=== PATIENT | male | born 1950 | race Caucasian/White ===

== ENCOUNTER 2024-02-29 12:28 | Inpatient (IN) | payer OTHER ==
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
[2024-02-29 15:54] LABS: Anisocytosis Slight; Basophils % (A) 0 %; Eosinophils # (A) 0.1 k/uL (0-0.7); Eosinophils % (A) 1 %; HCT 39.7 % (39.0-53.0); HGB 12.5 gm/dL (13.0-17.5); Hypochromasia Slight; Lymphocytes # (A) 0.7 k/uL (1.0-4.8); Lymphocytes % (A) 10 %; MCH 31.2 pg (25.0-35.0); MCHC 31.4 g/dL (31.0-37.0); MCV 99.2 fL (80.0-100.0); Macrocytosis Slight; Mean Platelet Volume 8.6; Monocytes # (A) 0.4 k/uL (0-1.0); Monocytes % (A) 5 %; Neutrophils # (A) 6.1 k/uL (1.3-7.7); Neutrophils % (A) 83 %; Platelet Count 157 k/uL (150-450); RDW 16.2 % (11.5-15.5); WBC 7.3 k/uL (3.8-10.6)
[2024-02-29 16:11] LABS: ALT 12 U/L (4-49); AST 17 U/L (17-59); African American GFR (CKD) >90 (>60 ml/min/1.73 sqM); Albumin 3.3 g/dL (3.5-5.0); Alkaline Phosphatase 102 U/L (38-126); Anion Gap 5 mmol/L; Blood Urea Nitrogen 14 mg/dL (9-20); Calcium 7.9 mg/dL (8.4-10.2); Carbon Dioxide 24 mmol/L (22-30); Chloride 107 mmol/L (98-107); Glucose 99 mg/dL (74-99); Non-African American GFR(CKD) 88 (>60 ml/min/1.73 sqM); Potassium 4.4 mmol/L (3.5-5.1); Sodium 136 mmol/L (137-145); Total Protein 6.2 g/dL (6.3-8.2)
[2024-02-29 16:17] LABS: NT-Pro-B-Type Natriuretic Pept 499 pg/mL
[2024-02-29] MEDS ORDERED: ONDANSETRON 4 MG/2 ML VIAL IVP PRN (18:28)
[2024-02-29] MEDS ORDERED: MORPHINE SULFATE 4 MG/ML SYRINGE IV PRN (18:28)
[2024-02-29] MEDS ORDERED: NALOXONE 0.4 MG/ML 1 ML VIAL IV PRN (18:28)
[2024-02-29] MEDS ORDERED: VANCOMYCIN IV PER PHARMACY 1 EACH MISC MISCELLANE PRN (18:29)
[2024-02-29] MEDS: SODIUM CHLORIDE 0.9% 1,000 ML IV SCH (19:00)
--- NOTE | 2024-02-29 19:34 | XR ---
EXAMINATION TYPE: XR tibia fibula bilateral DATE OF EXAM: 02/29/2024 7:01 PM COMPARISON: None CLINICAL INDICATION: Male, 74 years old with history of pain; TECHNIQUE: XR tibia fibula bilateral; examined in AP and lateral projections. FINDINGS: No evidence of any acute osseous pathology. Diffuse soft tissue edema throughout the lower extremity. No subcutaneous gas or evidence for osseous erosion. Degeneration changes of the knees with joint space tearing osteophyte formation. Degeneration changes of the ankle with osteophyte formation and joint space tearing. IMPRESSION: 1. No evidence of acute fracture. 2. Soft tissue edema of the bilateral lower extremities. No evidence for osteomyelitis. 3. 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 [facility], Workstation: [id number], 02/29/2024 7:32 PM
[2024-02-29] MEDS: VANCOMYCIN 1,500 MG in SODIUM CHLORIDE 0.9% 500 ML 500 ML IVPB ONE (20:04)
--- NOTE | 2024-02-29 21:24 | US ---
EXAMINATION TYPE: US venous doppler duplex LE DATE OF EXAM: 02/29/2024 8:16 PM COMPARISON: US 2014 CLINICAL INDICATION: Male, 74 years old with history of DVT; Pain, swelling, cellulitis, ulcers on amina th calves, Pain, Swelling TECHNIQUE: The lower extremity deep venous system is examined utilizing real time linear array sonog vandana with graded compression, color doppler sonography, and spectral doppler. SIDE PERFORMED: Bilateral FINDINGS: VESSELS IMAGED: Common Femoral Vein Deep Femoral Vein Greater Saphenous Vein * Femoral Vein Popliteal Vein Small Saphenous Vein * Proximal Calf Veins (* superficial vessels) Slightly limited due to edema Right Leg: Negative for DVT Left Leg: Negative for DVT IMPRESSION: No ultrasound evidence for deep venous thrombosis. [facility], , 02/29/2024 9:22 PM
--- NOTE | 2024-02-29 22:13 | CT ---
EXAMINATION TYPE: CT chest angio for PE DATE OF EXAM: 02/29/2024 9:55 PM COMPARISON: None CLINICAL INDICATION: Male, 74 years old with history of elev d dimer, PE?; r/o pe TECHNIQUE/CONTRAST: CTA scan of the thorax is performed with IV Contrast, patient injected with 100 mL of Isovue 370, MIP images are created and reviewed these are created on a separate workstation.. CT DLP: 579.1 mGycm, Automated exposure control for dose reduction was used. FINDINGS: Pulmonary Artery: There is no evidence for a filling defect within the pulmonary vasculature to sugge st acute pulmonary embolism. The pulmonary artery is of normal size. Lungs/Pleura: No evidence of focal consolidation, pleural effusion or pneumothorax. 5 mm right upper lobe pulmonary nodule. 3 mm left upper lobe pulmonary nodule. Airway: Large airways are patent. Heart: Heart is within normal limits for size. Vasculature: No evidence of aortic aneurysm. Mediastinum: No gross evidence of adenopathy. Musculoskeletal: No acute osseous abnormalities Soft Tissues/lymph nodes: Unremarkable. Lower neck: No significant findings. Upper Abdomen: No significant findings. IMPRESSION: 1. No evidence of pulmonary embolism. 2. 5 mm right upper lobe pulmonary nodule. Short-term follow-up in 6-12 months recommended to ensure stability. r Follow up recommendations for incidental pulmonary nodules, if there are any, are per [employer]?s [employer] or [employer]. https://radiopaedia.org/articles/govrquhvgh-ylqtcln-huedulawl-rxdojk-srrhindaktysdeg-[email or web address]?lang=us [facility], , 02/29/2024 10:11 PM
[2024-03-01] MEDS: VANCOMYCIN 1,500 MG in SODIUM CHLORIDE 0.9% 500 ML 500 ML IVPB SCH (08:46)
[2024-03-01 08:49] LABS: ALT 8 U/L (10-49); AST 12 U/L (14-35); Albumin 2.9 g/dL (3.8-4.9); Albumin/Globulin Ratio 1.38 Ratio (1.60-3.17); Alkaline Phosphatase 82 U/L (41-126); BUN/Creat Ratio 15.12 Ratio (12.00-20.00); Blood Urea Nitrogen 12.1 mg/dL (9.0-27.0); Calcium 7.4 mg/dL (8.7-10.3); Carbon Dioxide 21.1 mmol/L (21.6-31.8); Chloride 106 mmol/L (96-109); Globulin 2.1 g/dL (1.6-3.3); Glucose 104 mg/dL (70-110); Phosphorus 3.2 mg/dL (2.4-5.1); Potassium 3.8 mmol/L (3.5-5.5); Sodium 138 mmol/L (135-145); Total Bilirubin 0.6 mg/dL (0.3-1.2)
[2024-03-01 08:53] LABS: Basophils # (A) 0.01 X 10*3/uL (0.00-0.10); Basophils % (A) 0.2 %; Eosinophils # (A) 0.01 X 10*3/uL (0.04-0.35); Eosinophils % (A) 0.2 %; HCT 31.9 % (39.6-50.0); Lymphocytes # (A) 0.72 X 10*3/uL (0.90-5.00); MCH 31.3 pg (27.0-32.0); MCHC 31.3 g/dL (32.0-37.0); MCV 99.7 FL (80.0-97.0); Mean Platelet Volume 9.9 FL (9.5-12.2); Monocytes # (A) 0.44 X 10*3/uL (0.20-1.00); Monocytes % (A) 8.6 %; NRBC Per 100 WBC 0.07 X 10*3/uL (0.00-0.01); Neutrophils # (A) 3.93 X 10*3/uL (1.80-7.70); Neutrophils % (A) 76.4 %; Platelet Count 129 X 10*3/uL (140-440); RDW 14.8 % (11.5-14.5); WBC 5.14 X 10*3/uL (4.50-10.00)
[2024-03-01] MEDS ORDERED: ACETAMINOPHEN TAB 325 MG TAB PO PRN (10:14)
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
[2024-03-01] MEDS: FUROSEMIDE 10 MG/ML 2 ML VIAL IV SCH (11:11)
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
[2024-03-01] MEDS: ZINC OXIDE PASTE (Z-GUARD) 1 APPLIC TOPICAL SCH (15:14)
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
[2024-03-02] MEDS: ENOXAPARIN 40 MG/0.4 ML SYRINGE SQ SCH (08:04)
[2024-03-02 08:28] LABS: Blood Urea Nitrogen 14.1 mg/dL (9.0-27.0); Calcium 7.5 mg/dL (8.7-10.3); Carbon Dioxide 22.5 mmol/L (21.6-31.8); Chloride 106 mmol/L (96-109); Glucose 100 mg/dL (70-110); Potassium 3.6 mmol/L (3.5-5.5); Sodium 138 mmol/L (135-145)
--- NOTE | 2024-03-02 12:28 | P.PN ---
Subjective Progress Note Date: 03/02/24 Principal diagnosis: Reason for follow-up is bilateral lower extremity ulcer and cellulitis Patient is a 74-year-old male with no significant past medical history presenting to the hospital for evaluation of increasing swelling and redness especially to the left lower extremity that apparently has been going on for few weeks has been diagnosed with a venous stasis ulcer and cellulitis. On today's evaluation that is 03/02/2024,the patient did have resolution of his fever is afebrile this morning patient is breathing comfortable room air no chest pain shortness of breath or cough no abdominal pain or any worsening pain to the lower extremity. Patient did have 1 creatinine 1.0 no CBC was done today no cultures Objective - Vital Signs Vital signs: Vital Signs Temp 98.5 F 03/02/24 12:24 Pulse 92 03/02/24 12:24 Resp 18 03/02/24 12:24 BP 107/66 03/02/24 12:24 Pulse Ox 97 03/02/24 07:40 FiO2 Intake & Output 03/01/24 03/02/24 03/02/24 18:59 06:59 18:59 Intake Total 1126 928 240 Balance 1126 928 240 Intake: Intake, IV Titration 650 100 Amount Sodium Chloride 0.9% 1, 50 000 ml @ 75 mls/hr IV . [id number] [facility] Rx#:[id number] Vancomycin 1,500 mg In 500 Sodium Chloride 0.9% 500 ml 500 ml @ 167 mls/hr IVPB Q12H [facility] Rx#: [id number] ceFAZolin 2 gm In Sodium 50 Chloride 0.9% 50 ml @ 100 mls/hr IVPB Q8HR [facility] Rx# :[id number] cefTRIAXone 2 gm In 100 50 Sodium Chloride 0.9% 50 ml @ 100 mls/hr IVPB Q24HR [facility] Rx#:[id number] Oral 476 828 240 Other: Voiding Method Toilet Toilet Toilet # Voids 3 2 - Exam GENERAL DESCRIPTION: An elderly male lying in bed in no distress RESPIRATORY SYSTEM: Unlabored breathing , decreased breath sounds at bases HEART: S1 S2 regular rate and rhythm , ABDOMEN: Soft , no tenderness EXTREMITIES: Bilateral lower extremity ulcer redness has decreased no drainage - Labs CBC & Chem 7: 03/01/24 04:58 10/30/24 05:07 Labs: Abnormal Lab Results - Last 24 Hours (Table) 03/02/24 Range/Units 05:07 Calcium 7.5 L (8.7-10.3) mg/dL Assessment and Plan (1) Leg ulcer, left Current Visit: Yes Status: Acute Code(s): L97.929 - NON-PRS CHRONIC [facility] UNSP PRT OF L LOW LEG W UNSP SEVERITY SNOMED Code(s): 67205094 (2) Left leg cellulitis Current Visit: Yes Status: Acute Code(s): L03.116 - CELLULITIS OF LEFT LOWER LIMB SNOMED Code(s): 48290185942242690 Plan: 1patient presented to hospital with increasing swelling bilateral extremity predominantly to the left lower leg with evidence of surrounding swelling and redness likely and venous stasis ulcer with secondary cellulitis as the patient did report problem with increasing swelling to the lower extremity and likely from gram-positive skin arthur. 2patient to continue with cefazolin 2 g every 8 hours and local wound care per wound care Dictation was produced using [employer] dictation software. please excuse any grammatical, word or spelling errors. Time with Patient: Less than 30
--- NOTE | 2024-03-02 22:20 | P.PN ---
Subjective Progress Note Date: 03/02/24 Pulm patient is an 74-year-old male admitted for bilateral lower EXTR with Eliquis patient has chronic venous stasis anddermatosis secondary to venous stasis for long time and has been getting worse with increased redness and localized temperature patient has some skin breakdown in bilateral lower extremities as well patient has extensive cellulitis of the left lower extremity and some cellulitis of the right lower extremity. Apparently patient had maggots on the extremities on arrival to ER. Patient was tested for diabetes mellitus about an year ago and does not have diabetes mellitus as per the p atient. Patient had a elevated D-dimer because of which CT angio of the chest was obtained which was negative for DVT patient although he has a prior 5 mm pulmonary nodule for which patient will need to follow-up with pulmonary as an outpatient although patient is not a smoker. 03/02/2024 Patient evaluated today in follow up on the medical floor. He continues on IV cefazolin for extensive lower extremity ulcerations. Sitting up on the edge of the bed. Electrolytes are WNL. Review of Systems Constitutional: Denied any fatigue denied any fever. Cardio vascular: denied any chest pain, palpitations Gastrointestinal: denied any nausea, vomiting, diarrhea Pulmonary: Denied any shortness of breath cough Neurologic denied any new focal deficits All inpatient medications were reviewed and appropriate changes in these medications as dictated in the interval history and assessment and plan. PHYSICAL EXAMINATION: GENERAL: The patient is alert and oriented x3, not in any acute distress. Well developed, well nourished. HEENT: Pupils are round and equally reacting to light. EOMI. No scleral icterus. No conjunctival pallor. Normocephalic, atraumatic. No pharyngeal erythema. No thyromegaly. CARDIOVASCULAR: S1 and S2 present. No murmurs, rubs, or gallops. PULMONARY: Chest is clear to auscultation, no wheezing or crackles. ABDOMEN: Soft, nontender, nondistended, normoactive bowel sounds. No palpable organomegaly. MUSCULOSKELETAL: No joint swelling or deformity. EXTREMITIES: No cyanosis, clubbing, or pedal edema. NEUROLOGICAL: Gross neurological examination did not reveal any focal deficits. SKIN: As mentioned in the HPI Assessment and plan -Bilateral lower extremity chronic venous ulceration and inflammation of bilateral lower extremities -Ruled out pulmonary embolism and DVT and osteomyelitis -Bilateral chronic venous stasis for which patient will be started on IV Lasix 40 mg daily -5 mm pulmonary nodule for which patient will need to follow-up with pulmonary as an outpatient DVT prophylaxis: Lovenox 40 mg subcutaneous GI prophylaxis: Protonix Full Code The impression and plan of care has been dictated by Nat Rees, Nurse Practitioner as directed. Dr. Remedios MD I have performed a history and physical examination and medical decision making of this patient, discussed the same with the dictator, and agree with the dictators assessment and plan as written, documented as a scribe. Based on total visit time, I have performed more than 50% of this visit Objective - Vital Signs Vital signs: Vital Signs Temp 98.2 F 03/02/24 13:51 Pulse 80 03/02/24 15:38 Resp 15 03/02/24 13:51 BP 133/79 03/02/24 13:51 Pulse Ox 97 03/02/24 13:51 FiO2 Intake & Output 03/01/24 03/02/24 03/02/24 18:59 06:59 18:59 Intake Total 1126 928 598 Balance 1126 928 598 Intake: Intake, IV Titration 650 100 Amount Sodium Chloride 0.9% 1, 50 000 ml @ 75 mls/hr IV . [id number] [facility] Rx#:[id number] Vancomycin 1,500 mg In 500 Sodium Chloride 0.9% 500 ml 500 ml @ 167 mls/hr IVPB Q12H [facility] Rx#: [id number] ceFAZolin 2 gm In Sodium 50 Chloride 0.9% 50 ml @ 100 mls/hr IVPB Q8HR [facility] Rx# :[id number] cefTRIAXone 2 gm In 100 50 Sodium Chloride 0.9% 50 ml @ 100 mls/hr IVPB Q24HR [facility] Rx#:[id number] Oral [id number] [id number] Other: Voiding Method Toilet Toilet Toilet Bedside Commode # Voids 3 1 - Labs CBC & Chem 7: 03/01/24 04:58 03/02/24 05:07 Labs: Abnormal Lab Results - Last 24 Hours (Table) 03/02/24 Range/Units 05:07 Calcium 7.5 L (8.7-10.3) mg/dL Assessment and Plan Time with Patient: Less than 30
[2024-03-03] MEDS: PANTOPRAZOLE 40 MG TABLET PO SCH (09:05)
--- NOTE | 2024-03-03 14:23 | P.PN ---
Subjective Progress Note Date: 03/03/24 Principal diagnosis: Reason for follow-up is bilateral lower extremity ulcer and cellulitis Patient is a 74-year-old male with no significant past medical history presenting to the hospital for evaluation of increasing swelling and redness especially to the left lower extremity that apparently has been going on for few weeks has been diagnosed with a venous stasis ulcer and cellulitis. On today's evaluation that is 03/03/2024,the patient remains to be afebrile, pat ient is on room air not requiring supplemental oxygen and denies any shortness of breath no chest pain or cough.Patient denies having any nausea or vomiting, no abdominal pain and no diarrhea has been reported, the patient has been to lower extremity feeling better. No new lab has been obtained today his creatinine was 1.0 as of yesterday no cultures Objective - Vital Signs Vital signs: Vital Signs Temp 97.8 F 03/03/24 12:40 Pulse 87 03/03/24 12:40 Resp 18 03/03/24 12:40 BP 125/73 03/03/24 12:40 Pulse Ox 98 03/03/24 12:40 FiO2 Intake & Output 03/02/24 03/03/24 03/03/24 18:59 06:59 18:59 Intake Total 2698 Balance 2698 Intake: Oral 2698 Other: Voiding Method Toilet Toilet Bedside Commode Bedside Commode # Voids 6 2 # Bowel Movements 1 1 - Exam GENERAL DESCRIPTION: An elderly male lying in bed in no distress RESPIRATORY SYSTEM: Unlabored breathing , decreased breath sounds at bases HEART: S1 S2 regular rate and rhythm , ABDOMEN: Soft , no tenderness EXTREMITIES: Bilateral lower extremity ulcer currently dressed no drainage on the dressing - Labs CBC & Chem 7: 03/01/24 04:58 03/02/24 05:07 Assessment and Plan (1) Leg ulcer, left Current Visit: Yes Status: Acute Code(s): L97.929 - NON-PRS CHRONIC [facility] UNSP PRT OF L LOW LEG W UNSP SEVERITY SNOMED Code(s): 36015495 (2) Left leg cellulitis Current Visit: Yes Status: Acute Code(s): L03.116 - CELLULITIS OF LEFT LOWER LIMB SNOMED Code(s): 10826758079326363 Plan: 1patient presented to hospital with increasing swelling bilateral extremity predominantly to the left lower leg with evidence of surrounding swelling and re dness likely and venous stasis ulcer with secondary cellulitis as the patient did report problem with increasing swelling to the lower extremity and likely from gram-positive skin arthur. 2patient seem to have show some clinical improvement, will continue with cefazolin 2 g every 8 hours and local wound care per wound care finishing therapy with oral Keflex Dictation was produced using [employer] dictation software. please excuse any grammatical, word or spelling errors. Time with Patient: Less than 30
--- NOTE | 2024-03-03 14:55 | P.PN ---
Subjective Progress Note Date: 03/03/24 Pulm patient is an 74-year-old male admitted for bilateral lower EXTR with Eliquis patient has chronic venous stasis anddermatosis secondary to venous stasis for long time and has been getting worse with increased redness and localized temperature patient has some skin breakdown in bilateral lower extremities as well patient has extensive cellulitis of the left lower extremity and some cellulitis of the right lower extremity. Apparently patient had maggots on the extremities on arrival to ER. Patient was tested for diabetes mellitus about an year ago and does not have diabetes mellitus as per the p atient. Patient had a elevated D-dimer because of which CT angio of the chest was obtained which was negative for DVT patient although he has a prior 5 mm pulmonary nodule for which patient will need to follow-up with pulmonary as an outpatient although patient is not a smoker. 03/02/2024 Patient evaluated today in follow up on the medical floor. He continues on IV cefazolin for extensive lower extremity ulcerations. Sitting up on the edge of the bed. Electrolytes are WNL. 03/03/2024 Patient evaluated today in follow up on the medical floor. No acute complaints. Continues on IV cefazolin. Review of Systems Constitutional: Denied any fatigue denied any fever. Cardio vascular: denied any chest pain, palpitations Gastrointestinal: denied any nausea, vomiting, diarrhea Pulmonary: Denied any shortness of breath cough Neurologic denied any new focal deficits All inpatient medications were reviewed and appropriate changes in these medications as dictated in the interval history and assessment and plan. PHYSICAL EXAMINATION: GENERAL: The patient is alert and oriented x3, not in any acute distress. Well developed, well nourished. HEENT: Pupils are round and equally reacting to light. EOMI. No scleral icterus. No conjunctival pallor. Normocephalic, atraumatic. No pharyngeal erythema. No thyromegaly. CARDIOVASCULAR: S1 and S2 present. No murmurs, rubs, or gallops. PULMONARY: Chest is clear to auscultation, no wheezing or crackles. ABDOMEN: Soft, nontender, nondistended, normoactive bowel sounds. No palpable organomegaly. MUSCULOSKELETAL: No joint swelling or deformity. EXTREMITIES: No cyanosis, clubbing, or pedal edema. NEUROLOGICAL: Gross neurological examination did not reveal any focal deficits. SKIN: As mentioned in the HPI Assessment and plan -Bilateral lower extremity chronic venous ulceration and inflammation of bilateral lower extremities will continue on IV cefazolin for one more day with plans to DC tomorrow on oral antibiotics. -Ruled out pulmonary embolism and DVT and osteomyelitis -Bilateral chronic venous stasis for which patient will be started on IV Lasix 40 mg daily -5 mm pulmonary nodule for which patient will need to follow-up with pulmonary as an outpatient DVT prophylaxis: Lovenox 40 mg subcutaneous GI prophylaxis: Protonix Full Code The impression and plan of care has been dictated by Nat Rees, Nurse Practitioner as directed. Dr. Remedios MD I have performed a history and physical examination and medical decision making of this patient, discussed the same with the dictator, and agree with the dictators assessment and plan as written, documented as a scribe. Based on total visit time, I have performed more than 50% of this visit Objective - Vital Signs Vital signs: Vital Signs Temp 98.2 F 03/03/24 14:08 Pulse 97 03/03/24 14:08 Resp 20 03/03/24 14:08 BP 107/61 03/03/24 14:08 Pulse Ox 97 03/03/24 14:08 FiO2 Intake & Output 03/02/24 03/03/24 03/03/24 18:59 06:59 18:59 Intake Total 2698 Balance 2698 Intake: Oral 2698 Other: Voiding Method Toilet Toilet Bedside Commode # Voids 6 2 # Bowel Movements 1 1 - Labs CBC & Chem 7: 03/01/24 04:58 03/02/24 05:07 Assessment and Plan Time with Patient: Less than 30
[2024-03-04 07:29] VITALS: RESP 18
[2024-03-04 12:18] VITALS: BP 125/77; PULSE 89; TEMP 97.7
[2024-03-04 13:22] LABS: BUN/Creat Ratio 12.44 Ratio (12.00-20.00); Blood Urea Nitrogen 11.2 mg/dL (9.0-27.0); Calcium 7.6 mg/dL (8.7-10.3); Carbon Dioxide 25.6 mmol/L (21.6-31.8); Chloride 108 mmol/L (96-109); Glucose 95 mg/dL (70-110); Potassium 3.5 mmol/L (3.5-5.5); Sodium 143 mmol/L (135-145)
--- NOTE | 2024-03-04 15:45 | P.PN ---
Subjective Progress Note Date: 03/04/24 Principal diagnosis: Reason for follow-up is bilateral lower extremity ulcer and cellulitis Patient is a 74-year-old male with no significant past medical history presenting to the hospital for evaluation of increasing swelling and redness especially to the left lower extremity that apparently has been going on for few weeks has been diagnosed with a venous stasis ulcer and cellulitis. On today's evaluation that is 03/04/2024, the patient continues to be afebrile, the patient is on room air and breathing comfortably, the Pt denies having any chest pain or cough, the patient denies having any abdominal pain no vomiting or any diarrhea denies pain to the lower extremity. Patient did have a creatinine of 0.9 no CBC was done today and no cultures Objective - Vital Signs Vital signs: Vital Signs Temp 97.7 F 03/04/24 12:17 Pulse 89 03/04/24 12:17 Resp 18 03/04/24 12:17 BP 125/77 03/04/24 12:17 Pulse Ox 99 03/04/24 12:17 FiO2 Intake & Output 03/03/24 03/04/24 03/04/24 18:59 06:59 18:59 Intake Total 360 118 Balance 360 118 Intake: Oral 360 118 Other: Voiding Method Toilet Toilet # Voids 3 1 # Bowel Movements 2 - Exam GENERAL DESCRIPTION: An elderly male lying in bed in no distress RESPIRATORY SYSTEM: Unlabored breathing , decreased breath sounds at bases HEART: S1 S2 regular rate and rhythm , ABDOMEN: Soft , no tenderness EXTREMITIES: Bilateral lower extremity ulcer currently dressed no drainage on the dressing - Labs CBC & Chem 7: 03/01/24 04:58 03/04/24 06:42 Assessment and Plan (1) Leg ulcer, left Status: Acute Code(s): L97.929 - NON-PRS CHRONIC ULC UNSP PRT OF L LOW LEG W UNSP SEVERITY SNOMED Code(s): 74312444 (2) Left leg cellulitis Status: Acute Code(s): L03.116 - CELLULITIS OF LEFT LOWER LIMB SNOMED Code(s): 34982940678394623 Plan: 1patient presented to hospital with increasing swelling bilateral extremity predominantly to the left lower leg with evidence of surrounding swelling and redness likely and venous stasis ulcer with secondary cellulitis as the patient did report problem with increasing swelling to the lower extremity and likely from gram-positive skin arthur. 2patient has shown clinical appointment on cefazolin he will finish therapy with oral Keflex local wound care to continue per the wound care team discussed with LEAD JAVA DEVELOPER ARCHITECT for admitting team Dictation was produced using [employer] dictation software. please excuse any grammatical, word or spelling errors. Time with Patient: Less than 30
--- NOTE | 2024-03-05 15:10 | P.DS ---
Providers Date of admission: 02/29/24 18:30 Attending physician: Herson Brandon Consults: 02/29/24 18:50 Consult Physician Routine Consulting Provider: Kevin Flynn Consult Reason/Comments: Lower left leg infection Do you want consulting provider notified?: Yes Primary care physician: Nelson Mckeon Hospital Course: Final Diagnosis' -Bilateral lower extremity chronic venous ulceration and inflammation of bilateral lower extremities -Ruled out pulmonary embolism and DVT and osteomyelitis -Bilateral chronic venous stasis -5 mm pulmonary nodule for which patient will need to follow-up with pulmonary as an outpatient -Homelessness Discharge Disposition Patient stable for discharge home. Patient has issues with homelessness and refuses community resources. Him and his have been living out of his car and that is their choice on discharge. 1.Right lower extremity: Apply honey gel dry gauze rolled gauze secure with paper tape. Left lower extremity apply absorptive silver zinc to the periwound, dry gauze rolled gauze secure with paper tape. Wrap with Maury wrap bilaterally for compression. Elevate legs 30 minutes 3 times a day above the heart. Avoid sitting with legs dependent. Hospital Course Patient is an 74-year-old male admitted for bilateral lower extremity cellulitis patient has chronic venous stasis and dermatosis secondary to venous stasis for long time and has been getting worse with increased redness and localized temperature patient has some skin breakdown in bilateral lower extremities as well patient has extensive cellulitis of the left lower extremity and some jamila lulitis of the right lower extremity. Apparently patient had maggots on the extremities on arrival to ER. Patient was tested for diabetes mellitus about an year ago and does not have diabetes mellitus as per the patient. Patient had a elevated D-dimer because of which CT angio of the chest was obtained which was negative for DVT patient although he has a prior 5 mm pulmonary nodule for which patient will need to follow-up with pulmonary as an outpatient although patient is not a smoker. Venous Doppler was negative for DVT bilaterally. He was continued on IV cefazolin infectious disease followed the patient. Wound care evaluated the patient local wound care prescribed. He is a high risk for readmission. Please see medication reconciliation for a list of current medications. Thank you for allowing us to participate in the care of this patient. The impression and plan of care has been dictated by Nat Rees, Nurse Practitioner as directed. Dr. Remedios MD I have performed a history and physical examination and medical decision making of this patient, discussed the same with the dictator, and agree with the dictators assessment and plan as written, documented as a scribe. Based on total visit time, I have performed more than 50% of this visit. Patient Condition at Discharge: Fair Plan - Discharge Summary Discharge Rx Participant: No New Discharge Prescriptions: New Cephalexin [Keflex] 500 mg PO Q8HR 7 Days #21 cap Pantoprazole [Protonix] 40 mg PO AC-BRKFST #30 tab Discharge Medication List Cephalexin [Keflex] 500 mg PO Q8HR 7 Days #21 cap 03/04/24 [Rx] Pantoprazole [Protonix] 40 mg PO AC-BRKFST #30 tab 03/04/24 [Rx] Follow up Appointment(s)/Referral(s): Nelson Mckeon MD [Primary Care Provider] - 1-2 days [facility] [NON-STAFF] - 1 Week (please call to set up a follow up appointment) Kevin Flynn MD [STAFF PHYSICIAN] - 1 Week (please call the office to schedule a follow up appointment) Patient Instructions/Handouts: Cephalexin (By mouth), Pantoprazole (By mouth), Cellulitis (GEN) Activity/Diet/Wound Care/Special Instructions: Right lower extremity: Apply honey gel dry gauze rolled gauze secure with paper tape. Left lower extremity apply absorptive silver zinc to the periwound, dry gauze rolled gauze secure with paper tape. Wrap with Maury wrap bilaterally for compression. Elevate legs 30 minutes 3 times a day above the heart. Avoid s itting with legs dependent. Follow up at the [facility] Discharge/Stand Alone Forms: [facility], [facility], [place] [facility], Who Do I Call?, Community Resources, Help In The Home Discharge Disposition: HOME SELF-CARE
== END 2024-03-04 15:00 | disposition home or self-care (01) | DRG 603 ==
LOC: EC 12:28 → 5NMEDONC 18:30
PROVIDERS: ADMIT Hospitalist; ATTEND Hospitalist
DX: L03.116 Cellulitis of left lower limb (principal); Z59.00 Homelessness unspecified; L97.912 Non-pressure chronic ulcer of unspecified part of right lower leg with fat layer exposed; L97.922 Non-pressure chronic ulcer of unspecified part of left lower leg with fat layer exposed; I87.333 Chronic venous hypertension (idiopathic) with ulcer and inflammation of bilateral lower extremity; L03.115 Cellulitis of right lower limb; I87.8 Other specified disorders of veins; I10 Essential (primary) hypertension; Z87.891 Personal history of nicotine dependence; Z79.899 Other long term (current) drug therapy
CPT/HCPCS: 36415; 71275; 80048; 80053; 83036; 83605; 83735; 83880; 84100; 85025; 85379; 86140; 93970; 96365; 96366; 96367; 99284

== ENCOUNTER 2024-07-25 12:47 | Inpatient (IN) | payer MEDICARE, OTHER ==
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
[2024-07-25 17:14] LABS: Anisocytosis Slight; Basophils % (A) 0 %; Eosinophils # (A) 0.1 k/uL (0-0.7); Eosinophils % (A) 1 %; HCT 40.5 % (39.0-53.0); HGB 12.5 gm/dL (13.0-17.5); Hypochromasia Moderate; Lymphocytes # (A) 0.7 k/uL (1.0-4.8); Lymphocytes % (A) 8 %; MCH 29.8 pg (25.0-35.0); MCHC 30.9 g/dL (31.0-37.0); MCV 96.3 fL (80.0-100.0); Mean Platelet Volume 9.2; Monocytes # (A) 0.5 k/uL (0-1.0); Monocytes % (A) 6 %; Neutrophils # (A) 6.8 k/uL (1.3-7.7); Neutrophils % (A) 84 %; Platelet Count 165 k/uL (150-450); RDW 16.1 % (11.5-15.5); WBC 8.1 k/uL (3.8-10.6)
[2024-07-25 17:25] LABS: ALT 25 U/L (4-49); African American GFR (CKD) >90 (>60 ml/min/1.73 sqM); Anion Gap 10 mmol/L; Blood Urea Nitrogen 17 mg/dL (9-20); Calcium 8.1 mg/dL (8.4-10.2); Carbon Dioxide 23 mmol/L (22-30); Chloride 101 mmol/L (98-107); Glucose 92 mg/dL (74-99); Non-African American GFR(CKD) >90 (>60 ml/min/1.73 sqM); Sodium 134 mmol/L (137-145)
[2024-07-25 17:27] LABS: AST 32 U/L (17-59); Albumin 3.6 g/dL (3.5-5.0); Alkaline Phosphatase 122 U/L (38-126); Potassium 5.8 mmol/L (3.5-5.1); Total Bilirubin 1.2 mg/dL (0.2-1.3); Total Protein 7.3 g/dL (6.3-8.2)
[2024-07-25] MEDS ORDERED: VANCOMYCIN IV PER PHARMACY 1 EACH MISC MISCELLANE PRN (18:28)
[2024-07-25] MEDS ORDERED: ONDANSETRON 4 MG/2 ML VIAL IVP PRN (19:08)
[2024-07-25] MEDS ORDERED: MORPHINE SULFATE 4 MG/ML SYRINGE IV PRN (19:08)
[2024-07-25] MEDS ORDERED: NALOXONE 0.4 MG/ML 1 ML VIAL IV PRN (19:08)
--- NOTE | 2024-07-25 19:43 | XR ---
EXAMINATION TYPE: XR tibia fibula bilateral DATE OF EXAM: 07/25/2024 6:58 PM COMPARISON: None CLINICAL INDICATION: Male, 74 years old with history of pain, pain TECHNIQUE: XR tibia fibula bilateral; examined in AP and lateral projections. FINDINGS: Left: Diffuse soft tissue swelling of the left lower extremity without evidence for osseous erosion. There is a large os trigonum present. There is moderate degeneration changes of left patellofemoral joint. No evidence for fracture. No subcutaneous gas. Right: Diffuse soft tissue swelling with severe degeneration changes of the knee with joint space narrowing worse in the lateral knee compartment and patellofemoral joint. Large os trigonum noted. No evidence for osseous erosion. No subcutaneous gas. No evidence for fracture. IMPRESSION: Left: 1. Diffuse soft tissue swelling without evidence for osseous erosion or subcutaneous gas... 2. No evidence for fracture. 3. Large os trigonum present. Right: 1. Diffuse soft tissue swelling without evidence for osseous erosion or subcutaneous gas.. 2. 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 3. Large os trigonum present. 4. No evidence for fracture. [facility], , 07/25/2024 7:40 PM
[2024-07-25] MEDS: SODIUM CHLORIDE 0.9% 1,000 ML IV SCH (19:50)
[2024-07-25] MEDS: VANCOMYCIN 1,500 MG in SODIUM CHLORIDE 0.9% 500 ML 500 ML IVPB ONE (20:25)
[2024-07-26 02:21] LABS: Erythrocyte Sedimentation Rate 88 mm/Hr (0-20)
[2024-07-26] MEDS ORDERED: VANCOMYCIN 1,500 MG in SODIUM CHLORIDE 0.9% 500 ML 500 ML IVPB SCH (08:00)
[2024-07-26] MEDS: VANCOMYCIN 1,500 MG in SODIUM CHLORIDE 0.9% 500 ML 500 ML IVPB SCH (08:55)
[2024-07-26 10:21] LABS: Basophils # (A) 0.03 X 10*3/uL (0.00-0.10); Basophils % (A) 0.6 %; Eosinophils # (A) 0.03 X 10*3/uL (0.04-0.35); Eosinophils % (A) 0.6 %; HCT 30.4 % (39.6-50.0); HGB 9.3 g/dL (13.0-17.0); Lymphocytes # (A) 0.52 X 10*3/uL (0.90-5.00); Lymphocytes % (A) 10.3 %; MCH 29.7 pg (27.0-32.0); MCHC 30.6 g/dL (32.0-37.0); MCV 97.1 FL (80.0-97.0); Monocytes % (A) 7.9 %; NRBC Per 100 WBC 0.05 X 10*3/uL (0.00-0.01); Neutrophils # (A) 4.03 X 10*3/uL (1.80-7.70); Neutrophils % (A) 79.8 %; Platelet Count 136 X 10*3/uL (140-440); RBC 3.13 X 10*6/uL (4.40-5.60); RDW 14.5 % (11.5-14.5); WBC 5.05 X 10*3/uL (4.50-10.00)
[2024-07-26 10:27] LABS: ALT 18 U/L (10-49); AST 21 U/L (14-35); Albumin 2.7 g/dL (3.8-4.9); Albumin/Globulin Ratio 1.23 Ratio (1.60-3.17); Alkaline Phosphatase 110 U/L (41-126); Calcium 7.5 mg/dL (8.7-10.3); Carbon Dioxide 23.5 mmol/L (21.6-31.8); Chloride 106 mmol/L (96-109); Globulin 2.2 g/dL (1.6-3.3); Glucose 100 mg/dL (70-110); Phosphorus 3.1 mg/dL (2.4-5.1); Potassium 3.9 mmol/L (3.5-5.5); Sodium 138 mmol/L (135-145); Total Bilirubin 0.7 mg/dL (0.3-1.2); Total Protein 4.9 g/dL (6.2-8.2)
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
--- NOTE | 2024-07-27 11:03 | US ---
EXAMINATION TYPE: US venous doppler duplex LE BI DATE OF EXAM: 07/27/2024 8:34 AM COMPARISON: Bilateral lower extremity venous ultrasound 02/29/2024 CLINICAL INDICATION: Male, 74 years old with history of swelling; swelling, no h/o dvt, cellulitis, p atient had maggots in his wounds TECHNIQUE: The lower extremity deep venous system is examined utilizing real time linear array sonog vandana with graded compression, color doppler sonography, and spectral doppler. SIDE PERFORMED: Bilateral FINDINGS: VESSELS IMAGED: Common Femoral Vein Deep Femoral Vein Greater Saphenous Vein * Femoral Vein Popliteal Vein Small Saphenous Vein * Proximal Calf Veins (* superficial vessels) unable to do compression images due to patient lack of pain tolerance, good color flow and doppler seen Right Leg: Negative for DVT, Color Doppler imaging shows patency of the vessels. Spectral waveforms are within normal limits. Left Leg: Negative for DVT, Color Doppler imaging shows patency of the vessels. Spectral waveforms a re within normal limits. IMPRESSION: No visualized deep venous thrombosis of the bilateral lower extremities however patient was unable to tolerate compressibility throughout both lower extremities due to pain tolerance. [facility], , 07/27/2024 11:01 AM
--- NOTE | 2024-07-27 17:31 | P.PN ---
Subjective Progress Note Date: 07/27/24 Principal diagnosis: Reason for follow-up is left lower extremity ulcer and cellulitis Patient is a 74-year-old male with a past medical history significant for chronic bilateral lower extremity edema and venous ulcer presenting to the hospital for evaluation of left leg swelling and drainage has been diagnosed with ulcer and cellulitis lower extremity Doppler negative for DVT. On today's evaluation that is 07/27/2024,the patient denies any fever or any chills, patient is breathing comfortably on room air, the patient denies chest pain shortness of breath and no significant cough, patient denies abdominal pain, no nausea vomiting or diarrhea. Still complaining of drainage from the left lower extremity. The patient white count is 5.05, creatinine 0.8 blood cultures are pending Objective - Vital Signs Vital signs: Vital Signs Temp 98.1 F 07/27/24 07:06 Pulse 82 07/27/24 07:06 Resp 18 07/27/24 07:06 BP 102/61 07/27/24 07:06 Pulse Ox 96 07/27/24 07:06 FiO2 Intake & Output 07/26/24 07/27/24 07/27/24 18:59 06:59 18:59 Weight 79.379 kg Other: # Voids 1 - Exam GENERAL DESCRIPTION: An elderly male lying in bed in no distress RESPIRATORY SYSTEM: Unlabored breathing , decreased breath sounds at bases HEART: S1 S2 regular rate and rhythm , ABDOMEN: Soft , no tenderness EXTREMITIES: Left lower extremity superficial ulceration no significant slough tissue swelling and some redness - Labs CBC & Chem 7: 07/26/24 06:23 07/26/24 06:23 Labs: Microbiology - Last 24 Hours (Table) 07/25/24 19:33 Blood Culture - Preliminary Blood Assessment and Plan (1) Left leg cellulitis Current Visit: Yes Status: Acute Code(s): L03.116 - CELLULITIS OF LEFT LOWER LIMB SNOMED Code(s): 90781454513408264 (2) Leg ulcer, left Current Visit: Yes Status: Acute Code(s): L97.929 - NON-PRS CHRONIC ULC UNSP PRT OF L LOW LEG W UNSP SEVERITY SNOMED Code(s): 54483258 Plan: 1patient did have bilateral lower extremity swelling more marked in the left leg with some erythema superficial ulceration likely venous stasis and secondary cellulitis likely from gram-positive skin arthur low risk factor for MRSA infection 2-we will check lower extremity Dopplers to make sure evidence of any DVT 3- ultrasound negative for DVT we will advise local care with dry Aquacel silver dressing to open area followed by Maury wrap change q. 24-48 depending on drainage 4patient to be treated with the cefazolin for his lower extremity cellulitis Dictation was produced using [employer] dictation software. please excuse any grammatical, word or spelling errors. Time with Patient: Less than 30
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
--- NOTE | 2024-07-27 21:16 | P.PN ---
Subjective Progress Note Date: 07/27/24 74-year-old male with a past medical history significant for chronic bilateral lower extremity edema and venous ulcer presenting to the hospital for evaluation of left leg swelling and drainage that apparently started few days before presentation to the hospital and the patient did have some clear fluid draining from the leg has been complaining of increasing pain describing it to be sharp moderate to severe intensity without any radiation with the send the patient has been evaluated on presentation to the hospital patient was afebrile and no fever have recorded subsequently patient was not tachycardic hypotensive or hypoxic he did have white count of 8.1 creatinine was 0.76 lactic acid was 2.6 liver enzymes are normal patient did have x-ray of the lower extremity did not show any fracture he was started on vancomycin infectious disease was consulted for further management of cellulitis Objective - Vital Signs Vital signs: Vital Signs Temp 97.7 F 07/27/24 14:17 Pulse 94 07/27/24 14:17 Resp 18 07/27/24 14:17 BP 128/65 07/27/24 14:17 Pulse Ox 97 07/27/24 14:17 FiO2 Intake & Output 07/26/24 07/27/24 07/27/24 18:59 06:59 18:59 Weight 79.379 kg Other: # Voids 1 - Exam GENERAL DESCRIPTION: Elderly male lying in bed, no distress. No tachypnea or accessory muscle of respiration use. HEENT: Shows Pallor , no scleral icterus. Oral mucous membrane is dry. No pharyngeal erythema or thrush NECK: Trachea central, no thyromegaly. LUNGS: Unlabored breathing. Clear to auscultation anteriorly. No wheeze or crackle. HEART: S1, S2, regular rate and rhythm. No loud murmur ABDOMEN: Soft, no tenderness , guarding or rigidity, no organomegaly EXTREMITIES: Left lower extremity with superficial ulceration swelling and redness SKIN: No rash, no masses palpable. NEUROLOGICAL: The patient is awake, alert, oriented x3, mood and affect normal. - Labs CBC & Chem 7: 07/26/24 06:23 07/26/24 06:23 Labs: Microbiology - Last 24 Hours (Table) 07/25/24 19:33 Blood Culture - Preliminary Blood Assessment and Plan Assessment: 1. Left leg cellulitis -- Patient received IV vancomycin in ED -Patient has been evaluated by ID and is recommended to discontinue vancomycin; patient has been placed on cefazolin 2 g IV every 8 hours -Monitor CBC, CRP and procalcitonin 2. Left leg ulcer; local wound care 3. Hyperkalemia; repeat potassium level is at 3.6; we will continue to monitor electrolytes 4. Lactic acidosis; related to leg cellulitis; trend lactic acid DVT prophylaxis; subcu heparin CODE STATUS; full code
--- NOTE | 2024-07-28 14:23 | P.PN ---
Subjective Progress Note Date: 07/28/24 Principal diagnosis: Reason for follow-up is left lower extremity ulcer and cellulitis Patient is a 74-year-old male with a past medical history significant for chronic bilateral lower extremity edema and venous ulcer presenting to the hospital for evaluation of left leg swelling and drainage has been diagnosed with ulcer and cellulitis lower extremity Doppler negative for DVT. On today's evaluation that is 07/28/2024,the patient remains to be afebrile, patient is on room air not requiring supplemental oxygen and denies any shortness of breath no chest pain or cough.Patient denies having any nausea or vomiting, no abdominal pain and no diarrhea still having some drainage to the left lower extremity. No new lab has been repeated today blood culture has been negative so far Objective - Vital Signs Vital signs: Vital Signs Temp 97.9 F 07/28/24 13:29 Pulse 77 07/28/24 13:29 Resp 16 07/28/24 13:29 BP 108/66 07/28/24 13:29 Pulse Ox 96 07/28/24 13:29 FiO2 Intake & Output 07/27/24 07/28/24 07/28/24 18:59 06:59 18:59 Other: # Voids 1 2 # Bowel Movements 1 - Exam GENERAL DESCRIPTION: An elderly male lying in bed in no distress RESPIRATORY SYSTEM: Unlabored breathing , decreased breath sounds at bases HEART: S1 S2 regular rate and rhythm , ABDOMEN: Soft , no tenderness EXTREMITIES: Left lower extremity superficial ulceration no significant slough tissue swelling and some redness - Labs CBC & Chem 7: 07/26/24 06:23 07/26/24 06:23 Labs: Microbiology - Last 24 Hours (Table) 07/25/24 19:33 Blood Culture - Preliminary Blood Assessment and Plan (1) Left leg cellulitis Current Visit: Yes Status: Acute Code(s): L03.116 - CELLULITIS OF LEFT LOWER LIMB SNOMED Code(s): 96524563766274469 (2) Leg ulcer, left Current Visit: Yes Status: Acute Code(s): L97.929 - NON-PRS CHRONIC ULC UNSP PRT OF L LOW LEG W UNSP SEVERITY SNOMED Code(s): 69954059 Plan: 1patient did have bilateral lower extremity swelling more marked in the left leg with some erythema superficial ulceration likely venous stasis and secondary cellulitis likely from gram-positive skin arthur low risk factor for MRSA infection 2-we will check lower extremity Dopplers to make sure evidence of any DVT 3- ultrasound negative for DVT we will advise local care with dry Aquacel silver dressing to open area followed by Maury wrap change daily because of drainage 4patient to continue with cefazolin for his lower extremity cellulitis and evaluate legs tomorrow at the time of dressing changes Dictation was produced using [employer] dictation software. please excuse any gramma tical, word or spelling errors. Time with Patient: Less than 30
[2024-07-28 14:46] LABS: Basophils # (A) 0.01 X 10*3/uL (0.00-0.10); Basophils % (A) 0.3 %; Eosinophils # (A) 0.04 X 10*3/uL (0.04-0.35); Eosinophils % (A) 1.2 %; HCT 31.8 % (39.6-50.0); HGB 9.6 g/dL (13.0-17.0); Lymphocytes % (A) 12.2 %; MCH 29.8 pg (27.0-32.0); MCHC 30.2 g/dL (32.0-37.0); MCV 98.8 FL (80.0-97.0); Mean Platelet Volume 10.7 FL (9.5-12.2); Monocytes # (A) 0.27 X 10*3/uL (0.20-1.00); Monocytes % (A) 8.3 %; NRBC Per 100 WBC 0.04 X 10*3/uL (0.00-0.01); Neutrophils # (A) 2.53 X 10*3/uL (1.80-7.70); Neutrophils % (A) 77.4 %; Platelet Count 134 X 10*3/uL (140-440); RBC 3.22 X 10*6/uL (4.40-5.60); RDW 14.3 % (11.5-14.5); WBC 3.27 X 10*3/uL (4.50-10.00)
[2024-07-28 14:53] LABS: BUN/Creat Ratio 10.14 Ratio (12.00-20.00); Blood Urea Nitrogen 7.1 mg/dL (9.0-27.0); Calcium 7.4 mg/dL (8.7-10.3); Carbon Dioxide 24.3 mmol/L (21.6-31.8); Chloride 108 mmol/L (96-109); Glucose 99 mg/dL (70-110); Potassium 3.8 mmol/L (3.5-5.5); Sodium 141 mmol/L (135-145)
--- NOTE | 2024-07-28 18:47 | P.PN ---
Subjective Progress Note Date: 07/28/24 74-year-old male with a past medical history significant for chronic bilateral lower extremity edema and venous ulcer presenting to the hospital for evaluation of left leg swelling and drainage that apparently started few days before presentation to the hospital and the patient did have some clear fluid draining from the leg has been complaining of increasing pain describing it to be sharp moderate to severe intensity without any radiation with the send the patient has been evaluated on presentation to the hospital patient was afebrile and no fever have recorded subsequently patient was not tachycardic hypotensive or hypoxic he did have white count of 8.1 creatinine was 0.76 lactic acid was 2.6 liver enzymes are normal patient did have x-ray of the lower extremity did not show any fracture he was started on vancomycin infectious disease was consulted for further management of cellulitis 07/28/2024 Patient is seen and evaluated in room at bedside; denies any specific complaint Vital signs are reviewed temperature 97.9, pulse 77, respirations 16 and blood p ressure 108/68 Blood work reveals WBC of 3.27, hemoglobin of 9.6 and platelet count of 134, sodium 141, potassium 3.8, BUNs/creatinine of 7.1/0.7 patient did have bilateral lower extremity swelling more marked in the left leg with some erythema superficial ulceration likely venous stasis and secondary cellulitis likely from gram-positive skin arthur low risk factor for MRSA infection -we will check lower extremity Dopplers to make sure evidence of any DVT - ultrasound negative for DVT we will advise local care with dry Aquacel silver dressing to open area followed by Maury wrap change daily because of drainage patient to continue with cefazolin for his lower extremity cellulitis and evaluate legs tomorrow at the time of dressing changes Objective - Vital Signs Vital signs: Vital Signs Temp 98.2 F 07/28/24 08:00 Pulse 77 07/28/24 08:00 Resp 18 07/28/24 08:00 BP 114/72 07/28/24 08:00 Pulse Ox 95 07/28/24 08:00 FiO2 Intake & Output 07/27/24 07/28/24 07/28/24 18:59 06:59 18:59 Other: # Voids 1 2 # Bowel Movements 1 - Exam GENERAL DESCRIPTION: Elderly male lying in bed, no distress. No tachypnea or accessory muscle of respiration use. HEENT: Shows Pallor , no scleral icterus. Oral mucous membrane is dry. No pharyngeal erythema or thrush NECK: Trachea central, no thyromegaly. LUNGS: Unlabored breathing. Clear to auscultation anteriorly. No wheeze or crackle. HEART: S1, S2, regular rate and rhythm. No loud murmur ABDOMEN: Soft, no tenderness , guarding or rigidity, no organomegaly EXTREMITIES: Left lower extremity with superficial ulceration swelling and redness SKIN: No rash, no masses palpable. NEUROLOGICAL: The patient is awake, alert, oriented x3, mood and affect normal. - Labs CBC & Chem 7: 07/28/24 09:17 07/28/24 09:17 Labs: Microbiology - Last 24 Hours (Table) 07/25/24 19:33 Blood Culture - Preliminary Blood Assessment and Plan Assessment: 1. Left leg cellulitis -- Patient received IV vancomycin in ED -Patient has been evaluated by ID and is recommended to discontinue vancomycin; patient has been placed on cefazolin 2 g IV every 8 hours -Monitor CBC, CRP and procalcitonin 2. Left leg ulcer; local wound care 3. Hyperkalemia; repeat potassium level is at 3.6; we will continue to monitor electrolytes 4. Lactic acidosis; related to leg cellulitis; trend lactic acid DVT prophylaxis; subcu heparin CODE STATUS; full code
[2024-07-29 08:20] LABS: Basophils # (A) 0.01 X 10*3/uL (0.00-0.10); Basophils % (A) 0.3 %; Eosinophils # (A) 0.07 X 10*3/uL (0.04-0.35); HCT 28.4 % (39.6-50.0); HGB 8.9 g/dL (13.0-17.0); Lymphocytes # (A) 0.42 X 10*3/uL (0.90-5.00); MCH 30.7 pg (27.0-32.0); MCHC 31.3 g/dL (32.0-37.0); MCV 97.9 FL (80.0-97.0); Mean Platelet Volume 11.5 FL (9.5-12.2); Monocytes # (A) 0.27 X 10*3/uL (0.20-1.00); Monocytes % (A) 7.7 %; NRBC Per 100 WBC 0.04 X 10*3/uL (0.00-0.01); Neutrophils % (A) 77.4 %; Platelet Count 121 X 10*3/uL (140-440); RDW 14.3 % (11.5-14.5); WBC 3.49 X 10*3/uL (4.50-10.00)
[2024-07-29 09:20] LABS: BUN/Creat Ratio 11.86 Ratio (12.00-20.00); Blood Urea Nitrogen 8.3 mg/dL (9.0-27.0); Calcium 7.2 mg/dL (8.7-10.3); Carbon Dioxide 21.3 mmol/L (21.6-31.8); Chloride 108 mmol/L (96-109); Glucose 92 mg/dL (70-110); Potassium 3.7 mmol/L (3.5-5.5); Sodium 140 mmol/L (135-145)
[2024-07-29] MEDS: ACETAMINOPHEN TAB 325 MG TAB PO PRN (14:42)
--- NOTE | 2024-07-29 15:11 | P.PN ---
Subjective Progress Note Date: 07/29/24 Principal diagnosis: Reason for follow-up is left lower extremity ulcer and cellulitis Patient is a 74-year-old male with a past medical history significant for chronic bilateral lower extremity edema and venous ulcer presenting to the hospital for evaluation of left leg swelling and drainage has been diagnosed with ulcer and cellulitis lower extremity Doppler negative for DVT. On today's evaluation that is 07/29/2024, the patient continues to be afebrile, the patient is on room air and breathing comfortably, the Pt denies having any chest pain or cough, the patient denies having any abdominal pain no vomiting or any diarrhea has been complaining of mostly drainage especially left lower extremity and some stinging pain. Patient white count is 3.49 creatinine 0.7 blood culture has been negative Objective - Vital Signs Vital signs: Vital Signs Temp 98.0 F 07/29/24 08:04 Pulse 77 07/29/24 08:04 Resp 18 07/29/24 08:04 BP 111/74 07/29/24 08:04 Pulse Ox 96 07/29/24 08:04 FiO2 Intake & Output 07/28/24 07/29/24 07/29/24 18:59 06:59 18:59 Intake Total 925 Balance 925 Intake: Intake, IV Titration 925 Amount Sodium Chloride 0.9% 1, 825 000 ml @ 75 mls/hr IV . [id number] [facility] Rx#:[id number] ceFAZolin 2 gm In Sodium 100 Chloride 0.9% 50 ml @ 100 mls/hr IVPB Q8H [facility] Rx#: [id number] Other: # Voids 2 2 # Bowel Movements 1 - Exam GENERAL DESCRIPTION: An elderly male lying in bed in no distress RESPIRATORY SYSTEM: Unlabored breathing , decreased breath sounds at bases HEART: S1 S2 regular rate and rhythm , ABDOMEN: Soft , no tenderness EXTREMITIES: Left lower extremity superficial ulceration no significant slough tissue swelling and some redness - Labs CBC & Chem 7: 07/29/24 03:33 07/29/24 03:29 Labs: Abnormal Lab Results - Last 24 Hours (Table) 07/28/24 07/28/24 07/29/24 Range/Units 09:17 09:17 03:29 WBC 3.27 L (4.50-10.00) X 10*3/uL RBC 3.22 L (4.40-5.60) X 10*6/uL Hgb 9.6 L (13.0-17.0) g/dL Hct 31.8 L (39.6-50.0) % MCV 98.8 H (80.0-97.0) FL MCHC 30.2 L (32.0-37.0) g/dL Plt Count 134 L (140-440) X 10*3/uL Lymphocytes # 0.40 L (0.90-5.00) X 10*3/uL NRBC/100 WBC Diff 0.04 H (0.00-0.01) X 10*3/uL Carbon Dioxide 21.3 L (21.6-31.8) mmol/L BUN 7.1 L 8.3 L (9.0-27.0) mg/dL BUN/Creatinine Ratio 10.14 L 11.86 L (12.00-20.00) Ratio Calcium 7.4 L 7.2 L (8.7-10.3) mg/dL 07/29/24 Range/Units 03:33 WBC 3.49 L (4.50-10.00) X 10*3/uL RBC 2.90 L (4.40-5.60) X 10*6/uL Hgb 8.9 L (13.0-17.0) g/dL Hct 28.4 L (39.6-50.0) % MCV 97.9 H (80.0-97.0) FL MCHC 31.3 L (32.0-37.0) g/dL Plt Count 121 L (140-440) X 10*3/uL Lymphocytes # 0.42 L (0.90-5.00) X 10*3/uL NRBC/100 WBC Diff 0.04 H (0.00-0.01) X 10*3/uL Carbon Dioxide (21.6-31.8) mmol/L BUN (9.0-27.0) mg/dL BUN/Creatinine Ratio (12.00-20.00) Ratio Calcium (8.7-10.3) mg/dL Microbiology - Last 24 Hours (Table) 07/25/24 19:33 Blood Culture - Preliminary Blood Assessment and Plan (1) Left leg cellulitis Current Visit: Yes Status: Acute Code(s): L03.116 - CELLULITIS OF LEFT LOWER LIMB SNOMED Code(s): 23015130604231796 (2) Leg ulcer, left Current Visit: Yes Status: Acute Code(s): L97.929 - NON-PRS CHRONIC ULC UNSP PRT OF L LOW LEG W UNSP SEVERITY SNOMED Code(s): 09286049 Plan: 1patient did have bilateral lower extremity swelling more marked in the left leg with some erythema superficial ulceration likely venous stasis and secondary cellulitis likely from gram-positive skin arthur low risk factor for MRSA infection 2-we will check lower extremity Dopplers to make sure evidence of any DVT 3- ultrasound negative for DVT we will advise local care with dry Aquacel silver dressing to open area followed by Maury wrap change daily because of drainage 4patient to continue with cefazolin for his lower extremity cellulitis as a dressing has just been change advised not to change the dressing till I come and see the patient tomorrow to evaluate the wound Dictation was produced using [employer] dictation software. please excuse any grammatical, word or spelling errors. Time with Patient: Less than 30
[2024-07-30 07:45] LABS: African American GFR (CKD) >90 (>60 ml/min/1.73 sqM); Anion Gap 4 mmol/L; Blood Urea Nitrogen 9 mg/dL (9-20); Calcium 7.4 mg/dL (8.4-10.2); Carbon Dioxide 25 mmol/L (22-30); Chloride 106 mmol/L (98-107); Glucose 86 mg/dL (74-99); Non-African American GFR(CKD) >90 (>60 ml/min/1.73 sqM); Potassium 3.4 mmol/L (3.5-5.1); Sodium 135 mmol/L (137-145)
[2024-07-30 09:26] LABS: Basophils # (A) 0.01 X 10*3/uL (0.00-0.10); Basophils % (A) 0.3 %; HCT 28.6 % (39.6-50.0); Lymphocytes # (A) 0.42 X 10*3/uL (0.90-5.00); Lymphocytes % (A) 12.5 %; MCH 30.6 pg (27.0-32.0); MCHC 31.5 g/dL (32.0-37.0); MCV 97.3 FL (80.0-97.0); Mean Platelet Volume 10.2 FL (9.5-12.2); Monocytes # (A) 0.24 X 10*3/uL (0.20-1.00); Monocytes % (A) 7.2 %; NRBC Per 100 WBC 0.04 X 10*3/uL (0.00-0.01); Neutrophils # (A) 2.56 X 10*3/uL (1.80-7.70); Neutrophils % (A) 76.4 %; Platelet Count 117 X 10*3/uL (140-440); RBC 2.94 X 10*6/uL (4.40-5.60); RDW 14.4 % (11.5-14.5); WBC 3.35 X 10*3/uL (4.50-10.00)
--- NOTE | 2024-07-30 15:15 | P.PN ---
Subjective Progress Note Date: 07/30/24 Principal diagnosis: Reason for follow-up is left lower extremity ulcer and cellulitis Patient is a 74-year-old male with a past medical history significant for chronic bilateral lower extremity edema and venous ulcer presenting to the hospital for evaluation of left leg swelling and drainage has been diagnosed with ulcer and cellulitis lower extremity Doppler negative for DVT. On today's evaluation that is 07/30/2024, patient did not have any fever and denies any chills, patient is breathing comfortably on room air, patient with no chest pain or cough patient did not have any abdominal pain nausea vomiting or any loose stools, still complaining of drainage from the left lower extremity but no worsening pain. Patient white count is 3.35, creatinine 0.61 Objective - Vital Signs Vital signs: Vital Signs Temp 98.3 F 07/30/24 02:11 Pulse 85 07/30/24 02:11 Resp 17 07/30/24 02:11 BP 112/71 07/30/24 02:11 Pulse Ox 98 07/30/24 02:11 FiO2 Intake & Output 07/29/24 07/30/24 07/30/24 18:59 06:59 18:59 Other: Voiding Method Toilet # Voids 1 - Exam GENERAL DESCRIPTION: An elderly male lying in bed in no distress RESPIRATORY SYSTEM: Unlabored breathing , decreased breath sounds at bases HEART: S1 S2 regular rate and rhythm , ABDOMEN: Soft , no tenderness EXTREMITIES: Left lower extremity currently dressed minimal drainage on the dressing - Labs CBC & Chem 7: 07/30/24 05:54 07/30/24 05:54 Labs: Abnormal Lab Results - Last 24 Hours (Table) 07/30/24 07/30/24 Range/Units 05:54 05:54 WBC 3.35 L (4.50-10.00) X 10*3/uL RBC 2.94 L (4.40-5.60) X 10*6/uL Hgb 9.0 L (13.0-17.0) g/dL Hct 28.6 L (39.6-50.0) % MCV 97.3 H (80.0-97.0) FL MCHC 31.5 L (32.0-37.0) g/dL Plt Count 117 L (140-440) X 10*3/uL Lymphocytes # 0.42 L (0.90-5.00) X 10*3/uL NRBC/100 WBC Diff 0.04 H (0.00-0.01) X 10*3/uL Sodium 135 L (137-145) mmol/L Potassium 3.4 L (3.5-5.1) mmol/L Creatinine 0.61 L (0.66-1.25) mg/dL Calcium 7.4 L (8.4-10.2) mg/dL Assessment and Plan (1) Left leg cellulitis Current Visit: Yes Status: Acute Code(s): L03.116 - CELLULITIS OF LEFT LOWER LIMB SNOMED Code(s): 12972871621448742 (2) Leg ulcer, left Current Visit: Yes Status: Acute Code(s): L97.929 - NON-PRS CHRONIC ULC UNSP PRT OF L LOW LEG W UNSP SEVERITY SNOMED Code(s): 44702946 Plan: 1patient did have bilateral lower extremity swelling more marked in the left leg with some erythema superficial ulceration likely venous stasis and secondary cellulitis likely from gram-positive skin arthur low risk factor for MRSA infection 2-we will check lower extremity Dopplers to make sure evidence of any DVT 3- ultrasound negative for DVT we will advise local care with dry Aquacel silver dressing to open area followed by Maury wrap change daily because of drainage 4patient currently being treated with the cefazolin unfortunately dressing has just been changed by the nursing staff hence we will have to reevaluate tomorrow for now continue with local care as ordered Dictation was produced using [employer] dictation software. please excuse any grammatical, word or spelling errors. Time with Patient: Less than 30
--- NOTE | 2024-07-30 20:39 | P.PN ---
Subjective Progress Note Date: 07/29/24 74-year-old male with a past medical history significant for chronic bilateral lower extremity edema and venous ulcer presenting to the hospital for evaluation of left leg swelling and drainage that apparently started few days before presentation to the hospital and the patient did have some clear fluid draining from the leg has been complaining of increasing pain describing it to be sharp moderate to severe intensity without any radiation with the send the patient has been evaluated on presentation to the hospital patient was afebrile and no fever have recorded subsequently patient was not tachycardic hypotensive or hypoxic he did have white count of 8.1 creatinine was 0.76 lactic acid was 2.6 liver enzymes are normal patient did have x-ray of the lower extremity did not show any fracture he was started on vancomycin infectious disease was consulted for further management of cellulitis 07/28/2024 Patient is seen and evaluated in room at bedside; denies any specific complaint Vital signs are reviewed temperature 97.9, pulse 77, respirations 16 and blood p ressure 108/68 Blood work reveals WBC of 3.27, hemoglobin of 9.6 and platelet count of 134, sodium 141, potassium 3.8, BUNs/creatinine of 7.1/0.7 patient did have bilateral lower extremity swelling more marked in the left leg with some erythema superficial ulceration likely venous stasis and secondary cellulitis likely from gram-positive skin arthur low risk factor for MRSA infection -we will check lower extremity Dopplers to make sure evidence of any DVT - ultrasound negative for DVT we will advise local care with dry Aquacel silver dressing to open area followed by Maury wrap change daily because of drainage patient to continue with cefazolin for his lower extremity cellulitis and evaluate legs tomorrow at the time of dressing changes 07/29/2024 Patient is seen and evaluated resting comfortably in bed; family at bedside; denies any specific complaint Vital signs are reviewed and stable Blood work reveals WBC 3.49, hemoglobin 8.9 and platelet count of 121, sodium 140, potassium 3.7, BUNs/creatinine of 8.3/0.7 -Patient admitted with bilateral lower extremity cellulitis with lower extremity swelling; venous Doppler has been negative for DVT -- ID is on board and patient remains on IV cefazolin -ID to evaluate cultures and make final recommendations for antibiotic therapy Objective - Vital Signs Vital signs: Vital Signs Temp 98.0 F 07/29/24 08:04 Pulse 77 07/29/24 08:04 Resp 18 07/29/24 08:04 BP 111/74 07/29/24 08:04 Pulse Ox 96 07/29/24 08:04 FiO2 Intake & Output 07/28/24 07/29/24 07/29/24 18:59 06:59 18:59 Intake Total 925 Balance 925 Intake: Intake, IV Titration 925 Amount Sodium Chloride 0.9% 1, 825 000 ml @ 75 mls/hr IV . [id number] [facility] Rx#:[id number] ceFAZolin 2 gm In Sodium 100 Chloride 0.9% 50 ml @ 100 mls/hr IVPB Q8H [facility] Rx#: [id number] Other: # Voids 2 2 # Bowel Movements 1 - Exam GENERAL DESCRIPTION: Elderly male lying in bed, no distress. No tachypnea or accessory muscle of respiration use. HEENT: Shows Pallor , no scleral icterus. Oral mucous membrane is dry. No pharyngeal erythema or thrush NECK: Trachea central, no thyromegaly. LUNGS: Unlabored breathing. Clear to auscultation anteriorly. No wheeze or crackle. HEART: S1, S2, regular rate and rhythm. No loud murmur ABDOMEN: Soft, no tenderness , guarding or rigidity, no organomegaly EXTREMITIES: Left lower extremity with superficial ulceration swelling and redness SKIN: No rash, no masses palpable. NEUROLOGICAL: The patient is awake, alert, oriented x3, mood and affect normal. - Labs CBC & Chem 7: 07/30/24 05:54 07/30/24 05:54 Labs: Abnormal Lab Results - Last 24 Hours (Table) 07/28/24 07/28/24 07/29/24 Range/Units 09:17 09:17 03:29 WBC 3.27 L (4.50-10.00) X 10*3/uL RBC 3.22 L (4.40-5.60) X 10*6/uL Hgb 9.6 L (13.0-17.0) g/dL Hct 31.8 L (39.6-50.0) % MCV 98.8 H (80.0-97.0) FL MCHC 30.2 L (32.0-37.0) g/dL Plt Count 134 L (140-440) X 10*3/uL Lymphocytes # 0.40 L (0.90-5.00) X 10*3/uL NRBC/100 WBC Diff 0.04 H (0.00-0.01) X 10*3/uL Carbon Dioxide 21.3 L (21.6-31.8) mmol/L BUN 7.1 L 8.3 L (9.0-27.0) mg/dL BUN/Creatinine Ratio 10.14 L 11.86 L (12.00-20.00) Ratio Calcium 7.4 L 7.2 L (8.7-10.3) mg/dL 07/29/24 Range/Units 03:33 WBC 3.49 L (4.50-10.00) X 10*3/uL RBC 2.90 L (4.40-5.60) X 10*6/uL Hgb 8.9 L (13.0-17.0) g/dL Hct 28.4 L (39.6-50.0) % MCV 97.9 H (80.0-97.0) FL MCHC 31.3 L (32.0-37.0) g/dL Plt Count 121 L (140-440) X 10*3/uL Lymphocytes # 0.42 L (0.90-5.00) X 10*3/uL NRBC/100 WBC Diff 0.04 H (0.00-0.01) X 10*3/uL Carbon Dioxide (21.6-31.8) mmol/L BUN (9.0-27.0) mg/dL BUN/Creatinine Ratio (12.00-20.00) Ratio Calcium (8.7-10.3) mg/dL Microbiology - Last 24 Hours (Table) 07/25/24 19:33 Blood Culture - Preliminary Blood Assessment and Plan Assessment: 1. Left leg cellulitis -- Patient received IV vancomycin in ED -Patient has been evaluated by ID and is recommended to discontinue vancomycin; patient has been placed on cefazolin 2 g IV every 8 hours -Monitor CBC, CRP and procalcitonin 2. Left leg ulcer; local wound care 3. Hyperkalemia; repeat potassium level is at 3.6; we will continue to monitor electrolytes 4. Lactic acidosis; related to leg cellulitis; trend lactic acid DVT prophylaxis; subcu heparin CODE STATUS; full code
--- NOTE | 2024-07-30 20:41 | P.PN ---
Subjective Progress Note Date: 07/30/24 74-year-old male with a past medical history significant for chronic bilateral lower extremity edema and venous ulcer presenting to the hospital for evaluation of left leg swelling and drainage that apparently started few days before presentation to the hospital and the patient did have some clear fluid draining from the leg has been complaining of increasing pain describing it to be sharp moderate to severe intensity without any radiation with the send the patient has been evaluated on presentation to the hospital patient was afebrile and no fever have recorded subsequently patient was not tachycardic hypotensive or hypoxic he did have white count of 8.1 creatinine was 0.76 lactic acid was 2.6 liver enzymes are normal patient did have x-ray of the lower extremity did not show any fracture he was started on vancomycin infectious disease was consulted for further management of cellulitis 07/28/2024 Patient is seen and evaluated in room at bedside; denies any specific complaint Vital signs are reviewed temperature 97.9, pulse 77, respirations 16 and blood p ressure 108/68 Blood work reveals WBC of 3.27, hemoglobin of 9.6 and platelet count of 134, sodium 141, potassium 3.8, BUNs/creatinine of 7.1/0.7 patient did have bilateral lower extremity swelling more marked in the left leg with some erythema superficial ulceration likely venous stasis and secondary cellulitis likely from gram-positive skin arthur low risk factor for MRSA infection -we will check lower extremity Dopplers to make sure evidence of any DVT - ultrasound negative for DVT we will advise local care with dry Aquacel silver dressing to open area followed by Maury wrap change daily because of drainage patient to continue with cefazolin for his lower extremity cellulitis and evaluate legs tomorrow at the time of dressing changes 07/29/2024 Patient is seen and evaluated resting comfortably in bed; family at bedside; denies any specific complaint Vital signs are reviewed and stable Blood work reveals WBC 3.49, hemoglobin 8.9 and platelet count of 121, sodium 140, potassium 3.7, BUNs/creatinine of 8.3/0.7 -Patient admitted with bilateral lower extremity cellulitis with lower extremity swelling; venous Doppler has been negative for DVT -- ID is on board and patient remains on IV cefazolin -ID to evaluate cultures and make final recommendations for antibiotic therapy 24-hour interval change 07/30/2024 patient is seen and evaluated; did not have any fever and denies any chills, patient is breathing comfortably on room air, patient with no chest pain or cough patient did not have any abdominal pain nausea vomiting or any loose stools, still complaining of drainage from the left lower extremity but no worsening pain. Patient white count is 3.35, creatinine 0.61; WBC of 3.35, hemoglobin of 9 and platelet count of 117 -ED will reevaluate wound and make recommendations on local wound care and final recommendations on antibiotic therapy Objective - Vital Signs Vital signs: Vital Signs Temp 98.3 F 07/30/24 02:11 Pulse 85 07/30/24 02:11 Resp 17 07/30/24 02:11 BP 112/71 07/30/24 02:11 Pulse Ox 98 07/30/24 02:11 FiO2 Intake & Output 07/29/24 07/30/24 07/30/24 18:59 06:59 18:59 Other: Voiding Method Toilet # Voids 1 - Exam GENERAL DESCRIPTION: Elderly male lying in bed, no distress. No tachypnea or accessory muscle of respiration use. HEENT: Shows Pallor , no scleral icterus. Oral mucous membrane is dry. No pharyngeal erythema or thrush NECK: Trachea central, no thyromegaly. LUNGS: Unlabored breathing. Clear to auscultation anteriorly. No wheeze or crackle. HEART: S1, S2, regular rate and rhythm. No loud murmur ABDOMEN: Soft, no tenderness , guarding or rigidity, no organomegaly EXTREMITIES: Left lower extremity with superficial ulceration swelling and redness SKIN: No rash, no masses palpable. NEUROLOGICAL: The patient is awake, alert, oriented x3, mood and affect normal. - Labs CBC & Chem 7: 07/30/24 05:54 07/30/24 05:54 Labs: Abnormal Lab Results - Last 24 Hours (Table) 07/30/24 07/30/24 Range/Units 05:54 05:54 WBC 3.35 L (4.50-10.00) X 10*3/uL RBC 2.94 L (4.40-5.60) X 10*6/uL Hgb 9.0 L (13.0-17.0) g/dL Hct 28.6 L (39.6-50.0) % MCV 97.3 H (80.0-97.0) FL MCHC 31.5 L (32.0-37.0) g/dL Plt Count 117 L (140-440) X 10*3/uL Lymphocytes # 0.42 L (0.90-5.00) X 10*3/uL NRBC/100 WBC Diff 0.04 H (0.00-0.01) X 10*3/uL Sodium 135 L (137-145) mmol/L Potassium 3.4 L (3.5-5.1) mmol/L Creatinine 0.61 L (0.66-1.25) mg/dL Calcium 7.4 L (8.4-10.2) mg/dL Assessment and Plan Assessment: 1. Left leg cellulitis -- Patient received IV vancomycin in ED -Patient has been evaluated by ID and is recommended to discontinue vancomycin; patient has been placed on cefazolin 2 g IV every 8 hours -Monitor CBC, CRP and procalcitonin 2. Left leg ulcer; local wound care 3. Hyperkalemia; repeat potassium level is at 3.6; we will continue to monitor electrolytes 4. Lactic acidosis; related to leg cellulitis; trend lactic acid DVT prophylaxis; subcu heparin CODE STATUS; full code
[2024-07-31 09:49] LABS: Basophils # (A) 0.01 X 10*3/uL (0.00-0.10); Basophils % (A) 0.2 %; Eosinophils # (A) 0.05 X 10*3/uL (0.04-0.35); Eosinophils % (A) 1.2 %; HCT 28.3 % (39.6-50.0); HGB 8.6 g/dL (13.0-17.0); Lymphocytes # (A) 0.56 X 10*3/uL (0.90-5.00); Lymphocytes % (A) 13.9 %; MCH 29.9 pg (27.0-32.0); MCHC 30.4 g/dL (32.0-37.0); MCV 98.3 FL (80.0-97.0); Mean Platelet Volume 11.3 FL (9.5-12.2); Monocytes # (A) 0.29 X 10*3/uL (0.20-1.00); Monocytes % (A) 7.2 %; NRBC Per 100 WBC 0.06 X 10*3/uL (0.00-0.01); Platelet Count 119 X 10*3/uL (140-440); RBC 2.88 X 10*6/uL (4.40-5.60); RDW 14.2 % (11.5-14.5); WBC 4.03 X 10*3/uL (4.50-10.00)
[2024-07-31 10:02] LABS: BUN/Creat Ratio 10.43 Ratio (12.00-20.00); Blood Urea Nitrogen 7.3 mg/dL (9.0-27.0); Carbon Dioxide 24.2 mmol/L (21.6-31.8); Chloride 108 mmol/L (96-109); Glucose 92 mg/dL (70-110); Potassium 3.5 mmol/L (3.5-5.5); Sodium 140 mmol/L (135-145)
[2024-07-31 10:03] LABS: Calcium 7.2 mg/dL (8.7-10.3)
--- NOTE | 2024-07-31 12:02 | P.PN ---
Subjective Progress Note Date: 07/31/24 Principal diagnosis: Reason for follow-up is left lower extremity ulcer and cellulitis Patient is a 74-year-old male with a past medical history significant for chronic bilateral lower extremity edema and venous ulcer presenting to the hospital for evaluation of left leg swelling and drainage has been diagnosed with ulcer and cellulitis lower extremity Doppler negative for DVT. On today's evaluation that is 07/31/2024, Patient is afebrile patient is currently on room air and denies having any shortness of breath, the patient denies any chest pain or cough, the patient denies any nausea vomiting did not have any abdominal pain and no diarrhea, pain to lower extremity has decreased in intensity. Patient white count of 4.03, creatinine 0.7 blood culture has been negative Objective - Vital Signs Vital signs: Vital Signs Temp 98.7 F 07/31/24 02:36 Pulse 82 07/31/24 07:16 Resp 17 07/31/24 07:16 BP 100/52 07/31/24 07:16 Pulse Ox 96 07/31/24 07:16 FiO2 Intake & Output 07/30/24 07/31/24 07/31/24 18:59 06:59 18:59 Other: # Voids 3 3 # Bowel Movements 0 - Exam GENERAL DESCRIPTION: An elderly male lying in bed in no distress RESPIRATORY SYSTEM: Unlabored breathing , decreased breath sounds at bases HEART: S1 S2 regular rate and rhythm , ABDOMEN: Soft , no tenderness EXTREMITIES: Left lower extremity swelling and redness has decreased - Labs CBC & Chem 7: 07/31/24 03:24 07/31/24 03:24 Labs: Abnormal Lab Results - Last 24 Hours (Table) 07/31/24 07/31/24 Range/Units 03:24 03:24 WBC 4.03 L (4.50-10.00) X 10*3/uL RBC 2.88 L (4.40-5.60) X 10*6/uL Hgb 8.6 L (13.0-17.0) g/dL Hct 28.3 L (39.6-50.0) % MCV 98.3 H (80.0-97.0) FL MCHC 30.4 L (32.0-37.0) g/dL Plt Count 119 L (140-440) X 10*3/uL Lymphocytes # 0.56 L (0.90-5.00) X 10*3/uL NRBC/100 WBC Diff 0.06 H (0.00-0.01) X 10*3/uL BUN 7.3 L (9.0-27.0) mg/dL BUN/Creatinine Ratio 10.43 L (12.00-20.00) Ratio Calcium 7.2 L (8.7-10.3) mg/dL Microbiology - Last 24 Hours (Table) 07/25/24 19:33 Blood Culture - Final Blood Assessment and Plan (1) Left leg cellulitis Current Visit: Yes Status: Acute Code(s): L03.116 - CELLULITIS OF LEFT LOWER LIMB SNOMED Code(s): 96103699584993978 (2) Leg ulcer, left Current Visit: Yes Status: Acute Code(s): L97.929 - NON-PRS CHRONIC ULC UNSP PRT OF L LOW LEG W UNSP SEVERITY SNOMED Code(s): 22867776 Plan: 1patient did have bilateral lower extremity swelling more marked in the left leg with some erythema superficial ulceration likely venous stasis and secondary cellulitis likely from gram-positive skin arthur low risk factor for MRSA i nfection 2-we will check lower extremity Dopplers to make sure evidence of any DVT 3- ultrasound negative for DVT we will advise local care with dry Aquacel silver dressing to open area followed by Maury wrap change daily because of drainage 4patient did have improvement of the lower extremity swelling and is drying out we will continue with the cefazolin finishing therapy with oral Keflex dressing change discussed with the nursing staff Dictation was produced using [employer] dictation software. please excuse any grammatical, word or spelling errors.
--- NOTE | 2024-07-31 12:42 | P.PN ---
Subjective Progress Note Date: 07/31/24 74-year-old male with a past medical history significant for chronic bilateral lower extremity edema and venous ulcer presenting to the hospital for evaluation of left leg swelling and drainage that apparently started few days before presentation to the hospital and the patient did have some clear fluid draining from the leg has been complaining of increasing pain describing it to be sharp moderate to severe intensity without any radiation with the send the patient has been evaluated on presentation to the hospital patient was afebrile and no fever have recorded subsequently patient was not tachycardic hypotensive or hypoxic he did have white count of 8.1 creatinine was 0.76 lactic acid was 2.6 liver enzymes are normal patient did have x-ray of the lower extremity did not show any fracture he was started on vancomycin infectious disease was consulted for further management of cellulitis 07/28/2024 Patient is seen and evaluated in room at bedside; denies any specific complaint Vital signs are reviewed temperature 97.9, pulse 77, respirations 16 and blood p ressure 108/68 Blood work reveals WBC of 3.27, hemoglobin of 9.6 and platelet count of 134, sodium 141, potassium 3.8, BUNs/creatinine of 7.1/0.7 patient did have bilateral lower extremity swelling more marked in the left leg with some erythema superficial ulceration likely venous stasis and secondary cellulitis likely from gram-positive skin arthur low risk factor for MRSA infection -we will check lower extremity Dopplers to make sure evidence of any DVT - ultrasound negative for DVT we will advise local care with dry Aquacel silver dressing to open area followed by Maury wrap change daily because of drainage patient to continue with cefazolin for his lower extremity cellulitis and evaluate legs tomorrow at the time of dressing changes 07/29/2024 Patient is seen and evaluated resting comfortably in bed; family at bedside; denies any specific complaint Vital signs are reviewed and stable Blood work reveals WBC 3.49, hemoglobin 8.9 and platelet count of 121, sodium 140, potassium 3.7, BUNs/creatinine of 8.3/0.7 -Patient admitted with bilateral lower extremity cellulitis with lower extremity swelling; venous Doppler has been negative for DVT -- ID is on board and patient remains on IV cefazolin -ID to evaluate cultures and make final recommendations for antibiotic therapy 24-hour interval change 07/30/2024 patient is seen and evaluated; did not have any fever and denies any chills, patient is breathing comfortably on room air, patient with no chest pain or cough patient did not have any abdominal pain nausea vomiting or any loose stools, still complaining of drainage from the left lower extremity but no worsening pain. Patient white count is 3.35, creatinine 0.61; WBC of 3.35, hemoglobin of 9 and platelet count of 117 -ED will reevaluate wound and make recommendations on local wound care and final recommendations on antibiotic therapy 07/31/2024 Patient is seen and evaluated with family at bedside; await evaluation by ID; no specific complaints patient did have bilateral lower extremity swelling more marked in the left leg with some erythema superficial ulceration likely venous stasis and secondary cellulitis likely from gram-positive skin arthur low risk factor for MRSA infection -we will check lower extremity Dopplers to make sure evidence of any DVT - ultrasound negative for DVT we will advise local care with dry Aquacel silver dressing to open area followed by Maury wrap change daily because of drainage patient did have improvement of the lower extremity swelling and is drying out; ID recommending to continue with the cefazolin finishing therapy with oral Keflex Objective - Vital Signs Vital signs: Vital Signs Temp 98.7 F 07/31/24 02:36 Pulse 82 07/31/24 07:16 Resp 17 07/31/24 07:16 BP 100/52 07/31/24 07:16 Pulse Ox 96 07/31/24 07:16 FiO2 Intake & Output 07/30/24 07/31/24 07/31/24 18:59 06:59 18:59 Other: # Voids 3 3 # Bowel Movements 0 - Exam GENERAL DESCRIPTION: Elderly male lying in bed, no distress. No tachypnea or accessory muscle of respiration use. HEENT: Shows Pallor , no scleral icterus. Oral mucous membrane is dry. No pharyngeal erythema or thrush NECK: Trachea central, no thyromegaly. LUNGS: Unlabored breathing. Clear to auscultation anteriorly. No wheeze or crackle. HEART: S1, S2, regular rate and rhythm. No loud murmur ABDOMEN: Soft, no tenderness , guarding or rigidity, no organomegaly EXTREMITIES: Left lower extremity with superficial ulceration swelling and redness SKIN: No rash, no masses palpable. NEUROLOGICAL: The patient is awake, alert, oriented x3, mood and affect normal. - Labs CBC & Chem 7: 07/31/24 03:24 07/31/24 03:24 Labs: Microbiology - Last 24 Hours (Table) 07/25/24 19:33 Blood Culture - Final Blood Assessment and Plan Assessment: 1. Left leg cellulitis -- Patient received IV vancomycin in ED -Patient has been evaluated by ID and is recommended to discontinue vancomycin; patient has been placed on cefazolin 2 g IV every 8 hours -Monitor CBC, CRP and procalcitonin 2. Left leg ulcer; local wound care 3. Hyperkalemia; repeat potassium level is at 3.6; we will continue to monitor electrolytes 4. Lactic acidosis; related to leg cellulitis; trend lactic acid DVT prophylaxis; subcu heparin CODE STATUS; full code
[2024-08-01 02:24] VITALS: RESP 18; TEMP 98.3
[2024-08-01 07:30] VITALS: BP 114/71; PULSE 72
[2024-08-01 09:19] LABS: BUN/Creat Ratio 10.43 Ratio (12.00-20.00); Blood Urea Nitrogen 7.3 mg/dL (9.0-27.0); Calcium 7.1 mg/dL (8.7-10.3); Carbon Dioxide 24.9 mmol/L (21.6-31.8); Chloride 106 mmol/L (96-109); Glucose 90 mg/dL (70-110); Potassium 3.2 mmol/L (3.5-5.5); Sodium 139 mmol/L (135-145)
[2024-08-01] MEDS ORDERED: Potassium Replacement Protocol 1 EACH MISC MISCELLANE PRN (10:01)
[2024-08-01 10:20] LABS: Basophils # (A) 0.01 X 10*3/uL (0.00-0.10); Basophils % (A) 0.2 %; Eosinophils # (A) 0.05 X 10*3/uL (0.04-0.35); Eosinophils % (A) 1.2 %; HGB 8.8 g/dL (13.0-17.0); Lymphocytes # (A) 0.58 X 10*3/uL (0.90-5.00); Lymphocytes % (A) 13.6 %; MCHC 30.3 g/dL (32.0-37.0); Mean Platelet Volume 10.8 FL (9.5-12.2); Monocytes # (A) 0.27 X 10*3/uL (0.20-1.00); Monocytes % (A) 6.3 %; NRBC Per 100 WBC 0.05 X 10*3/uL (0.00-0.01); Neutrophils # (A) 3.35 X 10*3/uL (1.80-7.70); Neutrophils % (A) 78.2 %; Platelet Count 112 X 10*3/uL (140-440); RBC 2.93 X 10*6/uL (4.40-5.60); RDW 14.5 % (11.5-14.5); WBC 4.28 X 10*3/uL (4.50-10.00)
[2024-08-01] MEDS: POTASSIUM CHLORIDE ER 20 MEQ TAB.ER PO SCH (10:22)
[2024-08-01 13:01] VITALS: BMI 33.0
--- NOTE | 2024-08-02 14:36 | P.PN ---
Subjective Progress Note Date: 08/01/24 Principal diagnosis: Reason for follow-up is left lower extremity ulcer and cellulitis Patient is a 74-year-old male with a past medical history significant for chronic bilateral lower extremity edema and venous ulcer presenting to the hospital for evaluation of left leg swelling and drainage has been diagnosed with ulcer and cellulitis lower extremity Doppler negative for DVT. On today's evaluation that is 08/01/2024, patient has been afebrile, patient is breathing comfortably and is currently on room air, patient denies having any significant cough no chest pain, patient denies nausea vomiting or diarrhea and no abdominal pain. Pain and drainage to left lower extremity has decreased in intensity. Patient white count is 4.28, creatinine 0.7 blood culture has been negative Objective - Vital Signs Vital signs: Vital Signs Temp 98.3 F 08/01/24 06:49 Pulse 72 08/01/24 06:49 Resp 18 08/01/24 06:49 BP 114/71 08/01/24 06:49 Pulse Ox 97 08/01/24 06:49 FiO2 Intake & Output 07/31/24 08/01/24 08/01/24 18:59 06:59 18:59 Weight 79.379 kg Other: Voiding Method Toilet # Voids 4 3 - Exam GENERAL DESCRIPTION: An elderly male lying in bed in no distress RESPIRATORY SYSTEM: Unlabored breathing , decreased breath sounds at bases HEART: S1 S2 regular rate and rhythm , ABDOMEN: Soft , no tenderness EXTREMITIES: Left lower extremity currently dressed no drainage - Labs CBC & Chem 7: 08/01/24 02:29 08/01/24 02:29 Labs: Abnormal Lab Results - Last 24 Hours (Table) 08/01/24 08/01/24 Range/Units 02:29 02:29 WBC 4.28 L (4.50-10.00) X 10*3/uL RBC 2.93 L (4.40-5.60) X 10*6/uL Hgb 8.8 L (13.0-17.0) g/dL Hct 29.0 L (39.6-50.0) % MCV 99.0 H (80.0-97.0) FL MCHC 30.3 L (32.0-37.0) g/dL Plt Count 112 L (140-440) X 10*3/uL Lymphocytes # 0.58 L (0.90-5.00) X 10*3/uL NRBC/100 WBC Diff 0.05 H (0.00-0.01) X 10*3/uL Potassium 3.2 L (3.5-5.5) mmol/L BUN 7.3 L (9.0-27.0) mg/dL BUN/Creatinine Ratio 10.43 L (12.00-20.00) Ratio Calcium 7.1 L (8.7-10.3) mg/dL Assessment and Plan (1) Left leg cellulitis Status: Acute Code(s): L03.116 - CELLULITIS OF LEFT LOWER LIMB SNOMED Code(s): 01743947985212384 (2) Leg ulcer, left Status: Acute Code(s): L97.929 - NON-PRS CHRONIC ULC UNSP PRT OF L LOW LEG W UNSP SEVERITY SNOMED Code(s): 07970649 Plan: 1patient did have bilateral lower extremity swelling more marked in the left leg with some erythema superficial ulceration likely venous stasis and secondary cellulitis likely from gram-positive skin arthur low risk factor for MRSA infection 2-we will check lower extremity Dopplers to make sure evidence of any DVT 3- ultrasound negative for DVT to continue local care with dry Aquacel silver dressing to open area followed by Maury wrap change daily because of drainage 4patient did have improvement of the lower extremity swelling and is drying out with cefazolin finishing therapy with oral Keflex and a close outpatient follow- up Dictation was produced using [employer] dictation software. please excuse any grammatical, word or spelling errors. Time with Patient: Less than 30
--- NOTE | 2024-08-03 10:28 | P.DS ---
Providers Date of admission: 07/25/24 19:09 Expected date of discharge: 08/01/24 Attending physician: Herson Brandon Consults: 07/25/24 19:08 Consult Physician Routine Consulting Provider: Kevin Flynn Consult Reason/Comments: cellulitis Do you want consulting provider notified?: Yes Primary care physician: Nelson Mckeon Hospital Course: Final diagnosis 1. Left leg cellulitis present on admission 2. Left leg ulcer, chronic, likely chronic venous stasis follows at the wound care center outpatient 3. Hyperkalemia; repeat potassium level is at 3.6; improved 4. Lactic acidosis; related to leg cellulitis on admission; improved GI prophylaxis DVT prophylaxis Full code Discharge disposition Patient is being discharged in a stable condition with guarded prognosis to home with home care. Patient will follow-up with Dr. Nelson Mckeon in the outpatient setting upon discharge. Patient is to continue with oral Keflex and close outpatient follow-up at the wound care center as well as infectious disease as scheduled. Total time taken is greater than 35 minutes. Hospital course This is a 74 [id number] male who was recently admitted left lower extremity cellulitis, present on admission. Patient also with chronic left leg ulcer follows at the wound care center will continue current wound care regimen and recommend home care and close outpatient follow-up with the Center. Patient was started on vancomycin in the ER and evaluated by infectious disease showing clinical improvement on IV cefazolin. Patient will continue on oral Keflex on discharge to complete the course. Recommend close outpatient follow-up with primary care provider as well as infectious disease and wound care center. Please refer to other consultation notes for further HPI. Currently no reports of chest pain, shortness of breath, or palpitations. Patient is afebrile. No reports of nausea or vomiting and patient is tolerating diet. Patient will be discharged home today. Guarded prognosis Physical exam: Gen: This is a 74-year-old male who is awake, alert and oriented x 2-3, well- developed, elderly appearing, obese HEENT: Head is atraumatic, normocephalic. Pupils equal, round. Sclerae is anicteric. NECK: Supple. No JVD. No lymphadenopathy. No thyromegaly. LUNGS: Clear to auscultation. No wheezes or rhonchi. No intercostal retractions. HEART: Regular rate and rhythm. No murmur. ABDOMEN: Soft. Bowel sounds are present. No masses. No tenderness. EXTREMITIES: No pedal edema. No calf tenderness. Bilateral lower extremities Maury wrapped and dressings are dry and intact NEUROLOGICAL: Patient is awake, alert and oriented x3. Cranial nerves 2 through 12 are grossly intact. Please refer to medication reconciliation sheet for a list of medications. The impression and plan of care has been dictated by Lena Butterfield, Nurse Practitioner as directed. Dr. Aleksandr MD I have performed a history and examination and MDM of this patient, discussed the same with the dictator, and agree with the dictator's assessment and plan as written ,documented as a scribe. Based on total visit time, I have performed more than 50% of the visit. Patient Condition at Discharge: Fair Plan - Discharge Summary Discharge Rx Participant: No New Discharge Prescriptions: New Acetaminophen Tab [Tylenol] 650 mg PO Q6HR PRN tab PRN Reason: Fever And/ Or Pain Cephalexin [Keflex] 500 mg PO Q8HR 10 Days #30 cap Discharge Medication List Acetaminophen Tab [Tylenol] 650 mg PO Q6HR PRN tab 08/01/24 [Rx] Cephalexin [Keflex] 500 mg PO Q8HR 10 Days #30 cap 08/01/24 [Rx] Follow up Appointment(s)/Referral(s): Nelson Mckeon MD [Primary Care Provider] - 1-2 days (patient wants to make appoinment time) [facility] [NON-STAFF] - 1 Week (Patients wants to make appointment) Kevin Flynn MD [STAFF PHYSICIAN] - 1 Week (patient wants to make his appointment ) Activity/Diet/Wound Care/Special Instructions: Activity limited until follow-up Follow-up with primary care provider on discharge Continue taking medications as prescribed Follow-up with Dr. Jean Baptiste infectious disease outpatient Continue local wound care Continue with Aquacel silver to the right lower extremity wound daily followed by Maury wrap from the toes up to the knees and elevate while at rest Discharge/Stand Alone Forms: [facility], [facility], [facility]ph[facility], Who Do I Call?, Community Resources, Outpatient Counseling Discharge Disposition: HOME SELF-CARE
== END 2024-08-01 15:37 | disposition home or self-care (01) | DRG 603 ==
LOC: EC 12:47 → 4SSUR 19:09
PROVIDERS: ADMIT Hospitalist; ATTEND Hospitalist
DX: L03.116 Cellulitis of left lower limb (principal); E87.20 Acidosis, unspecified; I87.333 Chronic venous hypertension (idiopathic) with ulcer and inflammation of bilateral lower extremity; L97.912 Non-pressure chronic ulcer of unspecified part of right lower leg with fat layer exposed; L97.922 Non-pressure chronic ulcer of unspecified part of left lower leg with fat layer exposed; Z59.02 Unsheltered homelessness; L03.115 Cellulitis of right lower limb; I87.8 Other specified disorders of veins; E87.5 Hyperkalemia; Z87.891 Personal history of nicotine dependence; Z71.3 Dietary counseling and surveillance
CPT/HCPCS: 36415; 80048; 80053; 83605; 83735; 84100; 85025; 85652; 86140; 87040; 93005; 93970; 96361; 96365; 96366; 99285

== ENCOUNTER 2024-09-01 14:54 | Emergency (ER) | payer MEDICARE, OTHER ==
[2024-09-01 16:23] VITALS: RESP 20; TEMP 98.1
[2024-09-01] MEDS: DIPH,PERTUS(ACELL)TETVAC-LF 0.5 ML VIAL IM ONE (16:23)
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
[2024-09-01 16:54] VITALS: BP 104/59; PULSE 98
== END 2024-09-01 17:16 | disposition home or self-care (01) ==
LOC: EC 14:54
DX: S80.212A Abrasion, left knee, initial encounter (principal); S60.512A Abrasion of left hand, initial encounter; S60.511A Abrasion of right hand, initial encounter; Z87.891 Personal history of nicotine dependence; Z23 Encounter for immunization; W01.0XXA Fall on same level from slipping, tripping and stumbling without subsequent striking against object, initial encounter; Y93.01 Activity, walking, marching and hiking
CPT/HCPCS: 90471; 90715; 99282

== ENCOUNTER 2024-09-29 14:19 | Inpatient (IN) | payer MEDICARE, OTHER ==
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
[2024-09-29 16:30] LABS: Basophils # (A) 0.05 10*3/uL (0.00-0.10); Basophils % (A) 0.3 %; Eosinophils # (A) 0.01 10*3/uL (0.04-0.35); Eosinophils % (A) 0.1 %; HCT 27.6 % (39.6-50.0); HGB 8.4 g/dL (13.0-17.0); Lymphocytes # (A) 0.64 10*3/uL (0.90-5.00); Lymphocytes % (A) 4.2 %; MCH 27.2 pg (27.0-32.0); MCHC 30.4 g/dL (32.0-37.0); MCV 89.3 fL (80.0-97.0); Mean Platelet Volume 10.7 fL (9.5-12.2); Monocytes # (A) 0.81 10*3/uL (0.20-1.00); Monocytes % (A) 5.4 %; Neutrophils # (A) 13.49 10*3/uL (1.80-7.70); Neutrophils % (A) 89.1 %; Platelet Count 200 10*3/uL (140-440); RBC 3.09 10*6/uL (4.40-5.60); RDW 19.1 % (11.5-14.5); WBC 15.13 10*3/uL (4.50-10.00)
[2024-09-29 18:11] LABS: ALT 11 U/L (4-49); AST 13 U/L (17-59); African American GFR (CKD) >90 (>60 ml/min/1.73 sqM); Albumin 2.6 g/dL (3.5-5.0); Alkaline Phosphatase 84 U/L (38-126); Anion Gap 8 mmol/L; Blood Urea Nitrogen 17 mg/dL (9-20); Calcium 7.5 mg/dL (8.4-10.2); Carbon Dioxide 22 mmol/L (22-30); Chloride 104 mmol/L (98-107); Glucose 108 mg/dL (74-99); Non-African American GFR(CKD) 87 (>60 ml/min/1.73 sqM); Potassium 4.5 mmol/L (3.5-5.1); Sodium 134 mmol/L (137-145); Total Bilirubin 1.2 mg/dL (0.2-1.3); Total Protein 5.8 g/dL (6.3-8.2)
[2024-09-29] MEDS: SODIUM CHLORIDE 0.9% 1,000 ML IV ONE (18:39)
[2024-09-29] MEDS: SODIUM CHLORIDE 0.9% 1,000 ML IV STA (18:39)
--- NOTE | 2024-09-29 22:06 | CT ---
EXAMINATION TYPE: CT abdomen pelvis wo con CT DLP: 635.4 mGycm, Automated exposure control for dose reduction was used. DATE OF EXAM: 09/29/2024 9:53 PM COMPARISON: None CLINICAL INDICATION:Male, 74 years old with history of abdominal pain; leg wounds oozing having diarr hea TECHNIQUE: Standard CT of the abdomen and pelvis without IV or oral contrast. Lack of IV or oral co ntrast limits evaluation of solid and hollow organ viscera. Coronal and sagittal reformats were perfo rmed. FINDINGS: LOWER CHEST: The visualized lung bases are clear. Small coronary artery calcifications. ABDOMEN LIVER: Diffusely hypoattenuating parenchyma. GALLBLADDER AND BILE DUCTS: Unremarkable noncontrast appearance. PANCREAS: Unremarkable noncontrast appearance. SPLEEN: Mildly enlarged measuring 15.3 cm in CC dimension. ADRENAL GLANDS: Unremarkable noncontrast appearance.. KIDNEYS AND URETERS: No evidence of hydronephrosis or renal calculus. No hydroureter or ureteral calc ulus identified. PELVIS BLADDER: Unremarkable REPRODUCTIVE: Coarse calcifications of the prostate gland are identified. ABDOMEN & PELVIS STOMACH AND BOWEL: Small hiatal hernia, duodenum is unremarkable. No focal bowel wall thickening or s urrounding inflammatory changes. The appendix is within normal limits. No evidence of bowel obstructi on. PERITONEUM: No evidence of pneumoperitoneum or free fluid. VASCULATURE: Mild atherosclerotic calcifications are present throughout the abdominal aorta and its b ranches. No evidence of aortic aneurysm. MUSCULOSKELETAL: There is osseous erosive changes involving the endplates at the T9-T10 disc level wi th paravertebral edema. No distinct abscess identified. Advanced osteoarthritic changes of the left h ip with joint space narrowing, osteophytosis, and subchondral cystic change. Multilevel degenerative disc disease which is most pronounced at L5-S1. Remote appearing compression fracture of the L1 verte bral body with approximately 90% height loss centrally with no significant retropulsion. LYMPH NODES: Mildly prominent bilateral inguinal lymph nodes with the right measuring up to 1.3 cm sh ort axis. SOFT TISSUE/ABDOMINAL WALL: Moderate sized fat filled umbilical hernia. Patches bilateral fat filled inguinal rings. IMPRESSION: 1. Findings highly concerning for discitis/osteomyelitis involving the T9-T10 disc level. Consider f urther evaluation with MR. 2. Chronic appearing compression deformity of the L1 vertebral body with approximately 90% height los s centrally. No significant retropulsion. 3. Mild splenomegaly. 4. Hepatic steatosis. 5. Advanced left hip osteoarthritic change. [facility], , 09/29/2024 10:03 PM
[2024-09-30 04:06] LABS: Appearance,Urine Clear (Clear); Bacteria,Urine Moderate /hpf; Bilirubin,Urine Negative (Negative); Blood,Urine Negative (Negative); Color,Urine Colorless; Glucose,Urine (UA) Negative (Negative); Ketones,Urine Negative (Negative); Leukocyte Esterase,Urine Small (Negative); Nitrite,Urine Negative (Negative); Protein,Urine Negative (Negative); RBC,Urine 1 /hpf (0-5); Specific Gravity,Urine 1.002 (1.001-1.035); Urobilinogen,Urine <2.0 mg/dL (<2.0); WBC,Urine 9 /hpf (0-5)
[2024-09-30] MEDS ORDERED: VANCOMYCIN IV PER PHARMACY 1 EACH MISC MISCELLANE PRN (08:24)
[2024-09-30] MEDS: SODIUM CHLORIDE 0.9% 1,000 ML IV SCH ×2 (09:04→11:48)
[2024-09-30 09:11] LABS: African American GFR (CKD) >90 (>60 ml/min/1.73 sqM); Anion Gap 6 mmol/L; Blood Urea Nitrogen 15 mg/dL (9-20); Calcium 7.3 mg/dL (8.4-10.2); Carbon Dioxide 23 mmol/L (22-30); Chloride 106 mmol/L (98-107); Glucose 89 mg/dL (74-99); Non-African American GFR(CKD) >90 (>60 ml/min/1.73 sqM); Potassium 3.5 mmol/L (3.5-5.1); Sodium 135 mmol/L (137-145)
[2024-09-30] MEDS: VANCOMYCIN 1,500 MG in SODIUM CHLORIDE 0.9% 500 ML 500 ML IVPB ONE (09:32)
--- NOTE | 2024-09-30 11:04 | US ---
EXAMINATION TYPE: US venous doppler duplex LE BI DATE OF EXAM: 09/30/2024 10:54 AM COMPARISON: 07/27/2024 CLINICAL INDICATION: Male, 74 years old with history of rule out poss dvt; bilat pain/swelling x 1 mo nth approx, no trauma to either leg, no hx of dvt, not currently on blood thinners TECHNIQUE: The lower extremity deep venous system is examined utilizing real time linear array sonog vandana with graded compression, color doppler sonography, and spectral doppler. SIDE PERFORMED: Bilateral FINDINGS: VESSELS IMAGED: Common Femoral Vein Deep Femoral Vein Greater Saphenous Vein * Femoral Vein Popliteal Vein Small Saphenous Vein * Proximal Calf Veins (* superficial vessels) limited exam due to edema/ pt body habitus. Right Leg: appears negative for DVTpatency of the vessels. Spectral waveforms are within normal limi ts. limited calf vs due to edema/ pt body habitus Left Leg: appears negative for DVT shows patency of the vessels. Spectral waveforms are within lynda l limits. limited DFV & FEM V DIST due to edema/ pt body habitus. IMPRESSION: 1. Bilateral lower extremity ultrasound negative for deep venous thrombosis. 2. There is limitation of the examination due to body habitus and lower extremity edema [facility], , 09/30/2024 11:02 AM
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
[2024-09-30 13:51] LABS: Basophils # (A) 0.01 10*3/uL (0.00-0.10); Basophils % (A) 0.2 %; Eosinophils # (A) 0.01 10*3/uL (0.04-0.35); Eosinophils % (A) 0.2 %; HCT 21.1 % (39.6-50.0); Immature Platelet Fraction 3.3 % (1.1-6.1); Lymphocytes # (A) 0.56 10*3/uL (0.90-5.00); Lymphocytes % (A) 9.5 %; MCH 26.8 pg (27.0-32.0); MCHC 29.4 g/dL (32.0-37.0); MCV 91.3 fL (80.0-97.0); Mean Platelet Volume 10.3 fL (9.5-12.2); Monocytes # (A) 0.34 10*3/uL (0.20-1.00); Monocytes % (A) 5.8 %; Neutrophils # (A) 4.93 10*3/uL (1.80-7.70); Neutrophils % (A) 83.6 %; Platelet Count 127 10*3/uL (140-440); RBC 2.31 10*6/uL (4.40-5.60); RDW 19.3 % (11.5-14.5); WBC 5.89 10*3/uL (4.50-10.00)
[2024-09-30] MEDS: ENOXAPARIN 40 MG/0.4 ML SYRINGE SQ SCH (13:54)
[2024-09-30] MEDS: PANTOPRAZOLE 40 MG/10 ML VIAL IVP SCH (13:54)
[2024-09-30 13:57] LABS: HGB 6.2 g/dL (13.0-17.0)
[2024-09-30] MEDS ORDERED: ACETAMINOPHEN TAB 325 MG TAB PO PRN (14:46)
--- NOTE | 2024-09-30 15:35 | MR ---
INDICATION: Patient age:Male; 74 years old; Reason for study: Suspected T9-T10 discitis/osteomyelitis on CT scan; [facility]. COMPARISON: CT abdomen and pelvis 09/29/2024. TECHNIQUE: Multi planar, multi sequence imaging was performed utilizing: T1-weighted, T2-weighted, an d turbo inversion recovery imaging of the thoracic spine. The patient was given 9 mL Gadobutrol intra venously. FINDINGS: There is osseous erosions with bone marrow edema at the T9-T10 disc space involving the T9 and T10 ve rtebral bodies. There is associated avid enhancement with perivertebral soft tissue edema. Associated low T1/heterogenous T2 signal within the T9 and T10 vertebral bodies. There is extension into the an terior thecal space with mild central canal stenosis. No epidural abscess identified. There are a few small paravertebral abscess is identified with one measuring 1.3 x 0.5 x 0.7 cm within the anterior prevertebral space. There are 2 adjacent small abscesses identified within the right paravertebral so ft tissues measuring up to 1.1 cm. Remote compression fracture of the L1 vertebral body without bone marrow edema. There is approximatel y 90% height loss and 1 mm retropulsion. Remaining vertebral bodies heights are maintained. Mild dext rocurvature of the thoracic spine. No evidence of disc herniation of the thoracic spine. No evidence of significant central canal stenos is. No significant neural foraminal stenosis of the thoracic spine. Thoracic spinal cord appears unremarkable. Partial visualization of nonenhancing thin-walled right renal cyst measuring up to 1.9 cm. No flap re commended. IMPRESSION: 1. Acute discitis/osteomyelitis at the T9-T10 disc space with paravertebral small abscesses. No evid ence for epidural abscess. 2. Remote compression deformity L1 vertebral body with approximately 90% height loss of 1 mm retropu lsion. [facility], , 09/30/2024 3:33 PM
[2024-09-30] MEDS: PANTOPRAZOLE 40 MG/10 ML VIAL IVP ONE (15:45)
[2024-09-30 16:21] LABS: Reticulocyte % 2.91 % (0.10-1.80)
[2024-09-30 17:27] LABS: % Iron Saturation 43.84 (15.00-50.00); Iron 32 UG/DL (65-175); Total Iron Binding Capacity 73 UG/DL (228-460)
[2024-09-30] MEDS ORDERED: ZINC OXIDE PASTE (Z-GUARD) 1 APPLIC TOPICAL PRN (18:31)
[2024-09-30] MEDS: VANCOMYCIN 1,500 MG in SODIUM CHLORIDE 0.9% 500 ML 500 ML IVPB SCH (21:50)
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
[2024-09-30 23:57] LABS: HCT 22.7 % (39.6-50.0); MCH 27.6 pg (27.0-32.0); MCHC 30.4 g/dL (32.0-37.0); MCV 90.8 fL (80.0-97.0); Mean Platelet Volume 10.1 fL (9.5-12.2); Platelet Count 127 10*3/uL (140-440); RDW 17.7 % (11.5-14.5); WBC 5.64 10*3/uL (4.50-10.00)
[2024-10-01 00:29] LABS: HGB 6.9 g/dL (13.0-17.0)
[2024-10-01 09:11] LABS: Basophils # (A) 0.01 10*3/uL (0.00-0.10); Basophils % (A) 0.2 %; Eosinophils # (A) 0.04 10*3/uL (0.04-0.35); Eosinophils % (A) 0.7 %; HCT 25.1 % (39.6-50.0); HGB 7.6 g/dL (13.0-17.0); Immature Platelet Fraction 3.4 % (1.1-6.1); Lymphocytes # (A) 0.47 10*3/uL (0.90-5.00); Lymphocytes % (A) 8.6 %; MCH 27.4 pg (27.0-32.0); MCHC 30.3 g/dL (32.0-37.0); MCV 90.6 fL (80.0-97.0); Mean Platelet Volume 11.1 fL (9.5-12.2); Monocytes # (A) 0.26 10*3/uL (0.20-1.00); Monocytes % (A) 4.8 %; Neutrophils % (A) 84.6 %; Platelet Count 127 10*3/uL (140-440); RBC 2.77 10*6/uL (4.40-5.60); RDW 17.4 % (11.5-14.5); WBC 5.44 10*3/uL (4.50-10.00)
[2024-10-01 09:21] LABS: African American GFR (CKD) >90 (>60 ml/min/1.73 sqM); Anion Gap 7 mmol/L; Blood Urea Nitrogen 12 mg/dL (9-20); Calcium 6.8 mg/dL (8.4-10.2); Carbon Dioxide 19 mmol/L (22-30); Chloride 109 mmol/L (98-107); Glucose 83 mg/dL (74-99); Non-African American GFR(CKD) >90 (>60 ml/min/1.73 sqM); Potassium 3.2 mmol/L (3.5-5.1); Sodium 135 mmol/L (137-145)
[2024-10-01] MEDS: DOCUSATE 100 MG CAP PO SCH (09:37)
[2024-10-01 11:27] LABS: C Reactive Protein 13.7 mg/dL (<1.0)
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
[2024-10-01] MEDS: POTASSIUM CHLORIDE ER 20 MEQ TAB.ER PO STA (11:56)
--- NOTE | 2024-10-01 12:45 | P.PN ---
Subjective Progress Note Date: 10/01/24 Patient is a 74-year-old male with a history of chronic wound lesions of the legs presented to the ER with a complaint of diarrhea. Patient reports that he was at the wound care center for his chronic bilateral lower extremity wound lesions where he complained about diarrhea and he was advised to go to the ER for further evaluation. Patient reports that he has been endorsing diarrhea since 2 weeks and describes his stools as loose and bowel movements 3-4 times a day. He has been getting treatment for his bilateral lower chronic venous stasis cellulitis including antibiotics. He endorsed mild abdominal pain yesterday which has resolved today. Patient denies chest pain, shortness of breath, dizziness, headaches, acute vision changes, dysuria. Initial laboratory evaluation shows WBC 15.13, hemoglobin 8.4, sodium 134, potassium 4.5, BUN 17, creatinine 0.82, lactic acid 2.8, repeat lactic acid 4.1 and 1.3. Urinalysis shows mild urine WBC, mildly leukocyte Estrace and urine bacteria. CT abdomen pelvis shows findings highly concerning for discitis/osteomyelitis involving the T9-T10 disc level. Chronic appearing compression deformity of the L1 vertebral body. Mild splenomegaly. Hepatic steatosis. Advanced left hip osteoarthritic change. Venous Doppler study of lower extremities is negative for bilateral DVT EKG shows normal sinus rhythm with ventricular rate of 99 bpm, IN interval of 186 ms, QRS duration 109 ms, QTc 413 ms, left axis deviation, fairly normal R wave progression, nonspecific ST to T wave changes noted. Vital signs on arrival show temperature of 97.7 F, pulse rate of 114, respiratory rate of 20, blood pressure 100/60, oxygen saturation 90% on room air. In the ED: Severe sepsis protocol was initiated patient received a total 3 L of IV fluid bolus and 2 g of IV ceftriaxone once. 10/01/2024: Patient was seen and examined at the bedside. No acute events overnight. Patient received 2 units of PRBC yesterday. Hemoglobin this morning 7.6. No active bleeding. Patient continues to be on IV Rocephin and vancomycin for lower extremity cellulitis. MRI of the thoracic spine showed discitis/osteomyelitis complicated with paravertebral abscess at T9/T10. Orthop edic surgery has been consulted. Will consult IR for abscess drainage. Potassium was 3.2, will replace it with 60 mEq KCl orally. Physical examination: Vital signs reviewed General: non toxic, no distress, appears at stated age, overweight Derm: Extensive erythema on both legs extending below the knee to both feet with multiple areas of draining purulent ulcers associated with foul smell Head: atraumatic, normocephalic, symmetric Eyes: EOMI, no lid lag, anicteric sclera, pupils equal round reactive to light ENT: Nose and ears atraumatic Neck: No cervical lymphadenopathy, trachea midline, supple Mouth: no lip lesion, mucus membranes moist Cardiovascular: S1S2 reg, no murmur, positive dorsalis pedis pulse bilateral, 1+ bilateral pitting edema Lungs: CTA bilateral, no rhonchi, no rales, no accessory muscle use Abdominal: soft, nontender to palpation, no guarding Ext: muscle strength 5 out of 5 in all 4 extremities grossly, no gross muscle atrophy, no contractures, Neuro: CN II-XI grossly intact, no gross focal neuro deficits Psych: Alert, oriented, appropriate affect Assessment/Plan: This is a 74-year-old male with a history of chronic wound lesions of the legs presented to the ER with a complaint of diarrhea. . Case was discussed with the Emergency Room provider and decision was made to admit the patient for severe sepsis secondary to lower extremity cellulitis Active: #Severe sepsis secondary to bilateral lower extremity cellulitis # Discitis/osteomyelitis complicated by paravertebral abscess involving the T9- T10 #Diarrhea, rule out C. difficile #Leukocytosis secondary to above Pending blood culture, aerobic and anaerobic wound culture Continue with ceftriaxone IVPB 2 g once daily and IV vancomycin dosed per pharmacy Infectious disease and wound care on board, appreciate recs MRI of the thoracic spine showed discitis/osteomyelitis complicated with paravertebral abscess at T9/T10 Negative venous Doppler ultrasound of both lower extremities IV normal saline at 75 cc/h Obtain C. difficile PCR test Obtain stool culture HbA1c 4.9% Orthopedic surgery on board, appreciate recs Consult IR for abscess drainage, send sample for culture and sensitivity # Anemia of chronic disease Iron 7.3, TIBC 73, percent saturation 44, ferritin 944, transferrin 51.9 ESR 30.7 Reticulocyte count 2.91 Transfuse with packed RBC if hemoglobin is less than 7 Continue monitor CBC #Compression deformity of the L1 #Chronic low back pain Consult PT/OT Acetaminophen as needed for pain #Hypokalemia Order KCl 60 mEq once stat Continue monitor BMP DVT prophylaxis: Lovenox 40 mg subcu daily GI prophylaxis: IV Protonix 40 mg once daily F: Replete as needed E: Replete as needed N: Heart healthy diet A: Ambulatory at baseline CODE STATUS: Full code Discussed with: Patient Anticipated discharge place: Pending clinical course Dictation was produced using [employer] dictation software. Please excuse any grammatical, word or spelling errors. Attestation: I have seen and examined this patient with my resident, assessment and plan discussed with the resident, agree with assessment and plan as written above. Dr. Whittaker Objective - Vital Signs Vital signs: Vital Signs Temp 98.0 F 10/01/24 05:27 Pulse 88 10/01/24 05:27 Resp 16 10/01/24 05:27 BP 108/67 10/01/24 05:27 Pulse Ox 96 10/01/24 05:27 FiO2 Intake & Output 09/30/24 10/01/24 10/01/24 18:59 06:59 18:59 Intake Total 0 1671 Output Total 400 Balance 0 1271 Weight 90.718 kg 90.5 kg Intake: IV 10 Invasive Line 2 10 Intake, IV Titration 950 Amount Sodium Chloride 0.9% 1, 450 000 ml @ 75 mls/hr IV . [id number] JUSTIN Rx#:[id number] Vancomycin 1,500 mg In 500 Sodium Chloride 0.9% 500 ml 500 ml @ 167 mls/hr IVPB Q12HR JUSTIN Rx#: [id number] Oral 120 Blood Product 0 591 Rc As-1 Unit 0 310 [id number] Rc Pheresis 2 As3 Unit 281 [id number] Output: Urine 400 Other: Voiding Method Urinal # Voids 1 - Labs CBC & Chem 7: 10/01/24 07:18 10/01/24 07:18 Labs: Abnormal Lab Results - Last 24 Hours (Table) 09/30/24 09/30/24 09/30/24 Range/Units 08:17 08:17 08:17 RBC 2.31 L (4.40-5.60) 10*6/uL Hgb 6.2 L* D (13.0-17.0) g/dL Hct 21.1 L (39.6-50.0) % MCH 26.8 L (27.0-32.0) pg MCHC 29.4 L (32.0-37.0) g/dL Plt Count 127 L (140-440) 10*3/uL Lymphocytes # 0.56 L (0.90-5.00) 10*3/uL Eosinophils # 0.01 L (0.04-0.35) 10*3/uL Retic Count 2.91 H (0.10-1.80) % Sodium 135 L (137-145) mmol/L Calcium 7.3 L (8.4-10.2) mg/dL Iron 32 L (65-175) UG/DL TIBC 73 L (228-460) UG/DL Transferrin 51.9 L (204.0-354.0) mg/dL Ferritin 944.0 H (22.0-322.0) ng/mL Crossmatch 09/30/24 09/30/24 Range/Units 13:43 23:44 RBC 2.50 L (4.40-5.60) 10*6/uL Hgb 6.9 L* (13.0-17.0) g/dL Hct 22.7 L (39.6-50.0) % MCH (27.0-32.0) pg MCHC 30.4 L (32.0-37.0) g/dL Plt Count 127 L (140-440) 10*3/uL Lymphocytes # (0.90-5.00) 10*3/uL Eosinophils # (0.04-0.35) 10*3/uL Retic Count (0.10-1.80) % Sodium (137-145) mmol/L Calcium (8.4-10.2) mg/dL Iron (65-175) UG/DL TIBC (228-460) UG/DL Transferrin (204.0-354.0) mg/dL Ferritin (22.0-322.0) ng/mL Crossmatch See Detail Microbiology - Last 24 Hours (Table) 09/30/24 10:12 Gram Stain - Preliminary Leg - Right
[2024-10-01] MEDS: POTASSIUM CHLORIDE ER 20 MEQ TAB.ER PO ONE (13:56)
[2024-10-01] MEDS: ENOXAPARIN 40 MG/0.4 ML SYRINGE SQ SCH (13:56)
--- NOTE | 2024-10-01 15:22 | P.PN ---
Subjective Progress Note Date: 10/01/24 Principal diagnosis: Reason for follow-up is discitis/osteomyelitis Patient is a 74-year-old male with a past medical history significant for hypertension and did have a history of chronic nonhealing wound to bilateral lower extremity for the patient followed at [facility] wound care center has been sent to the ER from the wound care concerning for diarrhea patient workup which shows possibility of T9-10 discitis/osteomyelitis. On today's evaluation that is 10/01/2024, the patient continues to be afebrile, the patient is on room air and breathing comfortably, the Pt denies having any chest pain or cough, the patient denies having any abdominal pain no vomiting and did have improvement in his diarrhea. Patient white count is 5.44 creatinine 0.63 CRP is 13.7 blood culture and lower extremity cultures currently pending Objective - Vital Signs Vital signs: Vital Signs Temp 98.1 F 10/01/24 11:54 Pulse 93 10/01/24 11:54 Resp 14 10/01/24 11:54 BP 121/73 10/01/24 11:54 Pulse Ox 96 10/01/24 11:54 FiO2 Intake & Output 09/30/24 10/01/24 10/01/24 18:59 06:59 18:59 Intake Total 0 1671 Output Total 400 Balance 0 1271 Weight 90.718 kg 90.5 kg 90.5 kg Intake: IV 10 Invasive Line 2 10 Intake, IV Titration 950 Amount Sodium Chloride 0.9% 1, 450 000 ml @ 75 mls/hr IV . [id number] JUSTIN Rx#:[id number] Vancomycin 1,500 mg In 500 Sodium Chloride 0.9% 500 ml 500 ml @ 167 mls/hr IVPB Q12HR JUSTIN Rx#: [id number] Oral 120 Blood Product 0 591 Rc As-1 Unit 0 310 [id number] Rc Pheresis 2 As3 Unit 281 [id number] Output: Urine 400 Other: Voiding Method Urinal # Voids 1 - Exam GENERAL DESCRIPTION: An elderly male lying in bed in no distress RESPIRATORY SYSTEM: Unlabored breathing , decreased breath sounds at bases HEART: S1 S2 regular rate and rhythm , ABDOMEN: Soft , no tenderness EXTREMITIES: Lower extremity currently dressed - Labs CBC & Chem 7: 10/01/24 07:18 10/01/24 07:18 Labs: Abnormal Lab Results - Last 24 Hours (Table) 09/30/24 09/30/24 09/30/24 Range/Units 08:17 08:17 08:17 RBC 2.31 L (4.40-5.60) 10*6/uL Hgb 6.2 L* D (13.0-17.0) g/dL Hct 21.1 L (39.6-50.0) % MCH 26.8 L (27.0-32.0) pg MCHC 29.4 L (32.0-37.0) g/dL Plt Count 127 L (140-440) 10*3/uL Immature Gran # (0.00-0.04) 10*3/uL Lymphocytes # 0.56 L (0.90-5.00) 10*3/uL Eosinophils # 0.01 L (0.04-0.35) 10*3/uL Retic Count 2.91 H (0.10-1.80) % Sodium (137-145) mmol/L Potassium (3.5-5.1) mmol/L Chloride (98-107) mmol/L Carbon Dioxide (22-30) mmol/L Creatinine (0.66-1.25) mg/dL Calcium (8.4-10.2) mg/dL Iron 32 L (65-175) UG/DL TIBC 73 L (228-460) UG/DL Transferrin 51.9 L (204.0-354.0) mg/dL Ferritin 944.0 H (22.0-322.0) ng/mL C-Reactive Protein (<1.0) mg/dL Crossmatch 09/30/24 09/30/24 10/01/24 Range/Units 13:43 23:44 07:18 RBC 2.50 L 2.77 L (4.40-5.60) 10*6/uL Hgb 6.9 L* 7.6 L (13.0-17.0) g/dL Hct 22.7 L 25.1 L (39.6-50.0) % MCH (27.0-32.0) pg MCHC 30.4 L 30.3 L (32.0-37.0) g/dL Plt Count 127 L 127 L (140-440) 10*3/uL Immature Gran # 0.06 H (0.00-0.04) 10*3/uL Lymphocytes # 0.47 L (0.90-5.00) 10*3/uL Eosinophils # (0.04-0.35) 10*3/uL Retic Count (0.10-1.80) % Sodium (137-145) mmol/L Potassium (3.5-5.1) mmol/L Chloride (98-107) mmol/L Carbon Dioxide (22-30) mmol/L Creatinine (0.66-1.25) mg/dL Calcium (8.4-10.2) mg/dL Iron (65-175) UG/DL TIBC (228-460) UG/DL Transferrin (204.0-354.0) mg/dL Ferritin (22.0-322.0) ng/mL C-Reactive Protein (<1.0) mg/dL Crossmatch See Detail 10/01/24 Range/Units 07:18 RBC (4.40-5.60) 10*6/uL Hgb (13.0-17.0) g/dL Hct (39.6-50.0) % MCH (27.0-32.0) pg MCHC (32.0-37.0) g/dL Plt Count (140-440) 10*3/uL Immature Gran # (0.00-0.04) 10*3/uL Lymphocytes # (0.90-5.00) 10*3/uL Eosinophils # (0.04-0.35) 10*3/uL Retic Count (0.10-1.80) % Sodium 135 L (137-145) mmol/L Potassium 3.2 L (3.5-5.1) mmol/L Chloride 109 H (98-107) mmol/L Carbon Dioxide 19 L (22-30) mmol/L Creatinine 0.63 L (0.66-1.25) mg/dL Calcium 6.8 L (8.4-10.2) mg/dL Iron (65-175) UG/DL TIBC (228-460) UG/DL Transferrin (204.0-354.0) mg/dL Ferritin (22.0-322.0) ng/mL C-Reactive Protein 13.7 H (<1.0) mg/dL Crossmatch Microbiology - Last 24 Hours (Table) 09/30/24 10:12 Gram Stain - Preliminary Leg - Right Assessment and Plan (1) Osteomyelitis of thoracic spine Current Visit: Yes Status: Acute Code(s): M46.24 - OSTEOMYELITIS OF VERTEBRA, THORACIC REGION SNOMED Code(s): 222520555 (2) Leukocytosis Current Visit: Yes Status: Acute Code(s): D72.829 - ELEVATED WHITE BLOOD CELL COUNT, UNSPECIFIED SNOMED Code(s): 390824895 (3) Bilateral lower leg cellulitis Current Visit: No Status: Acute Code(s): L03.116 - CELLULITIS OF LEFT LOWER LIMB; L03.115 - CELLULITIS OF RIGHT LOWER LIMB SNOMED Code(s): 062598411 Plan: 1patient with abnormal CT of abdominal pelvis with concern for T9-10 osteomyelitis and discitis in this patient presenting to the hospital mostly with weakness and diarrhea currently currently denies having any back pain or open wound and no history of any trauma and very unlikely presentation for thoracic spine osteomyelitis/discitis likely algorithm to cover will be gram- positive skin arthur and less likely gram-negative pathogen also have evidence of bilateral lower extremity wound and cellulitis 2-patient did have MRI of the spine concerning for discitis/osteomyelitis and possible abscess Ortho has seen the patient recommending no surgical intervention will need to get IR aspiration of this area for microbiological diagnosis 3-blood culture currently pending CRP is elevated sed rate is pending 4-patient is currently being treated empirically with vancomycin pharmacy to dose and Rocephin while waiting for the workup to be completed Dictation was produced using [employer] dictation software. please excuse any grammatical, word or spelling errors. Time with Patient: Less than 30
[2024-10-02] MEDS: PANTOPRAZOLE 40 MG TABLET PO SCH (06:39)
[2024-10-02 07:47] LABS: Basophils # (A) 0.01 10*3/uL (0.00-0.10); Basophils % (A) 0.2 %; Eosinophils # (A) 0.04 10*3/uL (0.04-0.35); Eosinophils % (A) 0.9 %; HCT 23.7 % (39.6-50.0); HGB 7.3 g/dL (13.0-17.0); Immature Platelet Fraction 2.8 % (1.1-6.1); Lymphocytes # (A) 0.55 10*3/uL (0.90-5.00); MCH 27.9 pg (27.0-32.0); MCHC 30.8 g/dL (32.0-37.0); MCV 90.5 fL (80.0-97.0); Monocytes # (A) 0.31 10*3/uL (0.20-1.00); Monocytes % (A) 6.7 %; Neutrophils # (A) 3.64 10*3/uL (1.80-7.70); Neutrophils % (A) 79.1 %; Platelet Count 124 10*3/uL (140-440); RBC 2.62 10*6/uL (4.40-5.60); RDW 17.7 % (11.5-14.5)
[2024-10-02 08:01] LABS: African American GFR (CKD) >90 (>60 ml/min/1.73 sqM); Anion Gap 4 mmol/L; Blood Urea Nitrogen 10 mg/dL (9-20); Calcium 6.8 mg/dL (8.4-10.2); Carbon Dioxide 20 mmol/L (22-30); Chloride 111 mmol/L (98-107); Glucose 84 mg/dL (74-99); Non-African American GFR(CKD) >90 (>60 ml/min/1.73 sqM); Potassium 3.4 mmol/L (3.5-5.1); Sodium 135 mmol/L (137-145)
[2024-10-02] MEDS: VANCOMYCIN TROUGH DUE 1 EACH MISC MISCELLANE ONE (08:31)
--- NOTE | 2024-10-02 10:15 | P.PN ---
Subjective Progress Note Date: 10/02/24 Principal diagnosis: Weakness, anemia, bilateral lower extremity edema/wounds, T9/T10 osteomyelitis/discitis Patient evaluated at bedside, is also present. He is resting in his hospital bed, he appears to be in no acute distress. He notes very minimal back pain at this time. Denies headaches, lightheadedness, chest pain or shortness of breath. He denies loss of bowel or bladder function at this time. Objective - Vital Signs Vital signs: Vital Signs Temp 97.4 F L 10/02/24 08:45 Pulse 93 10/02/24 08:45 Resp 14 10/02/24 08:45 BP 109/71 10/02/24 08:45 Pulse Ox 96 10/02/24 08:45 FiO2 Intake & Output 10/01/24 10/02/24 10/02/24 18:59 06:59 18:59 Intake Total 1250 Balance 1250 Weight 90.5 kg 92.5 kg Intake: Intake, IV Titration 1250 Amount Sodium Chloride 0.9% 1, 750 000 ml @ 75 mls/hr IV . [id number] [facility] Rx#:[id number] Vancomycin 1,500 mg In 500 Sodium Chloride 0.9% 500 ml 500 ml @ 167 mls/hr IVPB Q12HR [facility] Rx#: [id number] Other: Voiding Method Urinal Urinal # Voids 2 1 # Bowel Movements 1 1 - Exam Gen: AOx3, NAD VSS stable at this time Integument: No open lesions were visualized throughout the cervical, thoracic or lumbar spine, no areas of erythema, no ecchymosis or soft tissue swelling Bilateral lower extremities are wrapped with Kerlix bandages, there is significant edema and redness appreciated throughout. There is dried blood/drainage noted on the bed sheets involving the bilateral lower extremity Palpation: No tenderness with palpation throughout the cervical spine, the lower thoracic spine does reproduce some tenderness at midline with palpation ROM: Full range of motion in all major muscle groups of the bilateral upper extremities, no focal deficits were appreciated Range of motion of the bilateral lower extremities is intact, he is limited with knee extension and knee flexion due to the swelling and discomfort in his lower extremities. 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 appreciated the bilateral lower extremities with hip flexion, knee extension, knee flexion, plantarflexion, dorsiflexion, EHL, FHL Reflexes: 2/4 in all UE and LE Negative Rudi's bilaterally Negative clonus bilateral Special Test: Negative straight leg raise bilaterally - Labs CBC & Chem 7: 10/02/24 06:36 10/02/24 06:36 Labs: Abnormal Lab Results - Last 24 Hours (Table) 10/01/24 10/01/24 10/02/24 Range/Units 07:18 07:18 06:36 RBC (4.40-5.60) 10*6/uL Hgb (13.0-17.0) g/dL Hct (39.6-50.0) % MCHC (32.0-37.0) g/dL Plt Count (140-440) 10*3/uL Immature Gran # (0.00-0.04) 10*3/uL Lymphocytes # (0.90-5.00) 10*3/uL ESR 24 H (0-20) mm/Hr Sodium 135 L (137-145) mmol/L Potassium 3.4 L (3.5-5.1) mmol/L Chloride 111 H (98-107) mmol/L Carbon Dioxide 20 L (22-30) mmol/L Creatinine 0.62 L (0.66-1.25) mg/dL Calcium 6.8 L (8.4-10.2) mg/dL C-Reactive Protein 13.7 H (<1.0) mg/dL 10/02/24 Range/Units 06:36 RBC 2.62 L (4.40-5.60) 10*6/uL Hgb 7.3 L (13.0-17.0) g/dL Hct 23.7 L (39.6-50.0) % MCHC 30.8 L (32.0-37.0) g/dL Plt Count 124 L (140-440) 10*3/uL Immature Gran # 0.05 H (0.00-0.04) 10*3/uL Lymphocytes # 0.55 L (0.90-5.00) 10*3/uL ESR (0-20) mm/Hr Sodium (137-145) mmol/L Potassium (3.5-5.1) mmol/L Chloride (98-107) mmol/L Carbon Dioxide (22-30) mmol/L Creatinine (0.66-1.25) mg/dL Calcium (8.4-10.2) mg/dL C-Reactive Protein (<1.0) mg/dL Microbiology - Last 24 Hours (Table) 09/30/24 10:12 Gram Stain - Preliminary Leg - Right Wound Culture - Preliminary Gram Neg Bacilli 09/30/24 01:30 Blood Culture - Preliminary Blood Assessment and Plan Assessment: T9/T10 discitis/osteomyelitis Paravertebral abscesses T9/T10 Chronic L1 VCF Bilateral lower extremity wounds/cellulitis/edema Sepsis Anemia Plan: Continue IV antibiotic PT/OT evaluation, weight-bear as tolerated with walker Patient is relatively comfortable at rest, he does get some mild pain when he attempts to move, we will continue to monitor this. May consider use of a thoracic/lumbar brace Consider interventional radiology consult for possible aspiration to help identify pathogen Other medical specialty recommendations appreciated Will continue to follow during hospital stay Time with Patient: Less than 30
[2024-10-02] MEDS: POTASSIUM CHLORIDE ER 10 MEQ TAB.ER.PRT PO STA (10:18)
[2024-10-02] MEDS: POTASSIUM CHLORIDE ER 10 MEQ TAB.ER.PRT PO ONE (12:01)
--- NOTE | 2024-10-02 13:52 | P.PN ---
Subjective Progress Note Date: 10/02/24 Patient is a 74-year-old male with a history of chronic wound lesions of the legs presented to the ER with a complaint of diarrhea. Patient reports that he was at the wound care center for his chronic bilateral lower extremity wound lesions where he complained about diarrhea and he was advised to go to the ER for further evaluation. Patient reports that he has been endorsing diarrhea since 2 weeks and describes his stools as loose and bowel movements 3-4 times a day. He has been getting treatment for his bilateral lower chronic venous stasis cellulitis including antibiotics. He endorsed mild abdominal pain yesterday which has resolved today. Patient denies chest pain, shortness of breath, dizziness, headaches, acute vision changes, dysuria. Initial laboratory evaluation shows WBC 15.13, hemoglobin 8.4, sodium 134, potassium 4.5, BUN 17, creatinine 0.82, lactic acid 2.8, repeat lactic acid 4.1 and 1.3. Urinalysis shows mild urine WBC, mildly leukocyte Estrace and urine bacteria. CT abdomen pelvis shows findings highly concerning for discitis/osteomyelitis involving the T9-T10 disc level. Chronic appearing compression deformity of the L1 vertebral body. Mild splenomegaly. Hepatic steatosis. Advanced left hip osteoarthritic change. Venous Doppler study of lower extremities is negative for bilateral DVT EKG shows normal sinus rhythm with ventricular rate of 99 bpm, [place] interval of 186 ms, QRS duration 109 ms, QTc 413 ms, left axis deviation, fairly normal R wave progression, nonspecific ST to T wave changes noted. Vital signs on arrival show temperature of 97.7 F, pulse rate of 114, respiratory rate of 20, blood pressure 100/60, oxygen saturation 90% on room air. In the ED: Severe sepsis protocol was initiated patient received a total 3 L of IV fluid bolus and 2 g of IV ceftriaxone once. 10/01/2024: Patient was seen and examined at the bedside. No acute events overnight. Patient received 2 units of PRBC yesterday. Hemoglobin this morning 7.6. No active bleeding. Patient continues to be on IV Rocephin and vancomycin for lower extremity cellulitis. MRI of the thoracic spine showed discitis/osteomyelitis complicated with paravertebral abscess at T9/T10. Orthopedic surgery has been consulted. Will consult IR for abscess drainage. Potassium was 3.2, will replace it with 60 mEq KCl orally. 10/02/2024 Patient is evaluated today in follow-up on the cardiac unit. He continues on IV Rocephin and IV vancomycin for the left lower extremity cellulitis additionally his MRI of the thoracic spine noted discitis and osteomyelitis with a paravertebral abscess. IR has been consulted for abscess drainage although will not see this patient until Thursday as it is the weekend. Orthopedic spinal was consulted they recommended no emergent surgical intervention at this time and recommending to continue IV antibiotics. They reveal a white blood cell count of 4.60, hemoglobin 7.3, sodium of 135, potassium 3.4, BUN of 10 creatinine 0.62. C. difficile was found to be negative. Review of Systems Constitutional: Denied any fatigue denied any fever. Cardio vascular: denied any chest pain, palpitations Gastrointestinal: denied any nausea, vomiting, diarrhea Pulmonary: Denied any shortness of breath cough Neurologic denied any new focal deficits All inpatient medications were reviewed and appropriate changes in these medications as dictated in the interval history and assessment and plan. Physical examination: Vital signs reviewed General: non toxic, no distress, appears at stated age, overweight Derm: Extensive erythema on both legs extending below the knee to both feet with multiple areas of draining purulent ulcers associated with foul smell Head: atraumatic, normocephalic, symmetric Eyes: EOMI, no lid lag, anicteric sclera, pupils equal round reactive to light ENT: Nose and ears atraumatic Neck: No cervical lymphadenopathy, trachea midline, supple Mouth: no lip lesion, mucus membranes moist Cardiovascular: S1S2 reg, no murmur, positive dorsalis pedis pulse bilateral, 1+ bilateral pitting edema Lungs: CTA bilateral, no rhonchi, no rales, no accessory muscle use Abdominal: soft, nontender to palpation, no guarding Ext: muscle strength 5 out of 5 in all 4 extremities grossly, no gross muscle atrophy, no contractures, Neuro: CN II-XI grossly intact, no gross focal neuro deficits Psych: Alert, oriented, appropriate affect Assessment/Plan: This is a 74-year-old male with a history of chronic wound lesions of the legs presented to the ER with a complaint of diarrhea. . Case was discussed with the Emergency Room provider and decision was made to admit the patient for severe sepsis secondary to lower extremity cellulitis Active: #Severe sepsis secondary to bilateral lower extremity cellulitis # Discitis/osteomyelitis complicated by paravertebral abscess involving the T9- T10 #Diarrhea, rule out C. difficile #Leukocytosis secondary to above Pending blood culture, aerobic and anaerobic wound culture Continue with ceftriaxone IVPB 2 g once daily and IV vancomycin dosed per pharmacy Infectious disease and wound care on board, appreciate recs MRI of the thoracic spine showed discitis/osteomyelitis complicated with paravertebral abscess at T9/T10 Negative venous Doppler ultrasound of both lower extremities IV normal saline at 75 cc/h Obtain C. difficile PCR test Obtain stool culture HbA1c 4.9% Orthopedic surgery on board, appreciate recs Consult IR for abscess drainage, send sample for culture and sensitivity # Anemia of chronic disease Iron 7.3, TIBC 73, percent saturation 44, ferritin 944, transferrin 51.9 ESR 30.7 Reticulocyte count 2.91 Transfuse with packed RBC if hemoglobin is less than 7 Continue monitor CBC #Compression deformity of the L1 #Chronic low back pain Consult PT/OT Acetaminophen as needed for pain #Hypokalemia Order KCl 60 mEq once stat Continue monitor BMP DVT prophylaxis: Lovenox 40 mg subcu daily GI prophylaxis: IV Protonix 40 mg once daily CODE STATUS: Full code Discussed with: Patient Anticipated discharge place: Pending clinical course Dictation was produced using [employer] dictation software. Please excuse any grammatical, word or spelling errors. Hold lovenox pending IR evaluation and possible drainage of the neck abscess. If no intervention planned by IR than OK to resume the lovenox. Continue IV antibiotics. ID following closely. Pending evaluation by wound care. The impression and plan of care has been dictated by Nat Rees, Nurse Practitioner as directed. Dr. Remedios MD I have performed a history and physical examination and medical decision making of this patient, discussed the same with the dictator, and agree with the dictators assessment and plan as written, documented as a scribe. Based on total visit time, I have performed more than 50% of this visit. Objective - Vital Signs Vital signs: Vital Signs Temp 97.4 F L 10/02/24 08:45 Pulse 93 10/02/24 08:45 Resp 14 10/02/24 08:45 BP 109/71 10/02/24 08:45 Pulse Ox 96 10/02/24 08:45 FiO2 Intake & Output 10/01/24 10/02/24 10/02/24 18:59 06:59 18:59 Intake Total 1250 Balance 1250 Weight 90.5 kg 92.5 kg Intake: Intake, IV Titration 1250 Amount Sodium Chloride 0.9% 1, 750 000 ml @ 75 mls/hr IV . [id number] [facility] Rx#:[id number] Vancomycin 1,500 mg In 500 Sodium Chloride 0.9% 500 ml 500 ml @ 167 mls/hr IVPB Q12HR [facility] Rx#: [id number] Other: Voiding Method Urinal Urinal # Voids 2 1 # Bowel Movements 1 1 - Labs CBC & Chem 7: 10/02/24 06:36 10/02/24 06:36 Labs: Abnormal Lab Results - Last 24 Hours (Table) 10/01/24 10/01/24 10/02/24 Range/Units 07:18 07:18 06:36 RBC (4.40-5.60) 10*6/uL Hgb (13.0-17.0) g/dL Hct (39.6-50.0) % MCHC (32.0-37.0) g/dL Plt Count (140-440) 10*3/uL Immature Gran # (0.00-0.04) 10*3/uL Lymphocytes # (0.90-5.00) 10*3/uL ESR 24 H (0-20) mm/Hr Sodium 135 L 135 L (137-145) mmol/L Potassium 3.2 L 3.4 L (3.5-5.1) mmol/L Chloride 109 H 111 H (98-107) mmol/L Carbon Dioxide 19 L 20 L (22-30) mmol/L Creatinine 0.63 L 0.62 L (0.66-1.25) mg/dL Calcium 6.8 L 6.8 L (8.4-10.2) mg/dL C-Reactive Protein 13.7 H (<1.0) mg/dL 10/02/24 Range/Units 06:36 RBC 2.62 L (4.40-5.60) 10*6/uL Hgb 7.3 L (13.0-17.0) g/dL Hct 23.7 L (39.6-50.0) % MCHC 30.8 L (32.0-37.0) g/dL Plt Count 124 L (140-440) 10*3/uL Immature Gran # 0.05 H (0.00-0.04) 10*3/uL Lymphocytes # 0.55 L (0.90-5.00) 10*3/uL ESR (0-20) mm/Hr Sodium (137-145) mmol/L Potassium (3.5-5.1) mmol/L Chloride (98-107) mmol/L Carbon Dioxide (22-30) mmol/L Creatinine (0.66-1.25) mg/dL Calcium (8.4-10.2) mg/dL C-Reactive Protein (<1.0) mg/dL Microbiology - Last 24 Hours (Table) 09/30/24 10:12 Gram Stain - Preliminary Leg - Right Wound Culture - Preliminary Gram Neg Bacilli 09/30/24 01:30 Blood Culture - Preliminary Blood Assessment and Plan Time with Patient: Less than 30
--- NOTE | 2024-10-02 14:28 | P.PN ---
Subjective Progress Note Date: 10/02/24 Principal diagnosis: Reason for follow-up is discitis/osteomyelitis Patient is a 74-year-old male with a past medical history significant for hypertension and did have a history of chronic nonhealing wound to bilateral lower extremity for the patient followed at [facility] wound care center has been sent to the ER from the wound care concerning for diarrhea patient workup which shows possibility of T9-10 discitis/osteomyelitis. On today's evaluation that is 10/02/2024, Patient is afebrile patient is currently on room air and denies having any shortness of breath, the patient denies any chest pain or cough, the patient denies any nausea vomiting did not have any abdominal pain still complaining of significant diarrhea. Patient white count is 4.60, creatinine 0.62 Vanco trough is 22.1 stool for C. difficile negative Objective - Vital Signs Vital signs: Vital Signs Temp 97.9 F 10/02/24 11:58 Pulse 83 10/02/24 11:58 Resp 14 10/02/24 11:58 BP 103/63 10/02/24 11:58 Pulse Ox 96 10/02/24 11:58 FiO2 Intake & Output 10/01/24 10/02/24 10/02/24 18:59 06:59 18:59 Intake Total 1250 Balance 1250 Weight 90.5 kg 92.5 kg Intake: Intake, IV Titration 1250 Amount Sodium Chloride 0.9% 1, 750 000 ml @ 75 mls/hr IV . [id number] [facility] Rx#:[id number] Vancomycin 1,500 mg In 500 Sodium Chloride 0.9% 500 ml 500 ml @ 167 mls/hr IVPB Q12HR [facility] Rx#: [id number] Other: Voiding Method Urinal Urinal Urinal # Voids 2 1 # Bowel Movements 1 1 1 - Exam GENERAL DESCRIPTION: An elderly male lying in bed in no distress RESPIRATORY SYSTEM: Unlabored breathing , decreased breath sounds at bases HEART: S1 S2 regular rate and rhythm , ABDOMEN: Soft , no tenderness EXTREMITIES: Lower extremity currently dressed - Labs CBC & Chem 7: 10/02/24 06:36 10/02/24 06:36 Labs: Abnormal Lab Results - Last 24 Hours (Table) 10/01/24 10/02/24 10/02/24 Range/Units 07:18 06:36 06:36 RBC 2.62 L (4.40-5.60) 10*6/uL Hgb 7.3 L (13.0-17.0) g/dL Hct 23.7 L (39.6-50.0) % MCHC 30.8 L (32.0-37.0) g/dL Plt Count 124 L (140-440) 10*3/uL Immature Gran # 0.05 H (0.00-0.04) 10*3/uL Lymphocytes # 0.55 L (0.90-5.00) 10*3/uL ESR 24 H (0-20) mm/Hr Sodium 135 L (137-145) mmol/L Potassium 3.4 L (3.5-5.1) mmol/L Chloride 111 H (98-107) mmol/L Carbon Dioxide 20 L (22-30) mmol/L Creatinine 0.62 L (0.66-1.25) mg/dL Calcium 6.8 L (8.4-10.2) mg/dL Microbiology - Last 24 Hours (Table) 09/30/24 10:12 Gram Stain - Preliminary Leg - Right Wound Culture - Preliminary Gram Neg Bacilli Pseudomonas aeruginosa Beta Hemolytic Strep Group C 09/30/24 01:30 Blood Culture - Preliminary Blood Assessment and Plan (1) Osteomyelitis of thoracic spine Current Visit: Yes Status: Acute Code(s): M46.24 - OSTEOMYELITIS OF VERTEBRA, THORACIC REGION SNOMED Code(s): 082851385 (2) Leukocytosis Current Visit: Yes Status: Acute Code(s): D72.829 - ELEVATED WHITE BLOOD CELL COUNT, UNSPECIFIED SNOMED Code(s): 644686252 (3) Bilateral lower leg cellulitis Current Visit: No Status: Acute Code(s): L03.116 - CELLULITIS OF LEFT LOWER LIMB; L03.115 - CELLULITIS OF RIGHT LOWER LIMB SNOMED Code(s): 564361262 Plan: 1patient with abnormal CT of abdominal pelvis with concern for T9-10 osteomyelitis and discitis in this patient presenting to the hospital mostly with weakness and diarrhea currently currently denies having any back pain or open wound and no history of any trauma and very unlikely presentation for thoracic spine osteomyelitis/discitis likely algorithm to cover will be gram- positive skin arthur and less likely gram-negative pathogen also have evidence of bilateral lower extremity wound and cellulitis 2-patient did have MRI of the spine concerning for discitis/osteomyelitis and possible abscess Ortho has seen the patient recommending no surgical intervention, will consult IR for aspiration of this area for microbiological diagnosis 3-blood culture currently local culture from the leg is growing multiple pathogen including Pseudomonas 4-patient is still complaining of diarrhea will add Questran for symptomatic relief 5patient to continue with vancomycin dose adjusted to keep the trough around 15 we will switch Rocephin to cefepime with the Pseudomonas growing in one of the culture Dictation was produced using [employer] dictation software. please excuse any grammatical, word or spelling errors.
[2024-10-02] MEDS: CEFEPIME 2 GM in SODIUM CHLORIDE 0.9% 100 ML IVPB SCH (16:37)
[2024-10-02] MEDS: CHOLESTYRAMINE RESIN 4 GM PACKET PO SCH (18:20)
[2024-10-03] MEDS: VANCOMYCIN 1,500 MG in SODIUM CHLORIDE 0.9% 500 ML 500 ML IVPB SCH (02:40)
[2024-10-03 09:01] LABS: Basophils # (A) 0.01 10*3/uL (0.00-0.10); Basophils % (A) 0.2 %; Eosinophils # (A) 0.06 10*3/uL (0.04-0.35); Eosinophils % (A) 1.5 %; HCT 23.8 % (39.6-50.0); HGB 7.2 g/dL (13.0-17.0); Immature Platelet Fraction 2.8 % (1.1-6.1); Lymphocytes # (A) 0.52 10*3/uL (0.90-5.00); Lymphocytes % (A) 12.7 %; MCH 27.7 pg (27.0-32.0); MCHC 30.3 g/dL (32.0-37.0); MCV 91.5 fL (80.0-97.0); Mean Platelet Volume 10.3 fL (9.5-12.2); Monocytes # (A) 0.25 10*3/uL (0.20-1.00); Monocytes % (A) 6.1 %; Neutrophils # (A) 3.21 10*3/uL (1.80-7.70); Neutrophils % (A) 78.5 %; Platelet Count 121 10*3/uL (140-440); RDW 17.7 % (11.5-14.5); WBC 4.09 10*3/uL (4.50-10.00)
[2024-10-03 09:14] LABS: African American GFR (CKD) >90 (>60 ml/min/1.73 sqM); Anion Gap 2 mmol/L; Blood Urea Nitrogen 6 mg/dL (9-20); Carbon Dioxide 23 mmol/L (22-30); Chloride 111 mmol/L (98-107); Glucose 85 mg/dL (74-99); Non-African American GFR(CKD) >90 (>60 ml/min/1.73 sqM); Potassium 3.3 mmol/L (3.5-5.1); Sodium 136 mmol/L (137-145)
[2024-10-03] MEDS ORDERED: Potassium Replacement Protocol 1 EACH MISC MISCELLANE PRN (09:17)
[2024-10-03] MEDS: POTASSIUM CHLORIDE ER 20 MEQ TAB.ER PO STA (09:38)
[2024-10-03 11:16] LABS: INR 1.2 (<1.2); Prothrombin Time 12.8 sec (10.0-12.5)
--- NOTE | 2024-10-03 16:21 | P.PN ---
Progress Note - Text Progress Note Date: 10/03/24 Chief Complaint Back pain following a fall a couple of weeks ago. History of Present Illness (HPI) Celine is a patient who fell a couple of weeks ago and has been experiencing back pain since then. The patient has had wounds on their legs for an extended period. An MRI and CT scan revealed an infection in the spine that has rotted away one of the discs. There is also a possible fracture at L1 and another area in the back. The infection likely originated from an open wound on the legs that entered the bloodstream. The patient is currently receiving antibiotics (ceftaroline and vanco) for treatment. Surgical History Not provided. Medical History No history of diabetes or other medical issues mentioned. Social History Not provided. Family History Not provided. Allergies Not provided. Medications 1. Ceftaroline - antibiotic for current spine infection 2. Vancomycin - antibiotic for current spine infection Review of Systems (ROS) Musculoskeletal: Back pain present since falling a couple of weeks ago. Integumentary: Wounds present on legs for an extended period. Constitutional: Night pain reported. Neurological: Patient able to walk and reports legs are working okay. Cardiovascular: No reported issues. Respiratory: No reported issues. Gastrointestinal: No reported issues. Genitourinary: No reported issues. Endocrine: No history of diabetes reported. Physical Examination Musculoskeletal: When pressure is applied to the back, patient reports it feels 'a little beat funky' but not painful. Neurological: Patient is able to walk and reports legs are working okay. Integumentary: Wounds observed on legs. Vital signs: Not provided. Diagnostic Tests MRI and CT scan: Revealed infection in the spine that has rotted away one of the discs. Also showed a possible fracture at L1 and another area in the back. IR (Interventional Radiology) plans to perform an aspiration biopsy of the affected area. Lab results: High hemoglobin noted, but specific values not provided. White blood cell count: Not elevated. Assessment and Plan Assessment: 1. Spinal infection with disc destruction, likely originating from leg wounds 2. Possible spinal fracture at L1 and another area 3. Potential underlying malignancy (e.g., lymphoma) to be ruled out Differential Diagnosis: 1. Osteomyelitis of the spine 2. Discitis 3. Pathological fracture secondary to infection or malignancy 4. Primary spinal malignancy (e.g., lymphoma) Plan: 1. Continue current antibiotic therapy with ceftaroline and vancomycin 2. Proceed with IR-guided aspiration biopsy to identify causative organism and rule out malignancy 3. Surgical intervention recommended: a. Decompress affected areas (T10-11, T9-10) b. Stabilize spine above and below infection site c. Debride infected tissue and place antibiotic cement 4. If patient declines surgery, consider conservative management with brace, but note potential for poor healing and disease progression 5. NPO after midnight in preparation for possible surgery tomorrow 6. Discuss treatment options with patient, including risks and benefits of surgery vs. conservative management 7. Monitor for signs of systemic infection or neurological deterioration 8. Follow up on biopsy results to guide further treatment 9. Consider oncology consult if malignancy is confirmed or strongly suspected The surgical plan will be reassessed based on the results of the aspiration biopsy and the patient's decision. Close monitoring is required due to the risk of disease progression and potential systemic complications.
--- NOTE | 2024-10-03 17:06 | P.PN ---
Subjective Progress Note Date: 10/03/24 Patient is a 74-year-old male with a history of chronic wound lesions of the legs presented to the ER with a complaint of diarrhea. Patient reports that he was at the wound care center for his chronic bilateral lower extremity wound lesions where he complained about diarrhea and he was advised to go to the ER for further evaluation. Patient reports that he has been endorsing diarrhea since 2 weeks and describes his stools as loose and bowel movements 3-4 times a day. He has been getting treatment for his bilateral lower chronic venous stasis cellulitis including antibiotics. He endorsed mild abdominal pain yesterday which has resolved today. Patient denies chest pain, shortness of breath, dizziness, headaches, acute vision changes, dysuria. Initial laboratory evaluation shows WBC 15.13, hemoglobin 8.4, sodium 134, potassium 4.5, BUN 17, creatinine 0.82, lactic acid 2.8, repeat lactic acid 4.1 and 1.3. Urinalysis shows mild urine WBC, mildly leukocyte Estrace and urine bacteria. CT abdomen pelvis shows findings highly concerning for discitis/osteomyelitis involving the T9-T10 disc level. Chronic appearing compression deformity of the L1 vertebral body. Mild splenomegaly. Hepatic steatosis. Advanced left hip osteoarthritic change. Venous Doppler study of lower extremities is negative for bilateral DVT EKG shows normal sinus rhythm with ventricular rate of 99 bpm, NH interval of 186 ms, QRS duration 109 ms, QTc 413 ms, left axis deviation, fairly normal R wave progression, nonspecific ST to T wave changes noted. Vital signs on arrival show temperature of 97.7 F, pulse rate of 114, respiratory rate of 20, blood pressure 100/60, oxygen saturation 90% on room air. In the ED: Severe sepsis protocol was initiated patient received a total 3 L of IV fluid bolus and 2 g of IV ceftriaxone once. 10/01/2024: Patient was seen and examined at the bedside. No acute events overnight. Patient received 2 units of PRBC yesterday. Hemoglobin this morning 7.6. No active bleeding. Patient continues to be on IV Rocephin and vancomycin for lower extremity cellulitis. MRI of the thoracic spine showed discitis/osteomyelitis complicated with paravertebral abscess at T9/T10. Orthop edic surgery has been consulted. Will consult IR for abscess drainage. Potassium was 3.2, will replace it with 60 mEq KCl orally. 10/02/2024 Patient is evaluated today in follow-up on the cardiac unit. He continues on IV Rocephin and IV vancomycin for the left lower extremity cellulitis additionally his MRI of the thoracic spine noted discitis and osteomyelitis with a paravertebral abscess. IR has been consulted for abscess drainage although will not see this patient until Thursday as it is the weekend. Orthopedic spinal was consulted they recommended no emergent surgical intervention at this time and recommending to continue IV antibiotics. They reveal a white blood cell count of 4.60, hemoglobin 7.3, sodium of 135, potassium 3.4, BUN of 10 creatinine 0.62. C. difficile was found to be negative. 10/03/2024 patient seen and examined at bedside. No acute events overnight. No new complaints. Labs today: WBC 4.09, hemoglobin 7.2, platelet count 1 21,000, sodium 136, potassium 3.3, chloride 111, BUN 6, creatinine 0.66, calcium 7 Review of systems: Pertinent positives and negatives as discussed in HPI, a complete review of systems was performed and all other systems are negative. Physical examination: Vital signs reviewed General: non toxic, no distress, appears at stated age Derm: no unusual rashes/lesions, warm Head: atraumatic, normocephalic, symmetric Eyes: EOMI, anicteric sclera, pupils equal round reactive to light ENT: Nose and ears atraumatic Neck: No cervical lymphadenopathy, trachea midline, supple Mouth: no lip lesion, mucus membranes moist Cardiovascular: S1S2 reg, no murmur Lungs: CTA bilateral, no rhonchi, no rales, no accessory muscle use Abdominal: soft, nontender to palpation, no guarding Ext: muscle strength 5 out of 5 in all 4 extremities grossly, no gross muscle atrophy, no contractures, positive dorsalis pedis pulse bilateral, bilateral +1 pitting edema, bilateral lower extremity wounds bandaged dry and clean dressings Neuro: CN II-XI grossly intact, no gross focal neuro deficits Psych: Alert and oriented x3, appropriate affect and mood Assessment/Plan: #. Severe sepsis secondary to bilateral lower extremity cellulitis #. 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 Diarrhea, C. difficile ruled out #. Leukocytosis secondary to above MRI of the thoracic spine showed discitis/osteomyelitis complicated with paravertebral abscess at T9/T10 Negative venous Doppler ultrasound of both lower extremities Discontinue ceftriaxone IVPB. Continue with Cefepime IVPB every 8 hours and IV vancomycin dosed per pharmacy IV normal saline at 75 cc/h C. difficile EIA negative Wound culture positive for pansensitive pseudomonas and beta hemolytic strep C Pending blood culture, stool culture HbA1c 4.9% Infectious disease and wound care on board, appreciate recs Orthopedic surgery on board, appreciate recs Consult IR for abscess drainage, send sample for culture and sensitivity #. Anemia of chronic disease Iron 7.3, TIBC 73, percent saturation 44, ferritin 944, transferrin 51.9 ESR 30.7 Reticulocyte count 2.91 Transfuse with packed RBC if hemoglobin is less than 7 Continue monitor CBC #. Hypokalemia Order KCl 40 mEq once stat Continue monitor BMP #. Compression deformity of the L1 #. Chronic low back pain Consult PT/OT Acetaminophen as needed for pain DVT prophylaxis: Lovenox 40 mg subcu daily. Held pending possible neck abscess drainage. GI prophylaxis: IV Protonix 40 mg once daily CODE STATUS: Full code Discussed with: Patient Anticipated discharge place: Pending clinical course Lena Self MD PGY-1/Electronic Data Processing Auditor Dictation was produced using [employer] dictation software. please excuse any grammatical, word or spelling errors. Attestation: I have seen and examined this patient with my resident, assessment and plan discussed with the resident, agree with assessment and plan as written above. Dr. Whittaker Objective - Vital Signs Vital signs: Vital Signs Temp 97.3 F L 10/03/24 07:38 Pulse 80 10/03/24 07:38 Resp 16 10/03/24 07:38 BP 108/64 10/03/24 07:38 Pulse Ox 98 10/03/24 07:56 FiO2 21 10/03/24 07:56 Intake & Output 10/02/24 10/03/24 10/03/24 18:59 06:59 18:59 Output Total 300 Balance -300 Weight 90.5 kg Output: Urine 300 Other: Voiding Method Urinal Urinal # Bowel Movements 1 - Labs CBC & Chem 7: 10/03/24 07:49 10/03/24 07:49 Labs: Abnormal Lab Results - Last 24 Hours (Table) 10/02/24 Range/Units 06:36 Sodium 135 L (137-145) mmol/L Potassium 3.4 L (3.5-5.1) mmol/L Chloride 111 H (98-107) mmol/L Carbon Dioxide 20 L (22-30) mmol/L Creatinine 0.62 L (0.66-1.25) mg/dL Calcium 6.8 L (8.4-10.2) mg/dL Microbiology - Last 24 Hours (Table) 09/30/24 10:12 Anaerobic Culture - Preliminary Leg - Right 09/30/24 10:12 Gram Stain - Preliminary Leg - Right Wound Culture - Preliminary Gram Neg Bacilli Pseudomonas aeruginosa Beta Hemolytic Strep Group C 09/30/24 01:30 Blood Culture - Preliminary Blood
[2024-10-04 07:27] LABS: Basophils # (A) 0.01 10*3/uL (0.00-0.10); Basophils % (A) 0.2 %; Eosinophils # (A) 0.05 10*3/uL (0.04-0.35); HCT 25.1 % (39.6-50.0); HGB 7.9 g/dL (13.0-17.0); Lymphocytes % (A) 12.3 %; MCH 27.7 pg (27.0-32.0); MCHC 31.5 g/dL (32.0-37.0); MCV 88.1 fL (80.0-97.0); Mean Platelet Volume 9.9 fL (9.5-12.2); Monocytes # (A) 0.31 10*3/uL (0.20-1.00); Monocytes % (A) 6.3 %; Neutrophils # (A) 3.88 10*3/uL (1.80-7.70); Neutrophils % (A) 79.4 %; RBC 2.85 10*6/uL (4.40-5.60); RDW 17.2 % (11.5-14.5); WBC 4.89 10*3/uL (4.50-10.00)
[2024-10-04 07:28] LABS: Platelet Count 114 10*3/uL (140-440)
[2024-10-04 07:58] LABS: African American GFR (CKD) >90 (>60 ml/min/1.73 sqM); Anion Gap 5 mmol/L; Blood Urea Nitrogen 6 mg/dL (9-20); Carbon Dioxide 19 mmol/L (22-30); Chloride 112 mmol/L (98-107); Glucose 87 mg/dL (74-99); Magnesium 1.6 mg/dL (1.6-2.3); Non-African American GFR(CKD) >90 (>60 ml/min/1.73 sqM); Potassium 3.6 mmol/L (3.5-5.1); Sodium 136 mmol/L (137-145)
--- NOTE | 2024-10-04 08:36 | CT ---
EXAMINATION TYPE: CT guided abscess drainage DATE OF EXAM: 10/03/2024 4:42 PM COMPARISON: Prior CT/US. CLINICAL INDICATION:Male, 74 years old with history of aspiration of T9-10 disc; abscess drainage of T9-T10 disc space performed by Dr. Gomez, [facility] TECHNIQUE: CT-guided abscess drainage with pigtail catheter placement. CT DLP: 3472 mGycm, Automated exposure control for dose reduction was used. Contrast used: mL of , none Oral contrast used: none ATTENDING: Sergio Gomez D.O. PROCEDURE: DLP administered was [address] localizer images were taken which showed safest allowable access to the fluid collection a long the left paraspinal soft tissues. The patient was prepped, draped in the usual sterile fashion, and locally anesthetized. A 18 x 20 cm Sehn nate blunt needle was used to access the fluid colle ction with return of blood-tinged/milky fluid with debris. Approximately 10 mL drained and sent to the lab for analysis. There was no blood loss and post-proce dure hemostasis was achieved. The patient tolerated the procedure well without complication. Dhaval murphy was transferred to the general medical floor in stable condition. IMPRESSION: CT guided placement of a percutaneous aspiration of the left paraspinal fluids. [facility], , 10/04/2024 8:34 AM
--- NOTE | 2024-10-04 09:43 | P.PN ---
Progress Note - Text Progress Note Date: 10/04/24 Subjective Mr. Berger presents for follow-up and potential surgery. He reports feeling better overall but experiences pain when trying to sit up, which he rates as 2-3 out of 10. He denies any pain at rest. The patient mentions feeling sick "in a way," which the doctor suggests might be related to an infection. Physical examination reveals left leg weakness (4/5 strength) compared to the right leg (4+/5 strength). The doctor notes open wounds on the patient's legs as a possible source of infection. The patient is able to go to the bathroom without issues. His is present but sleeping during the examination. Objective 1. Physical Examination: - Neurological: - Left leg strength: 4/5 - Right leg strength: 4+/5 - Able to wiggle toes bilaterally - Able to lift both legs off the bed - Back: No pain elicited on palpation 2. Diagnostic Results: - CT-guided aspiration/biopsy performed yesterday: - 1 mL of fluid obtained - Biopsy taken from paraspinal region on the left side - No bony aspiration performed - Imaging: - CT shows needle insertion site - Erosion noted on the right side - Bulk of the issue observed on the right side Assessment 1. OSTEOMYELITIS DISCITIS - Supporting findings: - Patient reports feeling sick - Open wounds on legs noted as potential source - Doctor suggests surgery to address infection 2. Leg Weakness - Supporting findings: - Left leg strength 4/5 - Right leg strength 4+/5 3. T9-10 CHARCOT SPINE Plan - Continue to monitor symptoms - Await results of CT-guided biopsy - Reassess need for surgery based on biopsy results and patient's condition - Perform blood tests to assess overall health status - Review results of CT-guided biopsy when available - Continue current pain medication regimen (specifics not provided) - Doctor to check back later today to reassess patient's condition and willi ngness for surgery - Discuss biopsy results when available - Explained potential need for surgery to address infection - Discussed risks and benefits of surgical intervention
--- NOTE | 2024-10-04 12:59 | P.PN ---
Subjective Progress Note Date: 10/04/24 Patient is a 74-year-old male with a history of chronic wound lesions of the legs presented to the ER with a complaint of diarrhea. Patient reports that he was at the wound care center for his chronic bilateral lower extremity wound lesions where he complained about diarrhea and he was advised to go to the ER for further evaluation. Patient reports that he has been endorsing diarrhea since 2 weeks and describes his stools as loose and bowel movements 3-4 times a day. He has been getting treatment for his bilateral lower chronic venous stasis cellulitis including antibiotics. He endorsed mild abdominal pain yesterday which has resolved today. Patient denies chest pain, shortness of breath, dizziness, headaches, acute vision changes, dysuria. Initial laboratory evaluation shows WBC 15.13, hemoglobin 8.4, sodium 134, potassium 4.5, BUN 17, creatinine 0.82, lactic acid 2.8, repeat lactic acid 4.1 and 1.3. Urinalysis shows mild urine WBC, mildly leukocyte Estrace and urine bacteria. CT abdomen pelvis shows findings highly concerning for discitis/osteomyelitis involving the T9-T10 disc level. Chronic appearing compression deformity of the L1 vertebral body. Mild splenomegaly. Hepatic steatosis. Advanced left hip osteoarthritic change. Venous Doppler study of lower extremities is negative for bilateral DVT EKG shows normal sinus rhythm with ventricular rate of 99 bpm, MT interval of 186 ms, QRS duration 109 ms, QTc 413 ms, left axis deviation, fairly normal R wave progression, nonspecific ST to T wave changes noted. Vital signs on arrival show temperature of 97.7 F, pulse rate of 114, respiratory rate of 20, blood pressure 100/60, oxygen saturation 90% on room air. In the ED: Severe sepsis protocol was initiated patient received a total 3 L of IV fluid bolus and 2 g of IV ceftriaxone once. 10/01/2024: Patient was seen and examined at the bedside. No acute events overnight. Patient received 2 units of PRBC yesterday. Hemoglobin this morning 7.6. No active bleeding. Patient continues to be on IV Rocephin and vancomycin for lower extremity cellulitis. MRI of the thoracic spine showed discitis/osteomyelitis complicated with paravertebral abscess at T9/T10. Orthop edic surgery has been consulted. Will consult IR for abscess drainage. Potassium was 3.2, will replace it with 60 mEq KCl orally. 10/02/2024 Patient is evaluated today in follow-up on the cardiac unit. He continues on IV Rocephin and IV vancomycin for the left lower extremity cellulitis additionally his MRI of the thoracic spine noted discitis and osteomyelitis with a paravertebral abscess. IR has been consulted for abscess drainage although will not see this patient until Thursday as it is the weekend. Orthopedic spinal was consulted they recommended no emergent surgical intervention at this time and recommending to continue IV antibiotics. They reveal a white blood cell count of 4.60, hemoglobin 7.3, sodium of 135, potassium 3.4, BUN of 10 creatinine 0.62. C. difficile was found to be negative. 10/03/2024 patient seen and examined at bedside. No acute events overnight. No new complaints. Labs today: WBC 4.09, hemoglobin 7.2, platelet count 1 21,000, sodium 136, potassium 3.3, chloride 111, BUN 6, creatinine 0.66, calcium 7 10/04/2024 patient seen and examined at bedside. No acute events overnight. CT- guided abscess drainage with pigtail cath placement done and was drained 10mL, was sent for analysis. Ortho recommends stabilization fusion washout of the thoracic spine as well as biopsy. Per RN, patient reported to refuse n.p.o. and surgery this morning. Upon evaluation, patient still does not want to have the procedure done. Labs: WBC 4.8, hemoglobin 7.9, platelet count 114,000, sodium 136, potassium 3.6, bicarb 19, creatinine 0.6, BUN 6, calcium 7, magnesium 1.6 Review of systems: Pertinent positives and negatives as discussed in HPI, a complete review of sys tems was performed and all other systems are negative. Physical examination: Vital signs reviewed General: non toxic, no distress, appears at stated age Derm: no unusual rashes/lesions, warm Head: atraumatic, normocephalic, symmetric Eyes: EOMI, anicteric sclera, pupils equal round reactive to light ENT: Nose and ears atraumatic Neck: No cervical lymphadenopathy, trachea midline, supple Mouth: no lip lesion, mucus membranes moist Cardiovascular: S1S2 reg, no murmur Lungs: CTA bilateral, no rhonchi, no rales, no accessory muscle use Abdominal: soft, nontender to palpation, no guarding Ext: muscle strength 5 out of 5 in all 4 extremities grossly, no gross muscle atrophy, no contractures, positive dorsalis pedis pulse bilateral, bilateral +2 pitting edema with erythema, bilateral lower extremity wounds bandaged dry and clean dressings Neuro: CN II-XI grossly intact, no gross focal neuro deficits Psych: Alert and oriented x3, appropriate affect and mood Assessment/Plan: #. Severe sepsis secondary to bilateral lower extremity cellulitis #. 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 Diarrhea, C. difficile ruled out #. Leukocytosis secondary to above, improved MRI of the thoracic spine showed discitis/osteomyelitis complicated with paravertebral abscess at T9/T10 Negative venous Doppler ultrasound of both lower extremities Discontinue ceftriaxone IVPB. Continue with Cefepime IVPB every 8 hours and IV vancomycin dosed per pharmacy C. difficile EIA negative Wound culture positive for pansensitive pseudomonas and beta hemolytic strep C Pending blood culture, stool culture negative so far HbA1c 4.9% Infectious disease and wound care on board, appreciate recs Orthopedic surgery on board, appreciate recs. Will have discussion about case and benefits of surgery and patient's willingness to undergo surgery again today. CT-guided abcess drainage by IR done, pending results #. Anemia of chronic disease s/p transfusion 2u pRBC Iron 7.3, TIBC 73, percent saturation 44, ferritin 944, transferrin 51.9 ESR 30.7 Reticulocyte count 2.91 Transfuse with packed RBC if hemoglobin is less than 7 Continue monitor CBC #. Hypokalemia, resovled #. Compression deformity of the L1 #. Chronic low back pain Consult PT/OT. Advised patient can be discharged to home Acetaminophen as needed for pain DVT prophylaxis: Lovenox 40 mg subcu daily GI prophylaxis: IV Protonix 40 mg once daily CODE STATUS: Full code Discussed with: Patient Anticipated discharge place: Pending clinical course Lena Self MD PGY-1/Oil And Gas Drafter Dictation was produced using [employer] dictation software. please excuse any grammatical, word or spelling errors. Attestation: I have seen and examined this patient with my resident, assessment and plan discussed with the resident, agree with assessment and plan as written above. Dr. Whittaker Objective - Vital Signs Vital signs: Vital Signs Temp 97.8 F 10/04/24 07:18 Pulse 81 10/04/24 07:18 Resp 16 10/04/24 07:18 BP 112/68 10/04/24 07:18 Pulse Ox 97 10/04/24 07:18 FiO2 21 10/03/24 07:56 Intake & Output 10/03/24 10/04/24 10/04/24 18:59 06:59 18:59 Intake Total 1160 20 Output Total 325 200 Balance 1160 -305 -200 Weight 95 kg Intake: IV 20 20 Invasive Line 1 10 Invasive Line 3 10 20 Oral 1140 Output: Urine 325 200 Other: Voiding Method Urinal Urinal # Voids 3 1 # Bowel Movements 1 - Labs CBC & Chem 7: 10/04/24 07:05 10/04/24 07:05 Labs: Abnormal Lab Results - Last 24 Hours (Table) 10/03/24 10/03/24 10/03/24 Range/Units 07:49 07:49 10:34 WBC 4.09 L (4.50-10.00) 10*3/uL RBC 2.60 L (4.40-5.60) 10*6/uL Hgb 7.2 L (13.0-17.0) g/dL Hct 23.8 L (39.6-50.0) % MCHC 30.3 L (32.0-37.0) g/dL Plt Count 121 L (140-440) 10*3/uL Lymphocytes # 0.52 L (0.90-5.00) 10*3/uL PT 12.8 H (10.0-12.5) sec INR 1.2 H (<1.2) Sodium 136 L (137-145) mmol/L Potassium 3.3 L (3.5-5.1) mmol/L Chloride 111 H (98-107) mmol/L Carbon Dioxide (22-30) mmol/L BUN 6 L (9-20) mg/dL Creatinine (0.66-1.25) mg/dL Calcium 7.0 L (8.4-10.2) mg/dL 10/04/24 10/04/24 Range/Units 07:05 07:05 WBC (4.50-10.00) 10*3/uL RBC 2.85 L (4.40-5.60) 10*6/uL Hgb 7.9 L (13.0-17.0) g/dL Hct 25.1 L (39.6-50.0) % MCHC 31.5 L (32.0-37.0) g/dL Plt Count 114 L (140-440) 10*3/uL Lymphocytes # 0.60 L (0.90-5.00) 10*3/uL PT (10.0-12.5) sec INR (<1.2) Sodium 136 L (137-145) mmol/L Potassium (3.5-5.1) mmol/L Chloride 112 H (98-107) mmol/L Carbon Dioxide 19 L (22-30) mmol/L BUN 6 L (9-20) mg/dL Creatinine 0.61 L (0.66-1.25) mg/dL Calcium 7.0 L (8.4-10.2) mg/dL Microbiology - Last 24 Hours (Table) 10/01/24 18:10 Stool Culture - Preliminary Stool 09/30/24 01:30 Blood Culture - Preliminary Blood
--- NOTE | 2024-10-04 15:59 | P.PN ---
Subjective Progress Note Date: 10/03/24 Principal diagnosis: Reason for follow-up is discitis/osteomyelitis Patient is a 74-year-old male with a past medical history significant for hypertension and did have a history of chronic nonhealing wound to bilateral lower extremity for the patient followed at [facility] care center has been sent to the ER from the wound care concerning for diarrhea patient workup which shows possibility of T9-10 discitis/osteomyelitis. On today's evaluation that is 10/03/2024, patient has been afebrile, patient is breathing comfortably and is currently on room air, patient denies having any chest pain and cough, patient denies nausea vomiting, diarrhea has decreased in frequency and no abdominal pain. Patient white count is 4.09 creatinine 0.66 Objective - Vital Signs Vital signs: Vital Signs Temp 97.8 F 10/03/24 12:00 Pulse 91 10/03/24 12:00 Resp 16 10/03/24 12:00 BP 122/75 10/03/24 12:00 Pulse Ox 97 10/03/24 12:00 FiO2 21 10/03/24 07:56 Intake & Output 10/02/24 10/03/24 10/03/24 18:59 06:59 18:59 Intake Total 410 Output Total 300 Balance -300 410 Weight 90.5 kg Intake: IV 10 Invasive Line 1 10 Oral 400 Output: Urine 300 Other: Voiding Method Urinal Urinal Urinal # Bowel Movements 1 1 - Exam GENERAL DESCRIPTION: An elderly male lying in bed in no distress RESPIRATORY SYSTEM: Unlabored breathing , decreased breath sounds at bases HEART: S1 S2 regular rate and rhythm , ABDOMEN: Soft , no tenderness EXTREMITIES: Lower extremity currently dressed - Labs CBC & Chem 7: 10/04/24 07:05 10/04/24 07:05 Labs: Abnormal Lab Results - Last 24 Hours (Table) 10/03/24 10/03/24 10/03/24 Range/Units 07:49 07:49 10:34 WBC 4.09 L (4.50-10.00) 10*3/uL RBC 2.60 L (4.40-5.60) 10*6/uL Hgb 7.2 L (13.0-17.0) g/dL Hct 23.8 L (39.6-50.0) % MCHC 30.3 L (32.0-37.0) g/dL Plt Count 121 L (140-440) 10*3/uL Lymphocytes # 0.52 L (0.90-5.00) 10*3/uL PT 12.8 H (10.0-12.5) sec INR 1.2 H (<1.2) Sodium 136 L (137-145) mmol/L Potassium 3.3 L (3.5-5.1) mmol/L Chloride 111 H (98-107) mmol/L BUN 6 L (9-20) mg/dL Calcium 7.0 L (8.4-10.2) mg/dL Microbiology - Last 24 Hours (Table) 09/30/24 01:30 Blood Culture - Preliminary Blood 10/01/24 18:10 Stool Culture - Preliminary Stool 09/30/24 10:12 Anaerobic Culture - Preliminary Leg - Right 09/30/24 10:12 Gram Stain - Preliminary Leg - Right Wound Culture - Preliminary Gram Neg Bacilli Pseudomonas aeruginosa Beta Hemolytic Strep Group C Assessment and Plan (1) Osteomyelitis of thoracic spine Current Visit: Yes Status: Acute Code(s): M46.24 - OSTEOMYELITIS OF VERTEBRA, THORACIC REGION SNOMED Code(s): 604485961 (2) Leukocytosis Current Visit: Yes Status: Acute Code(s): D72.829 - ELEVATED WHITE BLOOD CELL COUNT, UNSPECIFIED SNOMED Code(s): 896459841 (3) Bilateral lower leg cellulitis Current Visit: No Status: Acute Code(s): L03.116 - CELLULITIS OF LEFT LOWER LIMB; L03.115 - CELLULITIS OF RIGHT LOWER LIMB SNOMED Code(s): 286123395 Plan: 1patient with abnormal CT of abdominal pelvis with concern for T9-10 osteomyelitis and discitis in this patient presenting to the hospital mostly with weakness and diarrhea currently currently denies having any back pain or open wound and no history of any trauma and very unlikely presentation for thoracic spine osteomyelitis/discitis likely algorithm to cover will be gram- positive skin arthur and less likely gram-negative pathogen also have evidence of bilateral lower extremity wound and cellulitis 2-patient did have MRI of the spine concerning for discitis/osteomyelitis and possible abscess Ortho has seen the patient recommending no surgical intervention, patient is status post IR aspiration of the thoracic spine and specimen has been sent for the culture 3-blood culture currently local culture from the leg is growing multiple pathogen including Pseudomonas 4-patient mention improvement manage continue with the Questran 5patient to continue with vancomycin dose adjusted to keep the trough around 15 and cefepime while waiting for the thoracic spine aspirate culture to finalize Dictation was produced using [employer] dictation software. please excuse any grammatical, word or spelling errors. Time with Patient: Less than 30
--- NOTE | 2024-10-04 16:01 | P.PN ---
Subjective Progress Note Date: 10/04/24 Principal diagnosis: Reason for follow-up is discitis/osteomyelitis Patient is a 74-year-old male with a past medical history significant for hypertension and did have a history of chronic nonhealing wound to bilateral lower extremity for the patient followed at [facility] care center has been sent to the ER from the wound care concerning for diarrhea patient workup which shows possibility of T9-10 discitis/osteomyelitis. On today's evaluation that is 10/04/2024, Patient is afebrile this morning patient denies having any chest pain shortness of breath or cough, the patient is currently on room air, patient denies any abdominal pain no nausea no vomiting, mention improvement in the diarrhea and lower back pain. Patient white count is 4.89, creatinine 0.61 blood cultures currently pending thoracic spine CT-guided aspirate culture pending Objective - Vital Signs Vital signs: Vital Signs Temp 97.8 F 10/04/24 15:12 Pulse 84 10/04/24 15:12 Resp 16 10/04/24 15:12 BP 113/68 10/04/24 15:12 Pulse Ox 95 10/04/24 15:12 FiO2 21 10/03/24 07:56 Intake & Output 10/03/24 10/04/24 10/04/24 18:59 06:59 18:59 Intake Total 1160 20 10 Output Total 325 200 Balance 1160 -305 -190 Weight 95 kg 95 kg Intake: IV 20 20 10 Invasive Line 1 10 Invasive Line 3 10 20 10 Oral 1140 Output: Urine 325 200 Other: Voiding Method Urinal Urinal Urinal # Voids 3 1 # Bowel Movements 1 - Exam GENERAL DESCRIPTION: An elderly male lying in bed in no distress RESPIRATORY SYSTEM: Unlabored breathing , decreased breath sounds at bases HEART: S1 S2 regular rate and rhythm , ABDOMEN: Soft , no tenderness EXTREMITIES: Lower extremity currently dressed - Labs CBC & Chem 7: 10/04/24 07:05 10/04/24 07:05 Labs: Abnormal Lab Results - Last 24 Hours (Table) 10/04/24 10/04/24 Range/Units 07:05 07:05 RBC 2.85 L (4.40-5.60) 10*6/uL Hgb 7.9 L (13.0-17.0) g/dL Hct 25.1 L (39.6-50.0) % MCHC 31.5 L (32.0-37.0) g/dL Plt Count 114 L (140-440) 10*3/uL Lymphocytes # 0.60 L (0.90-5.00) 10*3/uL Sodium 136 L (137-145) mmol/L Chloride 112 H (98-107) mmol/L Carbon Dioxide 19 L (22-30) mmol/L BUN 6 L (9-20) mg/dL Creatinine 0.61 L (0.66-1.25) mg/dL Calcium 7.0 L (8.4-10.2) mg/dL Microbiology - Last 24 Hours (Table) 10/03/24 16:30 Gram Stain - Preliminary Other - Other 09/30/24 10:12 Gram Stain - Final Leg - Right Wound Culture - Final Alcaligen. faecalis Pseudomonas aeruginosa Beta Hemolytic Strep Group C 10/01/24 18:10 Stool Culture - Preliminary Stool 09/30/24 01:30 Blood Culture - Preliminary Blood Assessment and Plan (1) Osteomyelitis of thoracic spine Current Visit: Yes Status: Acute Code(s): M46.24 - OSTEOMYELITIS OF VERTEBRA, THORACIC REGION SNOMED Code(s): 611707862 (2) Leukocytosis Current Visit: Yes Status: Acute Code(s): D72.829 - ELEVATED WHITE BLOOD CELL COUNT, UNSPECIFIED SNOMED Code(s): 999592309 (3) Bilateral lower leg cellulitis Current Visit: No Status: Acute Code(s): L03.116 - CELLULITIS OF LEFT LOWER LIMB; L03.115 - CELLULITIS OF RIGHT LOWER LIMB SNOMED Code(s): 589123300 Plan: 1patient with abnormal CT of abdominal pelvis with concern for T9-10 osteomyelitis and discitis in this patient presenting to the hospital mostly with weakness and diarrhea currently currently denies having any back pain or open wound and no history of any trauma and very unlikely presentation for thoracic spine osteomyelitis/discitis likely algorithm to cover will be gram- positive skin arthur and less likely gram-negative pathogen also have evidence of bilateral lower extremity wound and cellulitis 2-patient did have MRI of the spine concerning for discitis/osteomyelitis and possible abscess Ortho has seen the patient recommending no surgical intervention, patient is status post IR aspiration of the thoracic spine and specimen has been sent for the culture 3-blood culture currently local culture from the leg is growing multiple pathogen including Pseudomonas strep and Alcaligenes faecalis 4-patient mention improvement in the diarrhea, patient to continue with the [facility] 5patient currently being treated with vancomycin pharmacy to dose and cefepime while waiting for the thoracic spine aspirate culture to finalize, determine his discharge antibiotics Dictation was produced using [employer] dictation software. please excuse any grammatical, word or spelling errors.
[2024-10-05 08:15] LABS: Basophils # (A) 0.01 10*3/uL (0.00-0.10); Basophils % (A) 0.2 %; Eosinophils # (A) 0.03 10*3/uL (0.04-0.35); Eosinophils % (A) 0.7 %; HCT 25.9 % (39.6-50.0); HGB 7.9 g/dL (13.0-17.0); Immature Platelet Fraction 2.4 % (1.1-6.1); Lymphocytes # (A) 0.55 10*3/uL (0.90-5.00); Lymphocytes % (A) 12.6 %; MCH 27.4 pg (27.0-32.0); MCHC 30.5 g/dL (32.0-37.0); MCV 89.9 fL (80.0-97.0); Mean Platelet Volume 9.3 fL (9.5-12.2); Monocytes # (A) 0.21 10*3/uL (0.20-1.00); Monocytes % (A) 4.8 %; Neutrophils # (A) 3.51 10*3/uL (1.80-7.70); Neutrophils % (A) 80.8 %; Platelet Count 121 10*3/uL (140-440); RBC 2.88 10*6/uL (4.40-5.60); RDW 17.2 % (11.5-14.5); WBC 4.35 10*3/uL (4.50-10.00)
[2024-10-05 08:40] LABS: African American GFR (CKD) >90 (>60 ml/min/1.73 sqM); Anion Gap 5 mmol/L; Blood Urea Nitrogen 6 mg/dL (9-20); Calcium 7.1 mg/dL (8.4-10.2); Carbon Dioxide 22 mmol/L (22-30); Chloride 108 mmol/L (98-107); Glucose 82 mg/dL (74-99); Magnesium 1.7 mg/dL (1.6-2.3); Non-African American GFR(CKD) >90 (>60 ml/min/1.73 sqM); Potassium 3.3 mmol/L (3.5-5.1); Sodium 135 mmol/L (137-145)
[2024-10-05] MEDS ORDERED: Magnesium Replacement Protocol 1 EACH MISC MISCELLANE PRN (08:43)
[2024-10-05] MEDS: POTASSIUM CHLORIDE ER 20 MEQ TAB.ER PO STA (09:35)
[2024-10-05] MEDS: ENOXAPARIN 40 MG/0.4 ML SYRINGE SQ SCH (10:21)
--- NOTE | 2024-10-05 11:35 | P.PN ---
Subjective Progress Note Date: 10/05/24 Principal diagnosis: Weakness, anemia, bilateral lower extremity edema/wounds, T9/T10 osteomyelitis/discitis Patient evaluated at bedside, is also present. He is resting in his hospital bed, he appears to be in no acute distress. Patient denies surgery yesterday so it was canceled. After speaking with the patient again at bedside today along with the he would like to proceed with surgery. Patient is tentatively scheduled for surgery for 10/06/2024. Patient has remained on IV antibiotics Objective - Vital Signs Vital signs: Vital Signs Temp 97.7 F 10/05/24 07:19 Pulse 84 10/05/24 07:19 Resp 16 10/05/24 07:19 BP 110/65 10/05/24 07:19 Pulse Ox 96 10/05/24 07:19 FiO2 21 10/03/24 07:56 Intake & Output 10/04/24 10/05/24 10/05/24 18:59 06:59 18:59 Intake Total 550 366 Output Total 200 300 200 Balance 350 -300 166 Weight 95 kg 91.5 kg Intake: IV 10 10 Invasive Line 3 10 10 Oral 540 356 Output: Urine 200 300 200 Other: Voiding Method Urinal Urinal Urinal # Voids 2 - Exam Gen: AOx3, NAD VSS stable at this time Integument: No open lesions were visualized throughout the cervical, thoracic or lumbar spine, no areas of erythema, no ecchymosis or soft tissue swelling Bilateral lower extremities are wrapped with Kerlix bandages, there is significant edema and redness appreciated throughout. There is dried blood/drainage noted on the bed sheets involving the bilateral lower extremity Palpation: No tenderness with palpation throughout the cervical spine, the lower thoracic spine does reproduce some tenderness at midline with palpation ROM: Full range of motion in all major muscle groups of the bilateral upper extremities, no focal deficits were appreciated Range of motion of the bilateral lower extremities is intact, he is limited with knee extension and knee flexion due to the swelling and discomfort in his lower extremities. 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 4/5 strength appreciated the bilateral lower extremities with hip flexion, knee extension, knee flexion, plantarflexion, dorsiflexion, EHL, FHL Reflexes: 2/4 in all UE and LE Negative Rudi's bilaterally Negative clonus bilateral Special Test: Negative straight leg raise bilaterally - Labs CBC & Chem 7: 10/05/24 07:57 10/05/24 07:57 Labs: Abnormal Lab Results - Last 24 Hours (Table) 10/05/24 10/05/24 Range/Units 07:57 07:57 WBC 4.35 L (4.50-10.00) 10*3/uL RBC 2.88 L (4.40-5.60) 10*6/uL Hgb 7.9 L (13.0-17.0) g/dL Hct 25.9 L (39.6-50.0) % MCHC 30.5 L (32.0-37.0) g/dL Plt Count 121 L (140-440) 10*3/uL MPV 9.3 L (9.5-12.2) fL Lymphocytes # 0.55 L (0.90-5.00) 10*3/uL Eosinophils # 0.03 L (0.04-0.35) 10*3/uL Sodium 135 L (137-145) mmol/L Potassium 3.3 L (3.5-5.1) mmol/L Chloride 108 H (98-107) mmol/L BUN 6 L (9-20) mg/dL Creatinine 0.56 L (0.66-1.25) mg/dL Calcium 7.1 L (8.4-10.2) mg/dL Microbiology - Last 24 Hours (Table) 10/01/24 18:10 Stool Culture - Final Stool 10/03/24 16:30 Gram Stain - Preliminary Other - Other Body Fluid Culture - Preliminary 09/30/24 10:12 Gram Stain - Final Leg - Right Wound Culture - Final Alcaligen. faecalis Pseudomonas aeruginosa Beta Hemolytic Strep Group C Assessment and Plan Assessment: T9/T10 discitis/osteomyelitis Paravertebral abscesses T9/T10 Chronic L1 VCF Bilateral lower extremity wounds/cellulitis/edema Sepsis Anemia Plan: Continue IV antibiotic PT/OT evaluation, weight-bear as tolerated with walker Surgery is tentatively scheduled for 10/06/2024 N.p.o. after midnight Hold anticoagulation after midnight Other medical specialty recommendations appreciated Will continue to follow during hospital stay Time with Patient: Less than 30
[2024-10-05] MEDS: MAGNESIUM SULFATE-D5W PMX 1 GM in DEXTROSE/WATER 1 100ML.BAG IVPB ONE (12:23)
[2024-10-05] MEDS ORDERED: LIDOCAINE 1% (10MG/ML) FOR IV START INTRADERMA PRN (15:35)
--- NOTE | 2024-10-05 16:35 | P.CON ---
Consult Note - . Consult date: 10/05/24 Assessment/Plan:: wound care consultation: Reason for consultation: Bilateral leg ulcers Date of consultation 10/05/2024 Reason for consultation: Bilateral leg ulcers History of chief complaint: This is a 74-year-old gentleman currently admitted to the hospital with complaints of diarrhea and possible sepsis. The patient himself is a very poor historian in regards to his health issues and especially when it comes to the issues of his leg ulcers. He has a plethora of medical core morbidities as documented by the other current care providers. Relevant examination: The patient has redness and 2-3+ edema of both lower legs with ulcerations bilaterally, most prominent on the right especially posteriorly. He also has a 0.8 cm ulcer on the dorsum of his right great toe. Recommendation: In the interest of simplicity I would utilize Opticell silver as topical on both his leg wounds and his toe wound. I would utilize bulky gauze dressings on the foot to protect the toe and mill roll rewinder gauze dressings up the legs. The edema in both legs should be aggressively treated with leg elevation and [id number] Double 4 inch Maury wrap's. there appears to be an issue in support in his current living situation. ECF care may be in his best interest until these wounds are resolved. We would be happy to follow this patient again in wound care following his discharge. If there are any further questions during his stay in regards to his wounds please feel free to contact us in wound care.
--- NOTE | 2024-10-05 16:55 | P.PN ---
Subjective Progress Note Date: 10/05/24 Patient is a 74-year-old male with a history of chronic wound lesions of the legs presented to the ER with a complaint of diarrhea. Patient reports that he was at the wound care center for his chronic bilateral lower extremity wound lesions where he complained about diarrhea and he was advised to go to the ER for further evaluation. Patient reports that he has been endorsing diarrhea since 2 weeks and describes his stools as loose and bowel movements 3-4 times a day. He has been getting treatment for his bilateral lower chronic venous stasis cellulitis including antibiotics. He endorsed mild abdominal pain yesterday which has resolved today. Patient denies chest pain, shortness of breath, dizziness, headaches, acute vision changes, dysuria. Initial laboratory evaluation shows WBC 15.13, hemoglobin 8.4, sodium 134, potassium 4.5, BUN 17, creatinine 0.82, lactic acid 2.8, repeat lactic acid 4.1 and 1.3. Urinalysis shows mild urine WBC, mildly leukocyte Estrace and urine bacteria. CT abdomen pelvis shows findings highly concerning for discitis/osteomyelitis involving the T9-T10 disc level. Chronic appearing compression deformity of the L1 vertebral body. Mild splenomegaly. Hepatic steatosis. Advanced left hip osteoarthritic change. Venous Doppler study of lower extremities is negative for bilateral DVT EKG shows normal sinus rhythm with ventricular rate of 99 bpm, SC interval of 186 ms, QRS duration 109 ms, QTc 413 ms, left axis deviation, fairly normal R wave progression, nonspecific ST to T wave changes noted. Vital signs on arrival show temperature of 97.7 F, pulse rate of 114, respiratory rate of 20, blood pressure 100/60, oxygen saturation 90% on room air. In the ED: Severe sepsis protocol was initiated patient received a total 3 L of IV fluid bolus and 2 g of IV ceftriaxone once. 10/01/2024: Patient was seen and examined at the bedside. No acute events overnight. Patient received 2 units of PRBC yesterday. Hemoglobin this morning 7.6. No active bleeding. Patient continues to be on IV Rocephin and vancomycin for lower extremity cellulitis. MRI of the thoracic spine showed discitis/osteomyelitis complicated with paravertebral abscess at T9/T10. Orthop edic surgery has been consulted. Will consult IR for abscess drainage. Potassium was 3.2, will replace it with 60 mEq KCl orally. 10/02/2024 Patient is evaluated today in follow-up on the cardiac unit. He continues on IV Rocephin and IV vancomycin for the left lower extremity cellulitis additionally his MRI of the thoracic spine noted discitis and osteomyelitis with a paravertebral abscess. IR has been consulted for abscess drainage although will not see this patient until Thursday as it is the weekend. Orthopedic spinal was consulted they recommended no emergent surgical intervention at this time and recommending to continue IV antibiotics. They reveal a white blood cell count of 4.60, hemoglobin 7.3, sodium of 135, potassium 3.4, BUN of 10 creatinine 0.62. C. difficile was found to be negative. 10/03/2024 patient seen and examined at bedside. No acute events overnight. No new complaints. Labs today: WBC 4.09, hemoglobin 7.2, platelet count 1 21,000, sodium 136, potassium 3.3, chloride 111, BUN 6, creatinine 0.66, calcium 7 10/04/2024 patient seen and examined at bedside. No acute events overnight. CT- guided abscess drainage with pigtail cath placement done and was drained 10mL, was sent for analysis. Ortho recommends stabilization fusion washout of the thoracic spine as well as biopsy. Per RN, patient reported to refuse n.p.o. and surgery this morning. Upon evaluation, patient still does not want to have the procedure done. Labs: WBC 4.8, hemoglobin 7.9, platelet count 114,000, sodium 136, potassium 3.6, bicarb 19, creatinine 0.6, BUN 6, calcium 7, magnesium 1.6 10/05/2024 patient seen and examined at bedside. No acute events overnight. No new complaints or symptoms. Labs: WBC 4.3, hemoglobin 7.9, MCV 89.9, platelet count 1 21,000, sodium 135, potassium 3.3, chloride 108, BUN 6, creatinine 0.56, calcium 7.1, magnesium 1.7, glucose 82. Wound cultures show positive for unblocking and faecalis, Pseudomonas aeruginosa and beta-hemolytic strep group C. Stool culture negative, paravertebral fluid drainage negative for growth after 24 hours. Review of systems: Pertinent positives and negatives as discussed in HPI, a complete review of systems was performed and all other systems are negative. Physical examination: Vital signs reviewed General: non toxic, no distress, appears at stated age Derm: no unusual rashes/lesions, warm Head: atraumatic, normocephalic, symmetric Eyes: EOMI, anicteric sclera, pupils equal round reactive to light ENT: Nose and ears atraumatic Neck: No cervical lymphadenopathy, trachea midline, supple Mouth: no lip lesion, mucus membranes moist Cardiovascular: S1S2 reg, no murmur Lungs: CTA bilateral, no rhonchi, no rales, no accessory muscle use Abdominal: soft, nontender to palpation, no guarding Ext: muscle strength 5 out of 5 in all 4 extremities grossly, no gross muscle atrophy, no contractures, positive dorsalis pedis pulse bilateral, bilateral +2 pitting edema with erythema, bilateral lower extremity wounds bandaged dry and clean dressings Neuro: CN II-XI grossly intact, no gross focal neuro deficits Psych: Alert and oriented x3, appropriate affect and mood Assessment/Plan: #. Severe sepsis secondary to bilateral lower extremity cellulitis #. 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 Diarrhea, C. difficile ruled out #. Leukocytosis secondary to above, improved Continue with Cefepime IVPB every 8 hours and IV vancomycin dosed per pharmacy C. difficile EIA negative Wound culture positive for pansensitive pseudomonas and beta hemolytic strep C Pending blood culture Stool culture negative HbA1c 4.9% Infectious disease and wound care on board, appreciate recs Orthopedic surgery on board, appreciate recs. Surgery planned for tomorrow 10/[address]-guided abcess drainage by IR done, negative for growth after 24 hours #. Anemia of chronic disease s/p transfusion 2u pRBC Hemoglobin 7.9 Iron 7.3, TIBC 73, percent saturation 44, ferritin 944, transferrin 51.9 ESR 30.7 Reticulocyte count 2.91 Transfuse with packed RBC if hemoglobin is less than 7 Continue monitor CBC #. Hypokalemia Potassium 3.3 today. Repleted 40 mEq potassium p.o. today. Check magnesium #. Compression deformity of the L1 #. Chronic low back pain Consult PT/OT. Advised patient can be discharged to home Acetaminophen as needed for pain DVT prophylaxis: Lovenox 40 mg subcu daily GI prophylaxis: IV Protonix 40 mg once daily CODE STATUS: Full code Discussed with: Patient Anticipated discharge place: Pending clinical course Lena Self MD PGY-1/Marketing Database Consultant Dictation was produced using [employer] dictation software. please excuse any grammatical, word or spelling errors. Attestation: I have seen and examined this patient with my resident, assessment and plan discussed with the resident, agree with assessment and plan as written above. Dr. Whittaker Objective - Vital Signs Vital signs: Vital Signs Temp 97.7 F 10/05/24 07:19 Pulse 84 10/05/24 07:19 Resp 16 10/05/24 07:19 BP 110/65 10/05/24 07:19 Pulse Ox 96 10/05/24 07:19 FiO2 21 10/03/24 07:56 Intake & Output 10/04/24 10/05/24 10/05/24 18:59 06:59 18:59 Intake Total 550 366 Output Total 200 300 200 Balance 350 -300 166 Weight 95 kg 91.5 kg Intake: IV 10 10 Invasive Line 3 10 10 Oral 540 356 Output: Urine 200 300 200 Other: Voiding Method Urinal Urinal Urinal # Voids 2 - Labs CBC & Chem 7: 10/05/24 07:57 10/05/24 07:57 Labs: Abnormal Lab Results - Last 24 Hours (Table) 10/05/24 10/05/24 Range/Units 07:57 07:57 WBC 4.35 L (4.50-10.00) 10*3/uL RBC 2.88 L (4.40-5.60) 10*6/uL Hgb 7.9 L (13.0-17.0) g/dL Hct 25.9 L (39.6-50.0) % MCHC 30.5 L (32.0-37.0) g/dL Plt Count 121 L (140-440) 10*3/uL MPV 9.3 L (9.5-12.2) fL Lymphocytes # 0.55 L (0.90-5.00) 10*3/uL Eosinophils # 0.03 L (0.04-0.35) 10*3/uL Sodium 135 L (137-145) mmol/L Potassium 3.3 L (3.5-5.1) mmol/L Chloride 108 H (98-107) mmol/L BUN 6 L (9-20) mg/dL Creatinine 0.56 L (0.66-1.25) mg/dL Calcium 7.1 L (8.4-10.2) mg/dL Microbiology - Last 24 Hours (Table) 10/01/24 18:10 Stool Culture - Final Stool 10/03/24 16:30 Gram Stain - Preliminary Other - Other Body Fluid Culture - Preliminary 09/30/24 10:12 Gram Stain - Final Leg - Right Wound Culture - Final Alcaligen. faecalis Pseudomonas aeruginosa Beta Hemolytic Strep Group C
[2024-10-05] MEDS: VANCOMYCIN TROUGH DUE 1 EACH MISC MISCELLANE ONE (18:05)
[2024-10-05 18:08] LABS: African American GFR (CKD) >90 (>60 ml/min/1.73 sqM); Non-African American GFR(CKD) >90 (>60 ml/min/1.73 sqM)
[2024-10-05] MEDS: VANCOMYCIN 1,250 MG in SODIUM CHLORIDE 0.9% 250 ML IVPB SCH (21:42)
[2024-10-06] MEDS ORDERED: HYDROmorphone 0.5 MG/0.5 ML SYRINGE IVP PRN (07:00)
[2024-10-06] MEDS ORDERED: MIDAZOLAM 2 MG/2 ML VIAL IV PRN (07:00)
[2024-10-06] MEDS ORDERED: fentaNYL (PF) 50 MCG/ML 2 ML AMP IVP PRN (07:00)
[2024-10-06 08:16] LABS: Basophils # (A) 0.01 10*3/uL (0.00-0.10); Basophils % (A) 0.2 %; Eosinophils # (A) 0.05 10*3/uL (0.04-0.35); HCT 24.6 % (39.6-50.0); HGB 7.7 g/dL (13.0-17.0); Immature Platelet Fraction 2.7 % (1.1-6.1); Lymphocytes # (A) 0.45 10*3/uL (0.90-5.00); Lymphocytes % (A) 9.1 %; MCH 27.6 pg (27.0-32.0); MCHC 31.3 g/dL (32.0-37.0); MCV 88.2 fL (80.0-97.0); Mean Platelet Volume 8.9 fL (9.5-12.2); Monocytes # (A) 0.26 10*3/uL (0.20-1.00); Monocytes % (A) 5.2 %; Neutrophils # (A) 4.16 10*3/uL (1.80-7.70); Neutrophils % (A) 83.7 %; Platelet Count 123 10*3/uL (140-440); RBC 2.79 10*6/uL (4.40-5.60); RDW 16.9 % (11.5-14.5); WBC 4.97 10*3/uL (4.50-10.00)
[2024-10-06 08:35] LABS: African American GFR (CKD) >90 (>60 ml/min/1.73 sqM); Anion Gap 7 mmol/L; Blood Urea Nitrogen 7 mg/dL (9-20); Calcium 7.2 mg/dL (8.4-10.2); Carbon Dioxide 21 mmol/L (22-30); Chloride 105 mmol/L (98-107); Glucose 82 mg/dL (74-99); Magnesium 1.9 mg/dL (1.6-2.3); Non-African American GFR(CKD) >90 (>60 ml/min/1.73 sqM); Potassium 3.3 mmol/L (3.5-5.1); Sodium 133 mmol/L (137-145)
[2024-10-06] MEDS: LACTATED RINGERS 1,000 ML IV SCH (09:08)
[2024-10-06] MEDS: ONDANSETRON 4 MG/2 ML VIAL IVP ONE (09:08)
[2024-10-06] MEDS: DEXAMETHASONE SOD PHOSPHATE 4 MG/ML 1 ML VIAL IV ONE (09:08)
--- NOTE | 2024-10-06 09:58 | P.PN ---
Subjective Progress Note Date: 10/06/24 Principal diagnosis: Weakness, anemia, bilateral lower extremity edema/wounds, T9/T10 osteomyelitis/discitis Patient evaluated at bedside, is also present. He is resting in his hospital bed, he appears to be in no acute distress. Patient once again denies wanting surgery at this time. Patient has remained on IV antibiotics. Objective - Vital Signs Vital signs: Vital Signs Temp 97.7 F 10/06/24 07:48 Pulse 90 10/06/24 07:48 Resp 18 10/06/24 07:48 BP 115/68 10/06/24 07:48 Pulse Ox 96 10/06/24 07:48 FiO2 21 10/03/24 07:56 Intake & Output 10/05/24 10/06/24 10/06/24 18:59 06:59 18:59 Intake Total 916 Output Total 400 Balance 516 Intake: IV 20 Invasive Line 3 20 Oral 896 Output: Urine 400 Other: Voiding Method Urinal Urinal # Voids 1 1 - Exam Gen: AOx3, NAD VSS stable at this time Integument: No open lesions were visualized throughout the cervical, thoracic or lumbar spine, no areas of erythema, no ecchymosis or soft tissue swelling Bilateral lower extremities are wrapped with Kerlix bandages, there is significant edema and redness appreciated throughout. There is dried blood/drainage noted on the bed sheets involving the bilateral lower extremity Palpation: No tenderness with palpation throughout the cervical spine, the lower thoracic spine does reproduce some tenderness at midline with palpation ROM: Full range of motion in all major muscle groups of the bilateral upper extremities, no focal deficits were appreciated Range of motion of the bilateral lower extremities is intact, he is limited with knee extension and knee flexion due to the swelling and discomfort in his lower extremities. 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, buttermaker continuous churn 4/5 strength appreciated the bilateral lower extremities with hip flexion, knee extension, knee flexion, plantarflexion, dorsiflexion, EHL, FHL Reflexes: 2/4 in all UE and LE Negative Rudi's bilaterally Negative clonus bilateral Special Test: Negative straight leg raise bilaterally - Labs CBC & Chem 7: 10/06/24 07:40 10/06/24 07:40 Labs: Abnormal Lab Results - Last 24 Hours (Table) 10/05/24 10/06/24 10/06/24 Range/Units 17:26 07:40 07:40 RBC 2.79 L (4.40-5.60) 10*6/uL Hgb 7.7 L (13.0-17.0) g/dL Hct 24.6 L (39.6-50.0) % MCHC 31.3 L (32.0-37.0) g/dL Plt Count 123 L (140-440) 10*3/uL MPV 8.9 L (9.5-12.2) fL Lymphocytes # 0.45 L (0.90-5.00) 10*3/uL Sodium 133 L (137-145) mmol/L Potassium 3.3 L (3.5-5.1) mmol/L Carbon Dioxide 21 L (22-30) mmol/L BUN 7 L (9-20) mg/dL Creatinine 0.53 L 0.58 L (0.66-1.25) mg/dL Calcium 7.2 L (8.4-10.2) mg/dL Microbiology - Last 24 Hours (Table) 10/03/24 16:30 Anaerobic Culture - Preliminary Other - Other 09/30/24 01:30 Blood Culture - Final Blood 10/01/24 18:10 Stool Culture - Final Stool Assessment and Plan Assessment: T9/T10 discitis/osteomyelitis Paravertebral abscesses T9/T10 Chronic L1 VCF Bilateral lower extremity wounds/cellulitis/edema Sepsis Anemia Plan: I was able to speak with Dr. Ortiz regarding this patient. We will be canceling surgery and will not be proceeding Recommending continuing IV antibiotics Prescription for TLSO brace was ordered for patient PT/OT evaluation, weight-bear as tolerated with walker DVT prophylaxis per primary medical service Other medical specialty recommendations appreciated We will be signing off this patient at this time, please contact her service with any further questions
--- NOTE | 2024-10-06 14:49 | P.PN ---
Subjective Progress Note Date: 10/06/24 Patient is a 74-year-old male with a history of chronic wound lesions of the legs presented to the ER with a complaint of diarrhea. Patient reports that he was at the wound care center for his chronic bilateral lower extremity wound lesions where he complained about diarrhea and he was advised to go to the ER for further evaluation. Patient reports that he has been endorsing diarrhea since 2 weeks and describes his stools as loose and bowel movements 3-4 times a day. He has been getting treatment for his bilateral lower chronic venous stasis cellulitis including antibiotics. He endorsed mild abdominal pain yesterday which has resolved today. Patient denies chest pain, shortness of breath, dizziness, headaches, acute vision changes, dysuria. Initial laboratory evaluation shows WBC 15.13, hemoglobin 8.4, sodium 134, potassium 4.5, BUN 17, creatinine 0.82, lactic acid 2.8, repeat lactic acid 4.1 and 1.3. Urinalysis shows mild urine WBC, mildly leukocyte Estrace and urine bacteria. CT abdomen pelvis shows findings highly concerning for discitis/osteomyelitis involving the T9-T10 disc level. Chronic appearing compression deformity of the L1 vertebral body. Mild splenomegaly. Hepatic steatosis. Advanced left hip osteoarthritic change. Venous Doppler study of lower extremities is negative for bilateral DVT EKG shows normal sinus rhythm with ventricular rate of 99 bpm, MO interval of 186 ms, QRS duration 109 ms, QTc 413 ms, left axis deviation, fairly normal R wave progression, nonspecific ST to T wave changes noted. Vital signs on arrival show temperature of 97.7 F, pulse rate of 114, respiratory rate of 20, blood pressure 100/60, oxygen saturation 90% on room air. In the ED: Severe sepsis protocol was initiated patient received a total 3 L of IV fluid bolus and 2 g of IV ceftriaxone once. 10/01/2024: Patient was seen and examined at the bedside. No acute events overnight. Patient received 2 units of PRBC yesterday. Hemoglobin this morning 7.6. No active bleeding. Patient continues to be on IV Rocephin and vancomycin for lower extremity cellulitis. MRI of the thoracic spine showed discitis/osteomyelitis complicated with paravertebral abscess at T9/T10. Orthop edic surgery has been consulted. Will consult IR for abscess drainage. Potassium was 3.2, will replace it with 60 mEq KCl orally. 10/02/2024 Patient is evaluated today in follow-up on the cardiac unit. He continues on IV Rocephin and IV vancomycin for the left lower extremity cellulitis additionally his MRI of the thoracic spine noted discitis and osteomyelitis with a paravertebral abscess. IR has been consulted for abscess drainage although will not see this patient until Thursday as it is the weekend. Orthopedic spinal was consulted they recommended no emergent surgical intervention at this time and recommending to continue IV antibiotics. They reveal a white blood cell count of 4.60, hemoglobin 7.3, sodium of 135, potassium 3.4, BUN of 10 creatinine 0.62. C. difficile was found to be negative. 10/03/2024 patient seen and examined at bedside. No acute events overnight. No new complaints. Labs today: WBC 4.09, hemoglobin 7.2, platelet count 1 21,000, sodium 136, potassium 3.3, chloride 111, BUN 6, creatinine 0.66, calcium 7 10/04/2024 patient seen and examined at bedside. No acute events overnight. CT- guided abscess drainage with pigtail cath placement done and was drained 10mL, was sent for analysis. Ortho recommends stabilization fusion washout of the thoracic spine as well as biopsy. Per RN, patient reported to refuse n.p.o. and surgery this morning. Upon evaluation, patient still does not want to have the procedure done. Labs: WBC 4.8, hemoglobin 7.9, platelet count 114,000, sodium 136, potassium 3.6, bicarb 19, creatinine 0.6, BUN 6, calcium 7, magnesium 1.6 10/05/2024 patient seen and examined at bedside. No acute events overnight. No new complaints or symptoms. Labs: WBC 4.3, hemoglobin 7.9, MCV 89.9, platelet count 1 21,000, sodium 135, potassium 3.3, chloride 108, BUN 6, creatinine 0.56, calcium 7.1, magnesium 1.7, glucose 82. Wound cultures show positive for unblocking and faecalis, Pseudomonas aeruginosa and beta-hemolytic strep group C. Stool culture negative, paravertebral fluid drainage negative for growth after 24 hours. 10/06/2024 patient seen and examined at bedside. No acute events overnight. Patient has declined surgery for the second time at Ortho has signed off. Recommended brace for his back. Per patient, he reported that he did not want to surgery during time of evaluation. Reiterated the risk and benefits of the surgery but patient has declined. Labs: WBC 4.97, hemoglobin 7.7, platelet count 1 23,000, sodium 133, potassium 3.3, bicarb 21, BUN 7, creatinine 0.88, calcium 7.2, magnesium 1.9 Review of systems: Pertinent positives and negatives as discussed in HPI, a complete review of systems was performed and all other systems are negative. Physical examination: Vital signs reviewed General: non toxic, no distress, appears at stated age Derm: no unusual rashes/lesions, warm Head: atraumatic, normocephalic, symmetric Eyes: EOMI, anicteric sclera, pupils equal round reactive to light ENT: Nose and ears atraumatic Neck: No cervical lymphadenopathy, trachea midline, supple Mouth: no lip lesion, mucus membranes moist Cardiovascular: S1S2 reg, no murmur Lungs: CTA bilateral, no rhonchi, no rales, no accessory muscle use Abdominal: soft, nontender to palpation, no guarding Ext: muscle strength 5 out of 5 in all 4 extremities grossly, no gross muscle atrophy, no contractures, positive dorsalis pedis pulse bilateral, bilateral +2 pitting edema with erythema, bilateral lower extremity wounds bandaged dry and clean dressings Neuro: CN II-XI grossly intact, no gross focal neuro deficits Psych: Alert and oriented x3, appropriate affect and mood Assessment/Plan: #. Severe sepsis secondary to bilateral lower extremity cellulitis #. 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 Diarrhea, C. difficile ruled out #. Leukocytosis secondary to above, improved Continue with Cefepime IVPB every 8 hours and IV vancomycin dosed per pharmacy Wound culture positive for pansensitive pseudomonas and beta hemolytic strep C Negative blood culture HbA1c 4.9% Infectious disease and wound care on board, appreciate recs. PICC line ordered Orthopedic surgery on board, appreciate recs. Surgery planned for today however patient declined the surgery once again and Ortho has signed off and recommended a back brace. Reiterated the benefit of the surgery however patient continues to decline the surgery. CT-guided abcess drainage by IR done, negative for growth after 24 hours #. Anemia of chronic disease s/p transfusion 2u pRBC Hemoglobin 7.7 Iron 7.3, TIBC 73, percent saturation 44, ferritin 944, transferrin 51.9 ESR 30.7 Reticulocyte count 2.91 Transfuse with packed RBC if hemoglobin is less than 7 Continue monitor CBC #. Hypokalemia Potassium 3.3 today. Repleted 40 mEq potassium p.o. today. Magnesium 1.9 #. Compression deformity of the L1 #. Chronic low back pain Consult PT/OT. Advised patient can be discharged to home Acetaminophen as needed for pain DVT prophylaxis: Lovenox 40 mg subcu daily GI prophylaxis: PO Protonix 40 mg once daily CODE STATUS: Full code Discussed with: Patient Anticipated discharge place: Pending clinical course Lena Self MD PGY-1/[employer] Dictation was produced using [employer] dictation software. please excuse any grammatical, word or spelling errors. Attestation: I have seen and examined this patient with my resident, assessment and plan discussed with the resident, agree with assessment and plan as written above. Dr. Whittaker Objective - Vital Signs Vital signs: Vital Signs Temp 97.9 F 10/06/24 01:40 Pulse 90 10/06/24 01:40 Resp 17 10/06/24 01:40 BP 97/60 10/06/24 01:40 Pulse Ox 96 10/06/24 01:40 FiO2 21 10/03/24 07:56 Intake & Output 10/05/24 10/06/24 10/06/24 18:59 06:59 18:59 Intake Total 916 Output Total 400 Balance 516 Intake: IV 20 Invasive Line 3 20 Oral 896 Output: Urine 400 Other: Voiding Method Urinal Urinal # Voids 1 1 - Labs CBC & Chem 7: 10/06/24 07:40 10/06/24 07:40 Labs: Abnormal Lab Results - Last 24 Hours (Table) 10/05/24 10/05/24 10/05/24 Range/Units 07:57 07:57 17:26 WBC 4.35 L (4.50-10.00) 10*3/uL RBC 2.88 L (4.40-5.60) 10*6/uL Hgb 7.9 L (13.0-17.0) g/dL Hct 25.9 L (39.6-50.0) % MCHC 30.5 L (32.0-37.0) g/dL Plt Count 121 L (140-440) 10*3/uL MPV 9.3 L (9.5-12.2) fL Lymphocytes # 0.55 L (0.90-5.00) 10*3/uL Eosinophils # 0.03 L (0.04-0.35) 10*3/uL Sodium 135 L (137-145) mmol/L Potassium 3.3 L (3.5-5.1) mmol/L Chloride 108 H (98-107) mmol/L BUN 6 L (9-20) mg/dL Creatinine 0.56 L 0.53 L (0.66-1.25) mg/dL Calcium 7.1 L (8.4-10.2) mg/dL Microbiology - Last 24 Hours (Table) 10/03/24 16:30 Anaerobic Culture - Preliminary Other - Other 09/30/24 01:30 Blood Culture - Final Blood 10/01/24 18:10 Stool Culture - Final Stool
--- NOTE | 2024-10-06 15:52 | P.PN ---
Subjective Progress Note Date: 10/05/24 Principal diagnosis: Reason for follow-up is discitis/osteomyelitis Patient is a 74-year-old male with a past medical history significant for hypertension and did have a history of chronic nonhealing wound to bilateral lower extremity for the patient followed at [facility] wound care center has been sent to the ER from the wound care concerning for diarrhea patient workup which shows possibility of T9-10 discitis/osteomyelitis. On today's evaluation that is 10/05/2024,the patient denies any fever or any chills, patient is breathing comfortably on room air, the patient denies chest pain shortness of breath and no significant cough, patient denies abdominal pain, no nausea vomiting or diarrhea. Patient white count is 4.35 creatinine 0.56 Objective - Vital Signs Vital signs: Vital Signs Temp 97.4 F L 10/05/24 11:54 Pulse 80 10/05/24 11:54 Resp 16 10/05/24 11:54 BP 130/85 10/05/24 11:54 Pulse Ox 96 10/05/24 11:54 FiO2 21 10/03/24 07:56 Intake & Output 10/04/24 10/05/24 10/05/24 18:59 06:59 18:59 Intake Total 550 376 Output Total 200 300 200 Balance 350 -300 176 Weight 95 kg 91.5 kg Intake: IV 10 20 Invasive Line 3 10 20 Oral 540 356 Output: Urine 200 300 200 Other: Voiding Method Urinal Urinal Urinal # Voids 2 - Exam GENERAL DESCRIPTION: An elderly male lying in bed in no distress RESPIRATORY SYSTEM: Unlabored breathing , decreased breath sounds at bases HEART: S1 S2 regular rate and rhythm , ABDOMEN: Soft , no tenderness EXTREMITIES: Lower extremity currently dressed - Labs CBC & Chem 7: 10/06/24 07:40 10/06/24 07:40 Labs: Abnormal Lab Results - Last 24 Hours (Table) 10/05/24 10/05/24 Range/Units 07:57 07:57 WBC 4.35 L (4.50-10.00) 10*3/uL RBC 2.88 L (4.40-5.60) 10*6/uL Hgb 7.9 L (13.0-17.0) g/dL Hct 25.9 L (39.6-50.0) % MCHC 30.5 L (32.0-37.0) g/dL Plt Count 121 L (140-440) 10*3/uL MPV 9.3 L (9.5-12.2) fL Lymphocytes # 0.55 L (0.90-5.00) 10*3/uL Eosinophils # 0.03 L (0.04-0.35) 10*3/uL Sodium 135 L (137-145) mmol/L Potassium 3.3 L (3.5-5.1) mmol/L Chloride 108 H (98-107) mmol/L BUN 6 L (9-20) mg/dL Creatinine 0.56 L (0.66-1.25) mg/dL Calcium 7.1 L (8.4-10.2) mg/dL Microbiology - Last 24 Hours (Table) 09/30/24 01:30 Blood Culture - Final Blood 10/01/24 18:10 Stool Culture - Final Stool 10/03/24 16:30 Gram Stain - Preliminary Other - Other Body Fluid Culture - Preliminary Assessment and Plan (1) Osteomyelitis of thoracic spine Current Visit: Yes Status: Acute Code(s): M46.24 - OSTEOMYELITIS OF VERTEBRA, THORACIC REGION SNOMED Code(s): 274242994 (2) Leukocytosis Current Visit: Yes Status: Acute Code(s): D72.829 - ELEVATED WHITE BLOOD CELL COUNT, UNSPECIFIED SNOMED Code(s): 317740038 (3) Bilateral lower leg cellulitis Current Visit: No Status: Acute Code(s): L03.116 - CELLULITIS OF LEFT LOWER LIMB; L03.115 - CELLULITIS OF RIGHT LOWER LIMB SNOMED Code(s): 122103955 Plan: 1patient with abnormal CT of abdominal pelvis with concern for T9-10 osteomyelitis and discitis in this patient presenting to the hospital mostly with weakness and diarrhea currently currently denies having any back pain or open wound and no history of any trauma and very unlikely presentation for thoracic spine osteomyelitis/discitis likely algorithm to cover will be gram- positive skin arthur and less likely gram-negative pathogen also have evidence of bilateral lower extremity wound and cellulitis 2-patient did have MRI of the spine concerning for discitis/osteomyelitis and possible abscess Ortho has seen the patient recommending no surgical intervention, patient is status post IR aspiration of the thoracic spine and specimen has been sent for the culture 3-blood culture currently local culture from the leg is growing multiple pathogen including Pseudomonas strep and Alcaligenes faecalis 4-patient mention improvement in the diarrhea, patient to continue with the Questran 5patient currently being treated with vancomycin pharmacy to dose and cefepime, possible surgery scheduled for tomorrow for his thoracic spine hopefully deep culture obtained at that point Dictation was produced using [employer] dictation software. please excuse any grammatical, word or spelling errors. Time with Patient: Less than 30
--- NOTE | 2024-10-06 15:52 | P.PN ---
Subjective Progress Note Date: 10/06/24 Principal diagnosis: Reason for follow-up is discitis/osteomyelitis Patient is a 74-year-old male with a past medical history significant for hypertension and did have a history of chronic nonhealing wound to bilateral lower extremity for the patient followed at [facility] care center has been sent to the ER from the wound care concerning for diarrhea patient workup which shows possibility of T9-10 discitis/osteomyelitis. On today's evaluation that is 10/06/2024,the patient remains to be afebrile, patient is on room air not requiring supplemental oxygen and denies any shortness of breath no chest pain or cough.Patient denies having any nausea or vomiting, no abdominal pain and no diarrhea. Patient white count is 4.97 creatinine 0.58 Objective - Vital Signs Vital signs: Vital Signs Temp 97.7 F 10/06/24 07:48 Pulse 90 10/06/24 09:15 Resp 18 10/06/24 09:15 BP 115/68 10/06/24 07:48 Pulse Ox 96 10/06/24 07:48 FiO2 21 10/03/24 07:56 Intake & Output 10/05/24 10/06/24 10/06/24 18:59 06:59 18:59 Intake Total 916 Output Total 400 Balance 516 Intake: IV 20 Invasive Line 3 20 Oral 896 Output: Urine 400 Other: Voiding Method Urinal Urinal Urinal # Voids 1 1 - Exam GENERAL DESCRIPTION: An elderly male lying in bed in no distress RESPIRATORY SYSTEM: Unlabored breathing , decreased breath sounds at bases HEART: S1 S2 regular rate and rhythm , ABDOMEN: Soft , no tenderness EXTREMITIES: Lower extremity currently dressed - Labs CBC & Chem 7: 10/06/24 07:40 10/06/24 07:40 Labs: Abnormal Lab Results - Last 24 Hours (Table) 10/05/24 10/06/24 10/06/24 Range/Units 17:26 07:40 07:40 RBC 2.79 L (4.40-5.60) 10*6/uL Hgb 7.7 L (13.0-17.0) g/dL Hct 24.6 L (39.6-50.0) % MCHC 31.3 L (32.0-37.0) g/dL Plt Count 123 L (140-440) 10*3/uL MPV 8.9 L (9.5-12.2) fL Lymphocytes # 0.45 L (0.90-5.00) 10*3/uL Sodium 133 L (137-145) mmol/L Potassium 3.3 L (3.5-5.1) mmol/L Carbon Dioxide 21 L (22-30) mmol/L BUN 7 L (9-20) mg/dL Creatinine 0.53 L 0.58 L (0.66-1.25) mg/dL Calcium 7.2 L (8.4-10.2) mg/dL Microbiology - Last 24 Hours (Table) 09/30/24 10:12 Anaerobic Culture - Final Leg - Right Finegoldia magna 10/03/24 16:30 Anaerobic Culture - Preliminary Other - Other 09/30/24 01:30 Blood Culture - Final Blood Assessment and Plan (1) Osteomyelitis of thoracic spine Current Visit: Yes Status: Acute Code(s): M46.24 - OSTEOMYELITIS OF VERTEBR A, THORACIC REGION SNOMED Code(s): 310286070 (2) Leukocytosis Current Visit: Yes Status: Acute Code(s): D72.829 - ELEVATED WHITE BLOOD CELL COUNT, UNSPECIFIED SNOMED Code(s): 655757902 (3) Bilateral lower leg cellulitis Current Visit: No Status: Acute Code(s): L03.116 - CELLULITIS OF LEFT LOWER LIMB; L03.115 - CELLULITIS OF RIGHT LOWER LIMB SNOMED Code(s): 857238103 Plan: 1patient with abnormal CT of abdominal pelvis with concern for T9-10 osteomyelitis and discitis in this patient presenting to the hospital mostly with weakness and diarrhea currently currently denies having any back pain or open wound and no history of any trauma and very unlikely presentation for thoracic spine osteomyelitis/discitis likely algorithm to cover will be gram- positive skin arthur and less likely gram-negative pathogen also have evidence of bilateral lower extremity wound and cellulitis 2-patient did have MRI of the spine concerning for discitis/osteomyelitis and possible abscess Ortho has seen the patient recommending no surgical intervention, patient is status post IR aspiration of the thoracic spine and specimen has been sent for the culture 3-blood culture currently local culture from the leg is growing multiple pathogen including Pseudomonas strep and Alcaligenes faecalis, Finegoldia magna 4-patient mention improvement in the diarrhea, patient to continue with the Questran 5patient currently being treated with vancomycin pharmacy to dose and cefepime, patient apparently seem to have refused his thoracic spine surgery though he denied that he declined it in front of his resident physician to confirm further PICC line has been ordered for outpatient IV antibiotics Dictation was produced using [employer] dictation software. please excuse any grammatical, word or spelling errors. Time with Patient: Less than 30
[2024-10-06] MEDS: metroNIDAZOLE 500 MG TAB PO SCH (17:37)
[2024-10-07] MEDS: POTASSIUM CHLORIDE ER 20 MEQ TAB.ER PO SCH (05:13)
[2024-10-07 05:35] LABS: Basophils # (A) 0.02 10*3/uL (0.00-0.10); Basophils % (A) 0.4 %; Eosinophils # (A) 0.04 10*3/uL (0.04-0.35); Eosinophils % (A) 0.8 %; HCT 24.3 % (39.6-50.0); HGB 7.5 g/dL (13.0-17.0); Immature Platelet Fraction 2.6 % (1.1-6.1); Lymphocytes # (A) 0.63 10*3/uL (0.90-5.00); Lymphocytes % (A) 12.6 %; MCH 27.4 pg (27.0-32.0); MCHC 30.9 g/dL (32.0-37.0); MCV 88.7 fL (80.0-97.0); Mean Platelet Volume 9.5 fL (9.5-12.2); Monocytes # (A) 0.27 10*3/uL (0.20-1.00); Monocytes % (A) 5.4 %; Neutrophils # (A) 3.97 10*3/uL (1.80-7.70); Neutrophils % (A) 79.6 %; Platelet Count 127 10*3/uL (140-440); RBC 2.74 10*6/uL (4.40-5.60); RDW 17.2 % (11.5-14.5); WBC 4.99 10*3/uL (4.50-10.00)
[2024-10-07 05:42] LABS: African American GFR (CKD) >90 (>60 ml/min/1.73 sqM); Anion Gap 7 mmol/L; Blood Urea Nitrogen 8 mg/dL (9-20); Calcium 7.2 mg/dL (8.4-10.2); Carbon Dioxide 21 mmol/L (22-30); Chloride 105 mmol/L (98-107); Glucose 81 mg/dL (74-99); Non-African American GFR(CKD) >90 (>60 ml/min/1.73 sqM); Potassium 3.4 mmol/L (3.5-5.1); Sodium 133 mmol/L (137-145)
--- NOTE | 2024-10-07 15:34 | P.PN ---
Subjective Progress Note Date: 10/07/24 Principal diagnosis: Reason for follow-up is discitis/osteomyelitis Patient is a 74-year-old male with a past medical history significant for hypertension and did have a history of chronic nonhealing wound to bilateral lower extremity for the patient followed at [facility] wound care center has been sent to the ER from the wound care concerning for diarrhea patient workup which shows possibility of T9-10 discitis/osteomyelitis. On today's evaluation that is 10/07/2024, the patient continues to be afebrile, the patient is on room air and breathing comfortably, the Pt denies having any chest pain or cough, the patient denies having any abdominal pain no vomiting or any diarrhea. Patient did have a white count of 4.99, creatinine 0.[address]-guided aspirate culture growing Pseudomonas aeruginosa Objective - Vital Signs Vital signs: Vital Signs Temp 97.5 F L 10/07/24 07:41 Pulse 88 10/07/24 07:41 Resp 17 10/07/24 07:41 BP 121/71 10/07/24 07:41 Pulse Ox 97 10/07/24 07:41 FiO2 21 10/03/24 07:56 Intake & Output 10/06/24 10/07/24 10/07/24 18:59 06:59 18:59 Output Total 1000 200 Balance -1000 -200 Weight 91.5 kg Output: Urine 1000 200 Other: Voiding Method Urinal Urinal # Voids 3 3 # Bowel Movements 0 - Exam GENERAL DESCRIPTION: An elderly male lying in bed in no distress RESPIRATORY SYSTEM: Unlabored breathing , decreased breath sounds at bases HEART: S1 S2 regular rate and rhythm , ABDOMEN: Soft , no tenderness EXTREMITIES: Lower extremity currently dressed - Labs CBC & Chem 7: 10/07/24 04:58 10/07/24 09:42 Labs: Abnormal Lab Results - Last 24 Hours (Table) 10/07/24 10/07/24 Range/Units 04:58 04:58 RBC 2.74 L (4.40-5.60) 10*6/uL Hgb 7.5 L (13.0-17.0) g/dL Hct 24.3 L (39.6-50.0) % MCHC 30.9 L (32.0-37.0) g/dL RDW 17.2 H (11.5-14.5) % Plt Count 127 L (140-440) 10*3/uL Immature Gran # 0.06 H (0.00-0.04) 10*3/uL Lymphocytes # 0.63 L (0.90-5.00) 10*3/uL Sodium 133 L (137-145) mmol/L Potassium 3.4 L (3.5-5.1) mmol/L Carbon Dioxide 21 L (22-30) mmol/L BUN 8 L (9-20) mg/dL Creatinine 0.57 L (0.66-1.25) mg/dL Calcium 7.2 L (8.4-10.2) mg/dL Microbiology - Last 24 Hours (Table) 10/03/24 16:30 Anaerobic Culture - Preliminary Other - Other 10/03/24 16:30 Gram Stain - Preliminary Other - Other Body Fluid Culture - Preliminary Pseudomonas aeruginosa 09/30/24 10:12 Anaerobic Culture - Final Leg - Right Finegoldia magna Assessment and Plan (1) Osteomyelitis of thoracic spine Current Visit: Yes Status: Acute Code(s): M46.24 - OSTEOMYELITIS OF VERTEBRA, THORACIC REGION SNOMED Code(s): 936387189 (2) Leukocytosis Current Visit: Yes Status: Acute Code(s): D72.829 - ELEVATED WHITE BLOOD CELL COUNT, UNSPECIFIED SNOMED Code(s): 583784054 (3) Bilateral lower leg cellulitis Current Visit: No Status: Acute Code(s): L03.116 - CELLULITIS OF LEFT LOWER LIMB; L03.115 - CELLULITIS OF RIGHT LOWER LIMB SNOMED Code(s): 403160656 Plan: 1patient with abnormal CT of abdominal pelvis with concern for T9-10 osteomyelitis and discitis in this patient presenting to the hospital mostly with weakness and diarrhea currently currently denies having any back pain or open wound and no history of any trauma and very unlikely presentation for thoracic spine osteomyelitis/discitis likely algorithm to cover will be gram- positive skin arthur and less likely gram-negative pathogen also have evidence of bilateral lower extremity wound and cellulitis 2-patient did have MRI of the spine concerning for discitis/osteomyelitis and possible abscess Ortho has seen the patient recommending no surgical intervention, patient is status post IR aspiration of the thoracic spine and specimen has been sent for the culture 3-blood culture currently local culture from the leg is growing multiple pathogen including Pseudomonas strep and Alcaligenes faecalis, Finegoldia magna 4-patient mention improvement in the diarrhea, patient to continue with the Questran as needed 5patient CT-guided aspiration from the back is growing Pseudomonas aeruginosa for the patient is currently covered with the cefepime, patient seem to be agreeable for surgery now also to be reconsulted discussed with the resident physician Dictation was produced using [employer] dictation software. please excuse any grammatical, word or spelling errors.
--- NOTE | 2024-10-07 16:08 | P.PN ---
Subjective Progress Note Date: 10/07/24 Patient is a 74-year-old male with a history of chronic wound lesions of the legs presented to the ER with a complaint of diarrhea. Patient reports that he was at the wound care center for his chronic bilateral lower extremity wound lesions where he complained about diarrhea and he was advised to go to the ER for further evaluation. Patient reports that he has been endorsing diarrhea since 2 weeks and describes his stools as loose and bowel movements 3-4 times a day. He has been getting treatment for his bilateral lower chronic venous stasis cellulitis including antibiotics. He endorsed mild abdominal pain yesterday which has resolved today. Patient denies chest pain, shortness of breath, dizziness, headaches, acute vision changes, dysuria. Initial laboratory evaluation shows WBC 15.13, hemoglobin 8.4, sodium 134, potassium 4.5, BUN 17, creatinine 0.82, lactic acid 2.8, repeat lactic acid 4.1 and 1.3. Urinalysis shows mild urine WBC, mildly leukocyte Estrace and urine bacteria. CT abdomen pelvis shows findings highly concerning for discitis/osteomyelitis involving the T9-T10 disc level. Chronic appearing compression deformity of the L1 vertebral body. Mild splenomegaly. Hepatic steatosis. Advanced left hip osteoarthritic change. Venous Doppler study of lower extremities is negative for bilateral DVT EKG shows normal sinus rhythm with ventricular rate of 99 bpm, MT interval of 186 ms, QRS duration 109 ms, QTc 413 ms, left axis deviation, fairly normal R wave progression, nonspecific ST to T wave changes noted. Vital signs on arrival show temperature of 97.7 F, pulse rate of 114, respiratory rate of 20, blood pressure 100/60, oxygen saturation 90% on room air. In the ED: Severe sepsis protocol was initiated patient received a total 3 L of IV fluid bolus and 2 g of IV ceftriaxone once. 10/01/2024: Patient was seen and examined at the bedside. No acute events overnight. Patient received 2 units of PRBC yesterday. Hemoglobin this morning 7.6. No active bleeding. Patient continues to be on IV Rocephin and vancomycin for lower extremity cellulitis. MRI of the thoracic spine showed discitis/osteomyelitis complicated with paravertebral abscess at T9/T10. Orthop edic surgery has been consulted. Will consult IR for abscess drainage. Potassium was 3.2, will replace it with 60 mEq KCl orally. 10/02/2024 Patient is evaluated today in follow-up on the cardiac unit. He continues on IV Rocephin and IV vancomycin for the left lower extremity cellulitis additionally his MRI of the thoracic spine noted discitis and osteomyelitis with a paravertebral abscess. IR has been consulted for abscess drainage although will not see this patient until Thursday as it is the weekend. Orthopedic spinal was consulted they recommended no emergent surgical intervention at this time and recommending to continue IV antibiotics. They reveal a white blood cell count of 4.60, hemoglobin 7.3, sodium of 135, potassium 3.4, BUN of 10 creatinine 0.62. C. difficile was found to be negative. 10/03/2024 patient seen and examined at bedside. No acute events overnight. No new complaints. Labs today: WBC 4.09, hemoglobin 7.2, platelet count 1 21,000, sodium 136, potassium 3.3, chloride 111, BUN 6, creatinine 0.66, calcium 7 10/04/2024 patient seen and examined at bedside. No acute events overnight. CT- guided abscess drainage with pigtail cath placement done and was drained 10mL, was sent for analysis. Ortho recommends stabilization fusion washout of the thoracic spine as well as biopsy. Per RN, patient reported to refuse n.p.o. and surgery this morning. Upon evaluation, patient still does not want to have the procedure done. Labs: WBC 4.8, hemoglobin 7.9, platelet count 114,000, sodium 136, potassium 3.6, bicarb 19, creatinine 0.6, BUN 6, calcium 7, magnesium 1.6 10/05/2024 patient seen and examined at bedside. No acute events overnight. No new complaints or symptoms. Labs: WBC 4.3, hemoglobin 7.9, MCV 89.9, platelet count 1 21,000, sodium 135, potassium 3.3, chloride 108, BUN 6, creatinine 0.56, calcium 7.1, magnesium 1.7, glucose 82. Wound cultures show positive for unblocking and faecalis, Pseudomonas aeruginosa and beta-hemolytic strep group C. Stool culture negative, paravertebral fluid drainage negative for growth after 24 hours. 10/06/2024 patient seen and examined at bedside. No acute events overnight. Patient has declined surgery for the second time at Ortho has signed off. Recommended brace for his back. Per patient, he reported that he did not want to surgery during time of evaluation. Reiterated the risk and benefits of the surgery but patient has declined. Labs: WBC 4.97, hemoglobin 7.7, platelet count 1 23,000, sodium 133, potassium 3.3, bicarb 21, BUN 7, creatinine 0.88, calcium 7.2, magnesium 1.9 10/07/2024 patient seen and examined at bedside. No acute events overnight. Patient mentions that they are agreeable to surgery at this time per patient and his . Labs: WBC 4.9, hemoglobin 7.5, platelet count 1 27,000, sodium 133, potassium 3.4, chloride 105, bicarb 21, creatinine 0.57, BUN 8, calcium 7.2. Paravertebral aspirate positive for pseudomonas. Review of systems: Pertinent positives and negatives as discussed in HPI, a complete review of systems was performed and all other systems are negative. Physical examination: Vital signs reviewed General: non toxic, no distress, appears at stated age Derm: no unusual rashes/lesions, warm Head: atraumatic, normocephalic, symmetric Eyes: EOMI, anicteric sclera, pupils equal round reactive to light ENT: Nose and ears atraumatic Neck: No cervical lymphadenopathy, trachea midline, supple Mouth: no lip lesion, mucus membranes moist Cardiovascular: S1S2 reg, no murmur Lungs: CTA bilateral, no rhonchi, no rales, no accessory muscle use Abdominal: soft, nontender to palpation, no guarding Ext: muscle strength 5 out of 5 in all 4 extremities grossly, no gross muscle atrophy, no contractures, positive dorsalis pedis pulse bilateral, bilateral +2 pitting edema with erythema, bilateral lower extremity wounds bandaged dry and clean dressings Neuro: CN II-XI grossly intact, no gross focal neuro deficits Psych: Alert and oriented x3, appropriate affect and mood Assessment/Plan: #. Severe sepsis secondary to bilateral lower extremity cellulitis #. 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 Diarrhea, C. difficile ruled out #. Leukocytosis secondary to above, improved Continue with Cefepime IVPB every 8 hours and IV vancomycin dosed per pharmacy Wound culture positive for pansensitive pseudomonas and beta hemolytic strep C Negative blood culture HbA1c 4.9% Infectious disease and wound care on board, appreciate recs. PICC line ordered Patient and his argeeable to surgery at this time. Reconsulted ortho surgery for washout surgery. CT-guided abcess drainage by IR done, Paravertebral aspirate positive for pseudomonas. #. Anemia of chronic disease s/p transfusion 2u pRBC Hemoglobin 7.5 Transfuse with packed RBC if hemoglobin is less than 7 Continue monitor CBC #. Hypokalemia Potassium 3.4 today On Potassium replacement protocol Magnesium 1.9 #. Compression deformity of the L1 #. Chronic low back pain Consult PT/OT. Advised patient can be discharged to home Acetaminophen as needed for pain DVT prophylaxis: Lovenox 40 mg subcu daily GI prophylaxis: PO Protonix 40 mg once daily CODE STATUS: Full code Discussed with: Patient Anticipated discharge place: Pending clinical course Lena Self MD PGY-1/Professional Nurse Dictation was produced using [employer] dictation software. please excuse any grammatical, word or spelling errors. Objective - Vital Signs Vital signs: Vital Signs Temp 98.4 F 10/06/24 19:08 Pulse 90 10/06/24 19:08 Resp 17 10/06/24 19:08 BP 108/68 10/06/24 19:08 Pulse Ox 96 10/06/24 19:08 FiO2 21 10/03/24 07:56 Intake & Output 10/06/24 10/07/24 10/07/24 18:59 06:59 18:59 Output Total 1000 Balance -1000 Output: Urine 1000 Other: Voiding Method Urinal Urinal # Voids 3 3 # Bowel Movements 0 - Labs CBC & Chem 7: 10/18/24 03:31 10/18/24 03:31 Labs: Abnormal Lab Results - Last 24 Hours (Table) 10/07/24 10/07/24 Range/Units 04:58 04:58 RBC 2.74 L (4.40-5.60) 10*6/uL Hgb 7.5 L (13.0-17.0) g/dL Hct 24.3 L (39.6-50.0) % MCHC 30.9 L (32.0-37.0) g/dL RDW 17.2 H (11.5-14.5) % Plt Count 127 L (140-440) 10*3/uL Immature Gran # 0.06 H (0.00-0.04) 10*3/uL Lymphocytes # 0.63 L (0.90-5.00) 10*3/uL Sodium 133 L (137-145) mmol/L Potassium 3.4 L (3.5-5.1) mmol/L Carbon Dioxide 21 L (22-30) mmol/L BUN 8 L (9-20) mg/dL Creatinine 0.57 L (0.66-1.25) mg/dL Calcium 7.2 L (8.4-10.2) mg/dL Microbiology - Last 24 Hours (Table) 10/03/24 16:30 Anaerobic Culture - Preliminary Other - Other 10/03/24 16:30 Gram Stain - Preliminary Other - Other Body Fluid Culture - Preliminary Pseudomonas aeruginosa 09/30/24 10:12 Anaerobic Culture - Final Leg - Right Finegoldia magna Assessment and Plan Assessment: Attestation Attestation/ Painter Barrel Note: Attestation to progress Note, Participation (I saw and evaluated the patient with the Resident, and I reviewed and discussed the patient with the Resident and agree with the Resident's findings and plans as documented above., management reviewed and discussed), I agree with findings & plan, Provider Signature (SOTO SCHMIDT, JULIANN Bueno Time with Patient: Greater than 30
[2024-10-08 05:35] LABS: HCT 23.9 % (39.6-50.0); HGB 7.2 g/dL (13.0-17.0); Immature Platelet Fraction 2.9 % (1.1-6.1); MCHC 30.1 g/dL (32.0-37.0); MCV 89.5 fL (80.0-97.0); Mean Platelet Volume 10.7 fL (9.5-12.2); Platelet Count 110 10*3/uL (140-440); RBC 2.67 10*6/uL (4.40-5.60); RDW 17.7 % (11.5-14.5); WBC 4.54 10*3/uL (4.50-10.00)
[2024-10-08 06:13] LABS: African American GFR (CKD) >90 (>60 ml/min/1.73 sqM); Anion Gap 6 mmol/L; Blood Urea Nitrogen 9 mg/dL (9-20); Calcium 7.3 mg/dL (8.4-10.2); Carbon Dioxide 22 mmol/L (22-30); Chloride 105 mmol/L (98-107); Glucose 71 mg/dL (74-99); Non-African American GFR(CKD) >90 (>60 ml/min/1.73 sqM); Potassium 3.3 mmol/L (3.5-5.1); Sodium 133 mmol/L (137-145)
[2024-10-08] MEDS: POTASSIUM CHLORIDE ER 20 MEQ TAB.ER PO STA (09:14)
--- NOTE | 2024-10-08 11:51 | P.PN ---
Subjective Progress Note Date: 10/08/24 Principal diagnosis: Weakness, anemia, bilateral lower extremity edema/wounds, T9/T10 osteomyelitis/discitis Patient evaluated at bedside, is also present. He is resting in his hospital bed, he appears to be in no acute distress. Apparently the patient was speaking with infectious disease and stated he would go through with the surgery, our service was again notified patient was evaluated. Him and his are both agreeable with surgery, planning for 10/11/2024. Objective - Vital Signs Vital signs: Vital Signs Temp 97.5 F L 10/08/24 07:30 Pulse 86 10/08/24 07:30 Resp 16 10/08/24 07:48 BP 134/77 10/08/24 07:30 Pulse Ox 96 10/08/24 07:30 FiO2 21 10/03/24 07:56 Intake & Output 10/07/24 10/08/24 10/08/24 18:59 06:59 18:59 Intake Total 900 1620 Output Total 200 250 Balance 700 1370 Weight 91.5 kg 92 kg Intake: Intake, IV Titration 900 Amount Lactated Ringers 1,000 ml 900 @ 20 mls/hr IV .Q24H JUSTIN Rx#:[id number] Oral 1620 Output: Urine 200 250 Other: Voiding Method Urinal Urinal # Voids 3 2 # Bowel Movements 0 1 - Exam Gen: AOx3, NAD VSS stable at this time Integument: No open lesions were visualized throughout the cervical, thoracic or lumbar spine, no areas of erythema, no ecchymosis or soft tissue swelling Bilateral lower extremities are wrapped with Kerlix bandages, there is significant edema and redness appreciated throughout. There is dried blood/drainage noted on the bed sheets involving the bilateral lower extremity Palpation: No tenderness with palpation throughout the cervical spine, the lower thoracic spine does reproduce some tenderness at midline with palpation ROM: Full range of motion in all major muscle groups of the bilateral upper extremities, no focal deficits were appreciated Range of motion of the bilateral lower extremities is intact, he is limited with knee extension and knee flexion due to the swelling and discomfort in his lower extremities. 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, sql developer dba 4/5 strength appreciated the bilateral lower extremities with hip flexion, knee extension, knee flexion, plantarflexion, dorsiflexion, EHL, FHL Reflexes: 2/4 in all UE and LE Negative Rudi's bilaterally Negative clonus bilateral Special Test: Negative straight leg raise bilaterally - Labs CBC & Chem 7: 10/08/24 04:49 10/08/24 04:49 Labs: Abnormal Lab Results - Last 24 Hours (Table) 10/08/24 10/08/24 Range/Units 04:49 04:49 RBC 2.67 L (4.40-5.60) 10*6/uL Hgb 7.2 L (13.0-17.0) g/dL Hct 23.9 L (39.6-50.0) % MCHC 30.1 L (32.0-37.0) g/dL RDW 17.7 H (11.5-14.5) % Plt Count 110 L (140-440) 10*3/uL Sodium 133 L (137-145) mmol/L Potassium 3.3 L (3.5-5.1) mmol/L Creatinine 0.64 L (0.66-1.25) mg/dL Glucose 71 L (74-99) mg/dL Calcium 7.3 L (8.4-10.2) mg/dL Microbiology - Last 24 Hours (Table) 10/03/24 16:30 Anaerobic Culture - Final Other - Other 10/03/24 16:30 Gram Stain - Final Other - Other Body Fluid Culture - Final Pseudomonas aeruginosa Assessment and Plan Assessment: T9/T10 discitis/osteomyelitis Paravertebral abscesses T9/T10 Chronic L1 VCF Bilateral lower extremity wounds/cellulitis/edema Sepsis Anemia Plan: Surgery will be tentatively scheduled for 10/11/2024 Recommending continuing IV antibiotics TLSO brace when up and ambulating longer distances PT/OT evaluation, weight-bear as tolerated with walker DVT prophylaxis per primary medical service Other medical specialty recommendations appreciated Will continue to follow during hospital stay Time with Patient: Less than 30
[2024-10-08 12:30] LABS: African American GFR (CKD) >90 (>60 ml/min/1.73 sqM); Non-African American GFR(CKD) >90 (>60 ml/min/1.73 sqM)
[2024-10-08] MEDS: VANCOMYCIN TROUGH DUE 1 EACH MISC MISCELLANE ONE (13:27)
--- NOTE | 2024-10-08 16:02 | P.PN ---
Subjective Progress Note Date: 10/08/24 Patient is a 74-year-old male with a history of chronic wound lesions of the legs presented to the ER with a complaint of diarrhea. Patient reports that he was at the wound care center for his chronic bilateral lower extremity wound lesions where he complained about diarrhea and he was advised to go to the ER for further evaluation. Patient reports that he has been endorsing diarrhea since 2 weeks and describes his stools as loose and bowel movements 3-4 times a day. He has been getting treatment for his bilateral lower chronic venous stasis cellulitis including antibiotics. He endorsed mild abdominal pain yesterday which has resolved today. Patient denies chest pain, shortness of breath, dizziness, headaches, acute vision changes, dysuria. Initial laboratory evaluation shows WBC 15.13, hemoglobin 8.4, sodium 134, potassium 4.5, BUN 17, creatinine 0.82, lactic acid 2.8, repeat lactic acid 4.1 and 1.3. Urinalysis shows mild urine WBC, mildly leukocyte Estrace and urine bacteria. CT abdomen pelvis shows findings highly concerning for discitis/osteomyelitis involving the T9-T10 disc level. Chronic appearing compression deformity of the L1 vertebral body. Mild splenomegaly. Hepatic steatosis. Advanced left hip osteoarthritic change. Venous Doppler study of lower extremities is negative for bilateral DVT EKG shows normal sinus rhythm with ventricular rate of 99 bpm, HI interval of 186 ms, QRS duration 109 ms, QTc 413 ms, left axis deviation, fairly normal R wave progression, nonspecific ST to T wave changes noted. Vital signs on arrival show temperature of 97.7 F, pulse rate of 114, respiratory rate of 20, blood pressure 100/60, oxygen saturation 90% on room air. In the ED: Severe sepsis protocol was initiated patient received a total 3 L of IV fluid bolus and 2 g of IV ceftriaxone once. 10/01/2024: Patient was seen and examined at the bedside. No acute events overnight. Patient received 2 units of PRBC yesterday. Hemoglobin this morning 7.6. No active bleeding. Patient continues to be on IV Rocephin and vancomycin for lower extremity cellulitis. MRI of the thoracic spine showed discitis/osteomyelitis complicated with paravertebral abscess at T9/T10. Orthop edic surgery has been consulted. Will consult IR for abscess drainage. Potassium was 3.2, will replace it with 60 mEq KCl orally. 10/02/2024 Patient is evaluated today in follow-up on the cardiac unit. He continues on IV Rocephin and IV vancomycin for the left lower extremity cellulitis additionally his MRI of the thoracic spine noted discitis and osteomyelitis with a paravertebral abscess. IR has been consulted for abscess drainage although will not see this patient until Thursday as it is the weekend. Orthopedic spinal was consulted they recommended no emergent surgical intervention at this time and recommending to continue IV antibiotics. They reveal a white blood cell count of 4.60, hemoglobin 7.3, sodium of 135, potassium 3.4, BUN of 10 creatinine 0.62. C. difficile was found to be negative. 10/03/2024 patient seen and examined at bedside. No acute events overnight. No new complaints. Labs today: WBC 4.09, hemoglobin 7.2, platelet count 1 21,000, sodium 136, potassium 3.3, chloride 111, BUN 6, creatinine 0.66, calcium 7 10/04/2024 patient seen and examined at bedside. No acute events overnight. CT- guided abscess drainage with pigtail cath placement done and was drained 10mL, was sent for analysis. Ortho recommends stabilization fusion washout of the thoracic spine as well as biopsy. Per RN, patient reported to refuse n.p.o. and surgery this morning. Upon evaluation, patient still does not want to have the procedure done. Labs: WBC 4.8, hemoglobin 7.9, platelet count 114,000, sodium 136, potassium 3.6, bicarb 19, creatinine 0.6, BUN 6, calcium 7, magnesium 1.6 10/05/2024 patient seen and examined at bedside. No acute events overnight. No new complaints or symptoms. Labs: WBC 4.3, hemoglobin 7.9, MCV 89.9, platelet count 1 21,000, sodium 135, potassium 3.3, chloride 108, BUN 6, creatinine 0.56, calcium 7.1, magnesium 1.7, glucose 82. Wound cultures show positive for unblocking and faecalis, Pseudomonas aeruginosa and beta-hemolytic strep group C. Stool culture negative, paravertebral fluid drainage negative for growth after 24 hours. 10/06/2024 patient seen and examined at bedside. No acute events overnight. Patient has declined surgery for the second time at Ortho has signed off. Recommended brace for his back. Per patient, he reported that he did not want to surgery during time of evaluation. Reiterated the risk and benefits of the surgery but patient has declined. Labs: WBC 4.97, hemoglobin 7.7, platelet count 1 23,000, sodium 133, potassium 3.3, bicarb 21, BUN 7, creatinine 0.88, calcium 7.2, magnesium 1.9 10/07/2024 patient seen and examined at bedside. No acute events overnight. Patient mentions that they are agreeable to surgery at this time per patient and his . Labs: WBC 4.9, hemoglobin 7.5, platelet count 1 27,000, sodium 133, potassium 3.4, chloride 105, bicarb 21, creatinine 0.57, BUN 8, calcium 7.2. Paravertebral aspirate positive for pseudomonas. 10/08/2024 patient seen and examined at bedside. No acute events overnight. No new complaints. Patient still agreeable to surgery. Labs: WBC 4.5, hemoglobin 7.2, sodium 133, potassium 3.3, chloride 105, bicarb 22, BUN 9, creatinine 0.64, calcium 7.3, glucose 71 Review of systems: Pertinent positives and negatives as discussed in HPI, a complete review of sys tems was performed and all other systems are negative. Physical examination: Vital signs reviewed General: non toxic, no distress, appears at stated age Derm: no unusual rashes/lesions, warm Head: atraumatic, normocephalic, symmetric Eyes: EOMI, anicteric sclera, pupils equal round reactive to light ENT: Nose and ears atraumatic Neck: No cervical lymphadenopathy, trachea midline, supple Mouth: no lip lesion, mucus membranes moist Cardiovascular: S1S2 reg, no murmur Lungs: CTA bilateral, no rhonchi, no rales, no accessory muscle use Abdominal: soft, nontender to palpation, no guarding Ext: muscle strength 5 out of 5 in all 4 extremities grossly, no gross muscle atrophy, no contractures, positive dorsalis pedis pulse bilateral, bilateral +2 pitting edema with erythema, bilateral lower extremity wounds bandaged dry and clean dressings Neuro: CN II-XI grossly intact, no gross focal neuro deficits Psych: Alert and oriented x3, appropriate affect and mood Assessment/Plan: #. Severe sepsis secondary to bilateral lower extremity cellulitis #. 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 Diarrhea, C. difficile ruled out #. Leukocytosis secondary to above, improved Continue with Cefepime IVPB every 8 hours and IV vancomycin dosed per pharmacy Wound culture positive for pansensitive pseudomonas and beta hemolytic strep C Negative blood culture HbA1c 4.9% Infectious disease and wound care on board, appreciate recs. PICC line ordered Patient and his argeeable to surgery at this time. Ortho reconsulted. Planned for surgery on 10/11 CT-guided abcess drainage by IR done, Paravertebral aspirate positive for pseudomonas. #. Anemia of chronic disease s/p transfusion 2u pRBC Hemoglobin 7.5 Transfuse with packed RBC if hemoglobin is less than 7 Continue monitor CBC #. Hypokalemia Potassium 3.3 today On Potassium replacement protocol. Given potassium chloride 40 mEq once Check Magnesium. If low, will replete #. Compression deformity of the L1 #. Chronic low back pain Consult PT/OT. Advised patient can be discharged to home Acetaminophen as needed for pain DVT prophylaxis: Lovenox 40 mg subcu daily GI prophylaxis: PO Protonix 40 mg once daily CODE STATUS: Full code Discussed with: Patient Anticipated discharge place: Pending clinical course Lena Self MD PGY-1/Control Panel Operator Crude Unit Dictation was produced using [employer] dictation software. please excuse any grammatical, word or spelling errors. Objective - Vital Signs Vital signs: Vital Signs Temp 97.8 F 10/08/24 03:28 Pulse 83 10/08/24 03:28 Resp 15 10/08/24 03:28 BP 127/69 10/08/24 03:28 Pulse Ox 96 10/08/24 03:28 FiO2 21 10/03/24 07:56 Intake & Output 10/07/24 10/08/24 10/08/24 18:59 06:59 18:59 Intake Total 900 1620 Output Total 200 250 Balance 700 1370 Weight 91.5 kg 92 kg Intake: Intake, IV Titration 900 Amount Lactated Ringers 1,000 ml 900 @ 20 mls/hr IV .Q24H JUSTIN Rx#:[id number] Oral 1620 Output: Urine 200 250 Other: Voiding Method Urinal # Voids 3 2 # Bowel Movements 0 1 - Labs CBC & Chem 7: 10/18/24 03:31 10/18/24 03:31 Labs: Abnormal Lab Results - Last 24 Hours (Table) 10/08/24 10/08/24 Range/Units 04:49 04:49 RBC 2.67 L (4.40-5.60) 10*6/uL Hgb 7.2 L (13.0-17.0) g/dL Hct 23.9 L (39.6-50.0) % MCHC 30.1 L (32.0-37.0) g/dL RDW 17.7 H (11.5-14.5) % Plt Count 110 L (140-440) 10*3/uL Sodium 133 L (137-145) mmol/L Potassium 3.3 L (3.5-5.1) mmol/L Creatinine 0.64 L (0.66-1.25) mg/dL Glucose 71 L (74-99) mg/dL Calcium 7.3 L (8.4-10.2) mg/dL Microbiology - Last 24 Hours (Table) 10/03/24 16:30 Anaerobic Culture - Final Other - Other 10/03/24 16:30 Gram Stain - Final Other - Other Body Fluid Culture - Final Pseudomonas aeruginosa Assessment and Plan Assessment: Attestation Attestation/ Lab Technologist Note: Attestation to progress Note, Participation (I saw and evaluated the patient with the Resident, and I reviewed and discussed the patient with the Resident and agree with the Resident's findings and plans as documented above., management reviewed and discussed), I agree with findings & plan, Provider Signature (SOTO SCHMIDT, JULIANN Bueno Time with Patient: Greater than 30
[2024-10-08] MEDS: HEPARIN SODIUM,PORCINE 5,000 UNIT/ML 1 ML VIAL SQ SCH (17:04)
[2024-10-09 08:57] LABS: Basophils # (A) 0.01 10*3/uL (0.00-0.10); Basophils % (A) 0.2 %; Eosinophils # (A) 0.02 10*3/uL (0.04-0.35); Eosinophils % (A) 0.5 %; HCT 24.4 % (39.6-50.0); HGB 7.3 g/dL (13.0-17.0); Lymphocytes # (A) 0.59 10*3/uL (0.90-5.00); Lymphocytes % (A) 13.8 %; MCH 27.1 pg (27.0-32.0); MCHC 29.9 g/dL (32.0-37.0); MCV 90.7 fL (80.0-97.0); Mean Platelet Volume 11.1 fL (9.5-12.2); Monocytes # (A) 0.28 10*3/uL (0.20-1.00); Monocytes % (A) 6.6 %; Neutrophils % (A) 77.5 %; Platelet Count 106 10*3/uL (140-440); RBC 2.69 10*6/uL (4.40-5.60); RDW 17.5 % (11.5-14.5); WBC 4.26 10*3/uL (4.50-10.00)
[2024-10-09 09:10] LABS: African American GFR (CKD) >90 (>60 ml/min/1.73 sqM); Anion Gap 5 mmol/L; Blood Urea Nitrogen 9 mg/dL (9-20); Calcium 7.2 mg/dL (8.4-10.2); Carbon Dioxide 23 mmol/L (22-30); Chloride 105 mmol/L (98-107); Glucose 70 mg/dL (74-99); Non-African American GFR(CKD) >90 (>60 ml/min/1.73 sqM); Potassium 3.4 mmol/L (3.5-5.1); Sodium 133 mmol/L (137-145)
--- NOTE | 2024-10-09 11:43 | P.PN ---
Subjective Progress Note Date: 10/09/24 Principal diagnosis: Weakness, anemia, bilateral lower extremity edema/wounds, T9/T10 osteomyelitis/discitis Patient evaluated at bedside, is also present. He is resting in his hospital bed, he appears to be in no acute distress. Patient appears comfortable on exa surgery was again discussed today at bedside, he is in agreements and would like to proceed. Surgery is scheduled for 10/11/2024. Objective - Vital Signs Vital signs: Vital Signs Temp 97.6 F 10/09/24 07:30 Pulse 82 10/09/24 08:15 Resp 17 10/09/24 08:15 BP 117/70 10/09/24 07:30 Pulse Ox 99 10/09/24 07:30 FiO2 21 10/03/24 07:56 Intake & Output 10/08/24 10/09/24 10/09/24 18:59 06:59 18:59 Intake Total 350 Output Total 400 Balance 350 -400 Weight 92.5 kg Intake: Oral 350 Output: Urine 400 Other: Voiding Method Urinal Urinal Urinal # Voids 2 2 # Bowel Movements 1 - Exam Gen: AOx3, NAD VSS stable at this time Integument: No open lesions were visualized throughout the cervical, thoracic or lumbar spine, no areas of erythema, no ecchymosis or soft tissue swelling Bilateral lower extremities are wrapped with Kerlix bandages, there is significant edema and redness appreciated throughout. There is dried b lood/drainage noted on the bed sheets involving the bilateral lower extremity Palpation: No tenderness with palpation throughout the cervical spine, the lower thoracic spine does reproduce some tenderness at midline with palpation ROM: Full range of motion in all major muscle groups of the bilateral upper extremities, no focal deficits were appreciated Range of motion of the bilateral lower extremities is intact, he is limited with knee extension and knee flexion due to the swelling and discomfort in his lower extremities. 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 4/5 strength appreciated the bilateral lower extremities with hip flexion, knee extension, knee flexion, plantarflexion, dorsiflexion, EHL, FHL Reflexes: 2/4 in all UE and LE Negative Rudi's bilaterally Negative clonus bilateral Special Test: Negative straight leg raise bilaterally - Labs CBC & Chem 7: 10/09/24 07:48 10/09/24 07:48 Labs: Abnormal Lab Results - Last 24 Hours (Table) 10/08/24 10/09/24 10/09/24 Range/Units 11:26 07:48 07:48 WBC 4.26 L (4.50-10.00) 10*3/uL RBC 2.69 L (4.40-5.60) 10*6/uL Hgb 7.3 L (13.0-17.0) g/dL Hct 24.4 L (39.6-50.0) % MCHC 29.9 L (32.0-37.0) g/dL RDW 17.5 H (11.5-14.5) % Plt Count 106 L (140-440) 10*3/uL Immature Gran # 0.06 H (0.00-0.04) 10*3/uL Lymphocytes # 0.59 L (0.90-5.00) 10*3/uL Eosinophils # 0.02 L (0.04-0.35) 10*3/uL Sodium 133 L (137-145) mmol/L Potassium 3.4 L (3.5-5.1) mmol/L Creatinine 0.57 L (0.66-1.25) mg/dL Glucose 70 L (74-99) mg/dL Calcium 7.2 L (8.4-10.2) mg/dL Assessment and Plan Assessment: T9/T10 discitis/osteomyelitis Paravertebral abscesses T9/T10 Chronic L1 VCF Bilateral lower extremity wounds/cellulitis/edema Sepsis Anemia Plan: Surgery will be tentatively scheduled for 10/11/2024 Recommending continuing IV antibiotics TLSO brace when up and ambulating longer distances PT/OT evaluation, weight-bear as tolerated with walker DVT prophylaxis per primary medical service Other medical specialty recommendations appreciated Will continue to follow during hospital stay Time with Patient: Less than 30
[2024-10-09] MEDS: POTASSIUM CHLORIDE ER 20 MEQ TAB.ER PO STA (15:48)
--- NOTE | 2024-10-09 17:24 | P.PN ---
Subjective Progress Note Date: 10/09/24 Principal diagnosis: Reason for follow-up is discitis/osteomyelitis Patient is a 74-year-old male with a past medical history significant for hypertension and did have a history of chronic nonhealing wound to bilateral lower extremity for the patient followed at [facility] care center has been sent to the ER from the wound care concerning for diarrhea patient workup which shows possibility of T9-10 discitis/osteomyelitis. On today's evaluation that is 10/09/2023, patient did have a temperature of 98 F this morning and denies having any chills, patient is on room air and breathing comfortably no chest pain or cough, the patient did not have any nausea vomiting abdominal pain or any diarrhea Patient white count is 4.54, creatinine 0.64 Objective - Vital Signs Vital signs: Vital Signs Temp 97.5 F L 10/08/24 07:30 Pulse 86 10/08/24 07:30 Resp 16 10/08/24 07:48 BP 134/77 10/08/24 07:30 Pulse Ox 96 10/08/24 07:30 FiO2 21 10/03/24 07:56 Intake & Output 10/07/24 10/08/24 10/08/24 18:59 06:59 18:59 Intake Total 900 1620 Output Total 200 250 Balance 700 1370 Weight 91.5 kg 92 kg Intake: Intake, IV Titration 900 Amount Lactated Ringers 1,000 ml 900 @ 20 mls/hr IV .Q24H JUSTIN Rx#:[id number] Oral 1620 Output: Urine 200 250 Other: Voiding Method Urinal Urinal # Voids 3 2 # Bowel Movements 0 1 - Exam GENERAL DESCRIPTION: An elderly male lying in bed in no distress RESPIRATORY SYSTEM: Unlabored breathing , decreased breath sounds at bases HEART: S1 S2 regular rate and rhythm , ABDOMEN: Soft , no tenderness EXTREMITIES: Lower extremity currently dressed - Labs CBC & Chem 7: 10/09/24 07:48 10/09/24 07:48 Labs: Abnormal Lab Results - Last 24 Hours (Table) 10/08/24 10/08/24 10/08/24 Range/Units 04:49 04:49 11:26 RBC 2.67 L (4.40-5.60) 10*6/uL Hgb 7.2 L (13.0-17.0) g/dL Hct 23.9 L (39.6-50.0) % MCHC 30.1 L (32.0-37.0) g/dL RDW 17.7 H (11.5-14.5) % Plt Count 110 L (140-440) 10*3/uL Sodium 133 L (137-145) mmol/L Potassium 3.3 L (3.5-5.1) mmol/L Creatinine 0.64 L 0.57 L (0.66-1.25) mg/dL Glucose 71 L (74-99) mg/dL Calcium 7.3 L (8.4-10.2) mg/dL Microbiology - Last 24 Hours (Table) 10/03/24 16:30 Anaerobic Culture - Final Other - Other 10/03/24 16:30 Gram Stain - Final Other - Other Body Fluid Culture - Final Pseudomonas aeruginosa Assessment and Plan (1) Osteomyelitis of thoracic spine Current Visit: Yes Status: Acute Code(s): M46.24 - OSTEOMYELITIS OF VERTEBRA, THORACIC REGION SNOMED Code(s): 139853317 (2) Leukocytosis Current Visit: Yes Status: Acute Code(s): D72.829 - ELEVATED WHITE BLOOD CELL COUNT, UNSPECIFIED SNOMED Code(s): 185715050 (3) Bilateral lower leg cellulitis Current Visit: No Status: Acute Code(s): L03.116 - CELLULITIS OF LEFT LOWER LIMB; L03.115 - CELLULITIS OF RIGHT LOWER LIMB SNOMED Code(s): 790595457 Plan: 1patient with abnormal CT of abdominal pelvis with concern for T9-10 osteomyelitis and discitis in this patient presenting to the hospital mostly with weakness and diarrhea currently currently denies having any back pain or open wound and no history of any trauma and very unlikely presentation for thoracic spine osteomyelitis/discitis likely algorithm to cover will be gram- positive skin arthur and less likely gram-negative pathogen also have evidence of bilateral lower extremity wound and cellulitis 2-patient did have MRI of the spine concerning for discitis/osteomyelitis and possible abscess Ortho has seen the patient recommending no surgical intervention, patient is status post IR aspiration of the thoracic spine and specimen has been sent for the culture 3-blood culture currently local culture from the leg is growing multiple pathogen including Pseudomonas strep and Alcaligenes faecalis, Finegoldia magna 4-patient mention improvement in the diarrhea, patient to continue with the Questran as needed 5patient CT-guided aspiration from the back is growing Pseudomonas aeruginosa for the patient is currently covered with the cefepime, patient seem to be agreeable for surgery, Ortho has been reconsulted Dictation was produced using [employer] dictation software. please excuse any grammatical, word or spelling errors.
--- NOTE | 2024-10-09 17:24 | P.PN ---
Subjective Progress Note Date: 10/09/24 Principal diagnosis: Reason for follow-up is discitis/osteomyelitis Patient is a 74-year-old male with a past medical history significant for hypertension and did have a history of chronic nonhealing wound to bilateral lower extremity for the patient followed at [facility] care center has been sent to the ER from the wound care concerning for diarrhea patient workup which shows possibility of T9-10 discitis/osteomyelitis. On today's evaluation that is 10/09/2024, Patient is afebrile patient is currently on room air and denies having any shortness of breath, the patient denies any chest pain or cough, the patient denies any nausea vomiting did not have any abdominal pain and no diarrhea Patient 4.26 creatinine 0.66 Objective - Vital Signs Vital signs: Vital Signs Temp 98.2 F 10/09/24 14:52 Pulse 87 10/09/24 14:52 Resp 16 10/09/24 14:52 BP 118/69 10/09/24 14:52 Pulse Ox 93 L 10/09/24 14:52 FiO2 21 10/03/24 07:56 Intake & Output 10/08/24 10/09/24 10/09/24 18:59 06:59 18:59 Intake Total 350 Output Total 400 500 Balance 350 -400 -500 Weight 92.5 kg Intake: Oral 350 Output: Urine 400 500 Other: Voiding Method Urinal Urinal Urinal # Voids 2 2 # Bowel Movements 1 - Exam GENERAL DESCRIPTION: An elderly male lying in bed in no distress RESPIRATORY SYSTEM: Unlabored breathing , decreased breath sounds at bases HEART: S1 S2 regular rate and rhythm , ABDOMEN: Soft , no tenderness EXTREMITIES: Lower extremity currently dressed - Labs CBC & Chem 7: 10/09/24 07:48 10/09/24 07:48 Labs: Abnormal Lab Results - Last 24 Hours (Table) 10/09/24 10/09/24 Range/Units 07:48 07:48 WBC 4.26 L (4.50-10.00) 10*3/uL RBC 2.69 L (4.40-5.60) 10*6/uL Hgb 7.3 L (13.0-17.0) g/dL Hct 24.4 L (39.6-50.0) % MCHC 29.9 L (32.0-37.0) g/dL RDW 17.5 H (11.5-14.5) % Plt Count 106 L (140-440) 10*3/uL Immature Gran # 0.06 H (0.00-0.04) 10*3/uL Lymphocytes # 0.59 L (0.90-5.00) 10*3/uL Eosinophils # 0.02 L (0.04-0.35) 10*3/uL Sodium 133 L (137-145) mmol/L Potassium 3.4 L (3.5-5.1) mmol/L Glucose 70 L (74-99) mg/dL Calcium 7.2 L (8.4-10.2) mg/dL Assessment and Plan (1) Osteomyelitis of thoracic spine Current Visit: Yes Status: Acute Code(s): M46.24 - OSTEOMYELITIS OF VERTEBRA, THORACIC REGION SNOMED Code(s): 753241438 (2) Leukocytosis Current Visit: Yes Status: Acute Code(s): D72.829 - ELEVATED WHITE BLOOD CELL COUNT, UNSPECIFIED SNOMED Code(s): 448863608 (3) Bilateral lower leg cellulitis Current Visit: No Status: Acute Code(s): L03.116 - CELLULITIS OF LEFT LOWER LIMB; L03.115 - CELLULITIS OF RIGHT LOWER LIMB SNOMED Code(s): 480929112 Plan: 1patient with abnormal CT of abdominal pelvis with concern for T9-10 osteomyelitis and discitis in this patient presenting to the hospital mostly with weakness and diarrhea currently currently denies having any back pain or open wound and no history of any trauma and very unlikely presentation for thoracic spine osteomyelitis/discitis likely algorithm to cover will be gram- positive skin arthur and less likely gram-negative pathogen also have evidence of bilateral lower extremity wound and cellulitis 2-patient did have MRI of the spine concerning for discitis/osteomyelitis and possible abscess Ortho has seen the patient recommending no surgical int ervention, patient is status post IR aspiration of the thoracic spine and specimen has been sent for the culture 3-blood culture currently local culture from the leg is growing multiple pathogen including Pseudomonas strep and Alcaligenes faecalis, Finegoldia magna 4-patient mention improvement in the diarrhea, patient to continue with the Questran as needed 5patient CT-guided aspiration from the back is growing Pseudomonas aeruginosa for the patient is currently covered with the cefepime, in addition to the vancomycin and Flagyl 6patient seem to be agreeable for surgery, Ortho reschedule surgery for 10/11/2024, multiple question concern answered Dictation was produced using [employer] dictation software. please excuse any grammatical, word or spelling errors. Time with Patient: Less than 30
--- NOTE | 2024-10-09 22:28 | P.PN ---
Subjective Progress Note Date: 10/09/24 Patient is a 74-year-old male with a history of chronic wound lesions of the legs presented to the ER with a complaint of diarrhea. Patient reports that he was at the wound care center for his chronic bilateral lower extremity wound lesions where he complained about diarrhea and he was advised to go to the ER for further evaluation. Patient reports that he has been endorsing diarrhea since 2 weeks and describes his stools as loose and bowel movements 3-4 times a day. He has been getting treatment for his bilateral lower chronic venous stasis cellulitis including antibiotics. He endorsed mild abdominal pain yesterday which has resolved today. Patient denies chest pain, shortness of breath, dizziness, headaches, acute vision changes, dysuria. Initial laboratory evaluation shows WBC 15.13, hemoglobin 8.4, sodium 134, potassium 4.5, BUN 17, creatinine 0.82, lactic acid 2.8, repeat lactic acid 4.1 and 1.3. Urinalysis shows mild urine WBC, mildly leukocyte Estrace and urine bacteria. CT abdomen pelvis shows findings highly concerning for discitis/osteomyelitis involving the T9-T10 disc level. Chronic appearing compression deformity of the L1 vertebral body. Mild splenomegaly. Hepatic steatosis. Advanced left hip osteoarthritic change. Venous Doppler study of lower extremities is negative for bilateral DVT EKG shows normal sinus rhythm with ventricular rate of 99 bpm, VT interval of 186 ms, QRS duration 109 ms, QTc 413 ms, left axis deviation, fairly normal R wave progression, nonspecific ST to T wave changes noted. Vital signs on arrival show temperature of 97.7 F, pulse rate of 114, respiratory rate of 20, blood pressure 100/60, oxygen saturation 90% on room air. In the ED: Severe sepsis protocol was initiated patient received a total 3 L of IV fluid bolus and 2 g of IV ceftriaxone once. 10/01/2024: Patient was seen and examined at the bedside. No acute events overnight. Patient received 2 units of PRBC yesterday. Hemoglobin this morning 7.6. No active bleeding. Patient continues to be on IV Rocephin and vancomycin for lower extremity cellulitis. MRI of the thoracic spine showed discitis/osteomyelitis complicated with paravertebral abscess at T9/T10. Orthop edic surgery has been consulted. Will consult IR for abscess drainage. Potassium was 3.2, will replace it with 60 mEq KCl orally. 10/02/2024 Patient is evaluated today in follow-up on the cardiac unit. He continues on IV Rocephin and IV vancomycin for the left lower extremity cellulitis additionally his MRI of the thoracic spine noted discitis and osteomyelitis with a paravertebral abscess. IR has been consulted for abscess drainage although will not see this patient until Thursday as it is the weekend. Orthopedic spinal was consulted they recommended no emergent surgical intervention at this time and recommending to continue IV antibiotics. They reveal a white blood cell count of 4.60, hemoglobin 7.3, sodium of 135, potassium 3.4, BUN of 10 creatinine 0.62. C. difficile was found to be negative. 10/03/2024 patient seen and examined at bedside. No acute events overnight. No new complaints. Labs today: WBC 4.09, hemoglobin 7.2, platelet count 1 21,000, sodium 136, potassium 3.3, chloride 111, BUN 6, creatinine 0.66, calcium 7 10/04/2024 patient seen and examined at bedside. No acute events overnight. CT- guided abscess drainage with pigtail cath placement done and was drained 10mL, was sent for analysis. Ortho recommends stabilization fusion washout of the thoracic spine as well as biopsy. Per RN, patient reported to refuse n.p.o. and surgery this morning. Upon evaluation, patient still does not want to have the procedure done. Labs: WBC 4.8, hemoglobin 7.9, platelet count 114,000, sodium 136, potassium 3.6, bicarb 19, creatinine 0.6, BUN 6, calcium 7, magnesium 1.6 10/05/2024 patient seen and examined at bedside. No acute events overnight. No new complaints or symptoms. Labs: WBC 4.3, hemoglobin 7.9, MCV 89.9, platelet count 1 21,000, sodium 135, potassium 3.3, chloride 108, BUN 6, creatinine 0.56, calcium 7.1, magnesium 1.7, glucose 82. Wound cultures show positive for unblocking and faecalis, Pseudomonas aeruginosa and beta-hemolytic strep group C. Stool culture negative, paravertebral fluid drainage negative for growth after 24 hours. 10/06/2024 patient seen and examined at bedside. No acute events overnight. Patient has declined surgery for the second time at Ortho has signed off. Recommended brace for his back. Per patient, he reported that he did not want to surgery during time of evaluation. Reiterated the risk and benefits of the surgery but patient has declined. Labs: WBC 4.97, hemoglobin 7.7, platelet count 1 23,000, sodium 133, potassium 3.3, bicarb 21, BUN 7, creatinine 0.88, calcium 7.2, magnesium 1.9 10/07/2024 patient seen and examined at bedside. No acute events overnight. Patient mentions that they are agreeable to surgery at this time per patient and his . Labs: WBC 4.9, hemoglobin 7.5, platelet count 1 27,000, sodium 133, potassium 3.4, chloride 105, bicarb 21, creatinine 0.57, BUN 8, calcium 7.2. Paravertebral aspirate positive for pseudomonas. 10/08/2024 patient seen and examined at bedside. No acute events overnight. No new complaints. Patient still agreeable to surgery. Labs: WBC 4.5, hemoglobin 7.2, sodium 133, potassium 3.3, chloride 105, bicarb 22, BUN 9, creatinine 0.64, calcium 7.3, glucose 71 10/09/2024 Patient is resting in bed. Awake alert and oriented. No complaints of chest pain or shortness of breath. Back pain is controlled. Orthopedic surgery is planning OR on 10/11/2024. Patient has been afebrile. Currently on IV antibiotics in the form of vancomycin and cefepime. Laboratory data showed WBC 4.2 hemoglobin 7.3 MCV 90.7 and platelets 106 sodium 133 potassium 3.4 which is replaced, chloride 105 bicarb is 23 BUN 9 and creatinine 0.66 and blood sugar 70 and calcium 7.2. Review of systems: Pertinent positives and negatives as discussed in HPI, a complete review of systems was performed and all other systems are negative. Physical examination: Vital signs reviewed General: non toxic, no distress, appears at stated age Derm: no unusual rashes/lesions, warm Head: atraumatic, normocephalic, symmetric Eyes: EOMI, anicteric sclera, pupils equal round reactive to light ENT: Nose and ears atraumatic Neck: No cervical lymphadenopathy, trachea midline, supple Mouth: no lip lesion, mucus membranes moist Cardiovascular: S1S2 reg, no murmur Lungs: CTA bilateral, no rhonchi, no rales, no accessory muscle use Abdominal: soft, nontender to palpation, no guarding Ext: muscle strength 5 out of 5 in all 4 extremities grossly, no gross muscle atrophy, no contractures, positive dorsalis pedis pulse bilateral, bilateral +2 pitting edema with erythema, bilateral lower extremity wounds bandaged dry and clean dressings Neuro: CN II-XI grossly intact, no gross focal neuro deficits Psych: Alert and oriented x3, appropriate affect and mood Assessment/Plan: #. Severe sepsis secondary to bilateral lower extremity cellulitis #. 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 Diarrhea, C. difficile ruled out #. Leukocytosis secondary to above, improved Continue with Cefepime IVPB every 8 hours and IV vancomycin dosed per pharmacy Wound culture positive for pansensitive pseudomonas and beta hemolytic strep C Negative blood culture HbA1c 4.9% Infectious disease and wound care on board, appreciate recs. PICC line ordered Patient and his argeeable to surgery at this time. Ortho reconsulted. Planned for surgery on 10/11 CT-guided abcess drainage by IR done, Paravertebral aspirate positive for pseudomonas. #. Anemia of chronic disease s/p transfusion 2u pRBC Hemoglobin 7.5 Transfuse with packed RBC if hemoglobin is less than 7 Continue monitor CBC #. Hypokalemia Potassium 3.3 today On Potassium replacement protocol. Given potassium chloride 40 mEq once Check Magnesium. If low, will replete #. Compression deformity of the L1 #. Chronic low back pain Consult PT/OT. Advised patient can be discharged to home Acetaminophen as needed for pain DVT prophylaxis: Lovenox 40 mg subcu daily GI prophylaxis: PO Protonix 40 mg once daily CODE STATUS: Full code Discussed with: Patient Anticipated discharge place: Pending clinical course Dictation was produced using [employer] dictation software. please excuse any grammatical, word or spelling errors. Objective - Vital Signs Vital signs: Vital Signs Temp 98.1 F 10/09/24 19:06 Pulse 96 10/09/24 19:06 Resp 17 10/09/24 19:06 BP 111/65 10/09/24 19:06 Pulse Ox 96 10/09/24 19:06 FiO2 21 10/03/24 07:56 Intake & Output 10/09/24 10/09/24 10/10/24 06:59 18:59 06:59 Intake Total 200 Output Total 400 500 Balance -400 -300 Weight 92.5 kg Intake: Oral 200 Output: Urine 400 500 Other: Voiding Method Urinal Urinal # Voids 2 4 # Bowel Movements 1 - Labs CBC & Chem 7: 10/09/24 07:48 10/09/24 07:48 Labs: Abnormal Lab Results - Last 24 Hours (Table) 10/09/24 10/09/24 Range/Units 07:48 07:48 WBC 4.26 L (4.50-10.00) 10*3/uL RBC 2.69 L (4.40-5.60) 10*6/uL Hgb 7.3 L (13.0-17.0) g/dL Hct 24.4 L (39.6-50.0) % MCHC 29.9 L (32.0-37.0) g/dL RDW 17.5 H (11.5-14.5) % Plt Count 106 L (140-440) 10*3/uL Immature Gran # 0.06 H (0.00-0.04) 10*3/uL Lymphocytes # 0.59 L (0.90-5.00) 10*3/uL Eosinophils # 0.02 L (0.04-0.35) 10*3/uL Sodium 133 L (137-145) mmol/L Potassium 3.4 L (3.5-5.1) mmol/L Glucose 70 L (74-99) mg/dL Calcium 7.2 L (8.4-10.2) mg/dL
--- NOTE | 2024-10-10 09:54 | P.PN ---
Subjective Progress Note Date: 10/10/24 Principal diagnosis: Weakness, anemia, bilateral lower extremity edema/wounds, T9/T10 osteomyelitis/discitis Patient evaluated at bedside, is also present. He is resting in his hospital bed, he appears to be in no acute distress. Patient is aware he is having surgery tomorrow and is in agreement. Denies headaches, headedness, chest pain, shortness of breath, fevers or chills. Objective - Vital Signs Vital signs: Vital Signs Temp 97.5 F L 10/10/24 07:24 Pulse 79 10/10/24 07:40 Resp 18 10/10/24 07:40 BP 122/70 10/10/24 07:24 Pulse Ox 97 10/10/24 07:24 FiO2 21 10/03/24 07:56 Intake & Output 10/09/24 10/10/24 10/10/24 18:59 06:59 18:59 Intake Total 200 Output Total 500 Balance -300 Weight 88 kg Intake: Oral 200 Output: Urine 500 Other: Voiding Method Urinal Urinal Urinal # Voids 4 1 # Bowel Movements 1 - Exam Gen: AOx3, NAD VSS stable at this time Integument: No open lesions were visualized throughout the cervical, thoracic or lumbar spine, no areas of erythema, no ecchymosis or soft tissue swelling Bilateral lower extremities are wrapped with Kerlix bandages, there is significant edema and redness appreciated throughout. There is dried blood/drainage noted on the bed sheets involving the bilateral lower extremity Palpation: No tenderness with palpation throughout the cervical spine, the lower thoracic spine does reproduce some tenderness at midline with palpation ROM: Full range of motion in all major muscle groups of the bilateral upper extremities, no focal deficits were appreciated Range of motion of the bilateral lower extremities is intact, he is limited with knee extension and knee flexion due to the swelling and discomfort in his lower extremities. 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, coal getter 4/5 strength appreciated the bilateral lower extremities with hip flexion, knee extension, knee flexion, plantarflexion, dorsiflexion, EHL, FHL Reflexes: 2/4 in all UE and LE Negative Rudi's bilaterally Negative clonus bilateral Special Test: Negative straight leg raise bilaterally - Labs CBC & Chem 7: 10/09/24 07:48 10/09/24 07:48 Assessment and Plan Assessment: T9/T10 discitis/osteomyelitis Paravertebral abscesses T9/T10 Chronic L1 VCF Bilateral lower extremity wounds/cellulitis/edema Sepsis Anemia Plan: Surgery scheduled for 10/11/2024 N.p.o. after midnight Continue IV antibiotic TLSO brace when up and ambulating longer distances PT/OT evaluation, weight-bear as tolerated with walker DVT prophylaxis per primary medical service Other medical specialty recommendations appreciated Will continue to follow during hospital stay Time with Patient: Less than 30
[2024-10-10 12:09] LABS: African American GFR (CKD) >90 (>60 ml/min/1.73 sqM); Anion Gap 6 mmol/L; Blood Urea Nitrogen 9 mg/dL (9-20); Calcium 7.4 mg/dL (8.4-10.2); Carbon Dioxide 22 mmol/L (22-30); Chloride 105 mmol/L (98-107); Glucose 82 mg/dL (74-99); Non-African American GFR(CKD) >90 (>60 ml/min/1.73 sqM); Potassium 3.5 mmol/L (3.5-5.1); Sodium 133 mmol/L (137-145)
[2024-10-10 15:08] LABS: Basophils # (A) 0.02 X 10*3/uL (0.00-0.10); Basophils % (A) 0.6 %; Eosinophils # (A) 0.04 X 10*3/uL (0.04-0.35); Eosinophils % (A) 1.2 %; HCT 24.6 % (39.6-50.0); HGB 7.2 g/dL (13.0-17.0); Lymphocytes # (A) 0.48 X 10*3/uL (0.90-5.00); MCH 26.6 pg (27.0-32.0); MCHC 29.3 g/dL (32.0-37.0); MCV 90.8 FL (80.0-97.0); Mean Platelet Volume 10.5 FL (9.5-12.2); Monocytes # (A) 0.19 X 10*3/uL (0.20-1.00); Monocytes % (A) 5.6 %; NRBC Per 100 WBC 0.04 X 10*3/uL (0.00-0.01); Neutrophils # (A) 2.65 X 10*3/uL (1.80-7.70); Neutrophils % (A) 77.4 %; Platelet Count 111 X 10*3/uL (140-440); RBC 2.71 X 10*6/uL (4.40-5.60); RDW 17.6 % (11.5-14.5); WBC 3.42 X 10*3/uL (4.50-10.00)
--- NOTE | 2024-10-10 17:17 | P.PN ---
Subjective Progress Note Date: 10/10/24 Patient is a 74-year-old male with a history of chronic wound lesions of the legs presented to the ER with a complaint of diarrhea. Patient reports that he was at the wound care center for his chronic bilateral lower extremity wound lesions where he complained about diarrhea and he was advised to go to the ER for further evaluation. Patient reports that he has been endorsing diarrhea since 2 weeks and describes his stools as loose and bowel movements 3-4 times a day. He has been getting treatment for his bilateral lower chronic venous stasis cellulitis including antibiotics. He endorsed mild abdominal pain yesterday which has resolved today. Patient denies chest pain, shortness of breath, dizziness, headaches, acute vision changes, dysuria. Initial laboratory evaluation shows WBC 15.13, hemoglobin 8.4, sodium 134, potassium 4.5, BUN 17, creatinine 0.82, lactic acid 2.8, repeat lactic acid 4.1 and 1.3. Urinalysis shows mild urine WBC, mildly leukocyte Estrace and urine bacteria. CT abdomen pelvis shows findings highly concerning for discitis/osteomyelitis involving the T9-T10 disc level. Chronic appearing compression deformity of the L1 vertebral body. Mild splenomegaly. Hepatic steatosis. Advanced left hip osteoarthritic change. Venous Doppler study of lower extremities is negative for bilateral DVT EKG shows normal sinus rhythm with ventricular rate of 99 bpm, MD interval of 186 ms, QRS duration 109 ms, QTc 413 ms, left axis deviation, fairly normal R wave progression, nonspecific ST to T wave changes noted. Vital signs on arrival show temperature of 97.7 F, pulse rate of 114, respiratory rate of 20, blood pressure 100/60, oxygen saturation 90% on room air. In the ED: Severe sepsis protocol was initiated patient received a total 3 L of IV fluid bolus and 2 g of IV ceftriaxone once. 10/01/2024: Patient was seen and examined at the bedside. No acute events overnight. Patient received 2 units of PRBC yesterday. Hemoglobin this morning 7.6. No active bleeding. Patient continues to be on IV Rocephin and vancomycin for lower extremity cellulitis. MRI of the thoracic spine showed discitis/osteomyelitis complicated with paravertebral abscess at T9/T10. Orthop edic surgery has been consulted. Will consult IR for abscess drainage. Potassium was 3.2, will replace it with 60 mEq KCl orally. 10/02/2024 Patient is evaluated today in follow-up on the cardiac unit. He continues on IV Rocephin and IV vancomycin for the left lower extremity cellulitis additionally his MRI of the thoracic spine noted discitis and osteomyelitis with a paravertebral abscess. IR has been consulted for abscess drainage although will not see this patient until Thursday as it is the weekend. Orthopedic spinal was consulted they recommended no emergent surgical intervention at this time and recommending to continue IV antibiotics. They reveal a white blood cell count of 4.60, hemoglobin 7.3, sodium of 135, potassium 3.4, BUN of 10 creatinine 0.62. C. difficile was found to be negative. 10/03/2024 patient seen and examined at bedside. No acute events overnight. No new complaints. Labs today: WBC 4.09, hemoglobin 7.2, platelet count 1 21,000, sodium 136, potassium 3.3, chloride 111, BUN 6, creatinine 0.66, calcium 7 10/04/2024 patient seen and examined at bedside. No acute events overnight. CT- guided abscess drainage with pigtail cath placement done and was drained 10mL, was sent for analysis. Ortho recommends stabilization fusion washout of the thoracic spine as well as biopsy. Per RN, patient reported to refuse n.p.o. and surgery this morning. Upon evaluation, patient still does not want to have the procedure done. Labs: WBC 4.8, hemoglobin 7.9, platelet count 114,000, sodium 136, potassium 3.6, bicarb 19, creatinine 0.6, BUN 6, calcium 7, magnesium 1.6 10/05/2024 patient seen and examined at bedside. No acute events overnight. No new complaints or symptoms. Labs: WBC 4.3, hemoglobin 7.9, MCV 89.9, platelet count 1 21,000, sodium 135, potassium 3.3, chloride 108, BUN 6, creatinine 0.56, calcium 7.1, magnesium 1.7, glucose 82. Wound cultures show positive for unblocking and faecalis, Pseudomonas aeruginosa and beta-hemolytic strep group C. Stool culture negative, paravertebral fluid drainage negative for growth after 24 hours. 10/06/2024 patient seen and examined at bedside. No acute events overnight. Patient has declined surgery for the second time at Ortho has signed off. Recommended brace for his back. Per patient, he reported that he did not want to surgery during time of evaluation. Reiterated the risk and benefits of the surgery but patient has declined. Labs: WBC 4.97, hemoglobin 7.7, platelet count 1 23,000, sodium 133, potassium 3.3, bicarb 21, BUN 7, creatinine 0.88, calcium 7.2, magnesium 1.9 10/07/2024 patient seen and examined at bedside. No acute events overnight. Patient mentions that they are agreeable to surgery at this time per patient and his . Labs: WBC 4.9, hemoglobin 7.5, platelet count 1 27,000, sodium 133, potassium 3.4, chloride 105, bicarb 21, creatinine 0.57, BUN 8, calcium 7.2. Paravertebral aspirate positive for pseudomonas. 10/08/2024 patient seen and examined at bedside. No acute events overnight. No new complaints. Patient still agreeable to surgery. Labs: WBC 4.5, hemoglobin 7.2, sodium 133, potassium 3.3, chloride 105, bicarb 22, BUN 9, creatinine 0.64, calcium 7.3, glucose 71 10/09/2024 Patient is resting in bed. Awake alert and oriented. No complaints of chest pain or shortness of breath. Back pain is controlled. Orthopedic surgery is planning OR on 10/11/2024. Patient has been afebrile. Currently on IV antibiotics in the form of vancomycin and cefepime. Laboratory data showed WBC 4.2 hemoglobin 7.3 MCV 90.7 and platelets 106 sodium 133 potassium 3.4 which is replaced, chloride 105 bicarb is 23 BUN 9 and creatinine 0.66 and blood sugar 70 and calcium 7.2. 10/10/2024 patient seen and examined at bedside. No acute complaints overnight. No new complaints. Labs: WBC 3.4, hemoglobin 7.2, platelet count 111, 000, sodium 133, potassium 3.5, bicarb 22, BUN 9, creatinine 0.58, calcium 7.4 Review of systems: Pertinent positives and negatives as discussed in HPI, a complete review of systems was performed and all other systems are negative. Physical examination: Vital signs reviewed General: non toxic, no distress, appears at stated age Derm: no unusual rashes/lesions, warm Head: atraumatic, normocephalic, symmetric Eyes: EOMI, anicteric sclera, pupils equal round reactive to light ENT: Nose and ears atraumatic Neck: No cervical lymphadenopathy, trachea midline, supple Mouth: no lip lesion, mucus membranes moist Cardiovascular: S1S2 reg, no murmur Lungs: CTA bilateral, no rhonchi, no rales, no accessory muscle use Abdominal: soft, nontender to palpation, no guarding Ext: muscle strength 5 out of 5 in all 4 extremities grossly, no gross muscle atrophy, no contractures, positive dorsalis pedis pulse bilateral, bilateral +2 pitting edema with erythema, bilateral lower extremity wounds bandaged dry and clean dressings Neuro: CN II-XI grossly intact, no gross focal neuro deficits Psych: Alert and oriented x3, appropriate affect and mood Assessment/Plan: #. Severe sepsis secondary to bilateral lower extremity cellulitis #. 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 Diarrhea, C. difficile ruled out #. Leukocytosis secondary to above, improved Continue with Cefepime IVPB every 8 hours and IV vancomycin dosed per pharmacy Wound culture positive for pansensitive pseudomonas and beta hemolytic strep C Negative blood culture HbA1c 4.9% Infectious disease and wound care on board, appreciate recs. PICC line ordered and placed Patient and his argeeable to surgery at this time. Ortho reconsulted. Planned for surgery tomorrow CT-guided abcess drainage by IR done, Paravertebral aspirate positive for pseudomonas. #. Anemia of chronic disease s/p transfusion 2u pRBC Hemoglobin 7.2 Transfuse with packed RBC if hemoglobin is less than 7 Continue monitor CBC #. Hypokalemia, resolved Potassium 3.5 today #. Compression deformity of the L1 #. Chronic low back pain Back brace ordered by ortho Consult PT/OT. Advised patient can be discharged to home Acetaminophen as needed for pain DVT prophylaxis: Lovenox 40 mg subcu daily GI prophylaxis: PO Protonix 40 mg once daily CODE STATUS: Full code Discussed with: Patient Anticipated discharge place: Pending clinical course Lena Self MD PGY-1/Tray Room Worker Dictation was produced using Nu-[employer]-2[employer] dictation software. please excuse any grammatical, word or spelling errors. Objective - Vital Signs Vital signs: Vital Signs Temp 97.5 F L 10/10/24 07:24 Pulse 79 10/10/24 07:40 Resp 18 10/10/24 07:40 BP 122/70 10/10/24 07:24 Pulse Ox 97 10/10/24 07:24 FiO2 21 10/03/24 07:56 Intake & Output 10/09/24 10/10/24 10/10/24 18:59 06:59 18:59 Intake Total 200 Output Total 500 Balance -300 Weight 88 kg Intake: Oral 200 Output: Urine 500 Other: Voiding Method Urinal Urinal Urinal # Voids 4 1 # Bowel Movements 1 - Labs CBC & Chem 7: 10/18/24 03:31 10/18/24 03:31 Labs: Abnormal Lab Results - Last 24 Hours (Table) 10/09/24 10/09/24 Range/Units 07:48 07:48 WBC 4.26 L (4.50-10.00) 10*3/uL RBC 2.69 L (4.40-5.60) 10*6/uL Hgb 7.3 L (13.0-17.0) g/dL Hct 24.4 L (39.6-50.0) % MCHC 29.9 L (32.0-37.0) g/dL RDW 17.5 H (11.5-14.5) % Plt Count 106 L (140-440) 10*3/uL Immature Gran # 0.06 H (0.00-0.04) 10*3/uL Lymphocytes # 0.59 L (0.90-5.00) 10*3/uL Eosinophils # 0.02 L (0.04-0.35) 10*3/uL Sodium 133 L (137-145) mmol/L Potassium 3.4 L (3.5-5.1) mmol/L Glucose 70 L (74-99) mg/dL Calcium 7.2 L (8.4-10.2) mg/dL Assessment and Plan Assessment: Attestation Attestation/ Grinder Outside Diameter Note: Attestation to progress Note, Participation (I saw and evaluated the patient with the Resident, and I reviewed and discussed the patient with the Resident and agree with the Resident's findings and plans as do cumented above., management reviewed and discussed), I agree with findings & plan, Provider Signature (SOTO SCHMIDT, JULIANN Bueno Time with Patient: Greater than 30
[2024-10-11 04:34] LABS: Basophils # (A) 0.02 10*3/uL (0.00-0.10); Basophils % (A) 0.5 %; Eosinophils # (A) 0.06 10*3/uL (0.04-0.35); Eosinophils % (A) 1.5 %; HCT 24.9 % (39.6-50.0); HGB 7.4 g/dL (13.0-17.0); Immature Platelet Fraction 2.8 % (1.1-6.1); Lymphocytes # (A) 0.57 10*3/uL (0.90-5.00); Lymphocytes % (A) 14.4 %; MCH 26.8 pg (27.0-32.0); MCHC 29.7 g/dL (32.0-37.0); MCV 90.2 fL (80.0-97.0); Mean Platelet Volume 10.9 fL (9.5-12.2); Monocytes # (A) 0.23 10*3/uL (0.20-1.00); Monocytes % (A) 5.8 %; Neutrophils # (A) 3.06 10*3/uL (1.80-7.70); Neutrophils % (A) 77.3 %; Platelet Count 103 10*3/uL (140-440); RBC 2.76 10*6/uL (4.40-5.60); RDW 17.7 % (11.5-14.5); WBC 3.96 10*3/uL (4.50-10.00)
[2024-10-11 04:44] LABS: African American GFR (CKD) >90 (>60 ml/min/1.73 sqM); Anion Gap 9 mmol/L; Blood Urea Nitrogen 8 mg/dL (9-20); Calcium 7.5 mg/dL (8.4-10.2); Carbon Dioxide 21 mmol/L (22-30); Chloride 103 mmol/L (98-107); Glucose 72 mg/dL (74-99); Non-African American GFR(CKD) >90 (>60 ml/min/1.73 sqM); Potassium 3.4 mmol/L (3.5-5.1); Sodium 133 mmol/L (137-145)
[2024-10-11] MEDS: VANCOMYCIN TROUGH DUE 1 EACH MISC MISCELLANE ONE (05:42)
[2024-10-11] MEDS: ONDANSETRON 4 MG/2 ML VIAL IVP STA (09:05)
[2024-10-11] MEDS: DEXAMETHASONE SOD PHOSPHATE 4 MG/ML 1 ML VIAL IVP STA (09:05)
[2024-10-11] MEDS: MIDAZOLAM 2 MG/2 ML VIAL IV ONE (09:16)
[2024-10-11] MEDS: fentaNYL (PF) 50 MCG/ML 2 ML AMP IVP PRN (09:16)
--- NOTE | 2024-10-11 09:26 | P.PN ---
Progress Note - Text Progress Note Date: 10/11/24 Clinical Summary Celine Perrin, a male patient, presents for preoperative evaluation and surgery for thoracic osteomyelitis and discitis with pseudomonas infection. The patient has been bedridden for several days due to severe back pain. A T9-T10 decompression fusion with antibiotic spacer replacement is planned to address the infection and prevent further bone erosion. The patient exhibits lower extremity weakness but intact sensation. He has been cleared for surgery by medicine and other involved parties. Chief Complaint Preoperative evaluation for T9-T10 decompression fusion with antibiotic spacer replacement due to thoracic osteomyelitis and discitis with pseudomonas infection. History Celine OroCorwin reports severe back pain that has confined him to bed for several days. He underwent a biopsy performed by interventional radiology, which revealed pseudomonas infection in the thoracic osteomyelitis and discitis area. The patient has been experiencing weakness in his lower extremities but maintains intact sensation. He has not been ambulatory due to pain. The infection is at risk of eroding more of his bone, necessitating surgical intervention. The patient has been cleared by medicine and other involved parties for the planned procedure. Clinical Findings - General: Patient bedridden due to back pain - Neurological: - Lower extremity weakness: 4/5 strength - Sensation: Intact to light touch and pinprick in L2-S1 nerve distribution - Reflexes: Negative Babinski's bilaterally, no clonus bilaterally - Cranial nerves: Grossly intact - Vascular: Intact dorsalis pedis pulses - Musculoskeletal: - Palpation: Tenderness in midline of thoracic spine and paraspinal region around the area of interest - No surgical incisions present - Extremities: Soft, compressible compartments - Special tests: - Negative Homans sign - Negative Rudi's sign - Imaging: Reviewed (specific findings not provided in transcript) - Laboratory: Labs reviewed (specific results not provided in transcript) - Biopsy: Positive for pseudomonas in thoracic osteomyelitis and discitis area Diagnosis 1. Thoracic osteomyelitis and discitis with pseudomonas infection (ICD-10: M46.24) 2. Thoracic spine weakness (ICD-10: M62.81) 3. Chronic back pain (ICD-10: M54.5) 4. Pseudomonas infection (ICD-10: B96.5) Plan/Recommendations - Proceed with T9-T10 decompression fusion with antibiotic spacer replacement and biopsy - Anesthesia: As determined by anesthesiology team - Antibiotics: Continue targeted therapy for pseudomonas infection based on culture and sensitivity results - Pain management: Optimize perioperative pain control - Mobilization: Early postoperative mobilization as tolerated, with physical therapy assistance - Wound care: Regular dressing changes and monitoring for signs of infection - Neurological checks: Frequent postoperative neurological examinations - Follow-up: Schedule postoperative visits to monitor recovery and infection status - Patient education: Provide detailed instructions on wound care, activity restrictions, and signs of complications to report - Imaging: Postoperative imaging to confirm proper placement of hardware and to monitor for any immediate complications
[2024-10-11] MEDS: IV FLUID CONTINUATION 1,000 ML IV ONE (09:49)
[2024-10-11] MEDS ORDERED: fentaNYL (PF) 50 MCG/ML 2 ML AMP ONE (10:14)
[2024-10-11] MEDS ORDERED: LIDOCAINE 1% INJ 10MG/ML (20 ML MDV) ONE (10:14)
[2024-10-11] MEDS ORDERED: PHENYLEPHRINE 10 MG/ML VIAL ONE (10:14)
[2024-10-11] MEDS ORDERED: SUCCINYLCHOLINE CHLORIDE 200 MG/10 ML VIAL IV ONE (10:14)
[2024-10-11] MEDS ORDERED: PROPOFOL 10 MG/ML 20 ML VIAL IV ONE (10:14)
[2024-10-11] MEDS ORDERED: ROCURONIUM 10 MG/ML (5 ML VIAL) IV ONE (10:14)
[2024-10-11] MEDS ORDERED: TRANEXAMIC 1,000 MG/100ML-NACL PREMIX BAG ONE (10:14)
[2024-10-11] MEDS ORDERED: MIDAZOLAM 2 MG/2 ML VIAL ONE (10:14)
[2024-10-11] MEDS: GENTAMICIN 80 MG in SODIUM CHLORIDE 0.9% IRRIGATIO 3,000 ML IRRIGATION ONE (11:00)
[2024-10-11] MEDS: VANCOMYCIN 1,000 MG VIAL MISCELLANE ONE ×2 (11:00→12:28)
[2024-10-11] MEDS: TOBRAMYCIN SULFATE 1.2 GM VIAL MISCELLANE ONE (11:00)
[2024-10-11] MEDS: ceFAZolin 3,000 MG in SODIUM CHLORIDE 0.9% IRRIGATIO 3,000 ML IRRIGATION ONE (11:00)
--- NOTE | 2024-10-11 11:05 | P.ANPRN ---
Procedure Note - Anesthesia - Invasive Line Right Arterial Line Time Out Performed: Yes ([id number]) Date of Procedure: 10/11/24 Time of Procedure: 09:16 Location of Patient: PreOp Preparation: Sterile Prep, Sterile Dressing Arterial Line Location: Radial (right) Ultrasound Used: Yes Purpose - Visualization and Identification of Vasculature: Yes Needle Guage: 20g Image Stored and Saved: Yes Narrative: Invasive line placement per sterile protocol utilized. 1 attempt. lumen bled and flushed. secured and dressed.
[2024-10-11] MEDS: IOPAMIDOL M200 10 ML VIAL MISCELLANE ONE (11:32)
[2024-10-11] MEDS ORDERED: HYDROcodone/APAP 5-325MG 1 EACH TAB PO PRN (13:01)
--- NOTE | 2024-10-11 13:26 | XR ---
Fluoroscopy INDICATION: Pain FINDINGS: Fluoroscopy time: 44 seconds. Total dose area product (DAP) in uGy*m?, mGy*cm? (or similar): 738.34 Images obtained: 0. Images document lumbar kyphoplasty and thoracic fusion IMPRESSION: 1. Documentation of fluoroscopy. [facility], , 10/11/2024 1:23 PM
--- NOTE | 2024-10-11 14:22 | P.OP ---
Date of Procedure: 10/11/24 Preoperative Diagnosis: 1. T9-10 OSTEOMYELITIS DISCITIS 2. T9-10 INSTABILITY WITH CHARCOT SPINE 3. L1 VCF 80% COMPRESSION 4. LOW BACK PAIN 5. INABILITY TO AMBULATE 6. COMPLEX MEDICAL PATIENT Postoperative Diagnosis: 1. T9-10 OSTEOMYELITIS DISCITIS 2. T9-10 INSTABILITY WITH CHARCOT SPINE 3. L1 VCF 80% COMPRESSION 4. LOW BACK PAIN 5. INABILITY TO AMBULATE 6. COMPLEX MEDICAL PATIENT Procedure(s) Performed: 1. T9-10 PARTIAL CORPECTOMY 2. T9-10 EVACUATION OF PHLEGMON FROM DISC SPACE AND EPIDURAL SPACE REQUIRING LAMINECTOMY 3. T9-10 POSTEROLATERAL AND INTERBODY FUSION 4. T9-10 BILATERAL LAMINECTOMY, COMPLETE FACETECOMTY AND FORAMINOTOMY FOR REMOVAL OF EPIDURAL AND DISC PHLEGMON, COMPLETE NEURAL DECOMPRESSION AND SPACER PLACEMENT 5. SEGMENTAL INSTRUMENTATION T9-10 6. PLACEMENT OF ABX SPACER T9-10 INTERSPACE. 7. INSERTION OF BIOMECHANICAL DEVICE T9-10, CAGE x1 8. USE OF [employer] NAVIGATION FOR THE PLACEMENT OF SCREWS USE OF IONM MOD22: THIS CASE TOOK 50% LONGER THAN EXPECTED DUE TO THE COMPLEXITY OF THE CASE, THE DEGREE OF PATHOLOGY AND SEVERITY OF DISEASE WELL PTS BODY HABITUS, AND COMORBID CONDITIONS. Implants: [employer] RODS AND SCREWS GLOBUS INTRALIFT CAGE LONG ABX CEMENT CONTOUR, DBM, BIO4 STIMULAN BEADS Anesthesia: GETA Surgeon: Miguelangel Ortiz Sander And Buffer #1: Salomon Baer (WAS PRESENT AND ASSISTED WITH ALL ASPECTS OF THE CASE FROM POSITION TO DRESSING PLACEMENT) Estimated Blood Loss (ml): 300 IV fluids (ml): 1,100 Urine output (ml): 0 Pathology: other (t9-10 DISC SPACE) Condition: stable Disposition: PACU Indications for Procedure: Celine [birth year]/11, a male patient, presents for preoperative evaluation and surgery for thoracic osteomyelitis and discitis with pseudomonas infection. The patient has been bedridden for several days due to severe back pain. A T9-T10 decompression fusion with antibiotic spacer replacement is planned to address the infection and prevent further bone erosion. The patient exhibits lower extremity weakness but intact sensation. He has been cleared for surgery by medicine and other involved parties. L1 kyphoplasty discussed as well pt is on board. Description of Procedure: Mr. Berger was transferred to the OR suite and drifted off to sleep under general anesthesia. He was given a weight-based dose of antibiotics, including Ancef 2 grams. He was also on Vancomycin from the floor. TXA was administered as well. Once adequate anesthesia was attained, the patient was carefully transferred to a prone Nathan table in a Superman position with his arms up and out. All bony prominences were padded accordingly, including axillas, wrists, arms, feet, genitalia, hips, thighs, and any other bony prominences. The lumbar and thoracic spine were exposed, and x-ray was used to identify and xavi the T9-10 space. A timeout was performed, with all parties in agreement on the procedure to be performed. A midline skin incision was made along the previously biomarked area, and dissection was taken down to the spinous processes. Subperiosteal dissection was then taken out over the spinous processes and transverse processes of T9-10, as well as T11. Lateral x-ray confirmed the level to be operated. A spinous process clamp for [facility] Quality navigation was placed on the T11 spinous process and secured. A 3D Ziehm spin was performed to register for intraoperative navigation. Once confirmed accurate, we proceeded with navigated screw placement. This was done using a navigated maryann for pilot boat operator holes, followed by a navigated tap, feeler to ensure placement within the four lane of the pedicle, and finally screw placement. AP and lateral x-rays confirmed good placement of the screws, and intraoperative neuromonitoring remained stable. We then proceeded with L1 kyphoplasty using a navigated Jamshidi, which was placed bilaterally within the L1 pedicles into the L1 body. A biopsy of the L1 vertebral body was taken and sent for analysis. Kyphoplasty of L1 was performed with good cement fill, no extravasation, and no other issues. Bilateral laminectomy, complete facetectomy, and foraminotomy were performed at the T9-10 region using a high-speed maryann and Kerrison rongeurs. This allowed for complete neural decompression and evacuation of epidural phlegmon. After meticulous hemostasis, we accessed the T9-10 disc space bilaterally using an osteotome under lateral fluoroscopic guidance. We removed the disc, bone, and phlegmon material from this area. The material appeared infectious but without gross purulence. It was entirely removed using pituitary rongeurs, curettes, and mak under lateral fluoroscopic guidance. A cage was selected and impacted into place under lateral fluoroscopic guidance. The cage was expanded into position, demonstrating good bite and positioning. Contour was placed anterior to this region. On the opposite side, we placed antibiotic cement into the disc space to fill the remainder of the space. This was allowed to harden and was in good position without extravasation or other issues. We irrigated the wound copiously with normal sterile saline, Irrisept, and Betadine. Rods and set screws were placed and final tightened into position. This confirmed good neural decompression and stability in the area. AP and lateral final images confirmed proper positioning. After another irrigation with normal sterile saline, we placed DBM, Bio4, and DBM boats in the posterolateral areas after decortication. This was impacted into position. Surgicel was placed over the dura, and meticulous hemostasis was performed. We confirmed that everything was locked down, graft was in place, and there was good decompression before proceeding with closure. Number one PDS was placed in the deep fascial layers. O-Vicryl was placed in the deep sub-Q layers, 2-0 Vicryl in superficial sub-Q layers, and the skin was closed with skin aundrea. The wound edges approximated very well. A deep drain was placed prior to closure and sewn to the skin, demonstrating good output. The wound was cleaned and dressed sterilely with Adaptic, 4x4, ABD, and tape. Mr. Berger was transferred back to his hospital bed atraumatically. The drain remained holding suction. He was awakened by the primary anesthesia team, tolerated the procedure very well with no complications, and was transferred to the PACU in stable condition.
--- NOTE | 2024-10-11 14:58 | P.PN ---
Subjective Progress Note Date: 10/10/24 Principal diagnosis: Reason for follow-up is discitis/osteomyelitis Patient is a 74-year-old male with a past medical history significant for hypertension and did have a history of chronic nonhealing wound to bilateral lower extremity for the patient followed at [facility] care center has been sent to the ER from the wound care concerning for diarrhea patient workup which shows possibility of T9-10 discitis/osteomyelitis. On today's evaluation that is 10/10/2024, patient has been afebrile, patient is breathing comfortably and is currently on room air, patient denies having any chest pain and cough, patient denies nausea vomiting or diarrhea and no abdominal pain. Patient white count 3.42 creatinine 0.58 Objective - Vital Signs Vital signs: Vital Signs Temp 97.5 F L 10/10/24 07:24 Pulse 79 10/10/24 07:40 Resp 18 10/10/24 07:40 BP 122/70 10/10/24 07:24 Pulse Ox 97 10/10/24 07:24 FiO2 21 10/03/24 07:56 Intake & Output 10/09/24 10/10/24 10/10/24 18:59 06:59 18:59 Intake Total 200 Output Total 500 Balance -300 Weight 88 kg Intake: Oral 200 Output: Urine 500 Other: Voiding Method Urinal Urinal Urinal # Voids 4 1 # Bowel Movements 1 - Exam GENERAL DESCRIPTION: An elderly male lying in bed in no distress RESPIRATORY SYSTEM: Unlabored breathing , decreased breath sounds at bases HEART: S1 S2 regular rate and rhythm , ABDOMEN: Soft , no tenderness EXTREMITIES: Lower extremity currently dressed - Labs CBC & Chem 7: 10/11/24 03:47 10/11/24 03:47 Labs: Abnormal Lab Results - Last 24 Hours (Table) 10/10/24 Range/Units 11:39 Sodium 133 L (137-145) mmol/L Creatinine 0.58 L (0.66-1.25) mg/dL Calcium 7.4 L (8.4-10.2) mg/dL Assessment and Plan (1) Osteomyelitis of thoracic spine Current Visit: Yes Status: Acute Code(s): M46.24 - OSTEOMYELITIS OF VERT EBRA, THORACIC REGION SNOMED Code(s): 511786524 (2) Leukocytosis Current Visit: Yes Status: Acute Code(s): D72.829 - ELEVATED WHITE BLOOD CELL COUNT, UNSPECIFIED SNOMED Code(s): 815768823 (3) Bilateral lower leg cellulitis Current Visit: No Status: Acute Code(s): L03.116 - CELLULITIS OF LEFT LOWER LIMB; L03.115 - CELLULITIS OF RIGHT LOWER LIMB SNOMED Code(s): 871177185 Plan: 1patient with abnormal CT of abdominal pelvis with concern for T9-10 osteomyelitis and discitis in this patient presenting to the hospital mostly with weakness and diarrhea currently currently denies having any back pain or open wound and no history of any trauma and very unlikely presentation for thoracic spine osteomyelitis/discitis likely algorithm to cover will be gram- positive skin arthur and less likely gram-negative pathogen also have evidence of bilateral lower extremity wound and cellulitis 2-patient did have MRI of the spine concerning for discitis/osteomyelitis and possible abscess Ortho has seen the patient recommending no surgical intervention, patient is status post IR aspiration of the thoracic spine and specimen has been sent for the culture 3-blood culture negative, local culture from the leg is growing multiple pathogen including Pseudomonas strep and Alcaligenes faecalis, Finegoldia magna 4-patient CT-guided aspiration from the back is growing Pseudomonas aeruginosa 5patient seem to be agreeable for surgery, Ortho reschedule surgery for 10/11/2024, 6-patient currently being treated with vancomycin pharmacy to dose while watching his kidney function closely along with cefepime and Flagyl Dictation was produced using Padlet dictation software. please excuse any grammatical, word or spelling errors.
[2024-10-11] MEDS: HYDROcodone/APAP 7.5-325MG 1 EACH TAB PO PRN (15:32)
--- NOTE | 2024-10-11 16:08 | P.PN ---
Subjective Progress Note Date: 10/11/24 Patient is a 74-year-old male with a history of chronic wound lesions of the legs presented to the ER with a complaint of diarrhea. Patient reports that he was at the wound care center for his chronic bilateral lower extremity wound lesions where he complained about diarrhea and he was advised to go to the ER for further evaluation. Patient reports that he has been endorsing diarrhea since 2 weeks and describes his stools as loose and bowel movements 3-4 times a day. He has been getting treatment for his bilateral lower chronic venous stasis cellulitis including antibiotics. He endorsed mild abdominal pain yesterday which has resolved today. Patient denies chest pain, shortness of breath, dizziness, headaches, acute vision changes, dysuria. Initial laboratory evaluation shows WBC 15.13, hemoglobin 8.4, sodium 134, potassium 4.5, BUN 17, creatinine 0.82, lactic acid 2.8, repeat lactic acid 4.1 and 1.3. Urinalysis shows mild urine WBC, mildly leukocyte Estrace and urine bacteria. CT abdomen pelvis shows findings highly concerning for discitis/osteomyelitis involving the T9-T10 disc level. Chronic appearing compression deformity of the L1 vertebral body. Mild splenomegaly. Hepatic steatosis. Advanced left hip osteoarthritic change. Venous Doppler study of lower extremities is negative for bilateral DVT EKG shows normal sinus rhythm with ventricular rate of 99 bpm, HI interval of 186 ms, QRS duration 109 ms, QTc 413 ms, left axis deviation, fairly normal R wave progression, nonspecific ST to T wave changes noted. Vital signs on arrival show temperature of 97.7 F, pulse rate of 114, respiratory rate of 20, blood pressure 100/60, oxygen saturation 90% on room air. In the ED: Severe sepsis protocol was initiated patient received a total 3 L of IV fluid bolus and 2 g of IV ceftriaxone once. 10/01/2024: Patient was seen and examined at the bedside. No acute events overnight. Patient received 2 units of PRBC yesterday. Hemoglobin this morning 7.6. No active bleeding. Patient continues to be on IV Rocephin and vancomycin for lower extremity cellulitis. MRI of the thoracic spine showed discitis/osteomyelitis complicated with paravertebral abscess at T9/T10. Orthop edic surgery has been consulted. Will consult IR for abscess drainage. Potassium was 3.2, will replace it with 60 mEq KCl orally. 10/02/2024 Patient is evaluated today in follow-up on the cardiac unit. He continues on IV Rocephin and IV vancomycin for the left lower extremity cellulitis additionally his MRI of the thoracic spine noted discitis and osteomyelitis with a paravertebral abscess. IR has been consulted for abscess drainage although will not see this patient until Thursday as it is the weekend. Orthopedic spinal was consulted they recommended no emergent surgical intervention at this time and recommending to continue IV antibiotics. They reveal a white blood cell count of 4.60, hemoglobin 7.3, sodium of 135, potassium 3.4, BUN of 10 creatinine 0.62. C. difficile was found to be negative. 10/03/2024 patient seen and examined at bedside. No acute events overnight. No new complaints. Labs today: WBC 4.09, hemoglobin 7.2, platelet count 1 21,000, sodium 136, potassium 3.3, chloride 111, BUN 6, creatinine 0.66, calcium 7 10/04/2024 patient seen and examined at bedside. No acute events overnight. CT- guided abscess drainage with pigtail cath placement done and was drained 10mL, was sent for analysis. Ortho recommends stabilization fusion washout of the thoracic spine as well as biopsy. Per RN, patient reported to refuse n.p.o. and surgery this morning. Upon evaluation, patient still does not want to have the procedure done. Labs: WBC 4.8, hemoglobin 7.9, platelet count 114,000, sodium 136, potassium 3.6, bicarb 19, creatinine 0.6, BUN 6, calcium 7, magnesium 1.6 10/05/2024 patient seen and examined at bedside. No acute events overnight. No new complaints or symptoms. Labs: WBC 4.3, hemoglobin 7.9, MCV 89.9, platelet count 1 21,000, sodium 135, potassium 3.3, chloride 108, BUN 6, creatinine 0.56, calcium 7.1, magnesium 1.7, glucose 82. Wound cultures show positive for unblocking and faecalis, Pseudomonas aeruginosa and beta-hemolytic strep group C. Stool culture negative, paravertebral fluid drainage negative for growth after 24 hours. 10/06/2024 patient seen and examined at bedside. No acute events overnight. Patient has declined surgery for the second time at Ortho has signed off. Recommended brace for his back. Per patient, he reported that he did not want to surgery during time of evaluation. Reiterated the risk and benefits of the surgery but patient has declined. Labs: WBC 4.97, hemoglobin 7.7, platelet count 1 23,000, sodium 133, potassium 3.3, bicarb 21, BUN 7, creatinine 0.88, calcium 7.2, magnesium 1.9 10/07/2024 patient seen and examined at bedside. No acute events overnight. Patient mentions that they are agreeable to surgery at this time per patient and his . Labs: WBC 4.9, hemoglobin 7.5, platelet count 1 27,000, sodium 133, potassium 3.4, chloride 105, bicarb 21, creatinine 0.57, BUN 8, calcium 7.2. Paravertebral aspirate positive for pseudomonas. 10/08/2024 patient seen and examined at bedside. No acute events overnight. No new complaints. Patient still agreeable to surgery. Labs: WBC 4.5, hemoglobin 7.2, sodium 133, potassium 3.3, chloride 105, bicarb 22, BUN 9, creatinine 0.64, calcium 7.3, glucose 71 10/09/2024 Patient is resting in bed. Awake alert and oriented. No complaints of chest pain or shortness of breath. Back pain is controlled. Orthopedic surgery is planning OR on 10/11/2024. Patient has been afebrile. Currently on IV antibiotics in the form of vancomycin and cefepime. Laboratory data showed WBC 4.2 hemoglobin 7.3 MCV 90.7 and platelets 106 sodium 133 potassium 3.4 which is replaced, chloride 105 bicarb is 23 BUN 9 and creatinine 0.66 and blood sugar 70 and calcium 7.2. 10/10/2024 patient seen and examined at bedside. No acute complaints overnight. No new complaints. Labs: WBC 3.4, hemoglobin 7.2, platelet count 111, 000, sodium 133, potassium 3.5, bicarb 22, BUN 9, creatinine 0.58, calcium 7.4 10/11/2024 patient seen and examined at bedside. No acute events overnight. No new complaints. For surgery today. Labs: WBC 3.96, hemoglobin 7.4, platelet count 103,000, sodium 133, potassium 3.4, bicarb 21, BUN 8, creatinine 0.53, calcium 7.5 Review of systems: Pertinent positives and negatives as discussed in HPI, a complete review of systems was performed and all other systems are negative. Physical examination: Vital signs reviewed General: non toxic, no distress, appears at stated age Derm: no unusual rashes/lesions, warm Head: atraumatic, normocephalic, symmetric Eyes: EOMI, anicteric sclera, pupils equal round reactive to light ENT: Nose and ears atraumatic Neck: No cervical lymphadenopathy, trachea midline, supple Mouth: no lip lesion, mucus membranes moist Cardiovascular: S1S2 reg, no murmur Lungs: CTA bilateral, no rhonchi, no rales, no accessory muscle use Abdominal: soft, nontender to palpation, no guarding Ext: muscle strength 5 out of 5 in all 4 extremities grossly, no gross muscle atrophy, no contractures, positive dorsalis pedis pulse bilateral, bilateral +2 pitting edema with erythema, bilateral lower extremity wounds bandaged dry and clean dressings Neuro: CN II-XI grossly intact, no gross focal neuro deficits Psych: Alert and oriented x3, appropriate affect and mood Assessment/Plan: #. Severe sepsis secondary to bilateral lower extremity cellulitis, improving #. 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 Diarrhea, C. difficile ruled out #. Leukocytosis secondary to above, improved Continue with Cefepime IVPB every 8 hours and IV vancomycin dosed per pharmacy Wound culture positive for pansensitive pseudomonas and beta hemolytic strep C Negative blood culture HbA1c 4.9% Infectious disease and wound care on board, appreciate recs. PICC line ordered and placed Patient and his argeeable to surgery at this time. Ortho reconsulted. Planned for surgery today CT-guided abcess drainage by IR done, Paravertebral aspirate positive for pseudomonas. #. Anemia of chronic disease s/p transfusion 2u pRBC Hemoglobin 7.4 Transfuse with packed RBC if hemoglobin is less than 7 Continue monitor CBC #. Hypokalemia, resolved Potassium 3.4 today Replete potassium 20 mEq potassium chloride p.o. after surgery #. Compression deformity of the L1 #. Chronic low back pain Back brace ordered by ortho Consult PT/OT. Advised patient can be discharged to home Acetaminophen as needed for pain DVT prophylaxis: Lovenox 40 mg subcu daily GI prophylaxis: PO Protonix 40 mg once daily CODE STATUS: Full code Discussed with: Patient Anticipated discharge place: Pending clinical course Lena Self MD PGY-1/Log Deckman Dictation was produced using [employer] dictation software. please excuse any gramma tical, word or spelling errors. Objective - Vital Signs Vital signs: Vital Signs Temp 97.6 F 10/11/24 08:48 Pulse 96 10/11/24 09:40 Resp 16 10/11/24 09:40 BP 118/70 10/11/24 09:40 Pulse Ox 100 10/11/24 09:40 FiO2 21 10/03/24 07:56 Intake & Output 10/10/24 10/11/24 10/11/24 18:59 06:59 18:59 Intake Total 1080 100 Output Total 1250 Balance -170 100 Weight 84.9 kg Intake: IV 100 Oral 1080 Output: Urine 1250 Other: Voiding Method Urinal Urinal # Voids 2 - Labs CBC & Chem 7: 10/11/24 03:47 10/11/24 03:47 Labs: Abnormal Lab Results - Last 24 Hours (Table) 10/10/24 10/10/24 10/11/24 Range/Units 11:39 11:39 03:47 WBC 3.42 L 3.96 L (4.50-10.00) X 10*3/uL RBC 2.71 L 2.76 L (4.40-5.60) X 10*6/uL Hgb 7.2 L 7.4 L (13.0-17.0) g/dL Hct 24.6 L 24.9 L (39.6-50.0) % MCH 26.6 L 26.8 L (27.0-32.0) pg MCHC 29.3 L 29.7 L (32.0-37.0) g/dL RDW 17.6 H 17.7 H (11.5-14.5) % Plt Count 111 L 103 L (140-440) X 10*3/uL Lymphocytes # 0.48 L 0.57 L (0.90-5.00) X 10*3/uL Monocytes # 0.19 L (0.20-1.00) X 10*3/uL NRBC/100 WBC Diff 0.04 H (0.00-0.01) X 10*3/uL Sodium 133 L (137-145) mmol/L Potassium (3.5-5.1) mmol/L Carbon Dioxide (22-30) mmol/L BUN (9-20) mg/dL Creatinine 0.58 L (0.66-1.25) mg/dL Glucose (74-99) mg/dL Calcium 7.4 L (8.4-10.2) mg/dL 10/11/24 Range/Units 03:47 WBC (4.50-10.00) X 10*3/uL RBC (4.40-5.60) X 10*6/uL Hgb (13.0-17.0) g/dL Hct (39.6-50.0) % MCH (27.0-32.0) pg MCHC (32.0-37.0) g/dL RDW (11.5-14.5) % Plt Count (140-440) X 10*3/uL Lymphocytes # (0.90-5.00) X 10*3/uL Monocytes # (0.20-1.00) X 10*3/uL NRBC/100 WBC Diff (0.00-0.01) X 10*3/uL Sodium 133 L (137-145) mmol/L Potassium 3.4 L (3.5-5.1) mmol/L Carbon Dioxide 21 L (22-30) mmol/L BUN 8 L (9-20) mg/dL Creatinine 0.53 L (0.66-1.25) mg/dL Glucose 72 L (74-99) mg/dL Calcium 7.5 L (8.4-10.2) mg/dL
--- NOTE | 2024-10-11 16:10 | CT ---
EXAMINATION TYPE: CT thoracic spine wo con DATE OF EXAM: 10/11/2024 COMPARISON: None CLINICAL INDICATION: Male, 74 years old with history of s/p T9-T10 posterioal lateral decompression/f usion; PHH, S/P T9-T10 posterioal lateral decompression/fusion. CT DLP: 1075.2 mGycm Automated exposure control for dose reduction was used. FINDINGS: There are postsurgical changes of laminectomy and posterior metallic and interbody fusion at the T9/T 10 level. There is gas in the posterior subcutaneous soft tissues in the epidural space indicating re cent surgery. There is normal alignment of the thoracic vertebral segments. Streak artifact from hazel llar effusion limits evaluation of spinal canal at T9-10. There is a severe compression fracture of L1 status post vertebroplasty. There is no significant retr opulsion. IMPRESSION: 1. POSTERIOR CHANGES OF LAMINECTOMY AND FUSION AT T9 AND T10 DESCRIBED ABOVE. 2. SEVERE COMPRESSION FRACTURE STATUS POST VERTEBROPLASTY OF L1 WITHOUT RETROPULSION. 3. NO NEW THORACIC SPINE FRACTURES OR MALALIGNMENT. [facility], , 10/11/2024 4:08 PM
[2024-10-12] MEDS: polyethylene glycoL 3350 17 GM POWD.PACK PO SCH (08:14)
[2024-10-12 10:33] LABS: Basophils # (A) 0.02 10*3/uL (0.00-0.10); Basophils % (A) 0.2 %; Eosinophils # (A) 0.01 10*3/uL (0.04-0.35); Eosinophils % (A) 0.1 %; HCT 23.2 % (39.6-50.0); Immature Platelet Fraction 3.3 % (1.1-6.1); Lymphocytes % (A) 5.7 %; MCH 27.3 pg (27.0-32.0); MCHC 30.2 g/dL (32.0-37.0); MCV 90.6 fL (80.0-97.0); Mean Platelet Volume 10.6 fL (9.5-12.2); Monocytes # (A) 0.51 10*3/uL (0.20-1.00); Monocytes % (A) 5.8 %; Neutrophils # (A) 7.61 10*3/uL (1.80-7.70); Neutrophils % (A) 86.9 %; Platelet Count 105 10*3/uL (140-440); RBC 2.56 10*6/uL (4.40-5.60); RDW 17.5 % (11.5-14.5); WBC 8.76 10*3/uL (4.50-10.00)
[2024-10-12 11:05] LABS: African American GFR (CKD) >90 (>60 ml/min/1.73 sqM); Anion Gap 13 mmol/L; Blood Urea Nitrogen 13 mg/dL (9-20); Calcium 7.9 mg/dL (8.4-10.2); Carbon Dioxide 19 mmol/L (22-30); Chloride 102 mmol/L (98-107); Glucose 77 mg/dL (74-99); Non-African American GFR(CKD) >90 (>60 ml/min/1.73 sqM); Potassium 3.7 mmol/L (3.5-5.1); Sodium 134 mmol/L (137-145)
--- NOTE | 2024-10-12 12:02 | P.PN ---
Subjective Progress Note Date: 10/12/24 Principal diagnosis: Weakness, anemia, bilateral lower extremity edema/wounds, T9/T10 osteomyelitis/discitis Patient evaluated at bedside, is also present. Patient was up sitting in his hospital chair today. He appears to be in no acute distress. He actually ambulated to the bathroom. His drain did fall out earlier this morning. There has been no spotting or obvious drainage on the surgical bandage. He feels that the pain is controlled currently. Objective - Vital Signs Vital signs: Vital Signs Temp 98.1 F 10/12/24 08:00 Pulse 99 10/12/24 08:00 Resp 16 10/12/24 08:00 BP 122/66 10/12/24 08:00 Pulse Ox 92 L 10/12/24 08:00 FiO2 21 10/03/24 07:56 Intake & Output 10/11/24 10/12/24 10/12/24 18:59 06:59 18:59 Intake Total 852 Output Total 301 Balance 551 Intake: IV 852 Output: Urine 1 Estimated Blood Loss 300 Other: Voiding Method Urinal # Voids 1 1 - Exam Gen: AOx3, NAD VSS stable at this time Integument: Postop dressing is in good position and condition, no obvious drainage noted Palpation: No tenderness with palpation throughout the cervical spine, the lower thoracic spine does reproduce some tenderness at midline with palpation ROM: Full range of motion in all major muscle groups of the bilateral upper extremities, no focal deficits were appreciated Range of motion of the bilateral lower extremities is intact, he is limited with knee extension and knee flexion due to the swelling and discomfort in his lower extremities. 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, cattle driver 4/5 strength appreciated the bilateral lower extremities with hip flexion, knee extension, knee flexion, plantarflexion, dorsiflexion, EHL, FHL Reflexes: 2/4 in all UE and LE Negative Rudi's bilaterally Negative clonus bilateral Special Test: Negative straight leg raise bilaterally - Labs CBC & Chem 7: 10/12/24 10:20 10/12/24 10:20 Labs: Abnormal Lab Results - Last 24 Hours (Table) 10/12/24 10/12/24 Range/Units 10:20 10:20 RBC 2.56 L (4.40-5.60) 10*6/uL Hgb 7.0 L (13.0-17.0) g/dL Hct 23.2 L (39.6-50.0) % MCHC 30.2 L (32.0-37.0) g/dL RDW 17.5 H (11.5-14.5) % Plt Count 105 L (140-440) 10*3/uL Immature Gran # 0.11 H (0.00-0.04) 10*3/uL Lymphocytes # 0.50 L (0.90-5.00) 10*3/uL Eosinophils # 0.01 L (0.04-0.35) 10*3/uL Sodium 134 L (137-145) mmol/L Carbon Dioxide 19 L (22-30) mmol/L Calcium 7.9 L (8.4-10.2) mg/dL Microbiology - Last 24 Hours (Table) 10/11/24 12:35 Gram Stain - Preliminary Other - Other Wound Culture - Preliminary 10/11/24 12:35 Gram Stain - Preliminary Other - Other Assessment and Plan Assessment: Postoperative day #1 status post T9/T10 partial corpectomy, posterior lateral decompression and fusion, L1 kyphoplasty T9/T10 discitis/osteomyelitis Paravertebral abscesses T9/T10 Chronic L1 VCF Bilateral lower extremity wounds/cellulitis/edema Plan: Pain control, continue current medication Continue IV antibiotic TLSO brace when up and ambulating longer distances PT/OT evaluation, weight-bear as tolerated with walker DVT prophylaxis per primary medical service Other medical specialty recommendations appreciated Will continue to follow during hospital stay
--- NOTE | 2024-10-12 12:28 | P.PN ---
Subjective Progress Note Date: 10/11/24 Principal diagnosis: Reason for follow-up is discitis/osteomyelitis Patient is a 74-year-old male with a past medical history significant for hypertension and did have a history of chronic nonhealing wound to bilateral lower extremity for the patient followed at [facility] care center has been sent to the ER from the wound care concerning for diarrhea patient workup which shows possibility of T9-10 discitis/osteomyelitis.Patient is status post T9-10 partial corpectomy evacuation of the phlegmon from disc base and epidural space along with posterior lateral interbody fusion bilateral laminectomy procedure completed on 10/11/2024 On today's evaluation 10/11/2024, Patient is afebrile this morning patient denies having any chest pain shortness of breath or cough, the patient is currently on room air, patient denies any abdominal pain no diarrhea no nausea no vomiting. Patient white count is 3.96 creatinine 0.53 Vanco trough is 17.9 Objective - Vital Signs Vital signs: Vital Signs Temp 97.6 F 10/11/24 08:48 Pulse 87 10/11/24 14:15 Resp 16 10/11/24 14:15 BP 106/88 10/11/24 14:15 Pulse Ox 95 10/11/24 14:15 FiO2 21 10/03/24 07:56 Intake & Output 10/10/24 10/11/24 10/11/24 18:59 06:59 18:59 Intake Total 1080 852 Output Total 1250 301 Balance -170 551 Weight 84.9 kg Intake: IV 852 Oral 1080 Output: Urine 1250 1 Estimated Blood Loss 300 Other: Voiding Method Urinal Urinal # Voids 2 - Exam GENERAL DESCRIPTION: An elderly male lying in bed in no distress RESPIRATORY SYSTEM: Unlabored breathing , decreased breath sounds at bases HEART: S1 S2 regular rate and rhythm , ABDOMEN: Soft , no tenderness EXTREMITIES: Lower extremity currently dressed - Labs CBC & Chem 7: 10/11/24 03:47 10/11/24 03:47 Labs: Abnormal Lab Results - Last 24 Hours (Table) 10/10/24 10/11/24 10/11/24 Range/Units 11:39 03:47 03:47 WBC 3.42 L 3.96 L (4.50-10.00) X 10*3/uL RBC 2.71 L 2.76 L (4.40-5.60) X 10*6/uL Hgb 7.2 L 7.4 L (13.0-17.0) g/dL Hct 24.6 L 24.9 L (39.6-50.0) % MCH 26.6 L 26.8 L (27.0-32.0) pg MCHC 29.3 L 29.7 L (32.0-37.0) g/dL RDW 17.6 H 17.7 H (11.5-14.5) % Plt Count 111 L 103 L (140-440) X 10*3/uL Lymphocytes # 0.48 L 0.57 L (0.90-5.00) X 10*3/uL Monocytes # 0.19 L (0.20-1.00) X 10*3/uL NRBC/100 WBC Diff 0.04 H (0.00-0.01) X 10*3/uL Sodium 133 L (137-145) mmol/L Potassium 3.4 L (3.5-5.1) mmol/L Carbon Dioxide 21 L (22-30) mmol/L BUN 8 L (9-20) mg/dL Creatinine 0.53 L (0.66-1.25) mg/dL Glucose 72 L (74-99) mg/dL Calcium 7.5 L (8.4-10.2) mg/dL Assessment and Plan (1) Osteomyelitis of thoracic spine Current Visit: Yes Status: Acute Code(s): M46.24 - OSTEOMYELITIS OF VERTEBRA, THORACIC REGION SNOMED Code(s): 251329708 (2) Leukocytosis Current Visit: Yes Status: Acute Code(s): D72.829 - ELEVATED WHITE BLOOD CE LL COUNT, UNSPECIFIED SNOMED Code(s): 897552389 (3) Bilateral lower leg cellulitis Current Visit: No Status: Acute Code(s): L03.116 - CELLULITIS OF LEFT LOWER LIMB; L03.115 - CELLULITIS OF RIGHT LOWER LIMB SNOMED Code(s): 520304506 Plan: 1patient with abnormal CT of abdominal pelvis with concern for T9-10 osteomyeli tis and discitis in this patient presenting to the hospital mostly with weakness and diarrhea currently currently denies having any back pain or open wound and no history of any trauma and very unlikely presentation for thoracic spine osteomyelitis/discitis likely algorithm to cover will be gram-positive skin arthur and less likely gram-negative pathogen also have evidence of bilateral lower extremity wound and cellulitis 2-patient did have MRI of the spine concerning for discitis/osteomyelitis and possible abscess Ortho has seen the patient recommending no surgical intervention, patient is status post IR aspiration of the thoracic spine and specimen has been sent for the culture 3-blood culture negative, local culture from the leg is growing multiple pathogen including Pseudomonas strep and Alcaligenes faecalis, Finegoldia magna 4-patient CT-guided aspiration from the back is growing Pseudomonas aeruginosa 5patient is status post T9-10, partial corpectomy laminectomy and drainage of the abscess and interbody fusion completed on 10/11/2024 6-patient did have local culture results will be followed plan will be for at least 6 weeks course of IV antibiotic therapy for which the patient will need placement follow-up continue with vancomycin cefepime and Flagyl Dictation was produced using [employer] dictation software. please excuse any grammatical, word or spelling errors.
--- NOTE | 2024-10-12 12:29 | P.PN ---
Subjective Progress Note Date: 10/12/24 Principal diagnosis: Reason for follow-up is discitis/osteomyelitis Patient is a 74-year-old male with a past medical history significant for hypertension and did have a history of chronic nonhealing wound to bilateral lower extremity for the patient followed at [facility] center has been sent to the ER from the wound care concerning for diarrhea patient workup which shows possibility of T9-10 discitis/osteomyelitis.Patient is status post T9-10 partial corpectomy evacuation of the phlegmon from disc base and epidural space along with posterior lateral interbody fusion bilateral laminectomy procedure completed on 10/11/2024 On today's evaluation that is 10/12/2024,the patient denies any fever or any chills, patient is breathing comfortably on room air, the patient denies chest pain shortness of breath and no significant cough, patient denies abdominal pain, no nausea vomiting or diarrhea. Still complaining of pain to the mid back area. Patient white count normalized to 8.76, creatinine 0.68 OR cultures currently pending Objective - Vital Signs Vital signs: Vital Signs Temp 98.1 F 10/12/24 08:00 Pulse 99 10/12/24 08:00 Resp 16 10/12/24 08:00 BP 122/66 10/12/24 08:00 Pulse Ox 92 L 10/12/24 08:00 FiO2 21 10/03/24 07:56 Intake & Output 10/11/24 10/12/24 10/12/24 18:59 06:59 18:59 Intake Total 852 Output Total 301 Balance 551 Intake: IV 852 Output: Urine 1 Estimated Blood Loss 300 Other: Voiding Method Urinal # Voids 1 1 - Exam GENERAL DESCRIPTION: An elderly male lying in bed in no distress RESPIRATORY SYSTEM: Unlabored breathing , decreased breath sounds at bases HEART: S1 S2 regular rate and rhythm , ABDOMEN: Soft , no tenderness EXTREMITIES: Lower extremity currently dressed - Labs CBC & Chem 7: 10/12/24 10:20 10/12/24 10:20 Labs: Abnormal Lab Results - Last 24 Hours (Table) 10/12/24 10/12/24 Range/Units 10:20 10:20 RBC 2.56 L (4.40-5.60) 10*6/uL Hgb 7.0 L (13.0-17.0) g/dL Hct 23.2 L (39.6-50.0) % MCHC 30.2 L (32.0-37.0) g/dL RDW 17.5 H (11.5-14.5) % Plt Count 105 L (140-440) 10*3/uL Immature Gran # 0.11 H (0.00-0.04) 10*3/uL Lymphocytes # 0.50 L (0.90-5.00) 10*3/uL Eosinophils # 0.01 L (0.04-0.35) 10*3/uL Sodium 134 L (137-145) mmol/L Carbon Dioxide 19 L (22-30) mmol/L Calcium 7.9 L (8.4-10.2) mg/dL Microbiology - Last 24 Hours (Table) 10/11/24 12:35 Gram Stain - Preliminary Other - Other Wound Culture - Preliminary 10/11/24 12:35 Gram Stain - Preliminary Other - Other Assessment and Plan (1) Osteomyelitis of thoracic spine Current Visit: Yes Status: Acute Code(s): M46.24 - OSTEOMYELITIS OF VERTEBRA, THORACIC REGION SNOMED Code(s): 304312339 (2) Leukocytosis Current Visit: Yes Status: Acute Code(s): D72.829 - ELEVATED WHITE BLOOD CELL COUNT, UNSPECIFIED SNOMED Code(s): 680771455 (3) Bilateral lower leg cellulitis Current Visit: No Status: Acute Code(s): L03.116 - CELLULITIS OF LEFT LOWER LIMB; L03.115 - CELLULITIS OF RIGHT LOWER LIMB SNOMED Code(s): 326512433 Plan: 1patient with abnormal CT of abdominal pelvis with concern for T9-10 osteomyelitis and discitis in this patient presenting to the hospital mostly with weakness and diarrhea currently currently denies having any back pain or open wound and no history of any trauma and very unlikely presentation for thoracic spine osteomyelitis/discitis likely algorithm to cover will be gram- positive skin arthur and less likely gram-negative pathogen also have evidence of bilateral lower extremity wound and cellulitis 2-patient did have MRI of the spine concerning for discitis/osteomyelitis and possible abscess Ortho has seen the patient recommending no surgical intervention, patient is status post IR aspiration of the thoracic spine and specimen has been sent for the culture 3-blood culture negative, local culture from the leg is growing multiple pathogen including Pseudomonas strep and Alcaligenes faecalis, Finegoldia magna 4-patient CT-guided aspiration from the back is growing Pseudomonas aeruginosa 5patient is status post T9-10, partial corpectomy laminectomy and drainage of the abscess and interbody fusion completed on 10/11/2024 6-patient did have local culture done at the time of surgery which are currently pending 7patient is currently being treated vancomycin cefepime and Flagyl detail discussion with the patient he will likely need to go to the longterm to get his antibiotic with the patient is currently refusing may need psych evaluation Dictation was produced using [employer] dictation software. please excuse any g rammatical, word or spelling errors. Time with Patient: Less than 30
[2024-10-12 13:53] VITALS: BMI 27.6
--- NOTE | 2024-10-12 16:34 | P.PN ---
Subjective Progress Note Date: 10/12/24 Patient is a 74-year-old male with a history of chronic wound lesions of the legs presented to the ER with a complaint of diarrhea. Patient reports that he was at the wound care center for his chronic bilateral lower extremity wound lesions where he complained about diarrhea and he was advised to go to the ER for further evaluation. Patient reports that he has been endorsing diarrhea since 2 weeks and describes his stools as loose and bowel movements 3-4 times a day. He has been getting treatment for his bilateral lower chronic venous stasis cellulitis including antibiotics. He endorsed mild abdominal pain yesterday which has resolved today. Patient denies chest pain, shortness of breath, dizziness, headaches, acute vision changes, dysuria. Initial laboratory evaluation shows WBC 15.13, hemoglobin 8.4, sodium 134, potassium 4.5, BUN 17, creatinine 0.82, lactic acid 2.8, repeat lactic acid 4.1 and 1.3. Urinalysis shows mild urine WBC, mildly leukocyte Estrace and urine bacteria. CT abdomen pelvis shows findings highly concerning for discitis/osteomyelitis involving the T9-T10 disc level. Chronic appearing compression deformity of the L1 vertebral body. Mild splenomegaly. Hepatic steatosis. Advanced left hip osteoarthritic change. Venous Doppler study of lower extremities is negative for bilateral DVT EKG shows normal sinus rhythm with ventricular rate of 99 bpm, PA interval of 186 ms, QRS duration 109 ms, QTc 413 ms, left axis deviation, fairly normal R wave progression, nonspecific ST to T wave changes noted. Vital signs on arrival show temperature of 97.7 F, pulse rate of 114, respiratory rate of 20, blood pressure 100/60, oxygen saturation 90% on room air. In the ED: Severe sepsis protocol was initiated patient received a total 3 L of IV fluid bolus and 2 g of IV ceftriaxone once. 10/01/2024: Patient was seen and examined at the bedside. No acute events overnight. Patient received 2 units of PRBC yesterday. Hemoglobin this morning 7.6. No active bleeding. Patient continues to be on IV Rocephin and vancomycin for lower extremity cellulitis. MRI of the thoracic spine showed discitis/osteomyelitis complicated with paravertebral abscess at T9/T10. Orthop edic surgery has been consulted. Will consult IR for abscess drainage. Potassium was 3.2, will replace it with 60 mEq KCl orally. 10/02/2024 Patient is evaluated today in follow-up on the cardiac unit. He continues on IV Rocephin and IV vancomycin for the left lower extremity cellulitis additionally his MRI of the thoracic spine noted discitis and osteomyelitis with a paravertebral abscess. IR has been consulted for abscess drainage although will not see this patient until Thursday as it is the weekend. Orthopedic spinal was consulted they recommended no emergent surgical intervention at this time and recommending to continue IV antibiotics. They reveal a white blood cell count of 4.60, hemoglobin 7.3, sodium of 135, potassium 3.4, BUN of 10 creatinine 0.62. C. difficile was found to be negative. 10/03/2024 patient seen and examined at bedside. No acute events overnight. No new complaints. Labs today: WBC 4.09, hemoglobin 7.2, platelet count 1 21,000, sodium 136, potassium 3.3, chloride 111, BUN 6, creatinine 0.66, calcium 7 10/04/2024 patient seen and examined at bedside. No acute events overnight. CT- guided abscess drainage with pigtail cath placement done and was drained 10mL, was sent for analysis. Ortho recommends stabilization fusion washout of the thoracic spine as well as biopsy. Per RN, patient reported to refuse n.p.o. and surgery this morning. Upon evaluation, patient still does not want to have the procedure done. Labs: WBC 4.8, hemoglobin 7.9, platelet count 114,000, sodium 136, potassium 3.6, bicarb 19, creatinine 0.6, BUN 6, calcium 7, magnesium 1.6 10/05/2024 patient seen and examined at bedside. No acute events overnight. No new complaints or symptoms. Labs: WBC 4.3, hemoglobin 7.9, MCV 89.9, platelet count 1 21,000, sodium 135, potassium 3.3, chloride 108, BUN 6, creatinine 0.56, calcium 7.1, magnesium 1.7, glucose 82. Wound cultures show positive for unblocking and faecalis, Pseudomonas aeruginosa and beta-hemolytic strep group C. Stool culture negative, paravertebral fluid drainage negative for growth after 24 hours. 10/06/2024 patient seen and examined at bedside. No acute events overnight. Patient has declined surgery for the second time at Ortho has signed off. Recommended brace for his back. Per patient, he reported that he did not want to surgery during time of evaluation. Reiterated the risk and benefits of the surgery but patient has declined. Labs: WBC 4.97, hemoglobin 7.7, platelet count 1 23,000, sodium 133, potassium 3.3, bicarb 21, BUN 7, creatinine 0.88, calcium 7.2, magnesium 1.9 10/07/2024 patient seen and examined at bedside. No acute events overnight. Patient mentions that they are agreeable to surgery at this time per patient and his . Labs: WBC 4.9, hemoglobin 7.5, platelet count 1 27,000, sodium 133, potassium 3.4, chloride 105, bicarb 21, creatinine 0.57, BUN 8, calcium 7.2. Paravertebral aspirate positive for pseudomonas. 10/08/2024 patient seen and examined at bedside. No acute events overnight. No new complaints. Patient still agreeable to surgery. Labs: WBC 4.5, hemoglobin 7.2, sodium 133, potassium 3.3, chloride 105, bicarb 22, BUN 9, creatinine 0.64, calcium 7.3, glucose 71 10/09/2024 Patient is resting in bed. Awake alert and oriented. No complaints of chest pain or shortness of breath. Back pain is controlled. Orthopedic surgery is planning OR on 10/11/2024. Patient has been afebrile. Currently on IV antibiotics in the form of vancomycin and cefepime. Laboratory data showed WBC 4.2 hemoglobin 7.3 MCV 90.7 and platelets 106 sodium 133 potassium 3.4 which is replaced, chloride 105 bicarb is 23 BUN 9 and creatinine 0.66 and blood sugar 70 and calcium 7.2. 10/10/2024 patient seen and examined at bedside. No acute complaints overnight. No new complaints. Labs: WBC 3.4, hemoglobin 7.2, platelet count 111, 000, sodium 133, potassium 3.5, bicarb 22, BUN 9, creatinine 0.58, calcium 7.4 10/11/2024 patient seen and examined at bedside. No acute events overnight. No new complaints. For surgery today. Labs: WBC 3.96, hemoglobin 7.4, platelet count 103,000, sodium 133, potassium 3.4, bicarb 21, BUN 8, creatinine 0.53, calcium 7.5 10/12/2024 patient seen and examined at bedside. Patient had corpectomy and evacuation of phlegmon, complete neural decompression and antibiotics spacer placement with cage to T9-10. POD 1 Labs: WBC 8.7, hemoglobin 7, MCV 90.6, platelet count 105,000, sodium 134, potassium 3.7, bicarb 19, BUN 13, creatinine 0.68, calcium 7.9 Imaging; CT thoracic spine without contrast showed surgical changes noted above from procedure and no new fractures or malalignment Review of systems: Pertinent positives and negatives as discussed in HPI, a complete review of systems was performed and all other systems are negative. Physical examination: Vital signs reviewed General: non toxic, no distress, appears at stated age Derm: no unusual rashes/lesions, warm Head: atraumatic, normocephalic, symmetric Eyes: EOMI, anicteric sclera, pupils equal round reactive to light ENT: Nose and ears atraumatic Neck: No cervical lymphadenopathy, trachea midline, supple Mouth: no lip lesion, mucus membranes moist Cardiovascular: S1S2 reg, no murmur Lungs: CTA bilateral, no rhonchi, no rales, no accessory muscle use Abdominal: soft, nontender to palpation, no guarding Ext: muscle strength 5 out of 5 in all 4 extremities grossly, no gross muscle atrophy, no contractures, positive dorsalis pedis pulse bilateral, bilateral +1 pitting edema with erythema, bilateral lower extremity wounds bandaged dry and clean dressings, dressing on lower back noted clean and dry with no erythema Neuro: CN II-XI grossly intact, no gross focal neuro deficits Psych: Alert and oriented x3, appropriate affect and mood Assessment/Plan: #. Severe sepsis secondary to bilateral lower extremity cellulitis, improving #. Discitis/osteomyelitis complicated by paravertebral abscess involving the T9- T10 s/p CT-guided abscess drainage with pigtail cath placement and corpectomy and evacuation of phlegmon, complete neural decompression and antibiotics spacer placement with cage to T9-10 POD 1 #. Diarrhea, C. difficile ruled out #. Leukocytosis secondary to above, improved Continue with Cefepime IVPB every 8 hours and IV vancomycin dosed per pharmacy Wound culture positive for pansensitive pseudomonas and beta hemolytic strep C Negative blood culture HbA1c 4.9% Infectious disease and wound care on board, appreciate recs. PICC line ordered and placed Ortho consulted. Patient is s/p corpectomy and evacuation of phlegmon, complete neural decompression and antibiotics spacer placement with cage. Biopsy and cytology pending CT-guided abcess drainage by IR done, Paravertebral aspirate positive for pseudomonas. #. Anemia of chronic disease s/p transfusion 2u pRBC Hemoglobin 7 Transfuse with packed RBC if hemoglobin is less than 7 Continue monitor CBC #. Hypokalemia, resolved Potassium 3.7 today #. Compression deformity of the L1 #. Chronic low back pain Back brace ordered by ortho Consult PT/OT Acetaminophen as needed for pain DVT prophylaxis: Lovenox 40 mg subcu daily GI prophylaxis: PO Protonix 40 mg once daily CODE STATUS: Full code Discussed with: Patient Anticipated discharge place: Pending clinical course Lena Self MD PGY-1/[employer] Operator Dictation was produced using [employer] dictation software. please excuse any grammatical, word or spelling errors. Attestation: I have seen and examined this patient with my resident, assessment and plan discussed with the resident, agree with assessment and plan as written above. Dr. Whittaker Objective - Vital Signs Vital signs: Vital Signs Temp 98.1 F 10/12/24 08:00 Pulse 99 10/12/24 08:00 Resp 16 10/12/24 08:00 BP 122/66 10/12/24 08:00 Pulse Ox 92 L 10/12/24 08:00 FiO2 21 10/03/24 07:56 Intake & Output 10/11/24 10/12/24 10/12/24 18:59 06:59 18:59 Intake Total 852 Output Total 301 Balance 551 Intake: IV 852 Output: Urine 1 Estimated Blood Loss 300 Other: Voiding Method Urinal # Voids 1 1 - Labs CBC & Chem 7: 10/12/24 10:20 10/12/24 10:20 Labs: Microbiology - Last 24 Hours (Table) 10/11/24 12:35 Gram Stain - Preliminary Other - Other
[2024-10-13 07:14] LABS: Basophils # (A) 0.02 10*3/uL (0.00-0.10); Basophils % (A) 0.3 %; HCT 20.2 % (39.6-50.0); Immature Platelet Fraction 2.7 % (1.1-6.1); Lymphocytes # (A) 0.42 10*3/uL (0.90-5.00); Lymphocytes % (A) 7.3 %; MCH 27.7 pg (27.0-32.0); MCHC 30.7 g/dL (32.0-37.0); MCV 90.2 fL (80.0-97.0); Mean Platelet Volume 9.5 fL (9.5-12.2); Monocytes # (A) 0.36 10*3/uL (0.20-1.00); Monocytes % (A) 6.3 %; Neutrophils # (A) 4.91 10*3/uL (1.80-7.70); Neutrophils % (A) 85.2 %; RBC 2.24 10*6/uL (4.40-5.60); RDW 18.1 % (11.5-14.5); WBC 5.76 10*3/uL (4.50-10.00)
[2024-10-13 07:47] LABS: African American GFR (CKD) >90 (>60 ml/min/1.73 sqM); Anion Gap 9 mmol/L; Blood Urea Nitrogen 18 mg/dL (9-20); Calcium 7.7 mg/dL (8.4-10.2); Carbon Dioxide 21 mmol/L (22-30); Chloride 103 mmol/L (98-107); Glucose 92 mg/dL (74-99); Non-African American GFR(CKD) >90 (>60 ml/min/1.73 sqM); Potassium 3.3 mmol/L (3.5-5.1); Sodium 133 mmol/L (137-145)
[2024-10-13 10:20] LABS: HGB 6.2 g/dL (13.0-17.0)
[2024-10-13 10:22] LABS: Platelet Count 84 10*3/uL (140-440)
--- NOTE | 2024-10-13 10:35 | P.PN ---
Subjective Progress Note Date: 10/13/24 Principal diagnosis: T9/T10 osteomyelitis/discitis Generalized Weakness Bilateral lower extremity edema/wounds Patient seen and examined this morning. Patient is resting comfortably in bed. He does report increase of pain to his mid back. Patient does report that his pain is managed on current medication regimen. Encourage patient to utilize ice therapy to assist with pain management. Nursing staff has informed that patient has been mildly resistant to nursing care. He has been refusing to get out of bed. When asking patient if he has worked with physical therapy, he states "I am not sure". Please continue to encourage patient to increase his activity as tolerated. Surgical incision to the thoracic spine, dressing is clean dry and intact. This may be changed to an Optifoam dressing. Patient is cleared from a orthopedic standpoint for discharge when medically stable. No further recommendations or acute concerns. Objective - Vital Signs Vital signs: Vital Signs Temp 98.5 F 10/13/24 00:22 Pulse 100 10/13/24 00:22 Resp 18 10/13/24 00:22 BP 110/64 10/13/24 00:22 Pulse Ox 92 L 10/13/24 00:22 FiO2 21 10/03/24 07:56 Intake & Output 10/12/24 10/13/24 10/13/24 18:59 06:59 18:59 Intake Total 350 Balance 350 Weight 84.9 kg Intake: Intake, IV Titration 350 Amount Lactated Ringers 1,000 ml 100 @ 20 mls/hr IV .Q24H JUSTIN Rx#:[id number] Vancomycin 1,250 mg In 250 Sodium Chloride 0.9% 250 ml @ 167 mls/hr IVPB Q16H JUSTIN Rx#:[id number] Other: Voiding Method Urinal # Voids 2 - Exam Physical Examination General: The patient is awake and alert, in no acute distress. Skin: Skin is warm and dry. Patient does have bilateral lower extremity wounds and ulcers, gauze and Kerlix dressings are clean dry and intact. Surgical incision to the thoracic spine, edges are well-approximated. Dressing is clean dry and intact. Eye: Pupils are equal, round and reactive to light, extra-ocular movements are intact; there is normal conjunctiva bilaterally. Neck: The neck is supple, there is no tenderness and ROM intact. Respiratory: Respirations are non-labored. Gastrointestinal: Soft, non-distended, non-tender abdomen. Back: There is no tenderness to palpation in the midline, paralumbar, p arathoracic or buttocks region. There is no obvious deformity. Musculoskeletal: ROM limited secondary to pain and stiffness from surgical procedure. Right: Shoulder abduction 5/5, elbow flexors 5/5, wrist dorsiflexors 5/5. finger abductor 5/5, blending kettle tender 5/5, hip flexor 4/5, knee flexor 4/5, ankle dorsiflexor 4/5, ankle plantarflexion 4/5 and extensor hallucis 4/5 Left: Shoulder abduction 5/5, elbow flexors 5/5, wrist dorsiflexors 5/5. finger abductor 5/5, blending kettle tender 5/5, hip flexor 4/5, knee flexor 4/5, ankle dorsiflexor 4/5, ankle plantarflexion 4/5 and extensor h allucis 4/5. Neurological: CN 2-12 intact. There are no obvious motor or sensory deficits. Movement and coordination equal and intact. Sensory exam to light touch intact C5-T1 and intact from L2-S1. Reflexes 2/4 in bilateral upper and lower extremities. Negative Hoffmans, babinski, and clonus signs. Psychiatric: Cooperative, appropriate mood & affect, normal judgment. - Labs CBC & Chem 7: 10/13/24 07:02 10/13/24 07:02 Labs: Abnormal Lab Results - Last 24 Hours (Table) 10/12/24 10/12/24 Range/Units 10:20 10:20 RBC 2.56 L (4.40-5.60) 10*6/uL Hgb 7.0 L (13.0-17.0) g/dL Hct 23.2 L (39.6-50.0) % MCHC 30.2 L (32.0-37.0) g/dL RDW 17.5 H (11.5-14.5) % Plt Count 105 L (140-440) 10*3/uL Immature Gran # 0.11 H (0.00-0.04) 10*3/uL Lymphocytes # 0.50 L (0.90-5.00) 10*3/uL Eosinophils # 0.01 L (0.04-0.35) 10*3/uL Sodium 134 L (137-145) mmol/L Carbon Dioxide 19 L (22-30) mmol/L Calcium 7.9 L (8.4-10.2) mg/dL Microbiology - Last 24 Hours (Table) 10/11/24 12:35 Gram Stain - Preliminary Other - Other Wound Culture - Preliminary 10/11/24 12:35 Gram Stain - Preliminary Other - Other Wound Culture - Preliminary Assessment and Plan Assessment: Postoperative day #2: T9/T10 partial corpectomy, posterior lateral decompression and fusion, L1 kyphoplasty T9/T10 discitis/osteomyelitis Paravertebral abscesses T9/T10 Chronic L1 VCF Bilateral lower extremity wounds/cellulitis/edema Plan: -Appreciate new vehicle sales consultant and team management. -Activity: Ambulate QID, OOB all meals, up and about, limit lifting bending twisting to less than 5 lbs. Use walker or cane if needed for stability. -Daily PT/OT, increase ambulation strength and balance. -Brace when up and about, not needed in bed or chair -Pain control: Adequate at this time -Meds: reviewed -GI ppx: senna, Miralax -DVT PPX: Heparin -Hygiene: Maintain incision clean and dry. May change dressing as needed, please document in notes if performed. -Encourage IS 10x/hr -Dispo: Recommend patient to subacute rehab, although patient is resistive at this time. Patient is cleared from a orthopedic standpoint for discharge when medically stable. *I reviewed and discussed this case with my attending Dr. Ortiz, whom has reviewed this chart and films and is in agreement with assessment and plan of care as outlined above. I have personally seen and examined the patient, performed the documentation and the assessment and plan as written. Number of minutes spent on the visit: 15m.
--- NOTE | 2024-10-13 16:51 | P.PN ---
Subjective Progress Note Date: 10/13/24 Principal diagnosis: Reason for follow-up is discitis/osteomyelitis Patient is a 74-year-old male with a past medical history significant for hypertension and did have a history of chronic nonhealing wound to bilateral lower extremity for the patient followed at [facility] wound care center has been sent to the ER from the wound care concerning for diarrhea patient workup which shows possibility of T9-10 discitis/osteomyelitis.Patient is status post T9-10 partial corpectomy evacuation of the phlegmon from disc base and epidural space along with posterior lateral interbody fusion bilateral laminectomy procedure completed on 10/11/2024 On today's evaluation that is 10/13/2024,the patient remains to be afebrile, patient is on room air not requiring supplemental oxygen and denies any shortness of breath no chest pain or cough.Patient denies having any nausea or vomiting, no abdominal pain and no diarrhea back pain slightly decreased in intensity. Patient white count is 5.76 creatinine 0.68 OR cultures currently pending Objective - Vital Signs Vital signs: Vital Signs Temp 98.3 F 10/13/24 16:03 Pulse 94 10/13/24 16:03 Resp 16 10/13/24 16:03 BP 107/67 10/13/24 16:03 Pulse Ox 94 L 10/13/24 16:03 FiO2 21 10/03/24 07:56 Intake & Output 10/12/24 10/13/24 10/13/24 18:59 06:59 18:59 Intake Total 350 0 Balance 350 0 Weight 84.9 kg Intake: Intake, IV Titration 350 Amount Lactated Ringers 1,000 ml 100 @ 20 mls/hr IV .Q24H [facility] Rx#:[id number] Vancomycin 1,250 mg In 250 Sodium Chloride 0.9% 250 ml @ 167 mls/hr IVPB Q16H [facility] Rx#:[id number] Blood Product 0 Unit 0 Other: Voiding Method Urinal # Voids 2 - Exam GENERAL DESCRIPTION: An elderly male lying in bed in no distress RESPIRATORY SYSTEM: Unlabored breathing , decreased breath sounds at bases HEART: S1 S2 regular rate and rhythm , ABDOMEN: Soft , no tenderness EXTREMITIES: Lower extremity currently dressed - Labs CBC & Chem 7: 10/13/24 07:02 10/13/24 07:02 Labs: Abnormal Lab Results - Last 24 Hours (Table) 10/13/24 10/13/24 10/13/24 Range/Units 07:02 07:02 12:00 RBC 2.24 L (4.40-5.60) 10*6/uL Hgb 6.2 L* (13.0-17.0) g/dL Hct 20.2 L (39.6-50.0) % MCHC 30.7 L (32.0-37.0) g/dL RDW 18.1 H (11.5-14.5) % Plt Count 84 L (140-440) 10*3/uL Immature Gran # 0.05 H (0.00-0.04) 10*3/uL Lymphocytes # 0.42 L (0.90-5.00) 10*3/uL Eosinophils # 0.00 L (0.04-0.35) 10*3/uL Sodium 133 L (137-145) mmol/L Potassium 3.3 L (3.5-5.1) mmol/L Carbon Dioxide 21 L (22-30) mmol/L Calcium 7.7 L (8.4-10.2) mg/dL Crossmatch See Detail Microbiology - Last 24 Hours (Table) 10/11/24 12:35 Anaerobic Culture - Preliminary Other - Other 10/11/24 12:35 Anaerobic Culture - Preliminary Other - Other 10/11/24 12:35 Gram Stain - Final Other - Other Wound Culture - Final 10/11/24 12:35 Gram Stain - Preliminary Other - Other Wound Culture - Preliminary Assessment and Plan (1) Osteomyelitis of thoracic spine Current Visit: Yes Status: Acute Code(s): M46.24 - OSTEOMYELITIS OF VERTEBRA, THORACIC REGION SNOMED Code(s): 460719961 (2) Leukocytosis Current Visit: Yes Status: Acute Code(s): D72.829 - ELEVATED WHITE BLOOD ALTON L COUNT, UNSPECIFIED SNOMED Code(s): 428978222 (3) Bilateral lower leg cellulitis Current Visit: No Status: Acute Code(s): L03.116 - CELLULITIS OF LEFT LOWER LIMB; L03.115 - CELLULITIS OF RIGHT LOWER LIMB SNOMED Code(s): 904418212 Plan: 1patient with abnormal CT of abdominal pelvis with concern for T9-10 osteomyelitis and discitis in this patient presenting to the hospital mostly with weakness and diarrhea currently currently denies having any back pain or open wound and no history of any trauma and very unlikely presentation for thoracic spine osteomyelitis/discitis likely algorithm to cover will be gram-positive skin arthur and less likely gram-negative pathogen also have evidence of bilateral lower extremity wound and cellulitis 2-patient did have MRI of the spine concerning for discitis/osteomyelitis and possible abscess Ortho has seen the patient recommending no surgical intervention, patient is status post IR aspiration of the thoracic spine and specimen has been sent for the culture 3-blood culture negative, local culture from the leg is growing multiple pathogen including Pseudomonas strep and Alcaligenes faecalis, Finegoldia magna 4-patient CT-guided aspiration from the back is growing Pseudomonas aeruginosa 5patient is status post T9-10, partial corpectomy laminectomy and drainage of the abscess and interbody fusion completed on 10/11/2024 6-patient did have local culture done at the time of surgery which are currently pending 7patient to continue vancomycin cefepime and Flagyl, will need at least 6-week course of IV antibiotic therapy Dictation was produced using [employer] dictation software. please excuse any grammatical, word or spelling errors. Time with Patient: Less than 30
--- NOTE | 2024-10-13 17:32 | P.PN ---
Subjective Progress Note Date: 10/13/24 Patient is a 74-year-old male with a history of chronic wound lesions of the legs presented to the ER with a complaint of diarrhea. Patient reports that he was at the wound care center for his chronic bilateral lower extremity wound lesions where he complained about diarrhea and he was advised to go to the ER for further evaluation. Patient reports that he has been endorsing diarrhea since 2 weeks and describes his stools as loose and bowel movements 3-4 times a day. He has been getting treatment for his bilateral lower chronic venous stasis cellulitis including antibiotics. He endorsed mild abdominal pain yesterday which has resolved today. Patient denies chest pain, shortness of breath, dizziness, headaches, acute vision changes, dysuria. Initial laboratory evaluation shows WBC 15.13, hemoglobin 8.4, sodium 134, potassium 4.5, BUN 17, creatinine 0.82, lactic acid 2.8, repeat lactic acid 4.1 and 1.3. Urinalysis shows mild urine WBC, mildly leukocyte Estrace and urine bacteria. CT abdomen pelvis shows findings highly concerning for discitis/osteomyelitis involving the T9-T10 disc level. Chronic appearing compression deformity of the L1 vertebral body. Mild splenomegaly. Hepatic steatosis. Advanced left hip osteoarthritic change. Venous Doppler study of lower extremities is negative for bilateral DVT EKG shows normal sinus rhythm with ventricular rate of 99 bpm, OK interval of 186 ms, QRS duration 109 ms, QTc 413 ms, left axis deviation, fairly normal R wave progression, nonspecific ST to T wave changes noted. Vital signs on arrival show temperature of 97.7 F, pulse rate of 114, respiratory rate of 20, blood pressure 100/60, oxygen saturation 90% on room air. In the ED: Severe sepsis protocol was initiated patient received a total 3 L of IV fluid bolus and 2 g of IV ceftriaxone once. 10/01/2024: Patient was seen and examined at the bedside. No acute events overnight. Patient received 2 units of PRBC yesterday. Hemoglobin this morning 7.6. No active bleeding. Patient continues to be on IV Rocephin and vancomycin for lower extremity cellulitis. MRI of the thoracic spine showed discitis/osteomyelitis complicated with paravertebral abscess at T9/T10. Orthop edic surgery has been consulted. Will consult IR for abscess drainage. Potassium was 3.2, will replace it with 60 mEq KCl orally. 10/02/2024 Patient is evaluated today in follow-up on the cardiac unit. He continues on IV Rocephin and IV vancomycin for the left lower extremity cellulitis additionally his MRI of the thoracic spine noted discitis and osteomyelitis with a paravertebral abscess. IR has been consulted for abscess drainage although will not see this patient until Thursday as it is the weekend. Orthopedic spinal was consulted they recommended no emergent surgical intervention at this time and recommending to continue IV antibiotics. They reveal a white blood cell count of 4.60, hemoglobin 7.3, sodium of 135, potassium 3.4, BUN of 10 creatinine 0.62. C. difficile was found to be negative. 10/03/2024 patient seen and examined at bedside. No acute events overnight. No new complaints. Labs today: WBC 4.09, hemoglobin 7.2, platelet count 1 21,000, sodium 136, potassium 3.3, chloride 111, BUN 6, creatinine 0.66, calcium 7 10/04/2024 patient seen and examined at bedside. No acute events overnight. CT- guided abscess drainage with pigtail cath placement done and was drained 10mL, was sent for analysis. Ortho recommends stabilization fusion washout of the thoracic spine as well as biopsy. Per RN, patient reported to refuse n.p.o. and surgery this morning. Upon evaluation, patient still does not want to have the procedure done. Labs: WBC 4.8, hemoglobin 7.9, platelet count 114,000, sodium 136, potassium 3.6, bicarb 19, creatinine 0.6, BUN 6, calcium 7, magnesium 1.6 10/05/2024 patient seen and examined at bedside. No acute events overnight. No new complaints or symptoms. Labs: WBC 4.3, hemoglobin 7.9, MCV 89.9, platelet count 1 21,000, sodium 135, potassium 3.3, chloride 108, BUN 6, creatinine 0.56, calcium 7.1, magnesium 1.7, glucose 82. Wound cultures show positive for unblocking and faecalis, Pseudomonas aeruginosa and beta-hemolytic strep group C. Stool culture negative, paravertebral fluid drainage negative for growth after 24 hours. 10/06/2024 patient seen and examined at bedside. No acute events overnight. Patient has declined surgery for the second time at Ortho has signed off. Recommended brace for his back. Per patient, he reported that he did not want to surgery during time of evaluation. Reiterated the risk and benefits of the surgery but patient has declined. Labs: WBC 4.97, hemoglobin 7.7, platelet count 1 23,000, sodium 133, potassium 3.3, bicarb 21, BUN 7, creatinine 0.88, calcium 7.2, magnesium 1.9 10/07/2024 patient seen and examined at bedside. No acute events overnight. Patient mentions that they are agreeable to surgery at this time per patient and his . Labs: WBC 4.9, hemoglobin 7.5, platelet count 1 27,000, sodium 133, potassium 3.4, chloride 105, bicarb 21, creatinine 0.57, BUN 8, calcium 7.2. Paravertebral aspirate positive for pseudomonas. 10/08/2024 patient seen and examined at bedside. No acute events overnight. No new complaints. Patient still agreeable to surgery. Labs: WBC 4.5, hemoglobin 7.2, sodium 133, potassium 3.3, chloride 105, bicarb 22, BUN 9, creatinine 0.64, calcium 7.3, glucose 71 10/09/2024 Patient is resting in bed. Awake alert and oriented. No complaints of chest pain or shortness of breath. Back pain is controlled. Orthopedic surgery is planning OR on 10/11/2024. Patient has been afebrile. Currently on IV antibiotics in the form of vancomycin and cefepime. Laboratory data showed WBC 4.2 hemoglobin 7.3 MCV 90.7 and platelets 106 sodium 133 potassium 3.4 which is replaced, chloride 105 bicarb is 23 BUN 9 and creatinine 0.66 and blood sugar 70 and calcium 7.2. 10/10/2024 patient seen and examined at bedside. No acute complaints overnight. No new complaints. Labs: WBC 3.4, hemoglobin 7.2, platelet count 111, 000, sodium 133, potassium 3.5, bicarb 22, BUN 9, creatinine 0.58, calcium 7.4 10/11/2024 patient seen and examined at bedside. No acute events overnight. No new complaints. For surgery today. Labs: WBC 3.96, hemoglobin 7.4, platelet count 103,000, sodium 133, potassium 3.4, bicarb 21, BUN 8, creatinine 0.53, calcium 7.5 10/12/2024 patient seen and examined at bedside. Patient had corpectomy and evacuation of phlegmon, complete neural decompression and antibiotics spacer placement with cage to T9-10. POD 1 Labs: WBC 8.7, hemoglobin 7, MCV 90.6, platelet count 105,000, sodium 134, potassium 3.7, bicarb 19, BUN 13, creatinine 0.68, calcium 7.9 Imaging; CT thoracic spine without contrast showed surgical changes noted above from procedure and no new fractures or malalignment 10/13/2024 patient seen and examined at bedside. No acute events overnight. Patient was reported to have resistance to care including receiving pain medication per RN report. Per healthcare social worker, Declines rehab despite discussion of risk and benefits and does not seem to have good judgement of overall clinical state. Labs: WBC 5.7, hemoglobin 6.2, MCV 90.2, platelet count 84,000, sodium 133, potassium 3.3, chloride 100, bicarb 21, BUN 18, creatinine 0.68, calcium 7.7, glucose 92 Review of systems: Pertinent positives and negatives as discussed in HPI, a complete review of systems was performed and all other systems are negative. Physical examination: Vital signs reviewed General: non toxic, no distress, appears at stated age Derm: no unusual rashes/lesions, warm Head: atraumatic, normocephalic, symmetric Eyes: EOMI, anicteric sclera, pupils equal round reactive to light ENT: Nose and ears atraumatic Neck: No cervical lymphadenopathy, trachea midline, supple Mouth: no lip lesion, mucus membranes moist Cardiovascular: S1S2 reg, no murmur Lungs: CTA bilateral, no rhonchi, no rales, no accessory muscle use Abdominal: soft, nontender to palpation, no guarding Ext: muscle strength 5 out of 5 in all 4 extremities grossly, no gross muscle atrophy, no contractures, positive dorsalis pedis pulse bilateral, bilateral +1 pitting edema with erythema, bilateral lower extremity wounds bandaged dry and clean dressings, dressing on lower back noted clean and dry with no erythema Neuro: CN II-XI grossly intact, no gross focal neuro deficits Psych: Alert and oriented x3, appropriate affect and mood Assessment/Plan: #. Severe sepsis secondary to bilateral lower extremity cellulitis, improving #. Discitis/osteomyelitis complicated by paravertebral abscess involving the T9- T10 s/p CT-guided abscess drainage with pigtail cath placement and corpectomy and evacuation of phlegmon, complete neural decompression and antibiotics spacer placement with cage to T9-10 POD 1 #. Diarrhea, C. difficile ruled out #. Leukocytosis secondary to above, improved Continue with Cefepime IVPB every 8 hours and IV vancomycin dosed per pharmacy Wound culture positive for pansensitive pseudomonas and beta hemolytic strep C Infectious disease and wound care on board, appreciate recs. PICC line ordered and placed Ortho consulted. Patient is s/p corpectomy and evacuation of phlegmon, complete neural decompression and antibiotics spacer placement with cage. Biopsy and cytology pending CT-guided abcess drainage aspirate positive for pseudomonas. Patient resistant to care and per healthcare social worker, declines rehab despite discussion of risk and benefits to patient and , and does not seem to have good judgement of overall clinical state. Consult psych for cognitive evaluation. #. Anemia of chronic disease s/p transfusion 3u pRBC Hemoglobin 6.2 today. transfusted 1u pRBC Transfuse with packed RBC if hemoglobin is less than 7 Continue monitor CBC #. Hypokalemia Potassium 3.3. On potassium replacement protocol #. Compression deformity of the L1 #. Chronic low back pain Back brace ordered by ortho Consult PT/OT Acetaminophen as needed for pain DVT prophylaxis: Lovenox 40 mg subcu daily GI prophylaxis: PO Protonix 40 mg once daily CODE STATUS: Full code Discussed with: Patient Anticipated discharge place: Pending clinical course Lena Self MD PGY-1/Boat Loader Helper Dictation was produced using [employer] dictation software. please excuse any grammatical, word or spelling errors. Attestation: I have seen and examined this patient with my resident, assessment and plan discussed with the resident, agree with assessment and plan as written above. Dr. Whittaker Objective - Vital Signs Vital signs: Vital Signs Temp 98.5 F 10/13/24 00:22 Pulse 100 10/13/24 00:22 Resp 18 10/13/24 00:22 BP 110/64 10/13/24 00:22 Pulse Ox 92 L 10/13/24 00:22 FiO2 21 10/03/24 07:56 Intake & Output 10/12/24 10/13/24 10/13/24 18:59 06:59 18:59 Intake Total 350 Balance 350 Weight 84.9 kg Intake: Intake, IV Titration 350 Amount Lactated Ringers 1,000 ml 100 @ 20 mls/hr IV .Q24H [facility] Rx#:[id number] Vancomycin 1,250 mg In 250 Sodium Chloride 0.9% 250 ml @ 167 mls/hr IVPB Q16H [facility] Rx#:[id number] Other: Voiding Method Urinal # Voids 2 - Labs CBC & Chem 7: 10/13/24 07:02 10/13/24 07:02 Labs: Abnormal Lab Results - Last 24 Hours (Table) 10/12/24 10/12/24 Range/Units 10:20 10:20 RBC 2.56 L (4.40-5.60) 10*6/uL Hgb 7.0 L (13.0-17.0) g/dL Hct 23.2 L (39.6-50.0) % MCHC 30.2 L (32.0-37.0) g/dL RDW 17.5 H (11.5-14.5) % Plt Count 105 L (140-440) 10*3/uL Immature Gran # 0.11 H (0.00-0.04) 10*3/uL Lymphocytes # 0.50 L (0.90-5.00) 10*3/uL Eosinophils # 0.01 L (0.04-0.35) 10*3/uL Sodium 134 L (137-145) mmol/L Carbon Dioxide 19 L (22-30) mmol/L Calcium 7.9 L (8.4-10.2) mg/dL Microbiology - Last 24 Hours (Table) 10/11/24 12:35 Gram Stain - Preliminary Other - Other Wound Culture - Preliminary 10/11/24 12:35 Gram Stain - Preliminary Other - Other Wound Culture - Preliminary
[2024-10-14 07:10] LABS: HCT 22.1 % (39.6-50.0); Immature Platelet Fraction 3.6 % (1.1-6.1); MCH 28.5 pg (27.0-32.0); MCHC 31.7 g/dL (32.0-37.0); MCV 89.8 fL (80.0-97.0); RBC 2.46 10*6/uL (4.40-5.60); RDW 17.1 % (11.5-14.5); WBC 5.35 10*3/uL (4.50-10.00)
[2024-10-14 07:28] LABS: African American GFR (CKD) >90 (>60 ml/min/1.73 sqM); Anion Gap 9 mmol/L; Blood Urea Nitrogen 20 mg/dL (9-20); Calcium 7.6 mg/dL (8.4-10.2); Carbon Dioxide 20 mmol/L (22-30); Chloride 107 mmol/L (98-107); Glucose 89 mg/dL (74-99); Non-African American GFR(CKD) >90 (>60 ml/min/1.73 sqM); Potassium 2.8 mmol/L (3.5-5.1); Sodium 136 mmol/L (137-145)
[2024-10-14 07:48] LABS: Eosinophils # (M) 0.05 k/uL (0-0.7); Lymphocytes # (M) 0.48 k/uL (1.0-4.8); Monocytes # (M) 0.32 k/uL (0-1.0); Neutrophils # (M) 4.49 k/uL (1.3-7.7); Neutrophils % (M) 84 %; Nucleated Red Blood Cells 0 /100 WBC (0-0); Platelet Count 75 10*3/uL (140-440); Total Cells Counted 100
[2024-10-14] MEDS: POTASSIUM CHLORIDE ER 20 MEQ TAB.ER PO SCH (08:14)
--- NOTE | 2024-10-14 12:53 | P.CN ---
Psychiatric Consult - . Consult date: 10/14/24 Consult:: 10/14/24 12:45 IDENTIFYING DATA: This patient is a 74-year-old male, on SSD, REASON FOR REFERRAL: Psychiatry was consulted for impaired judgment regarding clinical state HISTORY OF PRESENT ILLNESS: The patient presented to the hospital from wound care center with chief complaint of diarrhea. Patient reportedly has been receiving wound care for bilateral lower extremity wound lesions and was started on IV antibiotics. MRI of the thoracic spine did reveal osteomyelitis with paravertebral abscess at T9/T10. Patient ultimately received T9-10 partial corpectomy evacuation of the phlegmon from disc base and epidural space along with posterior lateral interbody fusion bilateral laminectomy procedure completed on 10/11/2024. Given patient's IV antibiotics, there is a recommendation for him to go to a detention however he has been refusing this. Spoke to patient with present at bedside and patient was agreeable to speak with if in the room. Patient was A&Ox2, unable to report the date or time, stating that he lives in the moment and does not follow this. Patient was a poor historian, unable to express his current diagnoses and treatment. In regards to the detention, patient was unable to express why he does not want to go there, unable to express any risks with declining this recommendation or potential benefits with going. Clay Press Operator attempted to bring up 1 risk including infection with readmission however patient was not amenable to this suggestion. He was unable to communicate thought process behind his refusal. however appeared to want patient to go to detention but it appears as though patient did not want to go if was not going to be with him. He denied any past psychiatric history. At this time patient denies any suicidal or homicidal ideations, intent or plan. Patient denies any auditory, visual hallucinations and denies any paranoia or delusions. Patients admits to using occasional alcohol. PAST PSYCHIATRIC HISTORY: Patient has no past psych history. Patient denies being on any psychiatric medications. Patient denies any previous psychiatric hospitalizations. Patient denies any psychiatric outpatient follow-up. Patient denies any history of suicide attempts in the past. PAST MEDICAL HISTORY: Lower extremity ulcers. ALLERGIES: as per EMR. CHEMICAL DEPENDENCY HISTORY: as per HPI. FAMILY PSYCHIATRIC/SUBSTANCE USE HISTORY: Denies SOCIAL HISTORY: Patient is to his and has 1 child. He completed high school and is currently on SSD. Patient reportedly has been living in his car MENTAL STATUS EXAM: General Appearance: Patient appears to be stated age is alert and cooperative. Patient appears to have questionable hygiene and grooming wearing hospital gown with fair eye contact. Behavior: Patient is calmly lying in bed without any agitated behavior. Speech: Patient's speech is fluent and nonpressured. Mood/Affect: Patient reports their mood is "all right", affect is congruent, constricted Suicidality/Homicidality: Patient denies having any suicidal or homicidal ideation intent or plan. Perceptions: Patient denies any visual hallucinations and denies any auditory hallucinations Though content/process: There is no evidence of any delusional thought content and thought process is linear and goal-directed. Memory and concentration: AOX2, not date/time Judgment and insight: Poor IMPRESSIONS: Unspecified neurocognitive disorder PLAN: -At this time patient DOES NOT meet criteria for inpatient psychiatric admission. -Patient DOES NOT have decision making capacity at this time and is unable to reason through and communicate/appreciate the risks, benefits and alternatives to treatment. -Would recommend the following medication changes/additions: none -Psychiatry will sign off at this time -Please contact with any questions.
--- NOTE | 2024-10-14 16:03 | P.PN ---
Subjective Progress Note Date: 10/14/24 Patient is a 74-year-old male with a history of chronic wound lesions of the legs presented to the ER with a complaint of diarrhea. Patient reports that he was at the wound care center for his chronic bilateral lower extremity wound lesions where he complained about diarrhea and he was advised to go to the ER for further evaluation. Patient reports that he has been endorsing diarrhea since 2 weeks and describes his stools as loose and bowel movements 3-4 times a day. He has been getting treatment for his bilateral lower chronic venous stasis cellulitis including antibiotics. He endorsed mild abdominal pain yesterday which has resolved today. Patient denies chest pain, shortness of breath, dizziness, headaches, acute vision changes, dysuria. Initial laboratory evaluation shows WBC 15.13, hemoglobin 8.4, sodium 134, potassium 4.5, BUN 17, creatinine 0.82, lactic acid 2.8, repeat lactic acid 4.1 and 1.3. Urinalysis shows mild urine WBC, mildly leukocyte Estrace and urine bacteria. CT abdomen pelvis shows findings highly concerning for discitis/osteomyelitis involving the T9-T10 disc level. Chronic appearing compression deformity of the L1 vertebral body. Mild splenomegaly. Hepatic steatosis. Advanced left hip osteoarthritic change. Venous Doppler study of lower extremities is negative for bilateral DVT EKG shows normal sinus rhythm with ventricular rate of 99 bpm, MD interval of 186 ms, QRS duration 109 ms, QTc 413 ms, left axis deviation, fairly normal R wave progression, nonspecific ST to T wave changes noted. Vital signs on arrival show temperature of 97.7 F, pulse rate of 114, respiratory rate of 20, blood pressure 100/60, oxygen saturation 90% on room air. In the ED: Severe sepsis protocol was initiated patient received a total 3 L of IV fluid bolus and 2 g of IV ceftriaxone once. 10/01/2024: Patient was seen and examined at the bedside. No acute events overnight. Patient received 2 units of PRBC yesterday. Hemoglobin this morning 7.6. No active bleeding. Patient continues to be on IV Rocephin and vancomycin for lower extremity cellulitis. MRI of the thoracic spine showed discitis/osteomyelitis complicated with paravertebral abscess at T9/T10. Orthop edic surgery has been consulted. Will consult IR for abscess drainage. Potassium was 3.2, will replace it with 60 mEq KCl orally. 10/02/2024 Patient is evaluated today in follow-up on the cardiac unit. He continues on IV Rocephin and IV vancomycin for the left lower extremity cellulitis additionally his MRI of the thoracic spine noted discitis and osteomyelitis with a paravertebral abscess. IR has been consulted for abscess drainage although will not see this patient until Thursday as it is the weekend. Orthopedic spinal was consulted they recommended no emergent surgical intervention at this time and recommending to continue IV antibiotics. They reveal a white blood cell count of 4.60, hemoglobin 7.3, sodium of 135, potassium 3.4, BUN of 10 creatinine 0.62. C. difficile was found to be negative. 10/03/2024 patient seen and examined at bedside. No acute events overnight. No new complaints. Labs today: WBC 4.09, hemoglobin 7.2, platelet count 1 21,000, sodium 136, potassium 3.3, chloride 111, BUN 6, creatinine 0.66, calcium 7 10/04/2024 patient seen and examined at bedside. No acute events overnight. CT- guided abscess drainage with pigtail cath placement done and was drained 10mL, was sent for analysis. Ortho recommends stabilization fusion washout of the thoracic spine as well as biopsy. Per RN, patient reported to refuse n.p.o. and surgery this morning. Upon evaluation, patient still does not want to have the procedure done. Labs: WBC 4.8, hemoglobin 7.9, platelet count 114,000, sodium 136, potassium 3.6, bicarb 19, creatinine 0.6, BUN 6, calcium 7, magnesium 1.6 10/05/2024 patient seen and examined at bedside. No acute events overnight. No new complaints or symptoms. Labs: WBC 4.3, hemoglobin 7.9, MCV 89.9, platelet count 1 21,000, sodium 135, potassium 3.3, chloride 108, BUN 6, creatinine 0.56, calcium 7.1, magnesium 1.7, glucose 82. Wound cultures show positive for unblocking and faecalis, Pseudomonas aeruginosa and beta-hemolytic strep group C. Stool culture negative, paravertebral fluid drainage negative for growth after 24 hours. 10/06/2024 patient seen and examined at bedside. No acute events overnight. Patient has declined surgery for the second time at Ortho has signed off. Recommended brace for his back. Per patient, he reported that he did not want to surgery during time of evaluation. Reiterated the risk and benefits of the surgery but patient has declined. Labs: WBC 4.97, hemoglobin 7.7, platelet count 1 23,000, sodium 133, potassium 3.3, bicarb 21, BUN 7, creatinine 0.88, calcium 7.2, magnesium 1.9 10/07/2024 patient seen and examined at bedside. No acute events overnight. Patient mentions that they are agreeable to surgery at this time per patient and his . Labs: WBC 4.9, hemoglobin 7.5, platelet count 1 27,000, sodium 133, potassium 3.4, chloride 105, bicarb 21, creatinine 0.57, BUN 8, calcium 7.2. Paravertebral aspirate positive for pseudomonas. 10/08/2024 patient seen and examined at bedside. No acute events overnight. No new complaints. Patient still agreeable to surgery. Labs: WBC 4.5, hemoglobin 7.2, sodium 133, potassium 3.3, chloride 105, bicarb 22, BUN 9, creatinine 0.64, calcium 7.3, glucose 71 10/09/2024 Patient is resting in bed. Awake alert and oriented. No complaints of chest pain or shortness of breath. Back pain is controlled. Orthopedic surgery is planning OR on 10/11/2024. Patient has been afebrile. Currently on IV antibiotics in the form of vancomycin and cefepime. Laboratory data showed WBC 4.2 hemoglobin 7.3 MCV 90.7 and platelets 106 sodium 133 potassium 3.4 which is replaced, chloride 105 bicarb is 23 BUN 9 and creatinine 0.66 and blood sugar 70 and calcium 7.2. 10/10/2024 patient seen and examined at bedside. No acute complaints overnight. No new complaints. Labs: WBC 3.4, hemoglobin 7.2, platelet count 111, 000, sodium 133, potassium 3.5, bicarb 22, BUN 9, creatinine 0.58, calcium 7.4 10/11/2024 patient seen and examined at bedside. No acute events overnight. No new complaints. For surgery today. Labs: WBC 3.96, hemoglobin 7.4, platelet count 103,000, sodium 133, potassium 3.4, bicarb 21, BUN 8, creatinine 0.53, calcium 7.5 10/12/2024 patient seen and examined at bedside. Patient had corpectomy and evacuation of phlegmon, complete neural decompression and antibiotics spacer placement with cage to T9-10. POD 1 Labs: WBC 8.7, hemoglobin 7, MCV 90.6, platelet count 105,000, sodium 134, potassium 3.7, bicarb 19, BUN 13, creatinine 0.68, calcium 7.9 Imaging; CT thoracic spine without contrast showed surgical changes noted above from procedure and no new fractures or malalignment 10/13/2024 patient seen and examined at bedside. No acute events overnight. POD2. Patient was reported to have resistance to care including receiving pain medication per RN report. Per social work lecturer, Declines rehab despite discussion of risk and benefits and does not seem to have good judgement of overall clinical state. Labs: WBC 5.7, hemoglobin 6.2, MCV 90.2, platelet count 84,000, sodium 133, potassium 3.3, chloride 100, bicarb 21, BUN 18, creatinine 0.68, calcium 7.7, glucose 92 10/14/2024 patient seen and examined at bedside. No acute events overnight. POD 3. Psychiatry evaluated patient and they do not have decision-making capacity at this time. APS referral done by social work Labs: WBC 5.3, hemoglobin 7, MCV 89.8, platelet count 75,000, sodium 136, potassium 2.8, bicarb 20, BUN 20, creatinine 0.67, magnesium 1.8, calcium 7.6 Review of systems: Pertinent positives and negatives as discussed in HPI, a complete review of systems was performed and all other systems are negative. Physical examination: Vital signs reviewed General: non toxic, no distress, appears at stated age Derm: no unusual rashes/lesions, warm Head: atraumatic, normocephalic, symmetric Eyes: EOMI, anicteric sclera, pupils equal round reactive to light ENT: Nose and ears atraumatic Neck: No cervical lymphadenopathy, trachea midline, supple Mouth: no lip lesion, mucus membranes moist Cardiovascular: S1S2 reg, no murmur Lungs: CTA bilateral, no rhonchi, no rales, no accessory muscle use Abdominal: soft, nontender to palpation, no guarding Ext: muscle strength 5 out of 5 in all 4 extremities grossly, no gross muscle atrophy, no contractures, positive dorsalis pedis pulse bilateral, bilateral +1 pitting edema with erythema, bilateral lower extremity wounds bandaged dry and clean dressings, dressing on lower back noted clean and dry with no erythema Neuro: CN II-XI grossly intact, no gross focal neuro deficits Psych: Alert and oriented x3, appropriate affect and mood Assessment/Plan: #. Severe sepsis secondary to bilateral lower extremity cellulitis, improving #. 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 Diarrhea, C. difficile ruled out #. Leukocytosis secondary to above, improved Continue with Cefepime IVPB every 8 hours, metronidazole 500 mg p.o. 3 times daily and IV vancomycin dosed per pharmacy Wound culture positive for pansensitive pseudomonas and beta hemolytic strep C CT-guided abcess drainage aspirate positive for pseudomonas. Infectious disease and wound care on board, appreciate recs. PICC line ordered and placed Ortho consulted. Patient is s/p corpectomy and evacuation of phlegmon, complete neural decompression and antibiotics spacer placement with cage. Biopsy and cytology pending Consult psych for cognitive evaluation. Psychiatry evaluated patient and they do not have decision-making capacity at this time. APS referral done by social work. Plan for emergency guardianship on 10/17 #. Anemia of chronic disease s/p transfusion 3u pRBC Hemoglobin 7 today. Transfuse with packed RBC if hemoglobin is less than 7 Continue monitor CBC #. Hypokalemia Potassium 2.8. On potassium replacement protocol mag 1.8 #. Compression deformity of the L1 #. Chronic low back pain Back brace ordered by ortho Consult PT/OT Acetaminophen as needed for pain DVT prophylaxis: Lovenox 40 mg subcu daily GI prophylaxis: PO Protonix 40 mg once daily CODE STATUS: Full code Discussed with: Patient Anticipated discharge place: Pending clinical course Lena Self MD PGY-1/Drafter Seismograph Dictation was produced using [employer] dictation software. please excuse any grammatical, word or spelling errors. Attestation: I have seen and examined this patient with my resident, assessment and plan discussed with the resident, agree with assessment and plan as written above. Dr. Whittaker Objective - Vital Signs Vital signs: Vital Signs Temp 98.1 F 10/13/24 20:05 Pulse 93 10/13/24 20:05 Resp 16 10/13/24 20:05 BP 116/67 10/13/24 20:05 Pulse Ox 96 10/13/24 20:05 FiO2 21 10/03/24 07:56 Intake & Output 10/13/24 10/14/24 10/14/24 18:59 06:59 18:59 Intake Total 310 500 Balance 310 500 Intake: Oral 500 Blood Product 310 Rc As-1 Unit 310 [id number] Other: # Voids 2 - Labs CBC & Chem 7: 10/14/24 05:20 10/14/24 05:20 Labs: Abnormal Lab Results - Last 24 Hours (Table) 10/13/24 10/13/24 10/13/24 Range/Units 07:02 07:02 12:00 RBC 2.24 L (4.40-5.60) 10*6/uL Hgb 6.2 L* (13.0-17.0) g/dL Hct 20.2 L (39.6-50.0) % MCHC 30.7 L (32.0-37.0) g/dL RDW 18.1 H (11.5-14.5) % Plt Count 84 L (140-440) 10*3/uL Immature Gran # 0.05 H (0.00-0.04) 10*3/uL Lymphocytes # 0.42 L (0.90-5.00) 10*3/uL Lymphocytes # (Manual) (1.0-4.8) k/uL Eosinophils # 0.00 L (0.04-0.35) 10*3/uL Sodium 133 L (137-145) mmol/L Potassium 3.3 L (3.5-5.1) mmol/L Carbon Dioxide 21 L (22-30) mmol/L Calcium 7.7 L (8.4-10.2) mg/dL Crossmatch See Detail 10/14/24 10/14/24 Range/Units 05:20 05:20 RBC 2.46 L (4.40-5.60) 10*6/uL Hgb 7.0 L (13.0-17.0) g/dL Hct 22.1 L (39.6-50.0) % MCHC 31.7 L (32.0-37.0) g/dL RDW 17.1 H (11.5-14.5) % Plt Count 75 L (140-440) 10*3/uL Immature Gran # 0.05 H (0.00-0.04) 10*3/uL Lymphocytes # (0.90-5.00) 10*3/uL Lymphocytes # (Manual) 0.48 L (1.0-4.8) k/uL Eosinophils # (0.04-0.35) 10*3/uL Sodium 136 L (137-145) mmol/L Potassium 2.8 L (3.5-5.1) mmol/L Carbon Dioxide 20 L (22-30) mmol/L Calcium 7.6 L (8.4-10.2) mg/dL Crossmatch Microbiology - Last 24 Hours (Table) 10/11/24 12:35 Gram Stain - Final Other - Other Wound Culture - Final 10/11/24 12:35 Anaerobic Culture - Preliminary Other - Other 10/11/24 12:35 Anaerobic Culture - Preliminary Other - Other 10/11/24 12:35 Gram Stain - Final Other - Other Wound Culture - Final
--- NOTE | 2024-10-14 19:39 | P.PN ---
Subjective Progress Note Date: 10/14/24 Principal diagnosis: Reason for follow-up is discitis/osteomyelitis Patient is a 74-year-old male with a past medical history significant for hypertension and did have a history of chronic nonhealing wound to bilateral lower extremity for the patient followed at [facility] care center has been sent to the ER from the wound care concerning for diarrhea patient workup which shows possibility of T9-10 discitis/osteomyelitis.Patient is status post T9-10 partial corpectomy evacuation of the phlegmon from disc base and epidural space along with posterior lateral interbody fusion bilateral laminectomy procedure completed on 10/11/2024 On today's evaluation that is 10/14/2024, the patient continues to be afebrile, the patient is on room air and breathing comfortably, the Pt denies having any chest pain or cough, the patient denies having any abdominal pain no vomiting or any diarrhea circumventing of pain to the mid back but no worsening pain. Patient white count is 5.35, creatinine 0.67, culture has been negative so far Objective - Vital Signs Vital signs: Vital Signs Temp 98.1 F 10/14/24 14:02 Pulse 96 10/14/24 14:02 Resp 16 10/14/24 14:02 BP 125/72 10/14/24 14:02 Pulse Ox 93 L 10/14/24 14:02 FiO2 21 10/03/24 07:56 Intake & Output 10/14/24 10/14/24 10/15/24 06:59 18:59 06:59 Intake Total 500 737 Balance 500 737 Intake: Oral 500 737 Other: # Voids 1 # Bowel Movements 1 - Exam GENERAL DESCRIPTION: An elderly male lying in bed in no distress RESPIRATORY SYSTEM: Unlabored breathing , decreased breath sounds at bases HEART: S1 S2 regular rate and rhythm , ABDOMEN: Soft , no tenderness EXTREMITIES: Lower extremity currently dressed - Labs CBC & Chem 7: 10/14/24 05:20 10/14/24 05:20 Labs: Abnormal Lab Results - Last 24 Hours (Table) 10/14/24 10/14/24 Range/Units 05:20 05:20 RBC 2.46 L (4.40-5.60) 10*6/uL Hgb 7.0 L (13.0-17.0) g/dL Hct 22.1 L (39.6-50.0) % MCHC 31.7 L (32.0-37.0) g/dL RDW 17.1 H (11.5-14.5) % Plt Count 75 L (140-440) 10*3/uL Immature Gran # 0.05 H (0.00-0.04) 10*3/uL Lymphocytes # (Manual) 0.48 L (1.0-4.8) k/uL Sodium 136 L (137-145) mmol/L Potassium 2.8 L (3.5-5.1) mmol/L Carbon Dioxide 20 L (22-30) mmol/L Calcium 7.6 L (8.4-10.2) mg/dL Microbiology - Last 24 Hours (Table) 10/11/24 12:35 Gram Stain - Final Other - Other Wound Culture - Final 10/11/24 12:35 Anaerobic Culture - Preliminary Other - Other Assessment and Plan (1) Osteomyelitis of thoracic spine Current Visit: Yes Status: Acute Code(s): M46.24 - OSTEOMYELITIS OF VERTEBRA, THORACIC REGION SNOMED Code(s): 941866421 (2) Leukocytosis Current Visit: Yes Status: Acute Code(s): D72.829 - ELEVATED WHITE BLOOD CELL COUNT, UNSPECIFIED SNOMED Code(s): 635680398 (3) Bilateral lower leg cellulitis Current Visit: No Status: Acute Code(s): L03.116 - CELLULITIS OF LEFT LOWER LIMB; L03.115 - CELLULITIS OF RIGHT LOWER LIMB SNOMED Code(s): 845224603 Plan: 1patient with abnormal CT of abdominal pelvis with concern for T9-10 osteomyelitis and discitis in this patient presenting to the hospital mostly with weakness and diarrhea currently currently denies having any back pain or open wound and no history of any trauma and very unlikely presentation for thoracic spine osteomyelitis/discitis likely algorithm to cover will be gram- positive skin arthur and less likely gram-negative pathogen also have evidence of bilateral lower extremity wound and cellulitis 2-patient did have MRI of the spine concerning for discitis/osteomyelitis and possible abscess Ortho has seen the patient recommending no surgical intervention, patient is status post IR aspiration of the thoracic spine and spe cimen has been sent for the culture 3-blood culture negative, local culture from the leg is growing multiple pathogen including Pseudomonas strep and Alcaligenes faecalis, Finegoldia magna 4-patient CT-guided aspiration from the back is growing Pseudomonas aeruginosa 5patient is status post T9-10, partial corpectomy laminectomy and drainage of the abscess and interbody fusion completed on 10/11/2024 6-patient did have local culture done at the time of surgery which are currently pending 7patient is afebrile white count is normal, to continue vancomycin cefepime and Flagyl, currently waiting for placement for outpatient IV antibiotic therapy Dictation was produced using [employer] dictation software. please excuse any grammatical, word or spelling errors. Time with Patient: Less than 30
[2024-10-15 07:59] LABS: Basophils # (A) 0.02 10*3/uL (0.00-0.10); Basophils % (A) 0.4 %; Eosinophils # (A) 0.05 10*3/uL (0.04-0.35); Eosinophils % (A) 0.9 %; HGB 7.4 g/dL (13.0-17.0); Lymphocytes % (A) 8.8 %; MCH 27.9 pg (27.0-32.0); MCHC 30.8 g/dL (32.0-37.0); MCV 90.6 fL (80.0-97.0); Mean Platelet Volume 11.4 fL (9.5-12.2); Monocytes # (A) 0.35 10*3/uL (0.20-1.00); Monocytes % (A) 6.2 %; Neutrophils % (A) 82.6 %; RBC 2.65 10*6/uL (4.40-5.60); RDW 17.7 % (11.5-14.5); WBC 5.68 10*3/uL (4.50-10.00)
[2024-10-15 08:09] LABS: African American GFR (CKD) >90 (>60 ml/min/1.73 sqM); Anion Gap 9 mmol/L; Blood Urea Nitrogen 22 mg/dL (9-20); Calcium 7.6 mg/dL (8.4-10.2); Carbon Dioxide 19 mmol/L (22-30); Chloride 109 mmol/L (98-107); Glucose 91 mg/dL (74-99); Non-African American GFR(CKD) >90 (>60 ml/min/1.73 sqM); Potassium 3.4 mmol/L (3.5-5.1); Sodium 137 mmol/L (137-145)
[2024-10-15 13:17] LABS: Platelet Count 86 10*3/uL (140-440)
--- NOTE | 2024-10-15 14:29 | P.PN ---
Subjective Progress Note Date: 10/15/24 Patient is a 74-year-old male with a history of chronic wound lesions of the legs presented to the ER with a complaint of diarrhea. Patient reports that he was at the wound care center for his chronic bilateral lower extremity wound lesions where he complained about diarrhea and he was advised to go to the ER for further evaluation. Patient reports that he has been endorsing diarrhea since 2 weeks and describes his stools as loose and bowel movements 3-4 times a day. He has been getting treatment for his bilateral lower chronic venous stasis cellulitis including antibiotics. He endorsed mild abdominal pain yesterday which has resolved today. Patient denies chest pain, shortness of breath, dizziness, headaches, acute vision changes, dysuria. Initial laboratory evaluation shows WBC 15.13, hemoglobin 8.4, sodium 134, potassium 4.5, BUN 17, creatinine 0.82, lactic acid 2.8, repeat lactic acid 4.1 and 1.3. Urinalysis shows mild urine WBC, mildly leukocyte Estrace and urine bacteria. CT abdomen pelvis shows findings highly concerning for discitis/osteomyelitis involving the T9-T10 disc level. Chronic appearing compression deformity of the L1 vertebral body. Mild splenomegaly. Hepatic steatosis. Advanced left hip osteoarthritic change. Venous Doppler study of lower extremities is negative for bilateral DVT EKG shows normal sinus rhythm with ventricular rate of 99 bpm, NH interval of 186 ms, QRS duration 109 ms, QTc 413 ms, left axis deviation, fairly normal R wave progression, nonspecific ST to T wave changes noted. Vital signs on arrival show temperature of 97.7 F, pulse rate of 114, respiratory rate of 20, blood pressure 100/60, oxygen saturation 90% on room air. In the ED: Severe sepsis protocol was initiated patient received a total 3 L of IV fluid bolus and 2 g of IV ceftriaxone once. 10/01/2024: Patient was seen and examined at the bedside. No acute events overnight. Patient received 2 units of PRBC yesterday. Hemoglobin this morning 7.6. No active bleeding. Patient continues to be on IV Rocephin and vancomycin for lower extremity cellulitis. MRI of the thoracic spine showed discitis/osteomyelitis complicated with paravertebral abscess at T9/T10. Orthop edic surgery has been consulted. Will consult IR for abscess drainage. Potassium was 3.2, will replace it with 60 mEq KCl orally. 10/02/2024 Patient is evaluated today in follow-up on the cardiac unit. He continues on IV Rocephin and IV vancomycin for the left lower extremity cellulitis additionally his MRI of the thoracic spine noted discitis and osteomyelitis with a paravertebral abscess. IR has been consulted for abscess drainage although will not see this patient until Thursday as it is the weekend. Orthopedic spinal was consulted they recommended no emergent surgical intervention at this time and recommending to continue IV antibiotics. They reveal a white blood cell count of 4.60, hemoglobin 7.3, sodium of 135, potassium 3.4, BUN of 10 creatinine 0.62. C. difficile was found to be negative. 10/03/2024 patient seen and examined at bedside. No acute events overnight. No new complaints. Labs today: WBC 4.09, hemoglobin 7.2, platelet count 1 21,000, sodium 136, potassium 3.3, chloride 111, BUN 6, creatinine 0.66, calcium 7 10/04/2024 patient seen and examined at bedside. No acute events overnight. CT- guided abscess drainage with pigtail cath placement done and was drained 10mL, was sent for analysis. Ortho recommends stabilization fusion washout of the thoracic spine as well as biopsy. Per RN, patient reported to refuse n.p.o. and surgery this morning. Upon evaluation, patient still does not want to have the procedure done. Labs: WBC 4.8, hemoglobin 7.9, platelet count 114,000, sodium 136, potassium 3.6, bicarb 19, creatinine 0.6, BUN 6, calcium 7, magnesium 1.6 10/05/2024 patient seen and examined at bedside. No acute events overnight. No new complaints or symptoms. Labs: WBC 4.3, hemoglobin 7.9, MCV 89.9, platelet count 1 21,000, sodium 135, potassium 3.3, chloride 108, BUN 6, creatinine 0.56, calcium 7.1, magnesium 1.7, glucose 82. Wound cultures show positive for unblocking and faecalis, Pseudomonas aeruginosa and beta-hemolytic strep group C. Stool culture negative, paravertebral fluid drainage negative for growth after 24 hours. 10/06/2024 patient seen and examined at bedside. No acute events overnight. Patient has declined surgery for the second time at Ortho has signed off. Recommended brace for his back. Per patient, he reported that he did not want to surgery during time of evaluation. Reiterated the risk and benefits of the surgery but patient has declined. Labs: WBC 4.97, hemoglobin 7.7, platelet count 1 23,000, sodium 133, potassium 3.3, bicarb 21, BUN 7, creatinine 0.88, calcium 7.2, magnesium 1.9 10/07/2024 patient seen and examined at bedside. No acute events overnight. Patient mentions that they are agreeable to surgery at this time per patient and his . Labs: WBC 4.9, hemoglobin 7.5, platelet count 1 27,000, sodium 133, potassium 3.4, chloride 105, bicarb 21, creatinine 0.57, BUN 8, calcium 7.2. Paravertebral aspirate positive for pseudomonas. 10/08/2024 patient seen and examined at bedside. No acute events overnight. No new complaints. Patient still agreeable to surgery. Labs: WBC 4.5, hemoglobin 7.2, sodium 133, potassium 3.3, chloride 105, bicarb 22, BUN 9, creatinine 0.64, calcium 7.3, glucose 71 10/09/2024 Patient is resting in bed. Awake alert and oriented. No complaints of chest pain or shortness of breath. Back pain is controlled. Orthopedic surgery is planning OR on 10/11/2024. Patient has been afebrile. Currently on IV antibiotics in the form of vancomycin and cefepime. Laboratory data showed WBC 4.2 hemoglobin 7.3 MCV 90.7 and platelets 106 sodium 133 potassium 3.4 which is replaced, chloride 105 bicarb is 23 BUN 9 and creatinine 0.66 and blood sugar 70 and calcium 7.2. 10/10/2024 patient seen and examined at bedside. No acute complaints overnight. No new complaints. Labs: WBC 3.4, hemoglobin 7.2, platelet count 111, 000, sodium 133, potassium 3.5, bicarb 22, BUN 9, creatinine 0.58, calcium 7.4 10/11/2024 patient seen and examined at bedside. No acute events overnight. No new complaints. For surgery today. Labs: WBC 3.96, hemoglobin 7.4, platelet count 103,000, sodium 133, potassium 3.4, bicarb 21, BUN 8, creatinine 0.53, calcium 7.5 10/12/2024 patient seen and examined at bedside. Patient had corpectomy and evacuation of phlegmon, complete neural decompression and antibiotics spacer placement with cage to T9-10. POD 1 Labs: WBC 8.7, hemoglobin 7, MCV 90.6, platelet count 105,000, sodium 134, potassium 3.7, bicarb 19, BUN 13, creatinine 0.68, calcium 7.9 Imaging; CT thoracic spine without contrast showed surgical changes noted above from procedure and no new fractures or malalignment 10/13/2024 patient seen and examined at bedside. No acute events overnight. POD2. Patient was reported to have resistance to care including receiving pain medication per RN report. Per social services, Declines rehab despite discussion of risk and benefits and does not seem to have good judgement of overall clinical state. Labs: WBC 5.7, hemoglobin 6.2, MCV 90.2, platelet count 84,000, sodium 133, potassium 3.3, chloride 100, bicarb 21, BUN 18, creatinine 0.68, calcium 7.7, glucose 92 10/14/2024 patient seen and examined at bedside. No acute events overnight. POD 3. Psychiatry evaluated patient and they do not have decision-making capacity at this time. APS referral done by social work Labs: WBC 5.3, hemoglobin 7, MCV 89.8, platelet count 75,000, sodium 136, potassium 2.8, bicarb 20, BUN 20, creatinine 0.67, magnesium 1.8, calcium 7.6 10/15/2024 patient seen and examined at bedside. No acute events overnight. POD 4. No new complaints or symptoms. Reported having pain but does not want pain medication. Labs: WBC 5.6, hemoglobin 7.4, MCV 90.6, sodium 137, potassium 3.4, chloride 109, bicarb 19, BUN 22, creatinine 0.7, glucose 91, calcium 7.6 Review of systems: Pertinent positives and negatives as discussed in HPI, a complete review of systems was performed and all other systems are negative. Physical examination: Vital signs reviewed General: non toxic, no distress, appears at stated age Derm: no unusual rashes/lesions, warm Head: atraumatic, normocephalic, symmetric Eyes: EOMI, anicteric sclera, pupils equal round reactive to light ENT: Nose and ears atraumatic Neck: No cervical lymphadenopathy, trachea midline, supple Mouth: no lip lesion, mucus membranes moist Cardiovascular: S1S2 reg, no murmur Lungs: CTA bilateral, no rhonchi, no rales, no accessory muscle use Abdominal: soft, nontender to palpation, no guarding Ext: muscle strength 5 out of 5 in all 4 extremities grossly, no gross muscle atrophy, no contractures, positive dorsalis pedis pulse bilateral, bilateral +1 pitting edema with erythema, bilateral lower extremity wounds bandaged dry and clean dressings, dressing on lower back noted clean and dry with no erythema Neuro: CN II-XI grossly intact, no gross focal neuro deficits Psych: Alert and oriented x3, appropriate affect and mood Assessment/Plan: #. Severe sepsis secondary to bilateral lower extremity cellulitis, improving #. 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 Diarrhea, C. difficile ruled out #. Leukocytosis secondary to above, improved Continue with Cefepime IVPB every 8 hours, metronidazole 500 mg p.o. 3 times daily and IV vancomycin dosed per pharmacy Wound culture positive for pansensitive pseudomonas and beta hemolytic strep C CT-guided abcess drainage aspirate positive for pseudomonas. Infectious disease and wound care on board, appreciate recs. PICC line ordered and placed Ortho consulted. Patient is s/p corpectomy and evacuation of phlegmon, complete neural decompression and antibiotics spacer placement with cage. Biopsy and cytology pending Consult psych for cognitive evaluation. Psychiatry evaluated patient and they do not have decision-making capacity at this time. APS referral done by social work. Plan for emergency guardianship on 10/17 #. Anemia of chronic disease s/p transfusion 3u pRBC Hemoglobin 7.4 today Transfuse with packed RBC if hemoglobin is less than 7 Continue monitor CBC #. Hypokalemia Potassium 3.4 On potassium replacement protocol mag 1.8 #. Compression deformity of the L1 #. Chronic low back pain Back brace ordered by ortho Consult PT/OT Acetaminophen as needed for pain DVT prophylaxis: Lovenox 40 mg subcu daily GI prophylaxis: PO Protonix 40 mg once daily CODE STATUS: Full code Discussed with: Patient Anticipated discharge place: Pending clinical course Lena Self MD PGY-1/Tax Expert Dictation was produced using [facility] dictation software. please excuse any grammatical, word or spelling errors. Attestation: I have seen and examined this patient with my resident, assessment and plan discussed with the resident, agree with assessment and plan as written above. Dr. Whittaker Objective - Vital Signs Vital signs: Vital Signs Temp 97.6 F 10/15/24 01:48 Pulse 74 10/15/24 01:48 Resp 16 10/15/24 01:48 BP 117/69 10/15/24 01:48 Pulse Ox 95 10/15/24 01:48 FiO2 21 10/03/24 07:56 Intake & Output 10/14/24 10/15/24 10/15/24 18:59 06:59 18:59 Intake Total 737 Balance 737 Intake: Oral 737 Other: Voiding Method Toilet # Voids 1 1 # Bowel Movements 1 - Labs CBC & Chem 7: 10/15/24 07:21 10/15/24 07:21
--- NOTE | 2024-10-15 19:57 | P.PN ---
Subjective Progress Note Date: 10/15/24 Principal diagnosis: Reason for follow-up is discitis/osteomyelitis Patient is a 74-year-old male with a past medical history significant for hypertension and did have a history of chronic nonhealing wound to bilateral lower extremity for the patient followed at [facility] care center has been sent to the ER from the wound care concerning for diarrhea patient workup which shows possibility of T9-10 discitis/osteomyelitis.Patient is status post T9-10 partial corpectomy evacuation of the phlegmon from disc base and epidural space along with posterior lateral interbody fusion bilateral laminectomy procedure completed on 10/11/2024 On today's evaluation that is 10/16/2023, patient did have a temperature of 98 F this morning and denies having any chills, patient is on room air and breathing comfortably no chest pain or cough, the patient did not have any naus ea vomiting abdominal pain or any diarrhea. Patient white count is 5.68 creatinine 0.70 Objective - Vital Signs Vital signs: Vital Signs Temp 97.9 F 10/15/24 14:00 Pulse 80 10/15/24 14:00 Resp 18 10/15/24 14:00 BP 147/71 10/15/24 14:00 Pulse Ox 95 10/15/24 14:00 FiO2 21 10/03/24 07:56 Intake & Output 10/14/24 10/15/24 10/15/24 18:59 06:59 18:59 Intake Total 737 Balance 737 Intake: Oral 737 Other: Voiding Method Toilet # Voids 1 1 # Bowel Movements 1 - Exam GENERAL DESCRIPTION: An elderly male lying in bed in no distress RESPIRATORY SYSTEM: Unlabored breathing , decreased breath sounds at bases HEART: S1 S2 regular rate and rhythm , ABDOMEN: Soft , no tenderness EXTREMITIES: Lower extremity currently dressed - Labs CBC & Chem 7: 10/15/24 07:21 10/15/24 07:21 Labs: Abnormal Lab Results - Last 24 Hours (Table) 10/15/24 10/15/24 Range/Units 07:21 07:21 RBC 2.65 L (4.40-5.60) 10*6/uL Hgb 7.4 L (13.0-17.0) g/dL Hct 24.0 L (39.6-50.0) % MCHC 30.8 L (32.0-37.0) g/dL RDW 17.7 H (11.5-14.5) % Plt Count 86 L (140-440) 10*3/uL Immature Gran # 0.06 H (0.00-0.04) 10*3/uL Lymphocytes # 0.50 L (0.90-5.00) 10*3/uL Potassium 3.4 L (3.5-5.1) mmol/L Chloride 109 H (98-107) mmol/L Carbon Dioxide 19 L (22-30) mmol/L BUN 22 H (9-20) mg/dL Calcium 7.6 L (8.4-10.2) mg/dL Microbiology - Last 24 Hours (Table) 10/11/24 12:35 Anaerobic Culture - Final Other - Other Assessment and Plan (1) Osteomyelitis of thoracic spine Current Visit: Yes Status: Acute Code(s): M46.24 - OSTEOMYELITIS OF VERTEBRA, THORACIC REGION SNOMED Code(s): 057489022 (2) Leukocytosis Current Visit: Yes Status: Acute Code(s): D72.829 - ELEVATED WHITE BLOOD CELL COUNT, UNSPECIFIED SNOMED Code(s): 397428752 (3) Bilateral lower leg cellulitis Current Visit: No Status: Acute Code(s): L03.116 - CELLULITIS OF LEFT LOWER LIMB; L03.115 - CELLULITIS OF RIGHT LOWER LIMB SNOMED Code(s): 181392201 Plan: 1patient with abnormal CT of abdominal pelvis with concern for T9-10 osteomyelitis and discitis in this patient presenting to the hospital mostly with weakness and diarrhea currently currently denies having any back pain or open wound and no history of any trauma and very unlikely presentation for thoracic spine osteomyelitis/discitis likely algorithm to cover will be gram- positive skin atrhur and less likely gram-negative pathogen also have evidence of bilateral lower extremity wound and cellulitis 2-patient did have MRI of the spine concerning for discitis/osteomyelitis and possible abscess Ortho has seen the patient recommending no surgical intervention, patient is status post IR aspiration of the thoracic spine and specimen has been sent for the culture 3-blood culture negative, local culture from the leg is growing multiple pa thogen including Pseudomonas strep and Alcaligenes faecalis, Finegoldia magna 4-patient CT-guided aspiration from the back is growing Pseudomonas aeruginosa 5patient is status post T9-10, partial corpectomy laminectomy and drainage of the abscess and interbody fusion completed on 10/11/2024 6-patient did have local culture done at the time of surgery which are so far negative 7patient is afebrile white count is normal. 8patient to continue vancomycin cefepime and Flagyl, patient is currently waiting for placement for outpatient IV antibiotic therapy Dictation was produced using [employer] dictation software. please excuse any grammatical, word or spelling errors. Time with Patient: Less than 30
[2024-10-16 03:50] LABS: Basophils # (A) 0.02 10*3/uL (0.00-0.10); Basophils % (A) 0.4 %; Eosinophils # (A) 0.05 10*3/uL (0.04-0.35); Eosinophils % (A) 1.1 %; HCT 22.4 % (39.6-50.0); Lymphocytes # (A) 0.48 10*3/uL (0.90-5.00); Lymphocytes % (A) 10.2 %; MCH 27.4 pg (27.0-32.0); MCHC 30.4 g/dL (32.0-37.0); MCV 90.3 fL (80.0-97.0); Mean Platelet Volume 11.7 fL (9.5-12.2); Monocytes # (A) 0.33 10*3/uL (0.20-1.00); Neutrophils # (A) 3.76 10*3/uL (1.80-7.70); Neutrophils % (A) 79.8 %; RBC 2.48 10*6/uL (4.40-5.60); RDW 17.5 % (11.5-14.5); WBC 4.71 10*3/uL (4.50-10.00)
[2024-10-16 04:11] LABS: African American GFR (CKD) >90 (>60 ml/min/1.73 sqM); Anion Gap 7 mmol/L; Blood Urea Nitrogen 20 mg/dL (9-20); Calcium 7.8 mg/dL (8.4-10.2); Carbon Dioxide 20 mmol/L (22-30); Chloride 108 mmol/L (98-107); Glucose 95 mg/dL (74-99); Non-African American GFR(CKD) >90 (>60 ml/min/1.73 sqM); Sodium 135 mmol/L (137-145)
[2024-10-16 04:35] LABS: Platelet Count 79 10*3/uL (140-440)
[2024-10-16 04:37] LABS: HGB 6.8 g/dL (13.0-17.0)
[2024-10-16] MEDS: POTASSIUM CHLORIDE ER 20 MEQ TAB.ER PO SCH (11:51)
--- NOTE | 2024-10-16 14:12 | P.PN ---
Subjective Progress Note Date: 10/16/24 Patient is a 74-year-old male with a history of chronic wound lesions of the legs presented to the ER with a complaint of diarrhea. Patient reports that he was at the wound care center for his chronic bilateral lower extremity wound lesions where he complained about diarrhea and he was advised to go to the ER for further evaluation. Patient reports that he has been endorsing diarrhea since 2 weeks and describes his stools as loose and bowel movements 3-4 times a day. He has been getting treatment for his bilateral lower chronic venous stasis cellulitis including antibiotics. He endorsed mild abdominal pain yesterday which has resolved today. Patient denies chest pain, shortness of breath, dizziness, headaches, acute vision changes, dysuria. Initial laboratory evaluation shows WBC 15.13, hemoglobin 8.4, sodium 134, potassium 4.5, BUN 17, creatinine 0.82, lactic acid 2.8, repeat lactic acid 4.1 and 1.3. Urinalysis shows mild urine WBC, mildly leukocyte Estrace and urine bacteria. CT abdomen pelvis shows findings highly concerning for discitis/osteomyelitis involving the T9-T10 disc level. Chronic appearing compression deformity of the L1 vertebral body. Mild splenomegaly. Hepatic steatosis. Advanced left hip osteoarthritic change. Venous Doppler study of lower extremities is negative for bilateral DVT EKG shows normal sinus rhythm with ventricular rate of 99 bpm, MA interval of 186 ms, QRS duration 109 ms, QTc 413 ms, left axis deviation, fairly normal R wave progression, nonspecific ST to T wave changes noted. Vital signs on arrival show temperature of 97.7 F, pulse rate of 114, respiratory rate of 20, blood pressure 100/60, oxygen saturation 90% on room air. In the ED: Severe sepsis protocol was initiated patient received a total 3 L of IV fluid bolus and 2 g of IV ceftriaxone once. 10/01/2024: Patient was seen and examined at the bedside. No acute events overnight. Patient received 2 units of PRBC yesterday. Hemoglobin this morning 7.6. No active bleeding. Patient continues to be on IV Rocephin and vancomycin for lower extremity cellulitis. MRI of the thoracic spine showed discitis/osteomyelitis complicated with paravertebral abscess at T9/T10. Orthopedic surgery has been consulted. Will consult IR for abscess drainage. Potassium was 3.2, will replace it with 60 mEq KCl orally. 10/02/2024 Patient is evaluated today in follow-up on the cardiac unit. He continues on IV Rocephin and IV vancomycin for the left lower extremity cellulitis additionally his MRI of the thoracic spine noted discitis and osteomyelitis with a paravertebral abscess. IR has been consulted for abscess drainage although will not see this patient until Thursday as it is the weekend. Orthopedic spinal was consulted they recommended no emergent surgical intervention at this time and recommending to continue IV antibiotics. They reveal a white blood cell count of 4.60, hemoglobin 7.3, sodium of 135, potassium 3.4, BUN of 10 creatinine 0.62. C. difficile was found to be negative. 10/03/2024 patient seen and examined at bedside. No acute events overnight. No new complaints. Labs today: WBC 4.09, hemoglobin 7.2, platelet count 1 21,000, sodium 136, potassium 3.3, chloride 111, BUN 6, creatinine 0.66, calcium 7 10/04/2024 patient seen and examined at bedside. No acute events overnight. CT- guided abscess drainage with pigtail cath placement done and was drained 10mL, was sent for analysis. Ortho recommends stabilization fusion washout of the thoracic spine as well as biopsy. Per RN, patient reported to refuse n.p.o. and surgery this morning. Upon evaluation, patient still does not want to have the procedure done. Labs: WBC 4.8, hemoglobin 7.9, platelet count 114,000, sodium 136, potassium 3.6, bicarb 19, creatinine 0.6, BUN 6, calcium 7, magnesium 1.6 10/05/2024 patient seen and examined at bedside. No acute events overnight. No new complaints or symptoms. Labs: WBC 4.3, hemoglobin 7.9, MCV 89.9, platelet count 1 21,000, sodium 135, potassium 3.3, chloride 108, BUN 6, creatinine 0.56, calcium 7.1, magnesium 1.7, glucose 82. Wound cultures show positive for unblocking and faecalis, Pseudomonas aeruginosa and beta-hemolytic strep group C. Stool culture negative, paravertebral fluid drainage negative for growth after 24 hours. 10/06/2024 patient seen and examined at bedside. No acute events overnight. Patient has declined surgery for the second time at Ortho has signed off. Recommended brace for his back. Per patient, he reported that he did not want to surgery during time of evaluation. Reiterated the risk and benefits of the surgery but patient has declined. Labs: WBC 4.97, hemoglobin 7.7, platelet count 1 23,000, sodium 133, potassium 3.3, bicarb 21, BUN 7, creatinine 0.88, calcium 7.2, magnesium 1.9 10/07/2024 patient seen and examined at bedside. No acute events overnight. Patient mentions that they are agreeable to surgery at this time per patient and his . Labs: WBC 4.9, hemoglobin 7.5, platelet count 1 27,000, sodium 133, potassium 3.4, chloride 105, bicarb 21, creatinine 0.57, BUN 8, calcium 7.2. Paravertebral aspirate positive for pseudomonas. 10/08/2024 patient seen and examined at bedside. No acute events overnight. No new complaints. Patient still agreeable to surgery. Labs: WBC 4.5, hemoglobin 7.2, sodium 133, potassium 3.3, chloride 105, bicarb 22, BUN 9, creatinine 0.64, calcium 7.3, glucose 71 10/09/2024 Patient is resting in bed. Awake alert and oriented. No complaints of chest pain or shortness of breath. Back pain is controlled. Orthopedic surgery is planning OR on 10/11/2024. Patient has been afebrile. Currently on IV antibiotics in the form of vancomycin and cefepime. Laboratory data showed WBC 4.2 hemoglobin 7.3 MCV 90.7 and platelets 106 sodium 133 potassium 3.4 which is replaced, chloride 105 bicarb is 23 BUN 9 and creatinine 0.66 and blood sugar 70 and calcium 7.2. 10/10/2024 patient seen and examined at bedside. No acute complaints overnight. No new complaints. Labs: WBC 3.4, hemoglobin 7.2, platelet count 111, 000, sodium 133, potassium 3.5, bicarb 22, BUN 9, creatinine 0.58, calcium 7.4 10/11/2024 patient seen and examined at bedside. No acute events overnight. No new complaints. For surgery today. Labs: WBC 3.96, hemoglobin 7.4, platelet count 103,000, sodium 133, potassium 3.4, bicarb 21, BUN 8, creatinine 0.53, calcium 7.5 10/12/2024 patient seen and examined at bedside. Patient had corpectomy and evacuation of phlegmon, complete neural decompression and antibiotics spacer placement with cage to T9-10. POD 1 Labs: WBC 8.7, hemoglobin 7, MCV 90.6, platelet count 105,000, sodium 134, potassium 3.7, bicarb 19, BUN 13, creatinine 0.68, calcium 7.9 Imaging; CT thoracic spine without contrast showed surgical changes noted above from procedure and no new fractures or malalignment 10/13/2024 patient seen and examined at bedside. No acute events overnight. POD2. Patient was reported to have resistance to care including receiving pain medication per RN report. Per social sciences professor, Declines rehab despite discussion of risk and benefits and does not seem to have good judgement of overall clinical state. Labs: WBC 5.7, hemoglobin 6.2, MCV 90.2, platelet count 84,000, sodium 133, potassium 3.3, chloride 100, bicarb 21, BUN 18, creatinine 0.68, calcium 7.7, glucose 92 10/14/2024 patient seen and examined at bedside. No acute events overnight. POD 3. Psychiatry evaluated patient and they do not have decision-making capacity at this time. APS referral done by social work Labs: WBC 5.3, hemoglobin 7, MCV 89.8, platelet count 75,000, sodium 136, potassium 2.8, bicarb 20, BUN 20, creatinine 0.67, magnesium 1.8, calcium 7.6 10/15/2024 patient seen and examined at bedside. No acute events overnight. POD 4. No new complaints or symptoms. Reported having pain but does not want pain medication. Labs: WBC 5.6, hemoglobin 7.4, MCV 90.6, sodium 137, potassium 3.4, chloride 109, bicarb 19, BUN 22, creatinine 0.7, glucose 91, calcium 7.6 10/16/2024 Patient examined at bedside. He is postoperative day #5. There is an emergent guardianship hearing to be done tomorrow on October 17. He continues on IV cefepime as well as oral Flagyl IV vancomycin. His cultures show Pseudomonas aeruginosa. Hemoglobin was low today at 6.8 platelet count of 79 sodium of 135 potassium 3.0. Patient received 1 unit of packed red blood cells. He is confused. He does not seem to have much insight into his overall health condition. Assessment/Plan: #. Severe sepsis secondary to bilateral lower extremity cellulitis, improving #. 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 Diarrhea, C. difficile ruled out #. Leukocytosis secondary to above, improved Continue with Cefepime IVPB every 8 hours, metronidazole 500 mg p.o. 3 times daily and IV vancomycin dosed per pharmacy Wound culture positive for pansensitive pseudomonas and beta hemolytic strep C CT-guided abcess drainage aspirate positive for pseudomonas. Infectious disease and wound care on board, appreciate recs. PICC line ordered and placed Ortho consulted. Patient is s/p corpectomy and evacuation of phlegmon, complete neural decompression and antibiotics spacer placement with cage. Biopsy and cytology pending Consult psych for cognitive evaluation. Psychiatry evaluated patient and they do not have decision-making capacity at this time. APS referral done by social work. Plan for emergency guardianship on 10/17 #. Anemia of chronic disease s/p transfusion 4u pRBC Hemoglobin 6.8 today Transfuse with packed RBC if hemoglobin is less than 7 Continue monitor CBC Iron studies been completed patient will receive 1 unit of PRBCs today #. Hypokalemia Potassium 3.4 On potassium replacement protocol mag 1.8 #. Compression deformity of the L1 #. Chronic low back pain Back brace ordered by ortho Consult PT/OT Acetaminophen as needed for pain DVT prophylaxis: Lovenox 40 mg subcu daily GI prophylaxis: PO Protonix 40 mg once daily CODE STATUS: Full code Discussed with: Patient Anticipated discharge place: Pending clinical course Guardianship hearing tomorrow. Continue antibiotics per ID. Continue local wound care. Patient has Maury wrap's to his bilateral lower extremities. Monitor electrolytes and renal function. The impression and plan of care has been dictated by Nat Rees Nurse Practitioner as directed. Dr. Remedios MD I have performed a history and physical examination and medical decision making of this patient, discussed the same with the dictator, and agree with the dictators assessment and plan as written, documented as a scribe. Based on total visit time, I have performed more than 50% of this visit. Objective - Vital Signs Vital signs: Vital Signs Temp 97.6 F 10/16/24 09:39 Pulse 73 10/16/24 09:39 Resp 16 06/15/25 09:39 BP 116/73 10/16/24 09:39 Pulse Ox 96 10/16/24 09:39 FiO2 21 10/03/24 07:56 Intake & Output 10/15/24 10/16/24 10/16/24 18:59 06:59 18:59 Intake Total 0 310 Balance 0 310 Intake: Blood Product 0 310 Rc As-1 Unit 0 310 [id number] Other: Voiding Method Toilet # Voids 1 2 # Bowel Movements 0 - Labs CBC & Chem 7: 10/16/24 03:14 10/16/24 03:14 Labs: Abnormal Lab Results - Last 24 Hours (Table) 10/13/24 10/15/24 10/16/24 Range/Units 12:00 07:21 03:14 RBC 2.48 L (4.40-5.60) 10*6/uL Hgb 6.8 L* (13.0-17.0) g/dL Hct 22.4 L (39.6-50.0) % MCHC 30.4 L (32.0-37.0) g/dL RDW 17.5 H (11.5-14.5) % Plt Count 86 L 79 L (140-440) 10*3/uL Immature Gran # 0.07 H (0.00-0.04) 10*3/uL Lymphocytes # 0.50 L 0.48 L (0.90-5.00) 10*3/uL Sodium (137-145) mmol/L Potassium (3.5-5.1) mmol/L Chloride (98-107) mmol/L Carbon Dioxide (22-30) mmol/L Creatinine (0.66-1.25) mg/dL Calcium (8.4-10.2) mg/dL Crossmatch See Detail 10/16/24 Range/Units 03:14 RBC (4.40-5.60) 10*6/uL Hgb (13.0-17.0) g/dL Hct (39.6-50.0) % MCHC (32.0-37.0) g/dL RDW (11.5-14.5) % Plt Count (140-440) 10*3/uL Immature Gran # (0.00-0.04) 10*3/uL Lymphocytes # (0.90-5.00) 10*3/uL Sodium 135 L (137-145) mmol/L Potassium 3.0 L (3.5-5.1) mmol/L Chloride 108 H (98-107) mmol/L Carbon Dioxide 20 L (22-30) mmol/L Creatinine 0.62 L (0.66-1.25) mg/dL Calcium 7.8 L (8.4-10.2) mg/dL Crossmatch Microbiology - Last 24 Hours (Table) 10/11/24 12:35 Anaerobic Culture - Final Other - Other 10/11/24 12:35 Anaerobic Culture - Final Other - Other Assessment and Plan Time with Patient: Less than 30
[2024-10-16] MEDS: NYSTATIN 100,000UNIT/GM CREAM 30 GM TUBE TOPICAL SCH (17:33)
[2024-10-17 04:41] LABS: African American GFR (CKD) >90 (>60 ml/min/1.73 sqM); Anion Gap 9 mmol/L; Blood Urea Nitrogen 21 mg/dL (9-20); Calcium 7.8 mg/dL (8.4-10.2); Carbon Dioxide 16 mmol/L (22-30); Chloride 111 mmol/L (98-107); Glucose 93 mg/dL (74-99); Magnesium 1.8 mg/dL (1.6-2.3); Non-African American GFR(CKD) >90 (>60 ml/min/1.73 sqM); Potassium 3.7 mmol/L (3.5-5.1); Sodium 136 mmol/L (137-145)
[2024-10-17 09:30] LABS: Basophils # (A) 0.02 X 10*3/uL (0.00-0.10); Basophils % (A) 0.4 %; Eosinophils # (A) 0.06 X 10*3/uL (0.04-0.35); Eosinophils % (A) 1.3 %; HCT 27.3 % (39.6-50.0); HGB 8.1 g/dL (13.0-17.0); Immature Platelet Fraction 4.9 % (1.1-6.1); Lymphocytes % (A) 10.5 %; MCH 27.2 pg (27.0-32.0); MCHC 29.7 g/dL (32.0-37.0); MCV 91.6 FL (80.0-97.0); Monocytes % (A) 8.4 %; NRBC Per 100 WBC 0.03 X 10*3/uL (0.00-0.01); Neutrophils # (A) 3.74 X 10*3/uL (1.80-7.70); Neutrophils % (A) 78.4 %; Platelet Count 62 X 10*3/uL (140-440); RBC 2.98 X 10*6/uL (4.40-5.60); RDW 17.4 % (11.5-14.5); WBC 4.77 X 10*3/uL (4.50-10.00)
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
[2024-10-18 01:22] VITALS: TEMP 97.6
[2024-10-18 04:57] LABS: Basophils # (A) 0.03 10*3/uL (0.00-0.10); Basophils % (A) 0.6 %; Eosinophils # (A) 0.13 10*3/uL (0.04-0.35); Eosinophils % (A) 2.7 %; HCT 24.9 % (39.6-50.0); HGB 7.9 g/dL (13.0-17.0); Lymphocytes # (A) 0.51 10*3/uL (0.90-5.00); Lymphocytes % (A) 10.5 %; MCH 28.1 pg (27.0-32.0); MCHC 31.7 g/dL (32.0-37.0); MCV 88.6 fL (80.0-97.0); Monocytes % (A) 8.2 %; Neutrophils # (A) 3.75 10*3/uL (1.80-7.70); Neutrophils % (A) 76.8 %; RBC 2.81 10*6/uL (4.40-5.60); RDW 17.1 % (11.5-14.5); WBC 4.88 10*3/uL (4.50-10.00)
[2024-10-18 05:01] LABS: African American GFR (CKD) >90 (>60 ml/min/1.73 sqM); Anion Gap 5 mmol/L; Blood Urea Nitrogen 22 mg/dL (9-20); Calcium 7.5 mg/dL (8.4-10.2); Carbon Dioxide 22 mmol/L (22-30); Chloride 108 mmol/L (98-107); Glucose 96 mg/dL (74-99); Non-African American GFR(CKD) >90 (>60 ml/min/1.73 sqM); Potassium 2.8 mmol/L (3.5-5.1); Sodium 135 mmol/L (137-145)
[2024-10-18 05:05] LABS: Platelet Count 65 10*3/uL (140-440)
[2024-10-18] MEDS ORDERED: Potassium Replacement Protocol 1 EACH MISC MISCELLANE PRN ×2 (08:51→09:00)
[2024-10-18] MEDS ORDERED: POTASSIUM CHLORIDE 20 MEQ in WATER FOR INJECTION 1 100ML.BAG IVPB SCH (09:00)
[2024-10-18] MEDS: POTASSIUM CHLORIDE ER 20 MEQ TAB.ER PO SCH (09:26)
[2024-10-18 11:20] VITALS: BP 138/74; PULSE 77; RESP 16
[2024-10-18] MEDS ORDERED: VANCOMYCIN TROUGH DUE 1 EACH MISC MISCELLANE ONE (12:00)
--- NOTE | 2024-10-18 13:46 | P.PN ---
Subjective Progress Note Date: 10/16/24 Principal diagnosis: Reason for follow-up is discitis/osteomyelitis Patient is a 74-year-old male with a past medical history significant for hypertension and did have a history of chronic nonhealing wound to bilateral lower extremity for the patient followed at [facility] wound care center has been sent to the ER from the wound care concerning for diarrhea patient workup which shows possibility of T9-10 discitis/osteomyelitis.Patient is status post T9-10 partial corpectomy evacuation of the phlegmon from disc base and epidural space along with posterior lateral interbody fusion bilateral laminectomy procedure completed on 10/11/2024 On today's evaluation that is 10/16/2024, patient has been afebrile, patient is breathing comfortably and is currently on room air, patient denies having any chest pain and cough, patient denies nausea vomiting or diarrhea and no a bdominal pain pain to the low back is currently controlled. Patient did have a white count of 4.71 creatinine 0.62 Objective - Vital Signs Vital signs: Vital Signs Temp 97.9 F 10/16/24 14:31 Pulse 87 10/16/24 14:31 Resp 18 10/16/24 14:31 BP 175/62 10/16/24 14:31 Pulse Ox 98 10/16/24 14:31 FiO2 21 10/03/24 07:56 Intake & Output 10/15/24 10/16/24 10/16/24 18:59 06:59 18:59 Intake Total 0 310 Balance 0 310 Intake: Blood Product 0 310 Rc As-1 Unit 0 310 [id number] Other: Voiding Method Toilet # Voids 1 2 # Bowel Movements 0 - Exam GENERAL DESCRIPTION: An elderly male lying in bed in no distress RESPIRATORY SYSTEM: Unlabored breathing , decreased breath sounds at bases HEART: S1 S2 regular rate and rhythm , ABDOMEN: Soft , no tenderness EXTREMITIES: Bilateral lower extremity superficial ulceration no redness or drainage The thoracic spine incision is currently stapled with no swelling there was minimal drainage on the dressing - Labs CBC & Chem 7: 10/18/24 03:31 10/18/24 03:31 Labs: Abnormal Lab Results - Last 24 Hours (Table) 10/13/24 10/16/24 10/16/24 Range/Units 12:00 03:14 03:14 RBC 2.48 L (4.40-5.60) 10*6/uL Hgb 6.8 L* (13.0-17.0) g/dL Hct 22.4 L (39.6-50.0) % MCHC 30.4 L (32.0-37.0) g/dL RDW 17.5 H (11.5-14.5) % Plt Count 79 L (140-440) 10*3/uL Immature Gran # 0.07 H (0.00-0.04) 10*3/uL Lymphocytes # 0.48 L (0.90-5.00) 10*3/uL Sodium 135 L (137-145) mmol/L Potassium 3.0 L (3.5-5.1) mmol/L Chloride 108 H (98-107) mmol/L Carbon Dioxide 20 L (22-30) mmol/L Creatinine 0.62 L (0.66-1.25) mg/dL Calcium 7.8 L (8.4-10.2) mg/dL Crossmatch See Detail Microbiology - Last 24 Hours (Table) 10/11/24 12:35 Anaerobic Culture - Final Other - Other 10/11/24 12:35 Anaerobic Culture - Final Other - Other Assessment and Plan (1) Osteomyelitis of thoracic spine Current Visit: Yes Status: Acute Code(s): M46.24 - OSTEOMYELITIS OF VERTEBRA, THORACIC REGION SNOMED Code(s): 807257360 (2) Leukocytosis Current Visit: Yes Status: Acute Code(s): D72.829 - ELEVATED WHITE BLOOD CELL COUNT, UNSPECIFIED SNOMED Code(s): 104105846 (3) Bilateral lower leg cellulitis Current Visit: No Status: Acute Code(s): L03.116 - CELLULITIS OF LEFT LOWER LIMB; L03.115 - CELLULITIS OF RIGHT LOWER LIMB SNOMED Code(s): 206746793 Plan: 1patient with abnormal CT of abdominal pelvis with concern for T9-10 osteomyelitis and discitis in this patient presenting to the hospital mostly with weakness and diarrhea currently currently denies having any back pain or open wound and no history of any trauma and very unlikely presentation for thoracic spine osteomyelitis/discitis likely algorithm to cover will be gram- positive skin arthur and less likely gram-negative pathogen also have evidence of bilateral lower extremity wound and cellulitis 2-patient did have MRI of the spine concerning for discitis/osteomyelitis and possible abscess Ortho has seen the patient recommending no surgical intervention, patient is status post IR aspiration of the thoracic spine and specimen has been sent for the culture 3-blood culture negative, local culture from the leg is growing multiple pathogen including Pseudomonas strep and Alcaligenes faecalis, Finegoldia magna 4-patient CT-guided aspiration from the back is growing Pseudomonas aeruginosa 5patient is status post T9-10, partial corpectomy laminectomy and drainage of the abscess and interbody fusion completed on 10/11/2024 6-patient did have local culture done at the time of surgery which are so far negative 7patient is afebrile white count is normal. Currently being treated with vancomycin cefepime and Flagyl, patient is currently waiting for placement for outpatient IV antibiotic therapy Dictation was produced using [employer] dictation software. please excuse any grammatical, word or spelling errors. Time with Patient: Less than 30
--- NOTE | 2024-10-18 13:48 | P.PN ---
Subjective Progress Note Date: 10/18/24 Principal diagnosis: Reason for follow-up is discitis/osteomyelitis Patient is a 74-year-old male with a past medical history significant for hypertension and did have a history of chronic nonhealing wound to bilateral lower extremity for the patient followed at [facility] wound care center has been sent to the ER from the wound care concerning for diarrhea patient workup which shows possibility of T9-10 discitis/osteomyelitis.Patient is status post T9-10 partial corpectomy evacuation of the phlegmon from disc base and epidural space along with posterior lateral interbody fusion bilateral laminectomy procedure completed on 10/11/2024 On today's evaluation that is 10/18/2024, the patient continues to be afebrile the patient is breathing comfortably on room air no chest pain shortness with or cough no abdominal pain or diarrhea pain to lower back is currently controlled. Patient did have a white count of 4.88 creatinine 0.65 Vanco trough is 26.4 Objective - Vital Signs Vital signs: Vital Signs Temp 97.6 F 10/18/24 07:56 Pulse 77 10/18/24 07:56 Resp 16 10/18/24 07:56 BP 138/74 10/18/24 07:56 Pulse Ox 94 L 10/18/24 07:56 FiO2 21 10/03/24 07:56 Intake & Output 10/17/24 10/18/24 10/18/24 18:59 06:59 18:59 Intake Total 440 Balance 440 Intake: Intake, IV Titration 200 Amount Cefepime 2 gm In Sodium 200 Chloride 0.9% 100 ml @ 25 mls/hr IVPB Q8HR [facility] Rx# :[id number] Oral 240 Other: Voiding Method Toilet # Voids 1 - Exam GENERAL DESCRIPTION: An elderly male lying in bed in no distress RESPIRATORY SYSTEM: Unlabored breathing , decreased breath sounds at bases HEART: S1 S2 regular rate and rhythm , ABDOMEN: Soft , no tenderness EXTREMITIES: Bilateral lower extremity currently wrapped with Maury wrap - Labs CBC & Chem 7: 10/18/24 03:31 10/18/24 03:31 Labs: Abnormal Lab Results - Last 24 Hours (Table) 10/18/24 10/18/24 Range/Units 03:31 03:31 RBC 2.81 L (4.40-5.60) 10*6/uL Hgb 7.9 L (13.0-17.0) g/dL Hct 24.9 L (39.6-50.0) % MCHC 31.7 L (32.0-37.0) g/dL RDW 17.1 H (11.5-14.5) % Plt Count 65 L (140-440) 10*3/uL Immature Gran # 0.06 H (0.00-0.04) 10*3/uL Lymphocytes # 0.51 L (0.90-5.00) 10*3/uL Sodium 135 L (137-145) mmol/L Potassium 2.8 L (3.5-5.1) mmol/L Chloride 108 H (98-107) mmol/L BUN 22 H (9-20) mg/dL Creatinine 0.65 L (0.66-1.25) mg/dL Calcium 7.5 L (8.4-10.2) mg/dL Assessment and Plan (1) Osteomyelitis of thoracic spine Current Visit: Yes Status: Acute Code(s): M46.24 - OSTEOMYELITIS OF VERTEBRA, THORACIC REGION SNOMED Code(s): 430441242 (2) Leukocytosis Current Visit: Yes Status: Acute Code(s): D72.829 - ELEVATED WHITE BLOOD CELL COUNT, UNSPECIFIED SNOMED Code(s): 726773376 (3) Bilateral lower leg cellulitis Current Visit: No Status: Acute Code(s): L03.116 - CELLULITIS OF LEFT LOWER LIMB; L03.115 - CELLULITIS OF RIGHT LOWER LIMB SNOMED Code(s): 933334865 Plan: 1patient with abnormal CT of abdominal pelvis with concern for T9-10 ost eomyelitis and discitis in this patient presenting to the hospital mostly with weakness and diarrhea currently currently denies having any back pain or open wound and no history of any trauma and very unlikely presentation for thoracic spine osteomyelitis/discitis likely algorithm to cover will be gram-positive skin arthur and less likely gram-negative pathogen also have evidence of bilateral lower extremity wound and cellulitis 2-patient did have MRI of the spine concerning for discitis/osteomyelitis and possible abscess Ortho has seen the patient recommending no surgical intervention, patient is status post IR aspiration of the thoracic spine and specimen has been sent for the culture 3-blood culture negative, local culture from the leg is growing multiple pathogen including Pseudomonas strep and Alcaligenes faecalis, Finegoldia magna 4-patient CT-guided aspiration from the back is growing Pseudomonas aeruginosa 5patient is status post T9-10, partial corpectomy laminectomy and drainage of the abscess and interbody fusion completed on 10/11/2024 6-patient did have local culture done at the time of surgery which are so far negative 7patient is afebrile white count is normal patient needs a total of 6 weeks of cefepime from his surgery that was done on 10/11/2024 and so recommend 5-week course of cefepime on discharge medication has been entered into discharge instruction along with weekly CRP and sed rate and close outpatient follow-up discussed with the resident physician Dictation was produced using [employer] dictation software. please excuse any grammatical, word or spelling errors. Time with Patient: Less than 30
--- NOTE | 2024-10-18 14:40 | P.DS ---
Providers Date of admission: 09/29/24 23:00 Attending physician: Herson Brandon Consults: 09/30/24 08:20 Consult Physician Urgent Consulting Provider: Kevin Flynn Consult Reason/Comments: ?vertebral osteomyelitis, sepsis, LE cellulitis Do you want consulting provider notified?: Yes 09/30/24 16:01 Consult Physician Urgent Consulting Provider: Miguelangel Ortiz Consult Reason/Comments: Paravertebral abscess, thoracic osteomyelitis Do you want consulting provider notified?: Yes 10/07/24 15:20 Consult Physician Routine Consulting Provider: Miguelangel Ortiz Consult Reason/Comments: paravertebral osteomyelitis, patient willing to go through surgery Do you want consulting provider notified?: Yes 10/13/24 14:20 Consult Physician Routine Consulting Provider: Psychiatry - [facility] Psychiatry Consult Reason/Comments: impaired judgement regarding clinical state Do you want consulting provider notified?: Already Contacted Primary care physician: Nelson Mckeon [facility] Course: Hospital Course: Patient is a 74-year-old male with a history of chronic wound lesions of the legs presented to the ER with a complaint of diarrhea. Patient reports that he was at the wound care center for his chronic bilateral lower extremity wound lesions where he complained about diarrhea and he was advised to go to the ER for further evaluation. Patient reports that he has been endorsing diarrhea since 2 weeks and describes his stools as loose and bowel movements 3-4 times a day. He has been getting treatment for his bilateral lower chronic venous stasis cellulitis including antibiotics. He endorsed mild abdominal pain yesterday which has resolved today. Patient denies chest pain, shortness of breath, dizziness, headaches, acute vision changes, dysuria. Initial laboratory evaluation shows WBC 15.13, hemoglobin 8.4, sodium 134, potassium 4.5, BUN 17, creatinine 0.82, lactic acid 2.8, repeat lactic acid 4.1 and 1.3. Urinalysis shows mild urine WBC, mildly leukocyte Estrace and urine bacteria. CT abdomen pelvis shows findings highly concerning for discitis/osteomyelitis involving the T9-T10 disc level. Chronic appearing compression deformity of the L1 vertebral body. Mild splenomegaly. Hepatic steatosis. Advanced left hip osteoarthritic change. Venous Doppler study of lower extremities is negative for bilateral DVT EKG shows normal sinus rhythm with ventricular rate of 99 bpm, NV interval of 186 ms, QRS duration 109 ms, QTc 413 ms, left axis deviation, fairly normal R wave progression, nonspecific ST to T wave changes noted. Vital signs on arrival show temperature of 97.7 F, pulse rate of 114, respiratory rate of 20, blood pressure 100/60, oxygen saturation 90% on room air. In the ED: Severe sepsis protocol was initiated patient received a total 3 L of IV fluid bolus and 2 g of IV ceftriaxone once. Patient was admitted for the evaluation of patient was admitted for the evaluation of severe sepsis secondary to bilateral lower extremities with suspected discitis and osteomyelitis involving the T9-T10. IV antibiotics, IV normal saline, blood culture, wound culture, wound care and MRI of the thoracic spine were ordered. PT OT consulted due to found compression deformity of the L1. Infectious disease consulted. MRI of the spine showed discitis and osteomyelitis complicated with paravertebral abscess and orthopedic surgery was consulted. IR was consulted for abscess drainage. Wound culture and CT-guided abcess drainage aspirate positive for pseudomonas. ID recommended IV cefepime on discharge and PICC line was placed. Ortho recommended washout surgery and initially patient declined surgery but reconsidered. Patient is status post corpectomy and evacuation of phlegmon, complete neural decompression and antibiotic spacer placement with a cage to the T9-10 and has been postop 6 days by discharge. Biopsy and cytology of L1 vertebral body and T9/10 disc space from procedure was positive for osteomyelitis. Patient was also resistant to care and need for rehab after procedure. Per social work, discussion of discharge plan was concerning regarding patient's insight and judgment regarding overall clinical status and psychiatry evaluation was done. Patient was deemed to have no decision-making capacity at this time and APS referral for guardianship was initiated. Referral for rehab and placement was continued. Patient also developed hypokalemia and was repleted and maintained on potassium replacement protocol. Patient also developed anemia during hospital stay and required 4 units of packed RBC transfusions but did not develop any new symptoms, bruising or bleeding post-op. Patient is cleared for discharge today to the [facility] on IV cefepime, [place] and acetaminophen for pain control. Patient is advised to follow-up with PCP, Ortho surgery and infectious disease on outpatient basis. Spinal procedure discharge and recovery instructions noted on discharge plan. Final Diagnosis: #. Severe sepsis secondary to bilateral lower extremity cellulitis, resolved #. 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 Diarrhea, C. difficile ruled out, resolved #. Leukocytosis secondary to above, resolved #. Anemia of chronic disease s/p transfusion 4u pRBC #. Hypokalemia #. Compression deformity of the L1 #. Chronic low back pain Physical examination: Vital signs reviewed General: non toxic, no distress, appears at stated age Derm: no unusual rashes/lesions, warm Head: atraumatic, normocephalic, symmetric Eyes: EOMI, anicteric sclera, pupils equal round reactive to light ENT: Nose and ears atraumatic Neck: No cervical lymphadenopathy, trachea midline, supple Mouth: no lip lesion, mucus membranes moist Cardiovascular: S1S2 reg, no murmur Lungs: CTA bilateral, no rhonchi, no rales, no accessory muscle use Abdominal: soft, nontender to palpation, no guarding Ext: muscle strength 5 out of 5 in all 4 extremities grossly, no gross muscle atrophy, no contractures, positive dorsalis pedis pulse bilateral, bilateral +1 pitting edema with erythema, bilateral lower extremity wounds bandaged dry and clean dressings, dressing on lower back noted clean and dry with no erythema Neuro: CN II-XI grossly intact, no gross focal neuro deficits Psych: Alert and oriented x3, appropriate affect and mood Attestation: I have seen and examined this patient with my resident, assessment and plan discussed with the resident, agree with assessment and plan as written above. Dr. Whittaker Patient Condition at Discharge: Stable Plan - Discharge Summary Discharge Rx Participant: Yes New Discharge Prescriptions: New HYDROcodone/APAP 7.5-325MG [[place] 7.5-325] 1 each PO Q6HR PRN #20 tab PRN Reason: Pain 7-10 Cefepime [Maxipime] 2 gm IVPB Q8H #105 each Acetaminophen Tab [Tylenol] 650 mg PO Q4HR PRN #20 tab PRN Reason: Fever and/ or Pain 1-3 Discharge Medication List Acetaminophen Tab [Tylenol] 650 mg PO Q4HR PRN #20 tab 10/18/24 [Rx] Cefepime [Maxipime] 2 gm IVPB Q8H #105 each 10/18/24 [Rx] HYDROcodone/APAP 7.5-325MG [[place] 7.5-325] 1 each PO Q6HR PRN #20 tab 10/18/24 [Rx] Follow up Appointment(s)/Referral(s): Nelson Mckeon MD [Primary Care Provider] - 1-2 days [facility]Infusion [NON-STAFF] - 1 Week Miguelangel Ortiz DO [Doctor of Osteopathic Medicine] - 2 Weeks Kevin Flynn MD [STAFF PHYSICIAN] - 1 Week Ambulatory/Diagnostic Orders: Basic Metabolic Panel [LAB.AMB] Location: None Selected C Reactive Protein [LAB.AMB] Location: None Selected Complete Blood Count w/diff [LAB.AMB] Location: None Selected Erythrocyte Sedimentation Rate [LAB.AMB] Location: None Selected Activity/Diet/Wound Care/Special Instructions: Spine Discharge and Recovery Instructions Date of Surgery: 10/11/2024 Diagnosis: T9-T10 osteomyelitis and L1 vertebral compression fracture Procedure: T9/T10 partial corpectomy, posterior lateral decompression and fusion, L1 kyphoplasty Medications: See medication list All medication refills should be obtained through your primary care doctor or your clinic spine surgeon. Please discuss prescription refills at your follow up appointment. Do not call the hospital for medication refills. Activity: Encourage ambulation with assist of walker, Up and about 6-8x daily PT/OT daily work on balance, strength and mobility Up in chair with all meals Shower daily Brace: Use brace when up and about, do not wear in bed or shower Dressing: Leave your dressing in place for a total of 3 days post operatively. Then you may remove your dressing and leave open to air. Keep the area clean and if not able to keep area clean, then cover with sterile gauze and tape. Showering: You may shower 3 days after your procedure allowing soap and water to run over incision. Do not scrub. Do not soak. Blot dry. Follow up: Please confirm a follow up appointment with your surgeon 2 weeks post operatively. Please make an appointment to follow up with your PCP in 1-2 weeks after surgery for evaluation '3 phase, 3-week plan' POST OP WEEKS 1-3 1. Lifting/carrying/pushing/pulling limited to less than 5 pounds. 2. Do not sit for longer than 15 minutes at one time. Get up and walk around. Prolonged sitting is NOT advised. If you lay down, see if you can tolerate laying down on you front (belly side) 3. Walk for periods of 15 minutes = 1 mile but no longer; do it multiple times times each day. 4. Ice your low back after activity. POST OP WEEKS 3-6 1. Lifting limited to less than 20 pounds. 2. Do not sit for longer than 30 minutes at a time. Frequently change positions. Use a sit-to stand workstation or take frequent breaks from sitting if you have returned to work. 3. Walk for 30 minutes each day. If possible, do these three or more times a day POST OP WEEKS 6+ At your 6-week appointment we will give you a physical therapy referral to focus on a core stabilization and strengthening program. You should also work on leg & buttock strengthening, hamstring & quadriceps stretching, and continue a low impact aerobic activity program such as swimming, walking, or riding a stationary bicycle. During the initial 6 weeks after your surgery, you are at the highest risk of re-injuring your spine. You should generally avoid BLT's (bending, lifting and twisting combination motions) and follow the above guidelines to reduce the chance of reinjury. You can anticipate post op appointments in our office at approximately 3 weeks and 6 weeks after your surgery. INCISION CARE: If your incision is not draining you do NOT need to cover it with a dressing. Keep your incision clean, dry and intact. In most cases, we apply skin glue, aundrea or sutures to the incision at the time of surgery. This will be like a crust or have the appearance of a scab and will fall off in time on its own. The stitches or aundrea need to be removed at 3 weeks post op appointment. You may begin to shower 3 days after surgery (this allows the glue to valladares well). However, please avoid scrubbing the incision site or peeling off any of the skin glue. This will ensure optimal healing of your incision. Also, during this time avoid soaking the incision area in water - this includes swimming pools, hot tubs or baths. No ointments, lotions or oils on the incision until your surgeon allows. Leave aundrea, sutures or glue in place. Neurological dysfunction that comes on suddenly can also be a sign of a stroke. Below some common symptoms of a stroke are listed: B - balance difficulty such as sudden onset walking or leaning to one side - NEW E - eye problem such as sudden double vision or trouble seeing on one side - NEW F - Facial weakness or numbness on one side - NEW A - Arm or leg weakness or numbness on one side - NEW S - Slurred speech or difficulty with word finding - NEW T - Time is BRAIN! Call 911 as soon as you recognize these symptoms Diet: Consume a regular diet rich in vegetables and lean protein such as chicken or fish. You should consume in a ratio of approximately 20% fats|40% carbohydrates|40%protein. Vegetables, sweet potatoes, brown rice or quinoa are examples of good carbohydrates. Chips, white bread, cookies and sweets/sugar are examples of bad carbohydrates. Limit your bad carbs, go wild with good carbs. "Life's Simple 7" Guidelines as per [place] [employer] These will help you reclaim your life after surgery and refrigeration mechanic helper in your recovery, keeping in mind your restrictions. (1) Get Active. Physical activity can help people lose weight, control high blood pressure and cholesterol, feel emotionally better, and sleep better. (2) Control Cholesterol. Avoid a diet high in saturated fat, trans fat, & cholesterol. Limit whole milk & cream, ice cream, butter, egg yolks, processed meats (like sausage and hot dogs), and fatty meats. Choose healthy foods that are low in saturated fat, trans fat and cholesterol which include: Fruits and vegetables, fiber rich grain products (like whole grain pasta and brown rice), lean meat such as chicken, fish, nuts, seeds, and legumes. (3) Eat Better. Eat small portions. Shop at the grocery with a list and do not stray from it. Tips for a healthy diet include: Limit sodium intake to less than 1500mg daily, avoid prepackaged, processed, and fast foods, choose a diet rich in fruits, vegetables, and whole grain, high fiber foods, and limit saturated & cholesterol in your diet. (4) Manage Blood Pressure. If you have high blood pressure, you should have a cuff at home so that you can check your blood pressure regularly. Be sure you have a good cuff. An arm one is generally better than a wrist one. Bring the cuff to a doctor's appointment to validate that the measurements that your cuff are taking are accurate. Take your blood pressure twice daily when you are sitting down and relaxing. Record the numbers in a log and bring this log with you to your doctors' appointments. (5) Lose Weight if your BMI is above 25. A healthy BMI is between 19-25. To calculate Your BMI, you may use a Standard BMI Calculator on the NIH BMI website: <www.nhlbi.nih.gov/guidelines/obesity/BMI/bmicalc.htm>. Weigh oneself daily. If you are overweight, set a goal to lose weight. A pound a week loss if needed is a good target. (6) Reduce Blood Sugar. Limit foods and liquids with "added sugars." (Added sugars include sucrose, fructose, glucose, maltose, dextrose, high fructose corn syrup, corn syrup, concentrated fruit juice and honey). (7) Stop Smoking. If you smoke, quitting smoking is one of the best things that you can do for your health. Smoking increases your risk of heart attack, stroke, and peripheral vascular disease, which is a build-up of plaque in your arteries. Please discard all the cigarettes and lighters in your house. Have a plan for what you will do when you have the urge to smoke. Direct and second- hand smoke shortens your life as well as the lives of your family, friends and others around you. For your health and the health of those around you, please consider quitting! Proper Bending Body Mechanics: Maintain a wide stance with one foot slightly in front of the other. Keep your back straight. Bend utilizing the strength in your hips and knees. Do not bend at the waist. Maintain the lifted object at your waist-level close to your body. Avoid lifting weight that causes immediately pain or pain anywhere in the body afterwards. Smoking/Nicotine If there was ever one thing that you could do to increase your overall health, decrease your risk of cardiovascular problems by about 39% the second you make the choice, it is to STOP SMOKING. Your body's most instant gratification is the second you stop smoking. We have all heard the studies, read the articles but it is true, smoking is extremely bad for your overall health, and moreover it is detrimental to your bone health. Nicotine, IN ANY FORM, kills bone cells, prevents your body from healing fractures, and significantly prolongs healing after surgery. In spine surgery specifically, it increases your risk of not healing your bones to create a fusion and increases your risk of having a revision surgery due to this up to 60%. I know it is hard. I know it feels impossible. But there are ways. Take control of your life. We are here to help you through it. And when you are ready, ask us and we can direct you to help if you desire. Use the START Plan to Quit Smoking (please visit the [employer] website listed below for more information): S = Set a quit date. Choose a date within the next 2 weeks, so you have enough time to prepare without losing your motivation to quit. If you mainly smoke at work, quit on the weekend, so you have a few days to adjust to the change. T = Tell family, friends, and co-workers that you plan to quit. Let your friends and family in on your plan to quit smoking and tell them you need their support and encouragement to stop. Look for a quit ajylin who wants to stop smoking as well. You can help each other get through the rough times. A = Anticipate and plan for the challenges you'll face while quitting. Most people who begin smoking again do so within the first 3 months. You can help yourself make it through by preparing ahead for common challenges, such as nicotine withdrawal and cigarette cravings. R = Remove cigarettes and other tobacco products from your home, car, and work. Throw away all your cigarettes (no emergency pack!), lighters, ashtrays, and matches. Wash your clothes and freshen up anything that smells like smoke. Shamp oo your car, clean your drapes and carpet, and steam your furniture. T = Talk to your doctor about getting help to quit. Your doctor can prescribe medication to help with withdrawal and suggest other alternatives. If you can't see a doctor, you can get many products over the counter at your local pharmacy or grocery store, including the nicotine patch, nicotine lozenges, and nicotine gum. Resources for Quitting Smoking: <https://www.[place].gov/documents/[facility]/Quit_Tobacco_Resources_for_patients_313 480_7.pdf> Supplementation: Take recommended dosages of Vitamin D and Calcium to help fortify your bones and help them to heal. See your health maintenance packet for dosages and recommended levels. DVT/VTE prophylaxis: You will be given compression stockings from the hospital. Wear these daily for the first two weeks after surgery. You may take them off at night. You may be prescribed a medication to help thin your blood. Take this as directed. If you are not prescribed this medication, early and frequent ambulation has been shown to be the best prophylaxis to deep vein thrombosis and sequelae related to this event. Discharge Disposition: TRANSFER TO SNF/ECF
--- NOTE | 2024-10-19 22:15 | CDI ---
Documentation Clarification Form Date: 10/19/2024 09:56:33 PM From: Jessica Rooney Phone: Admit Date: 09/29/2024 11:00:00 PM Patient Name: Paolo Berger Visit Number: [id number] Discharge Date: 10/18/2024 04:05:00 PM ATTENTION: The Clinical Documentation Specialists (CDI) and [facility] Coding Staff appreciate your assistance in clarifying documentation. Please respond to the clarification below the line at the bottom and electronically sign. The CDI & [facility] Coding staff will review the response and follow-up if needed. Please note: Queries are made part of the Legal Health Record. If you have any questions, please contact the author of this message via ITS. Doctor/Provider: Ra Whittaker There is documentation of a wound both lower legs withulcerationsbilaterally per Consult 10/05 and multiple Progress Notes. Additional specificity regarding the severity of the wound is requested. Patient history/risk factors: 74yo M, Severe sepsisd/t BLE cellulitis,discitis/osteomyelitis,paravertebral abscessinvolving the T9-T10, diarrhea, anemia of chronic disease, hypokalemia, compressiondeformityof the L1, CLBP, living in [place] Clinical Indicators: Extensiveerythemaon both legs extending below the knee to both feet with multiple areas ofdrainingpurulentulcersassociated with foul smell Wound assessment: The patient has redness and 2-3+edemaof BLE withulcerationsbilaterally, most prominent on the right especially posteriorly. He also has a 0.8 cmulceron the dorsum of his right great toe. Treatment: Consults: In the interest of simplicity I would utilize Opticell silver as topical on both his leg wounds and his toewound. I would utilize bulky gauze dressings on the foot to protect the toe and client hr manager gauze dressings up the legs. Theedema in both legsshould be aggressively treated with legelevation and gwjyzi-it-twjih Double 4 inch Maury wraps. There appears to be an issue in support in his current living situation. ECF care may be in his best interest until these wounds are resolved. We would be happy to follow this patient again inwoundcare following his discharge. Please clarify the etiology and severity of the wound: Left Leg Severity: [ ] Limited to breakdown of skin [ x] With fat layer exposed [ ] Other, Please specify [ ] Unable to determine Right Leg Severity: [ ] Limited to breakdown of skin [ x] With fat layer exposed [ ] Other, Please specify [ ] Unable to determine (Template Last Revised: July 2020) MTDD
--- NOTE | 2024-10-22 22:39 | P.PN ---
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 care center has been sent to the ER from the wound care concerning for diarrhea patient workup which shows possibility of T9-10 discitis/osteomyelitis.Patient is status post T9-10 partial corpectomy evacuation of the phlegmon from disc base and epidural space along with posterior lateral interbody fusion bilateral laminectomy procedure completed on 10/11/2024 On today's evaluation that is 10/17/2024, patient has been afebrile, patient is breathing comfortably and is currently on room air, patient denies having any chest pain and cough, patient denies nausea vomiting or diarrhea and no a bdominal pain. Patient white count is 4.77 creatinine 0.58 Objective - Vital Signs Vital signs: Vital Signs Temp 97.9 F 10/17/24 07:56 Pulse 73 10/17/24 07:56 Resp 16 10/17/24 07:56 BP 122/70 10/17/24 07:56 Pulse Ox 98 10/17/24 07:56 FiO2 21 10/03/24 07:56 Intake & Output 10/16/24 10/17/24 10/17/24 18:59 06:59 18:59 Intake Total 310 2400 240 Output Total 200 Balance 310 2200 240 Intake: Oral 2400 240 Blood Product 310 Rc As-1 Unit 310 [id number] Output: Urine 200 Other: Voiding Method Toilet # Voids 3 5 # Bowel Movements 1 - Exam GENERAL DESCRIPTION: An elderly male lying in bed in no distress RESPIRATORY SYSTEM: Unlabored breathing , decreased breath sounds at bases HEART: S1 S2 regular rate and rhythm , ABDOMEN: Soft , no tenderness EXTREMITIES: Bilateral lower extremity currently wrapped with Maury wrap - Labs CBC & Chem 7: 10/18/24 03:31 10/18/24 03:31 Labs: Abnormal Lab Results - Last 24 Hours (Table) 10/17/24 10/17/24 Range/Units 03:22 03:22 RBC 2.98 L (4.40-5.60) X 10*6/uL Hgb 8.1 L (13.0-17.0) g/dL Hct 27.3 L (39.6-50.0) % MCHC 29.7 L (32.0-37.0) g/dL RDW 17.4 H (11.5-14.5) % Plt Count 62 L (140-440) X 10*3/uL Immature Gran # 0.05 H (0.00-0.04) X 10*3/uL Lymphocytes # 0.50 L (0.90-5.00) X 10*3/uL NRBC/100 WBC Diff 0.03 H (0.00-0.01) X 10*3/uL Sodium 136 L (137-145) mmol/L Chloride 111 H (98-107) mmol/L Carbon Dioxide 16 L (22-30) mmol/L BUN 21 H (9-20) mg/dL Creatinine 0.58 L (0.66-1.25) mg/dL Calcium 7.8 L (8.4-10.2) mg/dL Assessment and Plan (1) Osteomyelitis of thoracic spine Current Visit: Yes Status: Acute Code(s): M46.24 - OSTEOMYELITIS OF VERTEBRA, THORACIC REGION SNOMED Code(s): 535094404 (2) Leukocytosis Current Visit: Yes Status: Acute Code(s): D72.829 - ELEVATED WHITE BLOOD CELL COUNT, UNSPECIFIED SNOMED Code(s): 619841213 (3) Bilateral lower leg cellulitis Current Visit: No Status: Acute Code(s): L03.116 - CELLULITIS OF LEFT LOWER LIMB; L03.115 - CELLULITIS OF RIGHT LOWER LIMB SNOMED Code(s): 389710974 Plan: 1patient with abnormal CT of abdominal pelvis with concern for T9-10 osteomyelitis and discitis in this patient presenting to the hospital mostly with weakness and diarrhea currently currently denies having any back pain or open wound and no history of any trauma and very unlikely presentation for thoracic spine osteomyelitis/discitis likely algorithm to cover will be gram- positive skin arthur and less likely gram-negative pathogen also have evidence of bilateral lower extremity wound and cellulitis 2-patient did have MRI of the spine concerning for discitis/osteomyelitis and possible abscess Ortho has seen the patient recommending no surgical intervention, patient is status post IR aspiration of the thoracic spine and spe cimen has been sent for the culture 3-blood culture negative, local culture from the leg is growing multiple pathogen including Pseudomonas strep and Alcaligenes faecalis, Finegoldia magna 4-patient CT-guided aspiration from the back is growing Pseudomonas aeruginosa 5patient is status post T9-10, partial corpectomy laminectomy and drainage of the abscess and interbody fusion completed on 10/11/2024 6-patient did have local culture done at the time of surgery which are so far negative 7patient is afebrile white count is normal. Patient will need only cefepime on discharge he did grew MRSA and ordered some lower extremity wound which are healed and Vanco can be discontinued Dictation was produced using [employer] software. please excuse any grammatical, word or spelling errors. Time with Patient: Less than 30
== END 2024-10-18 16:05 | DRG 853 ==
LOC: EC 14:19 → 3SCARD 23:00 → 4SSUR 10-05 22:50
PROVIDERS: ADMIT Hospitalist; ATTEND Hospitalist
PROC: 30233N1 Transfusion of Nonautologous Red Blood Cells into Peripheral Vein, Percutaneous Approach (ICD-10-PCS; 2024-09-30)
PROC: 01N80ZZ Release Thoracic Nerve, Open Approach (ICD-10-PCS; 2024-10-11)
PROC: 0QC00ZZ Extirpation of Matter from Lumbar Vertebra, Open Approach (ICD-10-PCS; 2024-10-11)
PROC: 0PB40ZZ Excision of Thoracic Vertebra, Open Approach (ICD-10-PCS; 2024-10-11)
PROC: XW0V0P7 Introduction of Gentamicin-eluting Bone Void Filler into Bones, Open Approach, New Technology Group 7 (ICD-10-PCS; 2024-10-11)
PROC: 8E0WXBZ Computer Assisted Procedure of Trunk Region (ICD-10-PCS; 2024-10-11)
PROC: 0RG60AJ Fusion of Thoracic Vertebral Joint with Interbody Fusion Device, Posterior Approach, Anterior Column, Open Approach (ICD-10-PCS; principal; 2024-10-11 07:30)
PROC: 02HV33Z Insertion of Infusion Device into Superior Vena Cava, Percutaneous Approach (ICD-10-PCS; 2024-10-12)
DX: A40.8 Other streptococcal sepsis (principal); G06.1 Intraspinal abscess and granuloma; R65.20 Severe sepsis without septic shock; A52.16 Charcot's arthropathy (tabetic); M46.26 Osteomyelitis of vertebra, lumbar region; L97.912 Non-pressure chronic ulcer of unspecified part of right lower leg with fat layer exposed; D63.8 Anemia in other chronic diseases classified elsewhere; K76.0 Fatty (change of) liver, not elsewhere classified; I73.9 Peripheral vascular disease, unspecified; L97.922 Non-pressure chronic ulcer of unspecified part of left lower leg with fat layer exposed; Z59.02 Unsheltered homelessness; M84.48XA Pathological fracture, other site, initial encounter for fracture; L03.115 Cellulitis of right lower limb; L03.116 Cellulitis of left lower limb; I83.009 Varicose veins of unspecified lower extremity with ulcer of unspecified site; M48.04 Spinal stenosis, thoracic region; B96.5 Pseudomonas (aeruginosa) (mallei) (pseudomallei) as the cause of diseases classified elsewhere; M53.2X4 Spinal instabilities, thoracic region; R16.1 Splenomegaly, not elsewhere classified; M16.12 Unilateral primary osteoarthritis, left hip; R19.7 Diarrhea, unspecified; E87.6 Hypokalemia; M85.88 Other specified disorders of bone density and structure, other site; I89.0 Lymphedema, not elsewhere classified; I87.8 Other specified disorders of veins; R41.89 Other symptoms and signs involving cognitive functions and awareness; W19.XXXA Unspecified fall, initial encounter; Z87.891 Personal history of nicotine dependence; Z74.01 Bed confinement status
CPT/HCPCS: 36415; 36573; 72070; 72128; 72157; 74176; 75989; 80048; 80053; 80202; 81001; 82565; 82728; 83036; 83540; 83550; 83605; 83735; 84132; 85025; 85027; 85045; 85610; 85652; 86140; 86850; 86900; 86901; 86920; 87040; 87045; 87046; 87070; 87075; 87077; 87186; 87205; 87324; 88307; 88311; 93005; 93970; 94760; 96361; 96365; 96366; 96367; 96368; 96372; 96375; 96376; 99285